=== PATIENT | male | born 1960 | race Caucasian/White ===

== ENCOUNTER 2023-03-14 15:23 | Outpatient (OUT) | payer MEDICARE, SELFPAY ==
--- NOTE | 2023-03-14 | XR_ITS ---
[address] [address] Patient Name: NOEMY PACKER MRN: [id number] date: 1960 Sex: M Assigned Patient Location: [facility] Current Patient Location: [facility] Accession/Order Number: [id number] Exam Date: 03/14/2023 14:10 Report Date: 03/14/2023 18:40 At the request of: KARLA BARNEY Procedure: XR foot AARTI min 3V EXAMINATION: XR foot AARTI min 3V, XR ankle AARTI min 3V HISTORY: BILATERAL FOOT [PAIN COMPARISON: No relevant comparison available. FINDINGS: RIGHT FINDINGS: BONES: Normal. No significant arthropathy or acute abnormality. SOFT TISSUES: Negative. No visible soft tissue swelling. OTHER: Negative. LEFT FINDINGS: BONES: Normal. No significant arthropathy or acute abnormality. SOFT TISSUES: Negative. No visible soft tissue swelling. OTHER: Negative. XR/XR foot AARTI min 3V IMPRESSION: RIGHT CONCLUSION: No acute abnormality LEFT CONCLUSION: No acute abnormality Electronically authenticated by: YARELI CONROY Date: 03/14/2023 18:40
--- NOTE | 2023-03-14 | XR_ITS ---
[address] [address] Patient Name: NOEMY PACKER MRN: [id number] date: 1960 Sex: M Assigned Patient Location: [facility] Current Patient Location: [facility] Accession/Order Number: [id number] Exam Date: 03/14/2023 14:10 Report Date: 03/14/2023 18:40 At the request of: KARLA BARNEY Procedure: XR ankle AARTI min 3V EXAMINATION: XR foot AARTI min 3V, XR ankle AARTI min 3V HISTORY: BILATERAL FOOT [PAIN COMPARISON: No relevant comparison available. FINDINGS: RIGHT FINDINGS: BONES: Normal. No significant arthropathy or acute abnormality. SOFT TISSUES: Negative. No visible soft tissue swelling. OTHER: Negative. LEFT FINDINGS: BONES: Normal. No significant arthropathy or acute abnormality. SOFT TISSUES: Negative. No visible soft tissue swelling. OTHER: Negative. XR/XR ankle AARTI min 3V IMPRESSION: RIGHT CONCLUSION: No acute abnormality LEFT CONCLUSION: No acute abnormality Electronically authenticated by: YARELI CONROY Date: 03/14/2023 18:40
== END 2023-03-14 15:24 | disposition home or self-care (01) ==
LOC: RAD 15:24
PROVIDERS: PCP Family Medicine; Visit Provider Podiatrist Foot & Ankle Surgery
DX: M79.671 Pain in right foot (principal); M79.672 Pain in left foot; M25.571 Pain in right ankle and joints of right foot; M25.572 Pain in left ankle and joints of left foot
CPT/HCPCS: 73610; 73630

== ENCOUNTER 2024-02-27 13:01 | Outpatient (OUT) | payer MEDICARE, SELFPAY ==
[2024-02-27 13:50] LABS: Basophils Percent Auto 0.7 % (0.2-2.0); Eosinophils Absolute Auto 0.1 10^3/uL (0.0-0.7); Eosinophils Percent Auto 1.2 % (0.9-7.0); Hematocrit 46.4 % (42.0-54.0); Hemoglobin 15.5 g/dL (14.0-18.0); Immature Granulocytes Abs Auto 0.02 10^3/uL (0.00-0.03); Immature Granulocytes Pct Auto 0.3 % (0.0-0.5); Lymphocytes Absolute Auto 1.4 10^3/uL (1.2-3.8); Lymphocytes Percent Auto 22.7 % (20.5-60.0); Mean Corpuscular HGB Conc 33.4 g/dL (29.9-35.2); Mean Corpuscular Hemoglobin 29.1 pg (25.9-34.0); Mean Corpuscular Volume 87.1 fL (80.0-94.0); Mean Platelet Volume 9.4 fL (9.5-13.5); Monocytes Absolute Auto 0.3 10^3/uL (0.3-0.8); Monocytes Percent Auto 5.1 % (1.7-12.0); Neutrophils Absolute Auto 4.2 10^3/uL (1.4-6.5); Platelet Count 292 10^3/uL (150-450); Red Blood Count 5.33 10^6/uL (4.70-6.10); Red Cell Distribution Width 12.9 % (11.0-15.0)
[2024-02-27 14:16] LABS: Alanine Aminotransferase 35 U/L (16-63); Albumin Globulin Ratio 0.9; Albumin Level 3.5 g/dL (3.4-5.0); Alkaline Phosphatase 92 U/L (46-116); Anion Gap 8.3; Aspartate Amino Transferase 28 U/L (15-37); BUN Creatinine Ratio 17.6; Bilirubin Total 0.5 mg/dL (0.2-1.0); Calcium 9.1 mg/dL (8.5-10.1); Carbon Dioxide 29.9 mmol/L (21.0-32.0); Chloride 104 mmol/L (98-107); Estimated GFR (African America >60 (>=60); Estimated GFR (Non-African Ame >60 (>=60); Globulin 3.7 g/dL; Glucose 98 mg/dL (74-106); Potassium 4.2 mmol/L (3.5-5.1); Sodium 138 mmol/L (136-145); Total Protein 7.2 g/dL (6.4-8.2)
[2024-02-28 05:10] LABS: HIV Ab/p24 Ag Screen Non Reactive (Non Reactive)
[2024-02-28 06:12] LABS: HBsAg Screen Negative (Negative); HCV Antibody Non Reactive (Non Reactive); Hep B Core Ab, Tot Negative (Negative); Hepatitis B Surf Ab Quant <3.5 mIU/mL (Immunity>10); Varicella-Zoster V Ab, IgG 996 index (Immune >165)
[2024-02-29 11:10] LABS: QuantiFERON-TB Gold Plus Negative (Negative)
== END 2024-02-27 13:02 | disposition home or self-care (01) ==
PROVIDERS: PCP Internal Medicine; Visit Provider Psychiatry & Neurology Neurology
DX: G35 Multiple sclerosis (principal)
CPT/HCPCS: 36415; 80053; 85025; 86317; 86480; 86704; 86787; 86803; 87340; 87389

== ENCOUNTER 2025-05-06 08:56 | Outpatient (OUT) | payer MEDICARE, SELFPAY ==
--- OUTSIDE RECORDS SUMMARY | 2025-04-27 05:24 | XMS_ITS | Continuity of Care Document ---
Author Organization [facility] Address [address] [place] [address] Phone Care Team Providers Care [employer] Maintainer Name Role Phone Bela Moreira DO Primary Care Provider Bela Moreira DO Attending Provider [phone] Care Teams Patient Care Team Team Status: Active Member Role/Relationship Status Dates Bela Moreira DO Primary Care Provider Active Patient Care Team Team Status: Inactive Member Role/Relationship Status Dates Bela Moreira DO Primary Care Provider Active S tart: April 27, 2025 End: April 27, 2025Bela Moreira DOAttending ProviderActiveStart: April 27, 2025 End: April 27, 2025 Chief Complaint and Reason for Visit Chief Complaint Admit Date new patient April 27, 2025 9:04am Reason for Visit Admit Date Multiple sclerosis April 27, 2025 9:04am Screening for prostate cancer April 182024 9:04am Wellness examination April 27, 2025 9:04am Allergies, Adverse Reactions, Alerts Allergen Type Severity Reaction Last Updated Verified Status penicillamine Allergy Unknown hives April 27, 2025 9:10am Yes Active Penicillins Allergy Unknown Hives April 27, 2025 9:10am Y es Active Social History Smoking Status Status Start Date End Date Date of Observa tion Ex-smoker (finding) April 27, 2025 9:14am Observation Status Observation Response Date of Response Legal Sex Male (finding) Sex Assigned At [facility] 1959 Family History Relationship Condition Age at Onset Recorded Date/T ronnie mother Malignant neoplasm of colon Unknown fatherMultiple myelomaUnknowngrandparentMalignant neoplasm of colonUnknownsister Adenocarcinoma of appendixUnknownbrotherPolyp of colonUnknownauntDiabetes mellitusUnknownbrotherDeceasedUnknownMuscular dystrophyUnknownfatherHeart diseaseUnknownMalignant neoplasmUnknownHypertensionUnknownDeceasedUnknown grandparentMalignant neoplasmUnknowngrandparentMalignant neoplasmUnknownmother DeceasedUnknownMalignant neoplasmUnknownFamily history of colon cancerUnknown siblingMalignant neoplasmUnknown Problems Active Problems Problem Diagnosis/Recorded Date Onset Date Status C omments Screening for prostate cancer April 27, 2025 10:03am Unknown Active Wellness examinationApril 27, 2025 10:02amUnknownActiveMultiple sclerosis April 23, 2025 2:41pmUnknownActiveInactive/Resolved Problems Problem Diagnosis/Recorded Date Onset Date Status C omments Left hydrocele March 01, 2021 12:28pm Unknown Res olved Problem List clean- up per request of Phys. EHR Cmte Medications Medication Status Dose Units Route Directions Qty Days Refills S tart Date Stop Date End Date Reason(s) Instructions Adherence Multivitamin Tablet Active 1 TAB PO Daily February 28, 2021 11:00pmComplies with drug therapyHydrocodone-Acetaminophen 5-325 mg rmepwcMceimwqultgg1FVLIFU3K as needed for Severe xefa054Ondieswvd 2024 9:10amLeft hydrocele Hydrocele, unspecifiedIbuprofen 200 mg btqofzYumvff880KKZKAhkfz 6 hours as neededApril 27, 2025 12:00amComplies with drug therapyCladribine(Multiple Sclerosis) ([employer] (10 Tablet Pack)) 10 mg kvanvnUfmoqb28UKAFJduazYyeiabpm 10th, 2025 12:00amadminister daily for 5 days for each of 2 cycles per yearly treatment courseComplies with drug therapy Immunizations Immunization Event Date Not Given Reason Dose Number Cross Roller Lot Number Reason(s) Given Vaccine Information Statement (VIS) Detail Administration Location Tetanus, Diphtheria, Pertussis (Tdap) April 012015 Vital Signs Vital Reading Result Reference Range Collection Date/Time Height 69 [in_i] April 27, 2025 9:25ncRqsatx22.21 kgApril 27, 2025 9:08amHeart Rate72 /qut20-932ViiboewwApril 27, 2025 9:08amRespiratory rate20 /thp44-17TsicszxbApril 27, 2025 9:08amOxygen saturation by Pulse nweoqziy53 %95-100April 27, 2025 9:08amBP Jmcsvpnj880 mm[Hg]100-140April 27, 2025 9:08amBP Fhxmuhwma66 mm[Hg]60-100April 27, 2025 9:08amBMI (Body Mass Index)23.1 kg/r3AspnzrkpApril 27, 2025 9:08am Advance Directives Advance Directive Response Recorded Date/ Time Advance Directives No February 5:52pm Insurance Providers Guarantor Espino[place] Address [address] [facility] [address]Hghkxdv Info.Home Phone: Coverage Status Update:2025 Payer Group Member ID Coverage Type Subscriber Relationship to Subscriber Effective Date Expiration Date Medicare [id number] A Humbert Id: [id number] [address] [facility] [address] Home Phone: Email: [email or web address] Id: [id number] A Humbert Id: [id number] [address] [facility] [address] Home Phone: Email: [email or web address] Encounter Location(s) Arrival/Admit Date Discharge/Departure Date Discharge/Departure Disposition Provider(s) Departed Physician/ Provider Office Visit -[facility] [place] April 27, 2025 9:04am April 27, 2025 10:11am Discharged to home care or self care (routine discharge) Bela Moreira DO Recent Diagnosis Onset Date Admit Date Multiple sclerosis Unknown April 9:04am Screening for prostate cancer Unknown No vember 2024 9:04am Wellness examination Unknown April 272024 9:04am Assessments Diagnosis Onset Date Resolution Status Admit Date Multiple sclerosis acuteApril 27, 2025 9:04amScreening for prostate canceracuteApril 27, 2025 9:04amWellness examinationacuteApril 27, 2025 9:04am Plan of Treatment Future Tests Future scheduled test information is unavailable Pending Tests Pending diagnostic test information is unavailable Future Visits Future appointment information is unavailable Future Procedures Procedure Name Ordered Date Scheduled Date Complete Blood Count Auto Diff April 27 10:03am CMP with reflex to H8SVbjozbhvApril 27, 2025 10:03amLipid PanelApril 27, 2025 10:03amPSA Screen (Yearly Only)April 27, 2025 10:03amThyroid Stimulating HormoneNov2024 10:03am Future Medications Future medication information is unavailable Patient Instructions Patient instructions are unavailable
--- OUTSIDE RECORDS SUMMARY | 2025-05-05 09:53 | XMS_ITS | CCD ---
Author Organization [facility] [place] Care Team Providers Care Accounts Receivable Bookkeeper Name Role Phone Filomena Albert Unavailable MORAN, DR FAUST Admitting Unavailable HOUSE, DR FAUST Attending Unavailable HOUSE, DR FAUST Primary Care Unavailable HOUSE, DR FAUST Consulting Unavailable NAY, LAURYN Admitting Unavailable NAY, LAURYN Attending Unavailable HOUSE, DR FAUST Primary Care Unavailable ZIEBER, DR LEONIDAS Reece Consulting Unavailable NAY, LAURYN Consulting Unavailable HOUSE, DR FAUST Admitting Unavailable HOUSE, DR FAUST Attending Unavailable HOUSE, DR FAUST Primary Care Unavailable HOUSE, DR FAUST Consulting Unavailable HOUSE, DR FAUST Admitting Unavailable HOUSE, DR FAUST Attending Unavailable HOUSE, DR FAUST Primary Care Unavailable HOUSE, DR FAUST Consulting Unavailable Hernnadez, Wincha Consulting Unavailable FLOM ROANN Referring Unavailable FLOMANIBALANN Attending Unavailable TAMIE GÓMEZ Primary Care Unavailable Yecenia Vazquez MD Primary Care Provider [phone] YECENIA VAZQUEZ Referring Unavailable YECENIA VAZQUEZ Primary Care Unavailable YECENIA VAZQUEZ Referring Unavailable YECENIA VAZQUEZ Primary Care Unavailable Leonidas Charles MD Unavailable Pedro STRADDLE BUGGY OPERATOR-Tamie CAMPOVERDE Primary Care Provider Yecenia Vazquez DO Primary Care Provider [phone] YECENIA VAZQUEZ Attending Unavailable TAMIE GÓMEZ Referring Unavailable YECENIA VAZQUEZ Primary Care Unavailable YECENIA VAZQUEZ Attending Unavailable YCEENIA VAZQUEZ Referring Unavailable YECENIA VAZQUEZ Primary Care Unavailable LOGAN DUNBAR Attending Unavailable YECENIA VAZQUEZ Referring Unavailable YECENIA VAZQUEZ Primary Care Unavailable YECENIA VAZQUEZ Attending Unavailable YECENIA VAZQUEZ Referring Unavailable YUYECENIA ARAGON Primary Care Unavailable YECENIA VAZQUEZ Referring Unavailable YECENIA VAZQUEZ Primary Care Unavailable YUHAS, YECENIA L Attending Unavailable YUHAS, YECENIA L Referring Unavailable YUHAS, YECENIA L Primary Care Unavailable Yuhas DO, Yecenia Rita Primary Care Provider Yecenia Vazquez MD Primary Care Provider [phone] Leonidas Charles MD Unavailable Unavailable Leonidas Charles MD Unavailable ALYCIA NIX Attending Unavailable SPENCER JUDGE Attending Unavailable SOLOMON, LUCIAN W Attending Unavailable SOLOMON, LUCIAN W Referring Unavailable SOLOMON, LUCIAN W Attending Unavailable SOLOMON, LUCIAN W Attending Unavailable MARITZA ARZOLA Attending Unavailable SOLOMON, LUCIAN W Referring Unavailable KELBLEY, KELSIE Attending Unavailable SOLOMON, LUCIAN W Referring Unavailable KELBLEY, KELSIE Attending Unavailable SOLOMON, LUCIAN W Referring Unavailable KELBLEY, KELSIE Attending Unavailable SOLOMON, LUCIAN W Referring Unavailable VANNESA MENSAH Attending Unavailable LEONIDAS CHARLES Referring Unavailable LAURYN ALICIA Attending Unavailable ALYCIA NIX Attending Unavailable YUHAS, YECENIA L Referring Unavailable YUHAS, YECENIA L Primary Care Unavailable YUHAS, YECENIA L Referring Unavailable YUHAS, YECENIA L Primary Care Unavailable YUHAS, YECENIA L Admitting Unavailable YUHAS, YECENIA L Attending Unavailable YUHAS, YECENIA L Referring Unavailable YUHAS, YECENIA L Primary Care Unavailable YUHAS, YECENIA L Primary Care Unavailable IGNACIA HATCH Attending Unavailable Bela Moreira DO Primary Care Provider Bela Moreira DO Attending Provider Allergies Allergy ClassificationReported Allergen(s)Allergy TypeDate of OnsetReaction(s) Facility (2 sources)penicillAMINEDrug Yjnxjem29-58-2482wrdjbUfeihehfkProMedica [facility] (2 sources)Penicillin; Translations: [penicillin]Drug Takbxrf08-14-8212UlplzCoq [facility] (1 source)Soy beanPropensity to adverse reactionsUnkCox North AcceloWeb Other (1 source)Cow's MilkPropensity to adverse reactionsUnkCox North AcceloWeb Other (20 sources)Penicillins; Translations: [PENICILLINS]Propensity to adverse qixnkpzck73-89-2295XbcnzKICA Healthcare (14 sources)PenicillinsPropensity to adverse reactions to fwuu13-30-0234XulyuFormerly [facility] Work Phone: (1 source)PenicillinsPropensity to adverse reactions to kidf58-20-7783OeqmcCentra [facility] Work Phone: Medications Current Medications MedicationDrug Class(es)DatesSig (Normalized)Sig (Original)[id number] 200 actuat albuterol 0.09 mg/actuat metered dose inhaler (1 source)beta2-Adrenergic AgonistStart: 27-71-8858hfrl 2 puff(s) by inhalation four times daily as neededAlbuterol Sulfate HFA 108 (90 Base) MCG/ACT 2 puffs Inhalation 4 times a day prn Dec, Activeazithromycin 250 mg oral tablet (1 source)Macrolide AntimicrobialStart: 95-14-0726Hqctkjnohdqy 250 MG 2 tablet on the first day, then 1 tablet daily for 4 days Orally Once a day for5 day(s) Dec, Activecalcium citrate 250 mg / ergocalciferol 100 mg oral tablet (3 sources)Provitamin D2 Compoundtake 1 tablet by mouth in the morning, then take 1 tablet by mouth once at bedtimecalcium citrate-vitamin D2 250 mg-2.5 mcg (100 unit) per tablet Take 1 tablet by mouth in the morning and 1 tablet before bedtime. Activecladribine 10 mg oral tablet (1 source)Purine AntimetaboliteStart: 01-84-5230qqzo 2 tablets by mouth once dailyCladribine(Multiple Sclerosis) (Mavenclad (10 Tablet Pack)) 10 mg tablet Active 10 MG PO Daily April 27, 2025 12:00am administer daily for 5 days for each of 2 cycles per yearly treatment courseComplies with drug therapyCough Syrup (1 source)Cough Syrup Activeibuprofen 200 mg oral tablet (18 sources)Nonsteroidal Anti-inflammatory DrugStart: 06-65-8278vyac 1 tablet by mouth every six hours as neededIbuprofen 200 mg tablet Active 200 MG PO Every 6 hours as needed April 27, 2025 12:00am Complies with drug therapy End: 85-72-5211risz 1 tablet by mouth every six hours as needed for pain ibuprofen (ADVIL,MOTRIN) 200 mg tablet Take 1 tablet (200 mg total) by mouth every 6 (six) hours asneeded for pain. ActiveMulti For Him - (1 source)Multi For Him - as directed Orally ActiveMultiple Vitamin tablet (20 sources)take 1 tablet by mouth once dailyMultiple Vitamin tablet Take 1 tablet by mouth Daily Notes: *please review for potential _update for e- prescription and drug interaction check* Hpfeodoegrnmqa-kwwt-ZJ-calcium &mins (THERAGRAN-M) 9 mg iron-400 mcg tablet (17 sources)uiutmoyo-gnzx-EI-calcium &mins (THERAGRAN-M) 9 mg iron-400 mcg tablet Take 1 tablet by mouth inthe morning. Hssrcldgtypfxr-qynn-SD-calcium &mins (THERAGRAN-M) 9 mg iron-400 mcg tablet Take 1 tablet by mouth inthe morning. 0 ActiveMultivitamin Tablet (1 source)Start: 21-37-1087psot 1 tablet by mouth once dailyMultivitamin Tablet Active 1 TAB PO Daily February 28, 2021 11:00pm Complies with drug therapy naproxen sodium 220 mg oral tablet (3 sources)Nonsteroidal Anti-inflammatory DrugStart: 81-85-4728ugmp 1 tablet by mouth in the morning, then take 1 tablet by mouth at mealtimenaproxen sodium (ALEVE) 220 mg tablet Indications: Spinal stenosis of lumbar region with neurogenicclaudication Take 1 tablet (220 mg total) by mouth in the morning and 1 tablet (220 mg total) in the evening. Take with meals. 08/27/2024 Activetake 1 tablet by mouth every twelve hours at mealtime as neededAleve 220 MG 1 tablet with food or milk as needed Orally every 12 hrs Activepregabalin 75 mg oral capsule (20 sources)Start: 02-05-2024 End: 41-49-1822ejzi 1 capsule by mouth in the morning, then take 1 capsule by mouth in the evening, then take 1 capsule by mouth at bedtimepregabalin (Lyrica) 75 MG capsule Indications: Lumbar radiculopathy Take 1 capsule (75 mg) by mouth in the morning and 1 capsule (75 mg) in the evening and 1 capsule (75 mg) before bedtime. 90 capsule 2 02/06/2024 07/14/2024 Discontinued (Ineffective)Start: 01-05-2023 End: 90-69-8642jszj 1 capsule by mouth in the morning, then take 1 capsule by mouth at bedtimepregabalin (LYRICA) 50 mg capsule Indications: Left lumbar radiculopathy Take 1 capsule (50 mg total) by mouth in the morning and 1 capsule (50 mg total) before bedtime. 60 capsule 12/05/2023 08/14/2024 Discontinued (Patient Stopped On Own)vitamin a 2.4 mg oral capsule (3 sources)Vitamin Atake 1 capsule by mouth in the morningvitamin A 8000 UNIT capsule Take 1 capsule (8,000 Units total) by mouth in the morning. Active vitamin b12 1 mg oral tablet (20 sources)Vitamin J37Wtdvi: 10-23-2023 End: 58-10-4764nvme 1 tablet by mouth in the morningcyanocobalamin (vitamin B- 12) 1000 MCG tablet Indications: B12 deficiency Take 1 tablet (1,000 mcg total) by mouth in the morning. 90 tablet 1 02/27/2024 Active Completed/Discontinued Medications MedicationDrug Class(es)DatesSig (Normalized)Sig (Original)acetaminophen 325 mg oral tablet (2 sources)Start: 04-10-2024 End: 76-61-4418801 mg, oral, Once, On Yolis 04/10/24 at 0915, For 1 dose, 30 MINUTES PRIOR TO TREATMENTStart: 03-27-2024 End: 17-38-5368380 mg, oral, Once, On Yolis 03/27/24 at 0830, For 1 dose, 30 MINUTES PRIOR TO TREATMENTacetaminophen 325 mg / HYDROcodone bitartrate 5 mg oral tablet (1 source)Opioid AgonistStart: 03-15-2021 End: 14-01-6192vxks 1 tablet by mouth every eight hours as needed for pain Hydrocodone-Acetaminophen 5-325 mg tablet Discontinued 1 TAB PO Q8H as needed for Severe pain 6 3 0September 2020April 27, 2025 9:10am Left hydrocele Hydrocele, unspecifiedbupivacaine hydrochloride 2.5 mg/ml injectable solution (2 sources)Amide Local AnestheticStart: 04-30-2024 End: 71-88-6014rlnjzdaramp (Marcaine) 0.25 % injection 3 mLStart: 04-30-2024 End: mL, Injection, Once PRN Procedure, Starting on Sun04/30/24 at 0849, For 1 dose12 hr dalfampridine 10 mg extended release oral tablet (8 sources)Potassium Channel BlockerStart: 07-10-2024 End: 40-47-0044bhkr 1 tablet by mouth in the morning, then take 1 tablet by mouth every twelve hours at bedtimeDalfampridine ER (Ampyra) 10 MG tablet sustained-release 12 hour Indications: Multiple sclerosis (CMS/HCC) Take 10 mg by mouth in the morning and 10 mg before bedtime. 60 tablet 1 07/10/2024 10/30/2024 Discontinued (Therapy completed)diphenhydrAMINE (2 sources)Histamine-1 Receptor AntagonistStart: 04-10-2024 End: mg, intravenous, Once, On Sun04/10/24 at 0915, For 1 dose, 30 MINUTES PRIOR TO TREATMENT Look-alike/sound-alike medication - verify indication for use., Intravenous Specific Administration: IV PushStart: 03-27-2024 End: mg, intravenous, Once, On Sun03/27/24 at 0830, For 1 dose, 30 MINUTES PRIOR TO TREATMENT Look-alike/sound-alike medication - verify indication for use., Intravenous Specific Administration: IV Push methylPREDNISolone 40 mg injection (4 sources)CorticosteroidStart: 04-30-2024 End: 65-02-0789vdcylxAAJFCFTluczc Na Suc (PF) reconstituted solution 40 mgStart: 04-30-2024 End: 13-06-835769 mg, Injection, Once PRN Procedure, Starting on Sun04/30/24 at 0849, For 1 doseStart: 04-10-2024 End: 63-15-0740373 mg, intravenous, Once, On Yolis 04/10/24 at 0915, For 1 dose, 30 MINUTES PRIOR TO TREATMENT May alter blood glucose or insulin requirements. Look-alike/sound-alike medication - verify indication for use., Intravenous Specific Administration: IV PushStart: 03-27-2024 End: 52-67-9522446 mg, intravenous, Once, On Yolis 03/27/24 at 0830, For 1 dose, 30 MINUTES PRIOR TO TREATMENT May alter blood glucose or insulin requirements. Look-alike/sound-alike medication - verify indication for use., Intravenous Specific Administration: IV Push10 ml ocrelizumab 30 mg/ml injection (8 sources) End: 85-98-8327ncatdidxkod (Ocrevus) 300 MG/10ML solution Infuse 600 mg into a venous catheter every 6 (six) months 10/30/2024 Discontinued (Therapy completed) ocrelizumab (OCREVUS) 300 mg in sodium chloride 0.9 % 250 mL IVPB (2 sources)Start: 04-10-2024 End: 38-79-2653xbuu 300 mg intravenously zxbr297 mg, intravenous, Once, On Yolis 04/10/24 at 0945, For 1 dose, DOSE #2 Start at 30 mL/hr and increase by 30 mL/hr every 30 min to a max rate of 180 mL/hr. Duration is 2.5 hours or longer. Use a dedicated IV line. Monitor for infusion reactions.Start: 03-27-2024 End: 93-32-0390516 mg, intravenous, Once, On Yolis 03/27/24 at 0900, For 1 dose, Start at 30 mL/hr and increase by 30 mL/hr every 30 min to a max rate of 180 mL/hr. Duration is 2.5 hours or longer. Use a dedicated IVline. Monitor for infusion reactions.OXcarbazepine 150 mg oral tablet (3 sources)Anti-epileptic Agent End: 34-38-4126leee 1 tablet by mouth in the morningOXcarbazepine (Trileptal) 150 MG tablet Take 150 mg by mouth in the morning and 150 mg before bedtime. 02/05/2024 Discontinued (Therapy completed)1000 ml sodium chloride 9 mg/ml injection (1 source)Start: 03-27-2024 End: 70-10-4071qwkh 25 mL intravenously every hour as hykusi29 mL/hr, intravenous, Continuous PRN, When mainline IV needed., Starting on Yolis 03/27/24 at 0820, Match IVF to base solution of product being administered to ensure compatibility.tiZANidine 4 mg oral tablet (6 sources)Central alpha-2 Adrenergic AgonistStart: 04-23-2023 End: 89-71-0234cwxg 1 tablet by mouth twice daily as needed for muscle spasms tiZANidine (ZANAFLEX) 4 mg tablet Indications: Spinal stenosis of lumbar region with neurogenic claudication Take 1 tablet (4 mg total) by mouth 2 (two) times a day as needed for muscle spasms. 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]EpisodicDiabetes mellitus without complication (4 sources)Type 2 diabetes mellitus without complications; Translations: [TYPE 2 DM WITHOUT COMPLICATIONS]Onset: 06-79-4710AouvexvBfiicirow of lipid metabolism (3 sources)Mixed hyperlipidemia; Translations: [Mixed hyperlipidemia]Onset: 546774-82-1243AciadkiUifabssuslkdhj and diverticulitis (1 source)Diverticulosis of sigmoid colon; Translations: [Diverticulosis of large intestine without perforation or abscess without bleeding]Chronic Inflammation; infection of eye (except that caused by tuberculosis or sexually transmitteddisease) (1 source)Retrobulbar neuritis; 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, bilateral] ChronicMultiple sclerosis (20 sources)Multiple sclerosis; Translations: [Multiple sclerosis]Onset: 91-01-8589LhahenfUfkle acquired deformities (1 source)Spondylolisthesis L5/S1 level; Translations: [Spondylolisthesis, lumbosacral region]EpisodicOther acquired deformities (4 sources)Leg length inequality; Translations: [Unequal limb length (acquired), unspecified site]87-76-1976GfzuruacHmbgu acquired deformities (1 source)Acquired unequal limb length; Translations: [Unequal limb length (acquired), unspecified site]EpisodicOther congenital anomalies (1 source)Spina bifida occulta; Translations: [Spina bifida occulta]10-22-2023 ChronicOther connective tissue disease (20 sources)Other symptoms and signs involving the musculoskeletal system; Translations: [Other musculoskeletalsymptoms referable to limbs]Onset: 767301-64-7263RtjzkfmzJhdir connective tissue disease (4 sources)Muscle pain; Translations: [Myalgia, unspecified site]04-23-2024 EpisodicOther connective tissue disease (1 source)Pain in left leg; Translations: [Pain in left leg]Onset: 03-20-2025 EpisodicOther ear and sense organ disorders (1 source)Conductive hearing loss; Translations: [Conductive hearing loss, unspecified]ChronicOther ear and sense organ disorders (1 source)Hearing loss; Translations: [Unspecified hearing loss, unspecified ear]ChronicOther eye disorders (2 sources)Other optic atrophy, bilateral; Translations: [Other optic atrophy, bilateral]Onset: 57-79-4228VetohkxMdxdd gastrointestinal disorders (1 source)Diarrhea; Translations: [Diarrhea, unspecified]EpisodicOther gastrointestinal disorders (1 source)H/O: gallstones; Translations: [Personal history of other diseases of the digestive system]EpisodicOther hereditary and degenerative nervous system conditions (5 sources)Anterior horn cell disease; 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]Onset: 475757-24-6940TaemqmuCthdj hereditary and degenerative nervous system conditions (1 source)Other motor neuron disease; 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 EHR CmteOther nervous system disorders (1 source)Chronic pain; Translations: [Other chronic pain]ChronicOther nervous system disorders (1 source)Difficulty walking; Translations: [Difficulty in walking, not elsewhere classified]ChronicOther nervous system disorders (20 sources)Demyelinating disease of central nervous system; Translations: [Demyelinating disease of central nervous system, unspecified]Onset: 11-25-2012 39-19-4313WnuustqJvvuy nervous system disorders (2 sources)Polyneuropathy, unspecified; Translations: [Polyneuropathy, unspecified]Onset: 25-49-7067WhqbxieKrvgt nervous system disorders (2 sources)Neuropathy; Translations: [Polyneuropathy, unspecified]07-31-2023 ChronicOther nervous system disorders (1 source)Polyneuropathy; Translations: [Polyneuropathy, unspecified]10-22-2023 ChronicOther nervous system disorders (1 source)Cervical myelopathy; Translations: [Disease of spinal cord, unspecified]39-66-6548WnglaibPzbin nervous system disorders (1 source)Ataxia; Translations: [Ataxia, unspecified]EpisodicOther nervous system disorders (2 sources)Impairment of balance; Translations: [Other abnormalities of gait and mobility]EpisodicOther nervous system disorders (1 source)Abnormal gait; Translations: [Unspecified abnormalities of gait and mobility]EpisodicOther nervous system disorders (20 sources)Paresthesia; Translations: [Paresthesia of skin]54-51-0427Zkxqwdsn Other screening for suspected conditions (not mental disorders or infectious disease) (4 sources)Patient encounter status; Translations: [Encounter for screening for malignant neoplasm of colon]Onset: 227612-29-8030TwygbxjvPydmv upper respiratory infections (1 source)Sinusitis; Translations: [Chronic sinusitis, unspecified]Chronic Paralysis (15 sources)Monoparesis; 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, unspecified affecting unspecified side]Onset: 347091-89-2276OtltyihIdjxlvbu codes; unclassified (1 source)Family history of cancer of colon; Translations: [Family history of malignant neoplasm of digestiveorgans]EpisodicResidual codes; unclassified (1 source)Normal body mass index; Translations: [Other specified health status] EpisodicResidual codes; unclassified (2 sources)Other specified health status; Translations: [Other specified health status]Onset: 88-37-9595RunkjjprNsyaptsgcgu; intervertebral disc disorders; other back problems (20 sources)Inflammation of sacroiliac joint; Translations: [Sacroiliitis, not elsewhere classified]Onset: 791428-40-8006OfmxmqiXuvpanxzuzk; intervertebral disc disorders; other back problems (20 sources)Low back pain; Translations: [Low back pain]Onset: 07-10-2019 62-57-2639BtyptnldHywfoacmzetd (4 sources)COUGH, UNSPECIFIED; Translations: [COUGH, UNSPECIFIED]Onset: 67-32-9629Csbfslkpchfu (1 source)Low back pain lt side only radiating to groin area &legOnset: 04-06-2830Ikiejymxakph (1 source)Autogenerated ProblemOnset: 430138-20-5347Fbhbucsaekhr (2 sources)Left leg mrsnggab57-24-7767Hleezlggmtae (1 source)family history of colon cancerOnset: 58-08-2791Wayvfdhkylzh (1 source)Outpatient InfusionOnset: 03-27-2024 Past or Other Problems Problem ClassificationProblemDateDocumented DateEpisodic/ChronicAcquired foot deformities (20 sources)Left foot drop; Translations: [Foot drop, left foot]Onset: 946916-59-3610OpysregjSlhnwzvr of urinary tract (19 sources)Kidney stone; Translations: [Calculus of kidney]Onset: 10-18-2022 25-08-1642EafvgmcrYawuikm obstructive pulmonary disease and bronchiectasis (1 source)Bronchitis, not specified as acute or chronicOnset: 01-11-2022 Resolved: 91-41-9345FbjzcysgAbnw disorders (17 sources)Mood disordersOnset: 04-23-2023 Resolved: 963821-32-2115Jwgsbsxxisq deficiencies (5 sources)Deficiency of other specified B group vitamins; Translations: [Cobalamin deficiency]Onset: 601671-99-7283XheolsyoOxjzt connective tissue disease (2 sources)Musculoskeletal finding; Translations: [Other symptoms and signs involving the musculoskeletal system]95-51-6079RijpxjltThkrz connective tissue disease (2 sources)Pain in left lower limb; Translations: [Pain in left leg]07-31-2023 EpisodicOther male genital disorders (17 sources)Disorder of male genital organ; Translations: [Disorder of male genital organs, unspecified]Onset: 892174-40-8707NrcdxtopLgfdo nervous system disorders (17 sources)History of optic neuritis; Translations: [Personal history of other diseases of the nervous system and sense organs]Onset: 527900-56-3265 EpisodicResidual codes; unclassified (1 source)Family history of malignant neoplasm of digestive organs; Translations: [Family history of malignant neoplasm of digestive organs]Onset: 31-89-0013ErngdetzQgdsxqnrqzhm (1 source)Acute cough R05.1Onset: 01-11-2022 Resolved: 96-31-0493Qbrewfnlokgd (1 source)COUGH, UNSPECIFIED; Translations: [COUGH, UNSPECIFIED]Onset: 02-24-2022 Results Test NameValueInterpretationReference RangeFacilityCT BRAIN WO CONTon 03-20-2025 CT BRAIN WO CONTCT BRAIN WO CONT STUDY: CT HEAD WITHOUT CONTRAST CLINICAL HISTORY: Left-sided weakness. History of fall COMPARISON: 04/01/2016 TECHNIQUE: CT head was performed without contrast utilizing 2.5 mm axial reconstruction with imagesreviewed in bone and brain windows. Automated exposure control was utilized. FINDINGS: Noncontrast CT scan examination of the brain reveal normal ventricular size and configuration. There is no evidence of mass, mass effect or midline shift. No evidence of intracranial bleeding. Subtlelow-attenuation in the periventricular white matter suggesting mild microvascular white matter ischemic disease. The graft evaluation of the bone windows revealed adequate aeration of the visualized paranasal sinuses and mastoid air cells without focal abnormalities. Mild vascular calcifications bilaterally. IMPRESSION: 1. No evidence of an acute intracranial process. 3mild periventricular white matter microvascular ischemic disease similar to prior study. All CT scans at this facility use dose modulation, iterative reconstruction, and/or weight based dosing when appropriate to reduce radiation dose to as low as reasonably achievable. Finalized by Myranda Yi MD on 03/20/2025 9:59 AMNormalProMedica Bear Valley Community HospitalCT CERVICAL SPINE WO CONTon 18-98-6943NK CERVICAL SPINE WO CONTCT CERVICAL SPINE WO CONT History: Fall, left-sided weakness. Technique: Multidetector spiral CT scan of cervical spine is performed. Multiplanar reconstruction images are obtained. All CT scans at this facility use dose modulation, iterative reconstruction, and/or weight based dosing when appropriate to reduce radiation dose to as low as reasonably achievable. Comparison: 04/01/2016. Findings: There is no evidence of fracture through the cervical vertebrae. The posterior elements are intact. No bony fragments are seen in the spinal canal. Sagittal and axial images demonstrate normal vertebral heights. There is no evidence of compressionfractures or malalignment. The odontoid process is intact. No significant prevertebral soft tissue abnormality is identified. Mild degenerative changes slightly worsened. IMPRESSION: No evidence of fractures, malalignment or acute bony pathology. Finalized by Leonidas Catherine MD on 03/20/2025 9:58 [facility] ShawCT LUMBAR SPINE WO CONTon [id number] LUMBAR SPINE WO CONTCT LUMBAR SPINE WO CONT History: Fall, left-sided weakness. EXAM: CT lumbar spine without contrast. All CT scans at this facility use dose modulation, iterative reconstruction, and/or weight based dosing when appropriate to reduce radiation dose to as low as reasonably achievable. COMPARISON: MR lumbar spine 12/05/2022, CT abdomen pelvis 10/07/2017 FINDINGS: No acute fracture or dislocation. No osseous destruction. No bony encroachment of the central canal. Mild degenerative changes L5-S1. Congenital nonfusion L5 spinous process. No paravertebral fluid collections. IMPRESSION: No acute fracture. Moderate degenerative changes lower lumbar spine. Finalized by Leonidas Catherine MD on 03/20/2025 10:06 [facility] THORACIC SPINE WO CONTon [id number] THORACIC SPINE WO CONTCT THORACIC SPINE WO CONT CT THORACIC SPINE WO CONT HISTORY: Left-sided leg weakness. History of fall. Pain COMPARISON: None. TECHNIQUE: Unenhanced axial images of the thoracic spine obtained with sagittal and coronal 2-D reformatted images. Automatic exposure control (AEC) was utilized. FINDINGS: Fracture: No acute fracture appreciated. Cervical spine: Unremarkable lower cervical spine S-shaped thoracolumbar scoliosis with levoconvex upper thoracic scoliosis and dextroconvex thoracolumbar scoliosis. Vertebral heights and disc heights appear relatively preserved and facet joints are well aligned with no evidence of acute bony pathology. Visualized part of the posterior ribs appear unremarkable. Visualized part of the lungs appear grossly unremarkable apart from minimal dependent atelectasis. Soft tissue windows appeared grossly unremarkable. Mild vascular calcification at the aortic arch. IMPRESSION: * No evidence for an acute thoracic spine fracture. Mild S-shaped thoracolumbar scoliosis All CT scans at this facility use dose modulation, iterative reconstruction, and/or weight based dosing when appropriate to reduce radiation dose to as low as reasonably achievable. Finalized by Myranda Yi MD on 03/20/2025 10:03 [facility] ShawMR BRAIN W AND WO CONTRAST (ROUTINE)on [id number] BRAIN W AND WO CONTRAST (ROUTINE)MR BRAIN W AND WO CONTRAST (ROUTINE) INDICATION: Follow up multiple sclerosis COMPARISON: Brain MRI July 10, 2023 TECHNIQUE: Sagittal T1, axial T2, axial T2* GRE, axial FLAIR, axial DWI sequences of the brain wereacquired. Postcontrast T1 sequences following 7 mL of Vueway FINDINGS: No diffusion restriction. No acute or remote hemorrhage identified. CEREBRUM: Periventricular demyelinating lesions at the callososeptal interface are redemonstrated along with several juxtacortical lesions. No mass effect or enhancing lesion CEREBELLUM: Normal. BRAINSTEM: There is an elongated demyelinating lesion in the right uma, similar in appearance. VENTRICLES AND EXTRA-AXIAL SPACES: The ventricles are normal in size and symmetric. There are no extra-axial fluid collections. MAJOR ARTERIES/DURAL SINUSES: Normal appearing dural venous sinuses and arterial enhancement. No pathologic enhancement identified. SKULL/SCALP: Normal. PARANASAL SINUSES AND MASTOID AIR CELLS: Normal. IMPRESSION: Stable demyelinating lesions in the bilateral cerebral white matter and in the right uma. No apparent progression or enhancing lesions. Dictated on: 11/12/2024 11:32 AM This report has been electronically signed and approved by the interpreting Radiologist.NormalNot AvailableMR LUMBAR SPINE W AND WO CONTRASTon [id number] LUMBAR SPINE W AND WO CONTRASTMR LUMBAR SPINE W AND WO CONTRAST INDICATION: Follow up multiple sclerosis and worsening left leg numbness/tingling COMPARISON: None. TECHNIQUE: Sagittal T1, T2, STIR, AND Axial T2 and PD sequences were acquired. Postcontrast sequences were obtained using 7 mL of Vueway IV. FINDINGS: BONES/DISCS: Lumbosacral vertebral alignment is satisfactory. There is no compression fracture or listhesis. Bone marrow signal is appropriate. CONUS: Cord signal and morphology are normal. PARASPINAL SOFT TISSUES: Normal. CENTRAL CANAL AND FORAMINA, BY LEVEL: L1-L2: Normal. L2-L3: Normal. L3-L4: The disc is normal in appearance. There is no central spinal or foraminal canal encroachment. L4-L5: The disc is normal. There is facet joint arthritis with ligamentous hypertrophy. No central spinal stenosis or foraminal canal encroachment. L5-S1: There is advanced facet joint osteoarthritis and ligamentous hypertrophy. There is disc degeneration with mild posterior annular disc bulge. No significant central spinal stenosis. Mild to moderate foraminal narrowing is seen bilaterally. OTHER: Following IV contrast, no abnormal enhancement in the discs or osseous structures. No abnormal enhancement in the cauda equina or conus medullaris. IMPRESSION: Normal appearing conus and cauda equina with no enhancing lesions visible. 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 Facet joint arthritis is noted at L4-L5. Dictated on: 11/12/2024 11:26 AM This report has been electronically signed and approved by the interpreting Radiologist.NormalNot AvailableCB W Auto Differential panel (Bld)on 11-01-2024 Basophils (Bld) [#/Vol]0 10*3/uLNOMS HealthcareBasophils/100 WBC (Bld)1 %Not Estab.NOMS HealthcareEosinophils (Bld) [#/Vol]0.1 10*3/uLNOMS Healthcare Eosinophils/100 WBC (Bld)1 %Not Estab.NOMS HealthcareErythrocyte distribution width (RBC) [Ratio]12.3 %11.6 - 15.4 %[facility]OMS HealthcareHematocrit (Bld) [Volume fraction]45.7 %37.5 - 51.0 %[facility]OMS HealthcareHemoglobin (Bld) [Mass/Vol]15.2 g/dL 13.0 - 17.7 g/dLNOMS HealthcareImmature granulocytes (Bld) [#/Vol]0 10*3/uLNOMS HealthcareImmature granulocytes/100 WBC (Bld)1 %Not Estab.[facility] Lymphocytes (Bld) [#/Vol]0.9 10*3/uLNOMS HealthcareLymphocytes/100 WBC (Bld)15 % Not Estab.[facility] HealthcareMCH (RBC) [Entitic mass]29.5 pg26.6 - 33.0 pgNOSt. Louis Children's HospitalMCHC (RBC) [Mass/Vol]33.3 g/dL31.5 - 35.7 g/dLSaint John's Aurora Community HospitalMCV (RBC) [Entitic vol]89 fL79 - 97 fLNOCA HealthcareMonocytes (Bld) [#/Vol]0.5 10*3/uL NOM HealthcareMonocytes/100 WBC (Bld)8 %Not Estab.[facility] HealthcareNeutrophils (Bld) [#/Vol]4.6 10*3/uLNOCA HealthcareNeutrophils/100 WBC (Bld)74 %Not Estab. [facility] HealthcarePlatelets (Bld) [#/Vol]297 10*3/uLTOOELE VALLEY HOSPITAL HealthcareRBC (Bld) [#/Vol]5.15 10*6/uLNOCA HealthcareWBC (Bld) [#/Vol]6.2 10*3/uLSaint John's Aurora Community HospitalHBV core IgM IA Qlon [id number] core Ab IA QlNegativeNegativeSaint [facility] Laboratory - Chemistry and Chemistry - challengeon [id number] [Mass/Vol] 4.3 g/dL3.9 - 4.9 g/dLTOOELE VALLEY HOSPITAL HealthcareALP [Catalytic activity/Vol]104 U/LNOMS HealthcareALT [Catalytic activity/Vol]35 U/LNOMS HealthcareAST [Catalytic activity/Vol]27 U/LNOMS HealthcareBilirubin [Mass/Vol]0.4 mg/dL0.0 - 1.2 mg/dL [facility] HealthcareCalcium [Mass/Vol]9.5 mg/dL8.6 - 10.2 mg/dLSaint John's Aurora Community Hospital Chloride [Moles/Vol]105 mmol/L96 - 106 mmol/LNOMS HealthcareCO2 [Moles/Vol]20 mmol/L20 - 29 mmol/LNOMS HealthcareCreatinine [Mass/Vol]0.98 mg/dL0.76 - 1.27 mg/dLNOMS HealthcareGFR/1.73 sq M.predicted among non-blacks MDRD (S/P/Bld) [Vol rate/Area]87 mL/min/{1.73_m2}59 - PINF mL/min/1.73NOMS HealthcareGlobulin (S) [Mass/Vol]2.4 g/dL1.5 - 4.5 g/dLNOMS HealthcareGlucose [Mass/Vol]94 mg/dL70 - 99 mg/dLNOMS HealthcarePotassium [Moles/Vol]4.6 mmol/L3.5 - 5.2 mmol/LNOMS HealthcareProtein [Mass/Vol]6.7 g/dL6.0 - 8.5 g/dLNOMS HealthcareSodium [Moles/Vol]139 mmol/L134 - 144 mmol/LNOMS HealthcareUrea nitrogen [Mass/Vol]14 mg/dL8 - 27 mg/dLNOMS HealthcareUrea nitrogen/Creatinine [Mass ratio]14 mg/mg10 - 24NOCA HealthcareLaboratory - Microbiology and Antimicrobial susceptibilityon [id number] interferon background IA Qn (Bld)0.04IU/mLNOMS HealthcareM. tuberculosis stim IFN-g by CD4+ CD8+ T-cells corrected for background Qn (Bld) 0.04IU/mLNOMS HealthcareM. tuberculosis stim IFN-g by CD4+ T-cells corrected for background Qn (Bld)0.04 [IU]/mLIU/mLNOMS HealthcareMitogen stimulated gamma interferon corrected for background Qn (Bld)2.25IU/mLNOMS HealthcareLaboratory - Miscellaneous testson 23-73-6116Ecrgyzw comment (Unsp spec) [Interp]CommentNOCA HealthcareComment on above:QuantiFERON-TB Gold Plus is a qualitative indirect test for M tuberculosis infection (including disease) and is intended for use in conjunction with risk assessment, radiography, and other medical and diagnostic evaluations. The QuantiFERON-TB Gold Plus result is determined by subtracting the Nil value from either TB antigen (Ag) value. The Mitogen tube serves as a control for the test. Mitogen stimulated gamma interferon corrected for background Qn (Bld)on 11-01-2024M. tuberculosis stim IFN-g Ql (Bld) [Interp]NegativeNegativeNOCA HealthcareComment on above:No response to M tuberculosis antigens detected. Infection with M tuberculosis is unlikely, but high risk individuals should be considered for additional testing (ATS/IDSA/CDC Clinical Practice Guidelines, 2017). The reference range is an Antigen minus Nil result of <0.35 IU/mL. Chemiluminescence immunoassay methodology QUANTIFERON TB GOLD INCUBATIONIncubation performed.[facility] HospitalNo Panel Informationon [id number] at: 01 - Lab[address] [phone] Automotive Worker: Francisco Bansal PhD, Phone: [phone] Healthcare VITAMIN B12on 35-44-6604Txbslyxsh (Vitamin B12) [Mass/Vol]794 pg/nIWkflej754-927 [facility] TrumbullComment on above:Performed By: #### 2132-9 #### [facility] ([id number]) [address] [place] [address], [address] [place], [place] [address]Litnowv Point Injection: left iliocostalis lumborumon 04-30-2024 TERRELL Gilbert 04/30/2024 9:15 AM Trigger Point Injection: left iliocostalis lumborum on 04/30/2024 8:49 AM Indications: myalgia Details: 25 G needle Medications: 40 mg methylPREDNISolone Na Suc (PF) 40 MG; 3 mL bupivacaine 0.25 % Outcome: tolerated well, no immediate complications Procedure, treatment alternatives, risks and benefits explained, specific risks discussed. Consent was given by the patient. [facility] HealthcareALL CBC WITH AUTO DIFFon [id number] ABSOLUTE AUTO0.0NOCA HealthcareBasophils/100 WBC (Bld)0.7 %0.2 - 2.0 %[facility] HealthcareEosinophils/100 WBC (Bld)1.2 %0.9 - 7.0 %[facility] HealthcareErythrocyte distribution width (RBC) [Ratio]12.9 %11.0 - 15.0 %[facility] HealthcareHematocrit (Bld) [Volume fraction]46.4 %42.0 - 54.0 %[facility] HospitalHemoglobin (Bld) [Mass/Vol]15.5 g/dL14.0 - 18.0 g/dLNOMS HealthcareIMMATURE GRANULOCYTES ABS AUTO 0.02NOMS HealthcareImmature granulocytes/100 WBC (Bld)0.3 %0.0 - 0.5 %[facility] HospitalInterpretation and review of laboratory resultsAbnormalNOCA Healthcare LYMPHOCYTES ABSOLUTE AUTO1.4NOSt. Louis Children's HospitalLymphocytes/100 WBC (Bld)22.7 %20.5 - 60.0 %[facility] CenterH (RBC) [Entitic mass]29.1 pg25.9 - 34.0 pgSaint Louis University Health Science CenterHC (RBC) [Mass/Vol]33.4 g/dL29.9 - 35.2 g/dLSaint Louis University Health Science CenterV (RBC) [Entitic vol]87.1 fL80.0 - 94.0 fLSaint John's Aurora Community HospitalMONOCYTES ABSOLUTE AUTO0.3NOCA HealthcareMonocytes/100 WBC (Bld)5.1 %1.7 - 12.0 %[facility] HospitalNEUTROPHILS ABSOLUTE AUTO4.2NOMS HealthcareNeutrophils/100 WBC (Bld)70.0 %43.0 - 75.0 %[facility] HospitalPlatelet mean volume (Bld) [Entitic vol]9.4 fLLow9.5 - 13.5 fLSaint John's Aurora Community HospitalTBH EO #0.1NOMS [facility] CampusTB BMX334FJUEThree Rivers Healthcare RBC5.33NOMS [facility] CampusTB WBC6.0NOSt. Louis Children's HospitalCLINISYNCNFreeman Heart InstituteCBC AND AUTO DIFFon 26-96-2796AJIDLCGG BASOPHIL0.0 X10E9/LNormal0.0-0.2PKeenan Private Hospital Comment on above:Performed By: #### CMP, TSHR, CBCA, , 2132-02 #### [facility] ([id number]) [address], [address] [place], [place] [address]LAMKGRHG NEUTROPHIL4.1 X10E9/LNormal1.5-6.6ProAcmc Healthcare System Glenbeighca Cleveland Clinic Mercy HospitalComment on above:Performed By: #### CMP, TSHR, CBCA, 77018-5, 2132-02 #### [facility] ([id number]) [address] [place], [place] [address]Apddpilrk/100 WBC (Bld)0.5 %NormalSelect Medical Specialty Hospital [facility]ull Comment on above:Performed By: #### CMP, TSHR, CBCA, , 2132-02 #### [facility] ([id number]) [address], [address] [place], [place] [address]Jnxumyfjrus (Bld) [#/Vol]0.1 10*3/uLNormal0.0-0.4ProTrihealth [facility] HospitalComment on above:Performed By: #### CMP, TSHR, CBCA, , 2132-02 #### [facility] ([id number]) [address], [address] [place], [place] [address]Bhpdedcvted/100 WBC (Bld)1.3 %NormalSelect Medical Specialty Hospital - [facility]ull Comment on above:Performed By: #### CMP, TSHR, CBCA, , 2132-02 #### [facility] ([id number]) [address], [address] [place], [place] [address]Ashkrdcbtgs distribution width (RBC) [Ratio]13.0 %Normal 11.5-15.0ProAultman Orrville HospitalComment on above:Performed By: #### CMP, TSHR, CBCA, , 2132-02 #### [facility] ([id number]) [address], [address] [place], [place] [address]Nqulwcetbv (Bld) [Volume fraction]42.1 %Wvaldd05-45XgeApffvk [place] HospitalComment on above:Performed By: #### CMP, TSHR, CBCA, , 2132-02 #### [facility] ([id number]) [address], [address] [place], [place] [address]Ohtgpjrmib (Bld) [Mass/Vol]14.3 g/rLPoxlho32.0-17.0ProTrihealth [facility] HospitalComment on above:Performed By: #### CMP, TSHR, CBCA, , 2132-02 #### [facility] ([id number]) [address], [address] [place], [place] [address]Oxfawyvwhdm (Bld) [#/Vol]1.4 10*3/uLNormal1.0-3.5ProMedica Grasonville HospitalComment on above:Performed By: #### CMP, TSHR, CBCA, , 2132-02 #### [facility] ([id number]) [address], [address] [place], [place] [address]Csjbgxiioub/100 WBC (Bld)23.2 %NormalProTrihealth [facility] Hospital Hospital Comment on above:Performed By: #### CMP, TSHR, CBCA, , 2132-02 #### [facility] ([id number]) [address], [address] [place], [place] [address]HAW (RBC) [Entitic mass]29.5 hsUyorad43-63MubTuomiy Grasonville HospitalComment on above:Performed By: #### CMP, TSHR, CBCA, , 2132-02 #### [facility] ([id number]) [address], [address] [place], [place] [address]HSYI (RBC) [Mass/Vol]34.0 g/pUXyczrh17-51TlcNbiexq [place] HospitalComment on above:Performed By: #### CMP, TSHR, CBCA, , 2132-02 #### [facility] ([id number]) [address], [address] [place], [place] [address]BYD (RBC) [Entitic vol]87 mJTaylow02-784HgzWsskxw [place] HospitalComment on above:Performed By: #### CMP, TSHR, CBCA, , 2132-02 #### [facility] ([id number]) [address], [address] [place], [place] [address]Sgdunxfka (Bld) [#/Vol]0.4 10*3/uLNormal0-0.9ProAultman Orrville HospitalComment on above:Performed By: #### CMP, TSHR, CBCA, , 2132-02 #### [facility] ([id number]) [address], [address] [place] [address]Wuxkfptzn/100 WBC (Bld)6.5 %NormalSelect Medical Specialty Hospital [facility] Comment on above:Performed By: #### CMP, TSHR, CBCA, , 2132-02 #### [facility] ([id number]) [address], [address] [place], [place] [address]Hotgbdybwan/100 WBC (Bld)68.5 %NormalSelect Medical Specialty Hospital [facility] Comment on above:Performed By: #### CMP, TSHR, CBCA, , 2132-02 #### [facility] ([id number]) [address], [address] [place], [place] [address]Xyokhgbw mean volume (Bld) [Entitic vol]7.4 fLNormal7-12 ProMMartins Ferry HospitalComment on above:Performed By: #### CMP, TSHR, CBCA, , 2132-02 #### [facility] ([id number]) [address], [address] [place], [place] [address]Fonhsxcpx (Bld) [#/Vol]314 10*3/kKFrixdl853-302ImkMkoado [place] HospitalComment on above:Performed By: #### CMP, TSHR, CBCA, , 2132-02 #### [facility] ([id number]) [address], [address] [place], [place] [address]CKA COUNT4.85 X10E12/LNormal4.10-5.70[facility] Comment on above:Performed By: #### CMP, TSHR, CBCA, , 2132-02 #### [facility] ([id number]) [address], [address] [place], [place] [address]PFO (Bld) [#/Vol]6.0 10*3/uLNormal4.0-11.0[facility] TrumbullComment on above:Performed By: #### CMP, TSHR, CBCA, , 2132-02 #### [facility] ([id number]) [address], [address] [place], [place] [address]ODP auto differentialon 61-95-0393Cxadsgukg (Bld) [#/Vol]0.0 10*3/uLOhioHealth Nelsonville Health Center SystemBasophils/100 WBC (Bld)0.5 %[facility] HospitalEosinophils (Bld) [#/Vol]0.1 10*3/uLLima City HospitalEosinophils/100 WBC (Bld)1.3 %[facility] HospitalErythrocyte distribution width (RBC) [Ratio]13.0 %11.5 - 15.0 %[facility] HospitalHematocrit (Bld) [Volume fraction]42.1 %39 - 49 %[facility] HospitalHemoglobin (Bld) [Mass/Vol]14.3 g/dL13.0 - 17.0 g/dLLima City HospitalLymphocytes (Bld) [#/Vol]1.4 10*3/uL [facility] HospitalLymphocytes/100 WBC (Bld)23.2 %[facility] HospitalH (RBC) [Entitic mass]29.5 pg27 - 34 [facility] HospitalMCHC (RBC) [Mass/Vol]34.0 g/dL32 - 36 g/dLLima City HospitalMCV (RBC) [Entitic vol]87 fL80 - 100 [facility] HospitalMonocytes (Bld) [#/Vol]0.4 10*3/uLLima City HospitalMonocytes/100 WBC (Bld)6.5 %[facility] HospitalNeutrophils (Bld) [#/Vol]4.1 10*3/[facility]orial HealthcareNeutrophils/100 WBC (Bld)68.5 % [facility] SystemPlatelet mean volume (Bld) [Entitic vol]7.4 fL7 - 12 fL [facility] SystemPlatelets (Bld) [#/Vol]314 10*3/[facility] RBC (Bld) [#/Vol]4.85 10*6/[facility] HealthcareWBC corrected for nucl RBC Auto (Bld) [#/Vol]6.0[facility] PhiladelphiaCOMPREHENSIVE METABOLIC PANELon 54-53-8154Sjviebz [Mass/Vol]4.2 g/dLNormal3.2-5.3PKeenan Private HospitalComment on above:Performed By: #### CMP, TSHR, CBCA, , 2132-02 #### [facility] ([id number]) [address], [address] [place], [place] [address]XWC [Catalytic activity/Vol]76 U/MRbihxb30-778QwvOfghlq [place] HospitalComment on above:Performed By: #### CMP, TSHR, CBCA, , 2132-02 #### [facility] ([id number]) [address], [address] [place], [place] [address]OUW [Catalytic activity/Vol]30 U/LNormal0-40[facility] TrumbullComment on above:Performed By: #### CMP, TSHR, CBCA, , 2132-02 #### [facility] ([id number]) [address], [address] [place], [place] [address]Lyiol gap [Moles/Vol]7 mmol/LNormal5-15[facility] Comment on above:Performed By: #### CMP, TSHR, CBCA, , 2132-02 #### [facility] ([id number]) [address], [address] [place], [place] [address]SVE [Catalytic activity/Vol]28 U/LNormal0-41ProTrihealth [facility] HospitalComment on above:Performed By: #### CMP, TSHR, CBCA, , 2132-02 #### [facility] ([id number]) [address], [address] [place], [place] [address]Bzpxqvsmk [Mass/Vol]0.4 mg/dLNormal0.3-1.2PMercy Health Allen Hospital HospitalComment on above:Performed By: #### CMP, TSHR, CBCA, , 2132-02 #### [facility] ([id number]) [address], [address] [place], [place] [address]Isbqogu [Mass/Vol]9.5 mg/dLNormal8.5-10.5PKeenan Private HospitalComment on above:Performed By: #### CMP, TSHR, CBCA, , 2132-02 #### [facility] ([id number]) [address], [address] [place], [place] [address]Cotdwdqw [Moles/Vol]106 mmol/GFjzbab74-995KkjYpigkx [place] HospitalComment on above:Performed By: #### CMP, TSHR, CBCA, , 2132-02 #### [facility] ([id number]) [address], [address] [place], [place] [address]BZ1 [Moles/Vol]29 mmol/KLwnjfw90-82SdjEpxwed [facility] Comment on above:Performed By: #### CMP, TSHR, CBCA, , 2132-02 #### [facility] ([id number]) [address], [address] [place], [place] [address]Qygiovvnlq [Mass/Vol]0.86 mg/dLNormal0.60-1.30ProAultman Orrville HospitalComment on above:Result Comment: METHOD TRACEABLE TO IDMS STANDARD Performed By: #### CMP, TSHR, CBCA, , 2132-02 #### [facility] ([id number]) [address], [address] [place], [place] [address]qNBQ (CKD-EPI) NON-RACE DEPENDENT>90Normal>59ProAultman Orrville HospitalComment on above:Result Comment: Reported eGFR is based on the CKD-EPI 2020 equation that does not use a race coefficient.Performed By: #### CMP, TSHR, CBCA, , 2132-02 #### [facility] ([id number]) [address], [address] [place], [place] [address]Kgiufjn [Mass/Vol]96 mg/lKFyvxkr45-96YihChwttrSelect Medical Specialty Hospital [facility] Comment on above:Performed By: #### STOERO, TSHR, CBCA, , 2132-02 #### [facility] ([id number]) [address], [address] [place], [place] [address]Datvjmkun [Moles/Vol]4.1 mmol/LNormal3.5-5.0ProAultman Orrville HospitalComment on above:Performed By: #### SOTERO, TSHR, CBCA, , 2132-02 #### [facility] ([id number]) [address] [place], [place] [address]Cbrnqjo [Mass/Vol]7.2 g/dLNormal6.0-8.0[facility] Comment on above:Performed By: #### CMP, TSHR, CBCA, , 2132-02 #### [facility] ([id number]) [address] [address] [place], [place] [address]Nubpxz [Moles/Vol]142 mmol/CYykvgg481-834AjmRrueny [place] HospitalComment on above:Performed By: #### CMP, TSHR, CBCA, , 2132-02 #### [facility] ([id number]) [address], [address] [place], [place] [address]Lkcy nitrogen [Mass/Vol]17 mg/dLNormal5-27[facility] - TrumbullComment on above:Performed By: #### CMP, TSHR, CBCA, 25374-0, 2131-9 #### [facility] ([id number]) [address], [address] [place], [place] [address]Edxsauypo (Vitamin B12) [Mass/Vol]on 05-23-9029OlpCtdrpbWooster Community HospitalComprehensive metabolic panelon 17-67-8699Ukdpvld [Mass/Vol]4.2 g/dL3.2 - 5.3 g/dLProInfirmary West Health SystemALP [Catalytic activity/Vol]76 U/L39 - 130 U/L [facility] SystemALT No additional P-5'-P [Catalytic activity/Vol]30 U/L0 - 40 U/LPrLongs Peak Hospital Health SystemAnion gap [Moles/Vol]7 mmol/L5 - 15 mmol/L [facility] SystemAST [Catalytic activity/Vol]28 U/L0 - 41 U/LPrLongs Peak Hospital Health SystemBilirubin [Mass/Vol]0.4 mg/dL0.3 - 1.2 mg/dLProAdena Health [facility] System Calcium [Mass/Vol]9.5 mg/dL8.5 - 10.5 mg/dLOhioHealth [facility] SystemChloride [Moles/Vol]106 mmol/L98 - 109 mmol/LPrSt. Lukes Des Pe[facility] Hospitalica Health SystemCO2 [Moles/Vol]29 mmol/L22 - 32 mmol/[facility] SystemCreatinine [Mass/Vol]0.86 mg/dL0.60 - 1.30 mg/dLOhioHealth Nelsonville [facility] SystemComment on above:METHOD [facility] HOSPITAL STANDARDeGFR (CKD-EPI)non-race dependent- [facility] Health CenterComment on above: Reported eGFR is based on the CKD-EPI 2020 equation that does not use a race coefficient. Glucose [Mass/Vol]96 mg/dL65 - 99 mg/dLOhioHealth Nelsonville Health Center SystemPotassium [Moles/Vol]4.1 mmol/L3.5 - 5.0 mmol/LProMedica Health SystemProtein [Mass/Vol] 7.2 g/dL6.0 - 8.0 g/dLBlowing Rock Hospitalodium [Moles/Vol]142 mmol/L134 - 146 mmol/LPrBellevue HospitalUrea nitrogen [Mass/Vol]17 mg/dL5 - 27 mg/dL [facility] HospitalLipid 1996 panelon 35-39-1180Chmyjugkqxj [Mass/Vol]137 mg/vXXnq646 - 200 mg/dLLima City HospitalCholesterol in HDL [Mass/Vol]54 mg/dL39 - PINF mg/dLLima City HospitalComment on above: HDL <40 mg/dL - High Risk HDL > or = 40mg/dL- Desirable HDL >60 mg/dL - Negative Risk Cholesterol in LDL [Mass/Vol]58 mg/dLNINF - 130 mg/dLLima City Hospital Comment on above: LDL <100 mg/dL - Desirable LDL >160 mg/dL - High Risk Cholesterol in VLDL [Mass/Vol]25 mg/dL0 - 30 mg/dLLima City Hospital Cholesterol.total/Cholesterol in HDL [Mass ratio]2.5 {ratio}1.0 - 5.0[facility] HospitalInterpretation and review of laboratory resultsAbnormalLima City HospitalTriglyceride [Mass/Vol]124 mg/dL27 - 150 mg/dLLima City HospitalCholesterol [Mass/Vol]137 mg/jBUeg576-300RoiLdxenwSelect Medical Specialty Hospital - TrumbullComment on above:Performed By: #### CMP, TSHR, CBCA, 33676-4, 0828- #### [facility] ([id number]) [address] [place], [place] [address]Sueatbhihba in HDL [Mass/Vol]54 mg/dLNormal>39ProAultman Orrville HospitalComment on above:Result Comment: HDL <40 mg/dL - High Risk HDL > or = 40mg/dL- Desirable HDL >60 mg/dL - Negative Risk Performed By: #### SOTERO, TSHR, CBCA, 26277-2, 2132-02 #### [facility] ([id number]) [address], [address] [place], [place] [address]Mduaekbjjhr in LDL [Mass/Vol]58 mg/dLNormal<130ProTrihealth [facility] Hospital HospitalComment on above:Result Comment: LDL <100 mg/dL - Desirable LDL >160 mg/dL - High Risk Performed By: #### SOTERO, TSHR, CBCA, , 2132-02 #### [facility] ([id number]) [address], [address] [place], [place] [address]Lhcqmguydaw in VLDL [Mass/Vol]25 mg/dLNormal0-30ProTrihealth [facility] HospitalComment on above:Performed By: #### SOTERO TSHR, CBCA, 37135-1, 2132-02 #### [facility] ([id number]) [address], [address] [place], [place] [address]BVYFKLICZZK:HDL2.8Iiryan1.0-5.0ProTrihealth [facility] HospitalComment on above:Performed By: #### SOTERO TSHR, CBCA, 97597-6, 2132-02 #### [facility] ([id number]) [address], [address] [place], [place] [address]Pgpcjntlloil [Mass/Vol]124 mg/fFJyaqwe36-865VsfRilwpu [place]edo HospitalComment on above:Performed By: #### SOTERO, TSHR, CBCA, 28827-7, 2131-9 #### [facility] ([id number]) [address], [address] [place], [place] [address]Vp Panel Informationon 12-01-4760VdkPanbraUNC Health AppalachianERUM PROTEIN ELECTROPHORESISon 69-32-9443Uaircbv [Mass/Vol]3.9 g/dLNormal3.4-5.3 ProMedicThe Christ HospitalComment on above:Performed By: #### SPE #### [facility] ([id number]) [address], [address] [place], [place] [address]ECEVR 1 GLOBULIN0.3 g/dLNormal0.1-0.4[facility] Comment on above:Performed By: #### SPE #### [facility] ([id number]) [address] [place], [place] [address]IXUMV 2 GLOBULIN0.6 g/dLNormal0.4-1.1PKeenan Private Hospital Comment on above:Performed By: #### SPE #### [facility] ([id number]) [address], [address] [place], [place] [address]BZMV GLOBULIN0.8 g/dLNormal0.5-1.2PKeenan Private Hospital Comment on above:Performed By: #### SPE #### [facility] ([id number]) [address], [address] [place], [place] [address]WYKIC GLOBULIN1.0 g/dLNormal0.5-1.6[facility] Comment on above:Performed By: #### SPE #### [facility] ([id number]) [address], [address] [place], [place] [address]BOIB. ELECTROPHORESIS INTERPUnremarkable protein distribution, no monoclonal bands.NormalProAultman Orrville HospitalComment on above:Performed By: #### SPE #### [facility] ([id number]) [address], [address] [place], [place] [address]Aqmklze [Mass/Vol]6.7 g/dLNormal6.0-8.0[facility] Comment on above:Performed By: #### SPE #### [facility] ([id number]) [address], [address] [place], [place] [address]ZBJ WITH REFLEXon 82-47-8045KMS4.77 uIU/mLNormal0.49-4.67 [facility] HospitalComment on above:Performed By: #### CMP, TSHR, CBCA, 48107-3, 2132-02 #### [facility] ([id number]) [address], [address] [place], [place] [address]FOT with Reflexon 68-89-4784GIV Qn2.77 m[IU]/LProMedica Mymichigan Medical CenterProMartins Ferry HospitalVITAMIN B12on 46-08-0744Spegyrerd (Vitamin B12) [Mass/Vol]254 pg/aUXokbcy327-439YquNdzyjm [place] HospitalComment on above: Performed By: #### CMP, TSHR, CBCA, 69862-4, 2132-02 #### [facility] ([id number]) [address], [address] [place], [place] [address]Gunfosc B12on 71-83-5256Qngfevxxa (Vitamin B12) [Mass/Vol]254 pg/mL180 - 914 pg/mLLima City HospitalMR Brain WO and W contrast Shavon 31-31-5400Oopuwpf: Multiple sclerosis. Proximal leg weakness. No injury. Procedure: Standard MR of the brain was initially performed without contrast. Then, after intravenous administration of 14 mL of ProHance gadolinium contrast without reported complication, MR of the brain was obtained with contrast. Findings: There is comparison with 10/23/2012. MR of the brain before and after contrast administration demonstrates that the volumes of the ventricular system, sulci, and basilar cisterns have not markedly changed since 2012.Many of the white matter signal abnormalities are stable. A few white matter signal abnormalities are new since 2012. There is no pathologic contrast enhancement within the brain. Impression: There has been interval development of a few new areas of abnormal signal within the brain since the prior 2013 MR. The majority of the signal abnormalities are stable. There is no area of restricteddiffusion or pathologic contrast enhancement to suggest a new brain signal abnormality. Finalized by Earl Vidal MD on 07/10/2023 2:13 PMSECTRAPACSMarcy, Dick Young MD - 07/10/2023 History: Multiple sclerosis. Proximal leg weakness. No injury. Procedure: Standard MR of the brain was initially performed without contrast. Then, after intravenous administration of 14 mL of ProHance gadolinium contrast without reported complication, MR of the brain was obtained with contrast. Findings: There is comparison with 10/23/2012. MR of the brain before and after contrast administration demonstrates that the volumes of the ventricular system, sulci, and basilar cisterns have not markedly changed since 2012.Many of the white matter signal abnormalities are stable. A few white matter signal abnormalities are new since 2012. There is no pathologic contrast enhancement within the brain. Impression: There has been interval development of a few new areas of abnormal signal within the brain since the prior 2013 MR. The majority of the signal abnormalities are stable. There is no area of restricteddiffusion or pathologic contrast enhancement to suggest a new brain signal abnormality. Finalized by Earl Vidal MD on 07/10/2023 2:13 PM [facility] SouthwoodsSwapbox Core[facility] Gerber HospitalRadiology Study observation (narrative)[facility] HospitalMR Brain WO and W contrast IVOrdered By: Dick Vidal on 07-10-2023 [facility] HospitalBrandle Work Phone: MR Cervical spine WO and W contrast Shavon 07-10-2023 History: [Multiple sclerosis. Proximal leg weakness.] [Procedure: Standard MR of the cervical spine was obtained after intravenous ministration 14 mL of ProHance gadolinium contrast without reported complication. FINDINGS: There is no prior MR of the cervical spine available for comparison. MR of the cervical spine before and after contrast] demonstrates a signal abnormality in the brainstem, which will be better described on MR brain. MR of the brain demonstrates signal abnormality in the right dorsal paramedian cord at the lower C2 level. It measures 4 mm in maximal transverse dimension and extends 8 mm in longitudinal extent. The C2-3 level is unremarkable. At C3-4 there is no spinal stenosis but there is moderate to severe left C3-4 foraminal stenosis due to osteophytes from the degenerated facet joint. At C4-5 osteophytes on the left facet joint do not result in significant impingement upon the thecal sac. There is mild left C4-5 foraminal stenosis. At C5-6 small right posterior lateral osteophytes do not significantly result in significant cord impingement. There is mild right C5-6 foraminal stenosis. At C6-7-1 small posterior annular tear with disc bulge does not result in significant spinal or foraminal stenosis. C7-T1 levels unremarkable. There is no pathologic contrast enhancement within the cervical cord or cervical spine. Impression: [Solitary area of abnormal signal in the dorsal C2 region is not associated with pathologic contrast enhancement. This finding is compatible with the diagnosis of demyelinating disease. Other etiologies are still possible. Degenerative changes of the cervical spine are described above. There is no significant spinal stenosis or cord impingement. There are several areas of foraminal stenosis, especially the left C3-4 foramen. Please correlate clinically for left C4 radiculopathy.] Finalized by Earl Vidal MD on 07/10/2023 10:40 Dick Pederson MD - 07/10/2023 History: [Multiple sclerosis. Proximal leg weakness.] [Procedure: Standard MR of the cervical spine was obtained after intravenous ministration 14 mL of ProHance gadolinium contrast without reported complication. FINDINGS: There is no prior MR of the cervical spine available for comparison. MR of the cervical spine before and after contrast] demonstrates a signal abnormality in the brainstem, which will be better described on MR brain. MR of the brain demonstrates signal abnormality in the right dorsal paramedian cord at the lower C2 level. It measures 4 mm in maximal transverse dimension and extends 8 mm in longitudinal extent. The C2-3 level is unremarkable. At C3-4 there is no spinal stenosis but there is moderate to severe left C3-4 foraminal stenosis due to osteophytes from the degenerated facet joint. At C4-5 osteophytes on the left facet joint do not result in significant impingement upon the thecal sac. There is mild left C4-5 foraminal stenosis. At C5-6 small right posterior lateral osteophytes do not significantly result in significant cord impingement. There is mild right C5-6 foraminal stenosis. At C6-7-1 small posterior annular tear with disc bulge does not result in significant spinal or foraminal stenosis. C7-T1 levels unremarkable. There is no pathologic contrast enhancement within the cervical cord or cervical spine. Impression: [Solitary area of abnormal signal in the dorsal C2 region is not associated with pathologic contrast enhancement. This finding is compatible with the diagnosis of demyelinating disease. Other etiologies are still possible. Degenerative changes of the cervical spine are described above. There is no significant spinal stenosis or cord impingement. There are several areas of foraminal stenosis, especially the left C3-4 foramen. Please correlate clinically for left C4 radiculopathy.] Finalized by Earl Vidal MD on 07/10/2023 10:40 AM [facility]8020select [facility] HospitalRadiology Study observation (narrative)[facility] SouthwoodsITYZ Mymichigan Medical CenterMR Thoracic spine WO and W contrast Shavon 07-10-2023 History: [Multiple sclerosis. Proximal leg weakness.] [Procedure: Standard MR of the thoracic spine was obtained before and after intravenous ministration 14 mL ProHance gadolinium contrast without reported complication. FINDINGS: There is no prior MR of the thoracic spine available for comparison. MR of the thoracic spine before and after contrast administration demonstrates several areas of abnormal signal within the cervical cord. These include a 3 mm transverse dimension of at least 16 mm in longitudinal dimension area within the left lateral aspect of the cord at T3-4; a 2 mm transverse dimension 15 mm in longitudinal dimension area within the central cord at T4-5-1 3 mm transverse dimension 12 mm in longitudinal dimension area at T10-T11 in the anterior central cord. The tip of theconus medullaris is unremarkable and terminates appropriately at the T12-L1 level. The postcontrast axial images are limited by significant artifact. The postcontrast sagittal imagesdemonstrate contrast enhancement within the T3-4 lesion, likely within the T4-5 lesion and likely within the T8 10-11 lesion. There are minor degenerative changes of the thoracic spine for age without disc herniation, significant spinal stenosis, or foraminal stenosis. Impression: [At least 3 areas of signal abnormality within the thoracic cord demonstrates faint contrast enhancement on the postcontrast sagittal images. These findings are consistent with the clinical diagnosisof demyelinating disease. Other inflammatory or vasculitic processes can also have this appearance.] Finalized by Earl Vidal MD on 07/10/2023 9:57 AMSDick Saleem MD - 07/10/2023 History: [Multiple sclerosis. Proximal leg weakness.] [Procedure: Standard MR of the thoracic spine was obtained before and after intravenous ministration 14 mL ProHance gadolinium contrast without reported complication. FINDINGS: There is no prior MR of the thoracic spine available for comparison. MR of the thoracic spine before and after contrast administration demonstrates several areas of abnormal signal within the cervical cord. These include a 3 mm transverse dimension of at least 16 mm in longitudinal dimension area within the left lateral aspect of the cord at T3-4; a 2 mm transverse dimension 15 mm in longitudinal dimension area within the central cord at T4-5-1 3 mm transverse dimension 12 mm in longitudinal dimension area at T10-T11 in the anterior central cord. The tip of theconus medullaris is unremarkable and terminates appropriately at the T12-L1 level. The postcontrast axial images are limited by significant artifact. The postcontrast sagittal imagesdemonstrate contrast enhancement within the T3-4 lesion, likely within the T4-5 lesion and likely within the T8 10-11 lesion. There are minor degenerative changes of the thoracic spine for age without disc herniation, significant spinal stenosis, or foraminal stenosis. Impression: [At least 3 areas of signal abnormality within the thoracic cord demonstrates faint contrast enhancement on the postcontrast sagittal images. These findings are consistent with the clinical diagnosisof demyelinating disease. Other inflammatory or vasculitic processes can also have this appearance.] Finalized by Earl Vidal MD on 07/10/2023 9:57 AM [facility] SystemRadiology Study observation (narrative)[facility] HospitalECHOCARDIO M/2D COMPLETEon 02-24-2022 ECHOCARDIO M/2D COMPLETEPatient: NOEMY PACKER Exam Date: 02/24/2022 : 1960 Gender:M Ordering : DR WARNER MCNEILL D.O. Admission #: [id number] Family : Order #: [id number] CLICK HERE TO VIEW EXAM ECHOCARDIOGRAM REPORT PROCEDURE: CARDIO PULMONARY ECHOCARDIO M/2D COMP INDICATIONS: Cough, WINKLER COMPARISON: None. DESCRIPTION: COMPLETE ECHOCARDIOGRAM Real-time transthoracic echocardiography with 2D, M-mode, spectral and color flow Doppler performed. QUALITY: Technical quality was good. LEFT VENTRICLE: Normal chamber size. Normal left ventricular wall thickness. LV EF: Global left ventricular systolic function is normal. Calculated left ventricular ejection fraction is 60% DIASTOLIC: Normal diastolic function. ATRIAL SEPTUM: Inadequately seen. LEFT ATRIUM: Normal chamber size. RIGHT ATRIUM: Normal chamber size. RIGHT VENTRICLE: Normal chamber size. Normal right ventricular systolic function. TRICUSPID VALVE: Normal mobility and thickness. No stenosis with trivial regurgitation. No evidence of pulmonary hypertension. RVSP 31 mmHg MITRAL VALVE: Normal mobility and thickness. No mitral valve prolapse. No evidence of mitral valve stenosis. There is no mitral annular calcification. Trivial mitral regurgitation. AORTIC VALVE: Normal trileaflet appearance. No visible sclerosis. Normal leaflet mobility. No evidence of aortic valve stenosis. Trivial aortic regurgitation. AORTIC ROOT: Normal diameter and appearance. PULMONIC VALVE: Normal thickness and mobility. Normal with Trivial regurgitation. PERICARDIUM: No evidence of pericardial effusion. IVC: Collapses with inspirations. CONCLUSION: Global left ventricular systolic function is normal; visually estimated ejection fraction is 55 to 60%. Normal diastolic function. The right ventricle is normal in size and systolic function. No significant valvular abnormalities. Adult Echocardiography Procedure Report Left Ventricle Left Atrium Mitral Valve Right Ventricle RV Internal Diastolic Dimension: 3.10 cm Aorta Aortic Valve Peak Velocity (Antegrade Flow): 1.05 m/s AoV Area (Peak Chris): 2.54 cm2, 2.54 cm2 AoV Area (VTI): 2.14 cm2, 2.14 cm2 Tricuspid Valve Peak Velocity (Regurgitant Flow): 1.67 m/s, 1.75 m/s, 2.68 m/s Pulmonic Valve Mean Gradient: 2.12 mm[Hg] Mean Velocity: 0.69 m/s Peak Velocity: 0.94 m/s, 0.95 m/s Peak Gradient: 3.51 mm[Hg], 3.58 mm[Hg] Right Atrium Dictated by: Jovana Lockett M.D. on 02/24/2022 at 15:23 Approved by: Jovana Lockett M.D. on 02/24/2022 at 15:25[facility] Doctors HospitalHEMOGLOBINon 13-42-1639Zcfkyzcoxe (Bld) [Mass/Vol]14.9 g/dLNormal 14.0-18.0St. Charles HospitalComment on above:Performed By: #### HGB #### [facility] [address] [address] [address] Jamel AdamsXR CHEST 2 Von 17-02-8874US CHEST 2 VEXAM: CHEST 2 VIEWS HISTORY: Cough TECHNIQUE: PA and lateral views chest. COMPARISON: 06/16/2014. FINDINGS: The lungs are hyperinflated with biapical scarring. There is no focal lung consolidation, pleural effusion or pneumothorax. Pulmonary vasculature is within normal limits. There is aortic atherosclerosis and normal heart size. There are cholecystectomy clips. IMPRESSION: 1. No acute cardiopulmonary disease. Electronically authenticated by: LINDA HERNANDEZ Date: 2022-01-26 11:12[facility] Doctors HospitalCOVID Quick Testingon 75-76-8458PekbakHyipjwfiVktks AcceloWeb Other mr thoracic spine wo/w conon 63-71-7720FF thoracic spine wo/w [facility] [place] [address] [place] [address] MRI Report Signed Patient: Noemy Packer MR#: [id number] : 1960 Acct:[id number] Age/Sex: 61 / M ADM Date: 12/23/21 Loc: MR Room: Type: [facility] Attending Dr: Lauryn Soriano PAKrystinaC Copies to: Lauryn Soriano PAC Ordering Provider: Laurny Soriano PAC Date of Service: 12/23/21 MR/MR thoracic spine wo/w con: G35 ([id number]) MR/MR cervical spine wo/w con: G35 MRI cervical spine with and withoutcontrast TECHNIQUE: Multiplanar T1 and T2-weighted imaging of the cervical spine obtained.14 cc of ProHance HISTORY:History of multiple sclerosis. Difficulty ambulating. COMPARISON:None Cervical lordosis is adequate. No listhesis identified in supine position. The craniocervical junction is unremarkable. Disc spaces are adequate. No disc herniation is identified. No cervical spine fracture or bone marrow edema is identified. The facets are in adequate alignment. The central canal is patent. The neuroforamen are patent. Small plaque at the C2 level of the cervical cord measures 5 mm. No pathologic enhancement identified. MR/MR cervical spine wo/w con IMPRESSION: 5 mm MS plaque at the C2 level of the cervical cord. No spinal cord edema seen to suggest active demyelination. No cord hemorrhage. Patent central canal. MRI THORACIC SPINE WITH AND WITHOUT CONTRAST TECHNIQUE: T1, T2 and STIR sagittal imaging performed with T1 and T2 axial imaging of thoracic spine performed HISTORY:As above The thoracic kyphosis is preserved. Lumbar localizer performed. No gross abnormality identified. Lobulated hepatic cyst present. Mild thoracolumbar scoliosis with concavity to the LEFT. Mild lateral curvature of the cervicothoracic spine with concavity to the RIGHT. No acute compression deformity of vertebral bodies identified. The disc spaces of the thoracic spine are maintained. The facets are in adequate alignment without vertebral displacement. There is no identification of acute hemorrhage within the bony spinal canal or other acute spinal canal process. At the T10-11 disc level there is a small focus of signal change in the cord consistent with demyelinating plaque. No pathologic enhancement identified. The T4 level there is signal changes of the cord suggesting region of demyelination. No paraspinal abnormality is identified. The visualized lung taylor are unremarkable. The visualized aorta is unremarkable. No obstructive uropathy identified. IMPRESSION: Small thoracic cord demyelination plaques at the T10-11 level and T4 level. No pathologic enhancement seen to suggest active demyelination. Impression dictated by: Keegan Canales M.D.12/23/2021 4:54 PM Dictation Location: [place] [address] Transcribed By: [facility] 12/23/21 1548 Dictated By: Keegan Canales DO 12/23/21 9395 Signed By: 12/23/21 1654NoOhio State University Wexner Medical CenterXR pre/post mri xrayon 83-95-0517VW pre/post mri xrCleveland Clinic [place] [address] XRay Report Signed Patient: Noemy Packer MR#: [id number] : 1960 Acct:[id number] Age/Sex: 61 / M ADM Date: 12/23/21 Loc: MR Room: Type: [facility] Attending Dr: Lauryn Soriano PA-C Copies to: Lauryn Soriano PAC Ordering Provider: Lauryn Soriano PAC Date of Service: 12/23/21 XR/XR pre/post mri xray: G35 ([id number]) XR/XR pre/post mri xray: PRE MRI Cervical spine 3 views, thoracic spine 3 views. Reason for exam: Pre-MRI. COMPARISON: None. FINDINGS: Cervical spine: No acute fracture is seen. Vertebral body heights appear well- maintained. Disc heights to the level of C6-7 demonstrate no significant disc height loss. Diffuse facet joint degenerative changes. No prevertebral soft tissue swelling. Oblique views demonstrate no severe bony neural foraminal narrowing. Thoracic spine: Scoliosis is noted. Vertebral body heights are well-maintained. Mild scattered endplate degenerative changes. Pedicles appear intact. Visualized lung taylor are clear. XR/XR pre/post mri xray IMPRESSION: Degenerative changes involving the cervical and thoracic spines without acute bony process. Impression dictated by: Darnell Vital Jr., SaraONelson12/23/2021 8:10 PM Dictation Location: [place] [address] Transcribed By: [facility] 12/23/212009 Dictated By: Darnell Vital Jr, DO 12/23/212007 Signed By: 12/23/212009[facility] Defiance HospitalCB AUTO DIFFon 11-11-2021 BASO #0.0 103/ulNormal0.0-0.1St. Charles HospitalComment on above:Performed By: #### CBC #### [facility] [address] [address] [address] Jamel Snydersophils/100 WBC (Bld)0.5 %Normal0.2-2.0[facility] Comment on above:Performed By: #### CBC #### [facility] [address] [address] [address] Jamel Emery #0.1 103/ulNormal0.0-0.7The Wayne HospitalComment on above: Performed By: #### CBC #### [facility] [address] [place] [address] Dr. Jamel Beyerosinophils/100 WBC (Bld)1.0 %Normal0.9-7.0[facility] Comment on above:Performed By: #### CBC #### [facility] [address] [place] [address] Dr. Jamel Beyerrythrocyte distribution width (RBC) [Ratio]13.0 %Srqedo70.0-15.0 The Wayne HospitalComment on above:Performed By: #### CBC #### [facility] [address] [place] [address] Dr. Jamel AdamsHematocrit (Bld) [Volume fraction]44.2 %Fzrbty22.0-54.0The Wayne HospitalComment on above:Performed By: #### CBC #### [facility] [address] [place] [address] Dr. Jamel AdamsHemoglobin (Bld) [Mass/Vol]14.6 g/hGJfqjjk52.0-18.0The Wayne HospitalComment on above:Performed By: #### CBC #### [facility] [address] [place] [address] Dr. Jamel Harmon #0.06 10e3/ulCritically high0.00-0.03[facility] Comment on above:Performed By: #### CBC #### [facility] [address] [place] [address] Dr. Jamel Harmon %0.8 %Critically high0.0-0.5The [facility] HospitalComment on above:Performed By: #### CBC #### [facility] [address] [place] [address] Dr. Jamel Reynolds #1.3 103/ulNormal1.2-3.8The Wayne HospitalComment on above:Performed By: #### CBC #### [facility] [address] [place] [address] Dr. Jamel Lemusmphocytes/100 WBC (Bld)17.2 %Critically low20.5-60.0The [facility] HospitalComment on above:Performed By: #### CBC #### [facility] [address] [place] [address] Dr. Jamel MonacoUAL DIFF REQNONormalThe Wayne HospitalComment on above: Performed By: #### CBC #### [facility] [address] [place] [address] Dr. Jamel Winter (RBC) [Entitic mass]29.0 mmGwfjsb92.9-34.0The [facility] HospitalComment on above:Performed By: #### CBC #### [facility] [address] [place] [address] Dr. Jamel Winter (RBC) [Mass/Vol]33.0 g/dVXstgvl08.9-35.2The [facility] HospitalComment on above:Performed By: #### CBC #### [facility] [address] [place] [address] Dr. Jamel Winter (RBC) [Entitic vol]87.9 oYMkngji75.0-94.0The [facility] HospitalComment on above:Performed By: #### CBC #### [facility] [address] [place] [address] Dr. Jamel Doran #0.4 103/ulNormal0.3-0.8The [facility] HospitalComment on above:Performed By: #### CBC #### [facility] [address] [place] [address] Dr. Jamel Gallagherocytes/100 WBC (Bld)5.3 %Normal1.7-12.0[facility] Comment on above:Performed By: #### CBC #### [facility] [address] [place] [address] Dr. Jamel Price #5.8 103/ulNormal1.4-6.5The [facility] HospitalComment on above:Performed By: #### CBC #### [facility] [address] [place] [address] Dr. Jamel AdamsNeutrophils/100 WBC (Bld)75.2 %Critically high43.0-75.0The [facility] on above:Performed By: #### CBC #### [facility] [address] [place] [address] Dr. Jamel AdamsPlatelet mean volume (Bld) [Entitic vol]8.6 fLCritically low 9.5-13.5The [facility] HospitalComment on above:Performed By: #### CBC #### [facility] [address] [place] [address] Dr. Jamel AdamsPLT315 103/rrExrchp152-384Mwj [facility] on above: Performed By: #### CBC #### [facility] [address] [place] [address] Dr. Jamel AdamsRBC5.03 106/ulNormal4.70-6.10The Wayne HospitalComment on above:Performed By: #### CBC #### [facility] [address] [place] [address] Dr. Jamel AdamsWBC7.7 103/ulNormal4.0-11.0The [facility] on above: Performed By: #### CBC #### [facility] [address] [place] [address] Dr. Jamel AdamsPROF 14(COMP METB)on 27-70-6520Ipzmnte [Mass/Vol]3.9 g/dLNormal 3.4-5.0The [facility] on above:Performed By: #### CMP #### [facility] [address] [place] [address] Dr. Jamel AdamsAlbumin/Globulin [Mass ratio]1.0 {ratio}NormalThe [facility] HospitalComascension [facility] on above:Performed By: #### CMP #### [facility] [address] [place] [address] Dr. Jamel TorresP [Catalytic activity/Vol]93 U/XXcydwt09-410Rcq Cindy HospitalComment on above:Performed By: #### CMP #### [facility] [address] [address] [address] Jamel Ruth [Catalytic activity/Vol]39 U/ZXswlkz22-16Mpt Wayne HospitalComment on above:Performed By: #### CMP #### [facility] [address] [address] [address] Jamel AdamsAnion gap [Moles/Vol]10.0 mmol/LNormalThe [facility] Comment on above:Performed By: #### CMP #### [facility] [address] [address] [address] Jamel AdamsAST [Catalytic activity/Vol]28 U/TNjhkyo01-79Alp Wayne HospitalComment on above:Performed By: #### CMP #### [facility] [address] [place] [address] Dr. Jamel AdamsBilirubin [Mass/Vol]0.6 mg/dLNormal0.2-1.0[facility] Comment on above:Performed By: #### CMP #### [facility] [address] [place] [address] Dr. Jamel AdamsCalcium [Mass/Vol]9.2 mg/dLNormal8.5-10.1[facility] Comment on above:Performed By: #### CMP #### [facility] [address] [place] [address] Dr. Jamel AdamsChloride [Moles/Vol]102 mmol/HEbobfl06-616Ihy [facility] Comment on above:Performed By: #### CMP #### [facility] [address] [address] [address] Jamel AdamsCO2 [Moles/Vol]29.3 mmol/JWyamid23.0-32.0[facility] Comment on above:Performed By: #### CMP #### [facility] [address] [place] [address] Dr. Jamel AdamsCreatinine [Mass/Vol]0.88 mg/dLNormal0.70-1.30The [facility] HospitalComment on above:Performed By: #### CMP #### [facility] [address] [address] [address] Jamel BeyerGFR-AF MARTINIQUAIS>60Normal>=60The Wayne HospitalComment on above:Performed By: #### CMP #### [facility] [address] [address] [address] Jamel BeyerGFR-NON AF MARTINIQUAIS>60Normal>=60The [facility] HospitalComment on above:Performed By: #### CMP #### [facility] [address] [address] [address] Jamel AdamsGlobulin (S) [Mass/Vol]4.0 g/dLNormalThe Wayne HospitalComment on above:Performed By: #### CMP #### [facility] [address] [place] [address] Dr. Jamel AdamsGlucose [Mass/Vol]102 mg/vFUjilkf92-756Rav [facility] Comment on above:Performed By: #### CMP #### [facility] [address] [address] [address] Jamel AdamsPotassium [Moles/Vol]4.3 mmol/LNormal3.5-5.1[facility] Comment on above:Performed By: #### CMP #### [facility] [address] [place] [address] Dr. Jamel AdamsProtein [Mass/Vol]7.9 g/dLNormal6.4-8.2[facility] Comment on above:Performed By: #### CMP #### [facility] [address] [place] [address] Dr. Jamel AdamsSodium [Moles/Vol]137 mmol/JXpuvlz057-675Eqj [facility] Comment on above:Performed By: #### CMP #### [facility] [address] [address] [address] Jamel AdamsUrea nitrogen [Mass/Vol]13.0 mg/dLNormal7.0-18.0The [facility] HospitalComment on above:Performed By: #### CMP #### [facility] [id number] Jamel AdamsUrea nitrogen/Creatinine [Mass ratio]14.8 mg/mgOhioHealth Doctors HospitalComment on above:Performed By: #### CMP #### [facility] [id number] Jamel AdamsMRI BRAIN WO W CONon [id number] BRAIN WO W CONEXAMINATION: MRI BRAIN WO W CON HISTORY: Multiple sclerosis , left leg numbness which is unchanged since COMPARISON: MRI brain 06/27/2019 TECHNIQUE: A variety of imaging planes and parameters were utilized for visualization of suspected pathology. Images were performed without and with Dotarem contrast. FINDINGS: CEREBRUM: Stable appearance of the multiple areas of demyelination involving the periventricular and subcortical deep white matter. No enhancement of these areas to suggest active demyelination. No evidence of acute ischemia, hemorrhage, or mass. CEREBELLUM: No edema, hemorrhage, mass, acute infarction, or inappropriate atrophy. BRAINSTEM: No edema, hemorrhage, mass, acute infarction, or inappropriate atrophy. CSF SPACES: Ventricles, cisterns, and sulci are appropriate for age. No hydrocephalus, subarachnoid hemorrhage, or mass. SKULL: No mass or other significant visible lesion. SINUSES: Mucocele versus retention cyst within left maxillary sinus. ORBITS: Limited views are unremarkable. OTHER: No abnormal meningeal or parenchymal enhancement. IMPRESSION: 1. Stable MRI appearance of patient's demyelinating process consistent with multiple sclerosis. No evidence of active demyelination. Electronically authenticated by: LEONIDAS SUN Date: 2021-11-07 08:23OhioHealth Doctors HospitalAmbulatory Clinical Summaryon [id number] Clinical Summary{[id number]-gx-[id number]-96-37-f4-1b-75}CD:[id number] HospitalPatient Educationon 47-39-6140Fabfqam EducationUrology Hydrocele, Adult A hydrocele is a collection of fluid in the loose pouch of skin that holds the testicles (scrotum).This may happen because: ? The amount of fluid produced in the scrotum is not absorbed by the rest of the body. ? Fluid from the abdomen fills the scrotum. Normally, the testicles develop in the abdomen then move (drop) into to the scrotum before . The tube that the testicles travel through usually closesafter the testicles drop. If the tube does not close, fluid from the abdomen can fill the scrotum. This is less common in adults. What are the causes? The cause of a hydrocele in adults is usually not known. However, it may be caused by: ? An injury to the scrotum. ? An infection (epididymitis). ? Decreased blood flow to the scrotum. ? Twisting of a testicle (testicular torsion). ? A defect. ? A tumor or cancer of the testicle. What are the signs or symptoms? A hydrocele feels like a water-filled balloon. It may also feel heavy. Other symptoms include: ? Swelling of the scrotum. The swelling may decrease when you lie down. You may also notice more swelling at night than in the morning. ? Swelling of the groin. ? Mild discomfort in the scrotum. ? Pain. This can develop if the hydrocele was caused by infection or twisting. The larger the hydrocele, the more likely you are to have pain. How is this diagnosed? This condition may be diagnosed based on: ? Physical exam. ? Medical history. You may also have other tests, including: ? Imaging tests, such as ultrasound. ? Blood or urine tests. How is this treated? Most hydroceles go away on their own. If you have no discomfort or pain, your health care provider may suggest close monitoring of your condition (called watch and wait or watchful waiting) until thecondition goes away or symptoms develop. If treatment is needed, it may include: ? Treating an underlying condition. This may include using an antibiotic medicine to treat an infection. ? Surgery to stop fluid from collecting in the scrotum. ? Surgery to drain the fluid. Options include: ? Needle aspiration. A needle is used to drain fluid. However, the fluid buildup will come back quickly. ? Hydrocelectomy. For this procedure, an incision is made in the scrotum to remove the fluid sac. Follow these instructions at home: ? Watch the hydrocele for any changes. ? Take cowy-pcg-cgdncmk and prescription medicines only as told by your health care provider. ? If you were prescribed an antibiotic medicine, use it as told by your health care provider. Do not stop taking the antibiotic even if you start to feel better. ? Keep all follow-up visits as told by your health care provider. This is important. Contact a health care provider if: ? You notice any changes in the hydrocele. ? The swelling in your scrotum or groin gets worse. ? The hydrocele becomes red, firm, painful, or tender to the touch. ? You have a fever. Get help right away if you: ? Develop a lot of pain, or your pain becomes worse. Summary ? A hydrocele is a collection of fluid in the loose pouch of skin that holds the testicles (scrotum). ? Hydroceles can cause swelling, discomfort, and sometimes pain. ? In adults, the cause of a hydrocele usually is not known. However, it is sometimes caused by an infection or a rotation and twisting of the scrotum. ? Treatment is usually not needed. Hydroceles often go away on their own. If a hydrocele causes pain, treatment may be given to ease the pain. This information is not intended to replace advice given to you by your health care provider. Make sure you discuss any questions you have with your health care provider. Document Released: 11/22/2010 Document Revised: 06/15/2018 Document Reviewed: 06/15/2018 [employer] Patient Education ? 2019 [employer] Office/Clinic Noteon [id number] Office/Clinic NoteChief Complaint PO hydocelectomy HPI Staff PO left hydrocelectomy 03/15/21 Dysuria: no Incomplete bladder emptying: no Hematuria: no Frequency: no Urgency: no Nocturia: 1x Stream: good stream Leaking: no Post void dripping: no Wearing pads/ Depends: no Urge incontinence: no Stress incontinence: no Incontinence without Sensory Awareness: no Abdominal pain: pt. states he has had mild left groin pain Flank pain: no Sexual complaints: no History of Present Illness Reviewed ua and op-note. There have been no associated fever, chills, flank pain or blood in the urine. Pt. denies any pain/burning with urination at this time. I have reviewed and verified the staff HPI to be accurate for this encounter. I have reviewed the previous health record information and history for this patient from Dr. Gotti. Review of Systems ROS - Provider Constitutional: denies weight loss, denies hot flashes. Eyes: denies eye problems. Gastrointestinal: denies nausea, denies vomiting. Cardiovascular: denies chest pain or angina. Integumentary: no dryness Musculoskeletal: baseline asymmetric gait ENMT: denies otolaryngeal symptoms. Respiratory: no shortness of breath. Heme/Lymph: denies easy bleeding tendency, denies easy bruising tendency. Psychiatric: no confusion, no anxiety. Genitourinary: denies dysuria, denies hematuria, denies discharge, denies urinary frequency, deniesurinary hesitancy, denies nocturia, denies incontinence, denies genital sores, denies decreased libido, and denies erectile dysfunction. Physical Exam Vitals & Measurements HR: 88(Peripheral) RR: 16 BP: 120/80 HT: 175.0 cm HT: 175 cm WT: 75.0 kg WT: 75.0 kg BMI: 24.49 General Appearance: alert, no distress, well nourished, well developed male. Genitourinary: left hemiscrotal incision healing well, c/d/i, no erythema, no swelling. Mild left tenderness to palpation. Testes normal. right hemiscrotum without tenderness, masses or swelling Flank Pain: none. Bladder: nonpalpable. Assessment/Plan Dr. Mcneill checking annual PSA checks. 1. Hydrocele (N43.3: Hydrocele, unspecified) S/p left hydrocelectomy done 03/15/2021. Scrotal ultrasound done 01-02-20 shows large left hydrocele 10.3 x 5.4 x 5cm. Pt. having mild intermittent left groin pain. Just started wearing appropriate fitting scrotal support Sunday, symptoms improving. Pain controlled, not using narcotics currently. Overall healing well. Pt. to continue wearing scrotal support. Pt. going to [place] tomorrow, pt. advised to not swim/soak due to incision healing and to keep it dry. Follow up prn Follow-up With When Contact Information Elisabeth Gotti MD, URL, URO Additional Instructions: PRN- pt. to call if any issues Patient Education Hydrocele, Adult IMaite, personally scribed for Dr. Gotti on 03/24/2021 08:13:50. . Documentation recorded by the scribe, Charisse Goss, accurately reflects the services(s) I performed and decisions made by me. Authenticated by Dr. Gotti on 03/24/2021 08:24:52. Problem List/Past Medical History Ongoing Hydrocele Kidney stones Historical No qualifying data Procedure/Surgical History Left hydrocelectomy (03/15/2021), Bilateral vasectomy (06/18/1991), Appendectomy, Cholecystectomy, Colonoscopy. Medications cannabidiol, Oral, BID ibuprofen Multi Vitamin+ Allergies penicillin (Hives) Social History Alcohol Beer, 1-2 times per week, Previous treatment: None. Alcohol use interferes with work or home: No. Drinks more than intended: No. Others hurt by drinking: No. Ready to change: No., 04/27/2020 Tobacco Former smoker, quit more than 30 days ago Tobacco Use:. Cigarettes, 03/24/2021 Family History Congenital heart disease: Father. Primary malignant neoplasm of colon: Mother, Sister and Grandparent. Lab Results Ambulatory Point of Care Results Bilirubin Urine Dipstick: Negative (03/24/21 08:03:00) Blood Urine Dipstick: Negative (03/24/21 08:03:00) Glucose Urine Dipstick: Negative (03/24/21 08:03:00) Ketones Urine Dipstick: Negative (03/24/21 08:03:00) Leukocytes Urine Dipstick: Negative (03/24/21 08:03:00) Nitrite Urine Dipstick: Negative (03/24/21 08:03:00) Protein Urine Dipstick: Negative (03/24/21 08:03:00) Specific [place] Urine Dipstick: 1.025 (03/24/21 08:03:00) Urine Appearance Urine Dipstick: Clear (03/24/21 08:03:00) Urine Color Urine Dipstick: Yellow (03/24/21 08:03:00) Urobilinogen Urine Dipstick: Normal 0.2-1 EU/dl (03/24/21 08:03:00) pH Urine Dipstick: 5 (03/24/21 08:03:00)Grant HospitalComment on above:Result Comment: Electronically Signed By: Elisabeth Gotti MD\.br\Date and Time Signed: 03/24/21 08:29EDT\.br\Electronically Co-Signed By: Maite Goss\.br\Date and Time Co-Signed: 03/24/21 08:19 EDTLab Reportson [id number] [id number]#1.00CD:127Normal Nunes [facility] BaltimoreOperative Reporton [id number] Report [id number]#1.00CD:127NormalFisher [facility] Hospital Of BaltimoreCOVID-19 FRon [id number]-CoV-2 (COVID-19) RNA KRISTEN+probe Ql (Unsp spec)NegativeNormalNegativeOhiohealth Doctors HospitalComment on above: Order Comment: Healthcare Worker?: NResult Comment: Testing for SARS-CoV-2 by RT-PCR This test was developed and its performance characteristics determined by [employer] and validated at the [facility]. This test has not been FDA cleared or approved. This test has been authorized by FDA under an Emergency Use Authorization (EUA). This test has been validated in accordance with the FDA's Guidance Document (Policy for Diagnostics Testing in Laboratories Certified to Perform High Complexity Testing under CLIA prior to Emergency Use Authorization for Coronavirus Disease-2019 during the Public Health Emergency) issued on September 18, 2019. This test is only authorized for the duration of time the declaration that circumstances exist justifying the authorization of the emergency use of in vitro diagnostic tests for detection of SARS-CoV-2 virus and/or diagnosis of COVID-19 infection under section 564(b)(1) of the Act, 21 U.S.C. 360bbb-3(b)(1), unless the authorization is terminated or revoked sooner. PERFORMED BY: [address] [place] [address] PATHOLOGIST OPTOELECTRONICS ENGINEER SHANELL PENA M.D.Performed By: #### COVID 19 [facility] #### [address] [place] [address] USALab Reportson [id number] Reports [id number]#1.00CD:127[facility] HospitalLab [id number]#1.00CD:[address] [place], [place] [address]RAD - MISCon [id number] - MISC [id number]#1.00CD:127Grant HospitalBasic Metabolic Panelon [id number] [Mass/Vol]8.9 mg/dLNormal 8.2-10.2FCity HospitalComment on above:Result Comment: PERFORMED BY: [place] [address] PATHOLOGIST OPTOELECTRONICS ENGINEER SHANELL PENA M.D.Performed By: #### BMP, PTT, CBC, PT #### [facility] [address] [place] [address] USAChloride [Moles/Vol]107 mmol/DXruhwb85-893IabuwurrqOhiohealth Doctors HospitalComment on above:Performed By: #### BMP, PTT, CBC, PT #### [facility] [address] [place] [address] USACO2 [Moles/Vol]21.5 mmol/LLow22.0-30.0Ohiohealth Doctors HospitalComment on above:Performed By: #### BMP, PTT, CBC, PT #### [facility] [address] [place] [address] USACreatinine [Mass/Vol]0.84 mg/dLNormal0.64-1.27Ohiohealth Doctors HospitalComment on above:Performed By: #### BMP, PTT, CBC, PT #### [facility] [address] [place] [address] USAEstimated GFR ( Bee> 60NormalOhiohealth Doctors HospitalComment on above:Result Comment: GFR estimated reference range: According to KDOQI guidelines, <60 ml/min/1.73m2 is sufficient to diagnose a patient with chronic kidney disease.Performed By: #### BMP, PTT, CBC, PT #### [place] [address] USAEstimated GFR (Non- Am> 60NormalOhiohealth Doctors HospitalComment on above:Performed By: #### BMP, PTT, CBC, PT #### [facility] [address] [place] [address] USAGlucose [Mass/Vol]140 mg/iODzwm96-765DltenfrzoOhiohealth Doctors HospitalComment on above:Result Comment: Random Glucose Reference Range is dependent on time and content of last meal. Glucose of more than 200 mg/dL in a nonstressed, ambulatory subject supports the diagnosis of Diabetes Mellitus. ADA recommended reference rangePerformed By: #### BMP, PTT, CBC, PT #### [place] [address] USAPotassium [Moles/Vol]3.7 mmol/LNormal3.5-5.1FCity HospitalComment on above:Performed By: #### BMP, PTT, CBC, PT #### [place] [address] USASodium [Moles/Vol]138 mmol/RWayhot351-280EgndonafuOhiohealth Doctors HospitalComment on above:Performed By: #### BMP, PTT, CBC, PT #### [place] [address] USAUrea nitrogen [Mass/Vol]12 mg/dLNormal9-23Ohio[facility] Doctors HospitalComment on above:Performed By: #### BMP, PTT, CBC, PT #### [place] [address] USAComplete Blood Count Auto Diffon [id number] (Bld) [#/Vol]0.0 10*3/uLNormal0.0-0.2FCity HospitalComment on above:Result Comment: PERFORMED BY: [place] [address] PATHOLOGIST OPTOELECTRONICS ENGINEER SHANELL PENA M.D.Performed By: #### BMP, PTT, CBC, PT #### [place] [address] USABasophils/100 WBC (Bld)0.8 %Normal.Ohiohealth Doctors HospitalComment on above:Performed By: #### BMP, PTT, CBC, PT #### [place] [address] USAEosinophils (Bld) [#/Vol]0.0 10*3/uLNormal0.0-0.45 [facility] Doctors HospitalComment on above:Performed By: #### BMP, PTT, CBC, PT #### [place] [address] USAEosinophils/100 WBC (Bld)0.7 %Normal.Ohiohealth Doctors HospitalComment on above:Performed By: #### BMP, PTT, CBC, PT #### [place] [address] USAErythrocyte distribution width (RBC) [Ratio]13.1 %Normal 12.0-14.8[facility] Doctors HospitalComascension [facility] on above:Performed By: #### BMP, PTT, CBC, PT #### [place] [address] USAHematocrit (Bld) [Volume fraction]40.8 %Elwgdb64.8-50.0 [facility] Doctors HospitalComment on above:Performed By: #### BMP, PTT, CBC, PT #### [place] [address] USAHemoglobin (Bld) [Mass/Vol]13.9 g/mJHunmxt76.0-17.0 [facility] Doctors HospitalComment on above:Performed By: #### BMP, PTT, CBC, PT #### [place] [address] USALymphocytes (Bld) [#/Vol]1.2 10*3/uLNormal1.00-4.8 [facility] Doctors HospitalComment on above:Performed By: #### BMP, PTT, CBC, PT #### [facility] [address] [place] [address] USALymphocytes/100 WBC (Bld)18.7 %Normal.Ohio[facility] Doctors HospitalComment on above:Performed By: #### BMP, PTT, CBC, PT #### [facility] [address] [place], [place] [address]H (RBC) [Entitic mass]29.1 hqCxpkke03.5-35.2FCity HospitalComment on above:Performed By: #### BMP, PTT, CBC, PT #### [place] [address] USAV (RBC) [Entitic vol]85.3 xJGsxanp29.5-101Ohiohealth Doctors HospitalComment on above:Performed By: #### BMP, PTT, CBC, PT #### [facility] [address] [place] [address] USAMean Corpuscular HGB Conc34.2 g/qQDispho78.5-35.6FCity HospitalComment on above:Performed By: #### BMP, PTT, CBC, PT #### [place] [address] USAMonocytes (Bld) [#/Vol]0.4 10*3/uLNormal0.0-0.8Ohio[facility] Doctors HospitalComment on above:Performed By: #### BMP, PTT, CBC, PT #### [facility] [address] [place] [address] USAMonocytes/100 WBC (Bld)5.6 %Normal.Ohio[facility] Doctors HospitalComment on above:Performed By: #### BMP, PTT, CBC, PT #### [facility] [address] [place] [address] USANeutrophils (Bld) [#/Vol]4.7 10*3/uLNormal1.8-7.7FCity HospitalComment on above:Performed By: #### BMP, PTT, CBC, PT #### [address] [place] [address] USANeutrophils/100 WBC (Bld)74.2 %Normal.[facility] Doctors HospitalComment on above:Performed By: #### BMP, PTT, CBC, PT #### [facility] [facility] [address] [place] [address] USANucleated RBC/100 WBC (Bld) [Ratio]0.0 %Normal0-0.5 [facility] Doctors HospitalComment on above:Performed By: #### BMP, PTT, CBC, PT #### [facility] [address] [place] [address] USAPlatelet mean volume (Bld) [Entitic vol]7.0 fLNormal 6.6-10.1FCity HospitalComment on above:Performed By: #### BMP, PTT, CBC, PT #### [place] [address] USAPlatelets (Bld) [#/Vol]278 10*3/nGYcdosk973-598FrtbkknvnOhiohealth Doctors HospitalComment on above:Performed By: #### BMP, PTT, CBC, PT #### [place] [address] USARBC (Bld) [#/Vol]4.78 10*6/uLNormal3.90-5.60[facility] Doctors HospitalComment on above:Performed By: #### BMP, PTT, CBC, PT #### [facility] [address] [place] [address] USAWBC (Bld) [#/Vol]6.3 10*3/uLNormal4.5-11.0[facility] Doctors HospitalComment on above:Performed By: #### BMP, PTT, CBC, PT #### [place] [address] USAECG 12 lead ECGon [id number] 12 lead ECGST[facility] [place] [address] [place] [address] Electrocardiograph Report Signed Patient: Noemy Packer MR#: [id number] : 1960 Acct:[id number] Age/Sex: 60 / M ADM Date: 03/01/21 Loc: PS Room: Type: [facility] Attending Dr: Elisabeth Gotti MD Ordering Provider: Elisabeth Gotti MD Date of Service: 03/01/21 ECG/ECG 12 lead ECG: PST Copies to: Test Reason : Blood Pressure : / mmHG Vent. Rate : 093 BPM Atrial Rate : 093 BPM P-R Int : 150 ms QRS Dur : 086 ms QT Int : 350 ms P-R-T Axes : 070 049 032 degrees QTc Int : 435 ms Normal sinus rhythm Normal ECG No previous ECGs available Confirmed by STARR ZAMARRIPA MD ([id number]) on 03/02/2021 3:46:35 PM Referred By: JEREMIAH Electronically Signed By:STARR ZAMARRIPA MD Transcribed By: MUS Signed By Starr Zamarripa MD 0 03/02/21 1546NoOhio State University Wexner Medical CenterPartial Thromboplastin Timeon 53-67-6102iSUB Coag (Bld) [Time]29.4 lDuhvzy08.1-36.5FCity HospitalComment on above:Result Comment: PERFORMED BY: [place] [address] PATHOLOGIST OPTOELECTRONICS ENGINEER SHANELL PENA M.D.Performed By: #### BMP, PTT, CBC, PT #### [place] [address] USAProthrombin Time INRon 21-91-8443IFY Coag (PPP) [Relative time]1.0 {INR}[facility] HospitalComment on above:Result Comment: INR Therapeutic Range A) Pre- and Peroperative OAT started two weeks before surgery. NOT HIP SURGERY: 1.5 - 2.5 HIP SURGERY: 2 - 3 B) Primary and secondary prevention of venous THROMBOSIS: 2 - 3 C) Active venous thrombosis, pulmonary embolism and prevention of recurrent venous thrombosis: 2 - 3 D) Prevention of arterial thromboembolism including patients with mechanical heart valves: 3 - 4.5Performed By: #### BMP, PTT, CBC, PT #### [facility] [address] [place] [address] USAPT Coag (PPP) [Time]11.5 sNormal9.0-12.9Ohio[facility] Doctors HospitalComment on above:Performed By: #### BMP, PTT, CBC, PT #### [facility] [address] [place] [id number] USAXR chest 2V*on [id number] chest 2V*[facility] [place] [address] [place] [address] XRay Report Signed Patient: Noemy Packer MR#: [id number] : 1960 Acct:[id number] Age/Sex: 60 / M ADM Date: 03/01/21 Loc: PS Room: Type: [facility] Attending Dr: Elisabeth Gotti MD Ordering Provider: Elisabeth Gotti MD Date of Service: 03/01/21 XR/XR chest 2V*: PST Copies to: Elisabeth Gotti MD Plain film chesttwo-view HISTORY:Preop assessment for LEFT hydrocele COMPARISON:None FINDINGS:Atherosclerosis of thoracic aorta. The cardiac, mediastinal and hilar silhouettes are within normal limits. No acute lung process, pleural effusion or pneumothorax identified. Bony st ructures are intact. XR/XR chest 2V* IMPRESSION: No acute process. Impression dictated by: Keegan Canales M.D.03/01/2021 6:09 PM Dictation Location: [place] [address] Transcribed By: [facility] 03/01/211808 Dictated By: Keegan Canales DO 03/01/211807 Signed By: 03/01/211808NoOhio State University Wexner Medical CenterAmbulatory Clinical Summary on [id number] Clinical Summary {[id number]}CD:[id number] HospitalPatient Educationon 10-52-7754Qiboick EducationUrology Hydrocele, Adult A hydrocele is a collection of fluid in the loose pouch of skin that holds the testicles (scrotum).This may happen because: ? The amount of fluid produced in the scrotum is not absorbed by the rest of the body. ? Fluid from the abdomen fills the scrotum. Normally, the testicles develop in the abdomen then move (drop) into to the scrotum before . The tube that the testicles travel through usually closesafter the testicles drop. If the tube does not close, fluid from the abdomen can fill the scrotum. This is less common in adults. What are the causes? The cause of a hydrocele in adults is usually not known. However, it may be caused by: ? An injury to the scrotum. ? An infection (epididymitis). ? Decreased blood flow to the scrotum. ? Twisting of a testicle (testicular torsion). ? A defect. ? A tumor or cancer of the testicle. What are the signs or symptoms? A hydrocele feels like a water-filled balloon. It may also feel heavy. Other symptoms include: ? Swelling of the scrotum. The swelling may decrease when you lie down. You may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 hydrocele and type of treatment. In general: ? Take all medicine as directed by your caregiver. Follow the directions carefully. ? Ask your caregiver if there is anything you should not do while you recover (activities, lifting,work, sex). ? If you had surgery to repair a communicating hydrocele, recovery time may vary. Ask you caregiverabout your recovery time. ? Avoid heavy lifting for 4 to 6 weeks. ? If you had an incision on the scrotum or groin, wash it for 2 to 3 days after surgery. Do this aslong as the skin is closed and there are no gaps in the wound. Wash gently, and avoid rubbing the incision. ? Keep all follow-up appointments. SEEK MEDICAL CARE IF: ? Your scrotum seems to be getting larger. ? The area becomes more and more uncomfortable. SEEK IMMEDIATE MEDICAL CARE IF: You have a fever. Document Released: 11/22/2010 Document Revised: 08/26/2012 Document Reviewed: 11/22/2010 ExitCare? Patient Information ?2013 [employer].[facility] Vital Signs Date TimeVital SignValuePerforming UxgjwofpjBdpdlwiy88-08-5238 09:08-0500Body najfmb021.26 cmJessica Harish DO Work Phone: [facility]11-10-2025 09:08-0500 Body mass index (BMI) [Ratio]23.1 kg/y7Etchegj Harish DO Work Phone: 1419)[address] [place], [place] 3739811-10-2025 09:08-0500 Body uuiazl21.21 kgJessica Harish DO Work Phone: 1419)[address] [place], [place] 3739811-10-2025 09:08-0500 Diastolic blood mm[Hg]Blea Harish DO Work Phone: 1(419)[address] [place], [place] 3739811-10-2025 09:08-0500 Heart rate72 /minJessica Harish DO Work Phone: 1419)[address] [place], [place] 3739811-10-2025 09:08-0500 Respiratory rate20 /minJessica Harish DO Work Phone: 1419)[address] [place], [place] 3739811-10-2025 09:08-0500 SaO2% (BldA) [Mass fraction]97 %Bela Harish DO Work Phone: 1(419)[address] [place], [place] 3739811-10-2025 09:08-0500 Systolic blood swizgovd934 mm[Hg]Bela Harish DO Work Phone: 1(189)[address] [place], [place] 3739808-25-2025 08:02-0400 Body aadeay817.3 cmLucian Solomon MD Work Phone: 1(522)[address]08-25-2025 08:02-0400Body mass index (BMI) [Ratio]22.45 kg/t4EkywdqeLucian Solomon MD Work Phone: 1(621)[address] [place], [place] 7666008-25-2025 08:02-0400Body zdxwti62.95 kgLucian Solomon MD Work Phone: 1(735)[address] [place], [place] 7666007-11-2025 08:01-0400Body whdpyw329.3 cmLucian Solomon MD Work Phone: 1(475)[address] [place], [place] 7666007-11-2025 08:01-0400Body mass index (BMI) [Ratio]22.74 kg/q5ZcsrghgLucian Solomon MD Work Phone: 1(680)[address] [place], [place] 7666007-11-2025 08:01-0400Body xwypwp35.85 kgLucian Solomon MD Work Phone: 1(501)[address] [place], [place] 7666007-11-2025 08:01-0400Diastolic blood mm[Hg]Lucian Solomon MD Work Phone: 1(062)[address] [place], [place] 7666007-11-2025 08:01-0400Heart rate96 /min Lucian Solomon MD Work Phone: 1(936)[address] [place], [place] 7666007-11-2025 08:01-0400Systolic blood ejmzrtig382 mm[Hg]Luican Solomon MD Work Phone: 1(569)[address] [place], [place] 7666005-15-2025 09:14-0400Body amjhmq657.3 cmLucian Solomon MD Work Phone: 1(608)[address] [place], [place] 7666005-15-2025 09:14-0400Body mass index (BMI) [Ratio]22.89 kg/y3HtdemjpLucian Solomon MD Work Phone: 1(740)[address] [place], [place] 7666005-15-2025 09:14-0400Body .31 kgLucian Solomon MD Work Phone: 1(181)[address] [place], [place] 7666005-15-2025 09:14-0400Diastolic blood szyzvxvr65 mm[Hg]Lucian Solomon MD Work Phone: 1(279)[address] [place], [place] 7666005-15-2025 09:14-0400Systolic blood agfhuwwa349 mm[Hg]Lucian Solomon MD Work Phone: 1(149)[address] [place], [place] 7666003-12-2025 16:15-0400Body isjaqh263.3 cmYecenia Vazquez DO Work Phone: [facility]03-12-2025 16:15-0400Body mass index (BMI) [Ratio]23.68 kg/m2Yecenia Des DO Work Phone: [facility]03-12-2025 16:15-0400Body ugntgittjja11.7 [degF]Yecenia Vazquez DO Work Phone: [facility] [employer] Fbnpjj15-40-5830 16:15-0400Body .76 kgYecenia Des DO Work Phone: [facility] [employer] Wwkmty52-03-2248 16:15-0400Diastolic blood tuvzlfrf87 mm[Hg]Yecenia Des DO Work Phone: [facility] [employer] Glvhal06-12-1358 16:15-0400Heart rate 78 /minYecenia Des DO Work Phone: [facility] [employer] Ayfdds20-34-9305 16:15-0400 Respiratory rate18 /minYecenia Des DO Work Phone: [facility] [employer] Tntbgm93-49-4999 16:15-1209CaV3% (BldA) [Mass fraction]97 %Yecenia Des DO Work Phone: [facility] [employer] Eupxej99-19-6611 16:15-0400Systolic blood vkylfxvz674 mm[Hg]Yecenia Des DO Work Phone: [facility] [employer] Tlryrw87-86-7688 15:13-0500Body qhkoaj867.3 cmJojaycee Des DO Work Phone: [facility] [employer] Baqjpe14-82-2112 15:13-0500Body mass index (BMI) [Ratio]23.63 kg/m2Yecenia Des DO Work Phone: [facility] [employer] Gprnxo87-79-9832 15:13-0500Body jrpaox30.58 kgYecenia Des DO Work Phone: [facility] [employer] Unyanv35-54-5650 15:13-0500Diastolic blood tmvwezwl06 mm[Hg]Yecenia Des DO Work Phone: [facility] [employer] Lsdbyr85-20-4285 15:13-0500Systolic blood epdqmxnz787 mm[Hg]Yecenia Des DO Work Phone: [facility] [employer] Akpyqv38-78-0572 14:30-0500Body foobkm035.3 cmAdaivd Judge DPM Work Phone: [facility] HospitalChpnwsszjp41-59-9039 14:30-0500Body mass index (BMI) [Ratio]22.89 kg/f1GdcsicbSpencer Adrianher DPM Work Phone: [facility] HospitalAgkscgnivu20-02-0083 14:30-0500Body yycyrl11.31 kgSpencer Adrianher DPM Work Phone: [facility] HospitalGypdkanfes39-56-7972 14:47-0500Body .3 cmAngela Lowe PA Work Phone: [facility] HospitalSuonrfahnl66-94-4463 14:47-0500Body mass index (BMI) [Ratio]22.59 kg/r9Rcumem Lowe PA Work Phone: [facility] HospitalSarvniiueh72-80-9962 14:47-0500Body rdbbeq54.4 kg Alycia Lowe PA Work Phone: [facility] HospitalInrxfalvmw52-69-4038 14:47-0500Diastolic blood quwfeeja27 mm[Hg]Alycia Lowe PA Work Phone: [facility] HospitalChpggxqflz87-13-8283 14:47-0500Systolic blood nmszlbec302 mm[Hg]Alycia Lowe PA Work Phone: [facility] HospitalCmhvucsahe76-57-8385 16:05-0500Body ezhmcj717.3 cmJojaycee Yuhas DO Work Phone: [facility]11-25-2024 16:05-0500Body mass index (BMI) [Ratio]23.16 kg/m2Jojaycee Yuhas DO Work Phone: [facility]11-25-2024 16:05-0500Body fjdojzpehws13.1 [degF]Yecenia Des DO Work Phone: [facility]11-25-2024 16:05-0500Body ovdhzo03.12 kgJojaycee Yuhas DO Work Phone: [facility]11-25-2024 16:05-0500Diastolic blood hdvgequv11 mm[Hg]Yecenia Vazquez DO Work Phone: [facility]11-25-2024 16:05-0500Heart rate 93 /minJojaycee Vazquez DO Work Phone: [facility]11-25-2024 16:05-0474PmL1% (BldA) [Mass fraction]97 %Yecenia Vazquez DO Work Phone: [facility]11-25-2024 16:05-0500Systolic blood aabgzhge364 mm[Hg]Yecenia Vazquez DO Work Phone: [facility]11-13-2024 08:38-0500Body .3 cmAngela Lowe PA Work Phone: [place] [address]Zznkmwtaqx74-72-5519 08:38-0500Body mass index (BMI) [Ratio]23.18 kg/l5Eaqqec Lowe PA Work Phone: [place] [address]Yykiloesdi49-26-2204 08:38-0500Body ulpmsm72.22 kgAngela Lowe PA Work Phone: [place] [address]Odiikyvlqb94-93-8689 08:38-0500Diastolic blood naqshvkc97 mm[Hg]Alycia Lowe PA Work Phone: [place] [address]Jobyjprkyd57-05-1783 08:38-0500Systolic blood trsyupah205 mm[Hg]Alycia Lowe PA Work Phone: [place] [address]Wrihbckaqx17-39-2403 15:35-0500Body obkklu007.3 cmAnne Hill PA Work Phone: [place] [address]Qcexdrxsxy45-92-9938 15:35-0500Body mass index (BMI) [Ratio]22.89 kg/m2Anne Hill PA Work Phone: [place] [address]Jvxitrnkbn42-01-2734 15:35-0500Body tbwrfo44.31 kgAnne Hill PA Work Phone: [place] [address]Eaeqcqndpa51-31-0727 15:35-0500Diastolic blood lupyrnwg63 mm[Hg]Lauryn TEJADA Work Phone: [facility] HospitalKbyyswaofg40-57-0188 15:35-0500Heart rate96 /min Lauryn TEJADA Work Phone: [facility] HospitalUbfvnktuxu00-84-8595 15:35-0500Respiratory rate16 /minLauryn TEJADA Work Phone: [facility] HospitalXwpsvxozjz72-79-5767 15:35-2049GmE3% (BldA) [Mass fraction]97 %Lauryn TEJADA Work Phone: [facility] HospitalPwateznwex18-46-4743 15:35-0500Systolic blood btvhqsyb343 mm[Hg]Lauryn Alicia PA Work Phone: [facility] HospitalDftxocdejb11-52-6999 12:48-0400Diastolic blood xjclleog51 mm[Hg]Pfo 6[facility]10-24-2024 12:48-0400Heart rate94 /minPfo [address] [place], [place] 9800310-24-2024 12:48-0400Respiratory rate16 /minPfo [address] [place], [place] 9800310-24-2024 12:48-7891XqA9% (BldA) [Mass fraction]96 %Pfo [address] [place], [place] 9800310-24-2024 12:48-0400Systolic blood slatkomg328 mm[Hg] Pfo 6[facility]10-24-2024 09:03-0400Body mmfmev236.3 cmPfo 6 [facility]10-24-2024 09:03-0400Body mass index (BMI) [Ratio]23 kg/m2Pfo [address] [place], [place] 9800310-24-2024 09:03-0400Body bpjuvbquwxw51.7 [degF]Pfo [address] [place], [place] 9800310-24-2024 09:03-0400Body asgxnx53.67 kgPfo 6 [facility]10-10-2024 12:02-0400Body gpgypcbhidt07.01 [degF]Pfo 7 [facility]10-10-2024 12:02-0400Diastolic blood wyolmsvd53 mm[Hg]Pfo [address] [place], [place] 2516410-10-2024 12:02-0400Heart rate80 /minPfo [address] [place], [place] 2516410-10-2024 12:02-0400Respiratory rate16 /minPfo [address] [place], [place] 2516410-10-2024 12:02-8461LbS5% (BldA) [Mass fraction]99 %Pfo [address] [place], [place] 2516410-10-2024 12:02-0400Systolic blood ajwqyvdp093 mm[Hg]Pfo [address] [place], [place] 2516410-10-2024 08:21-0400Body fcbxak224.[address] [place], [place] 2516410-10-2024 08:21-0400Body mass index (BMI) [Ratio]23.24 kg/m2Pfo [address] [place], [place] 1330910-10-2024 08:21-0400Body jwruly23.[address] [place], [place] 2516408-20-2024 14:01-0400Body pyrflh093.7 Berry Charles MD Work Phone: [facility] HospitalNiexvllrht34-62-6958 14:01-0400Body mass index (BMI) [Ratio]22.96 kg/y3DioadrLeonidas Charles MD Work Phone: [facility] HospitalXblpkczsqi51-56-3936 14:01-0400Body eghzmc40.49 kgLeonidas Charles MD Work Phone: NO[facility] HospitalVbgzitvsje03-75-8833 14:01-0400Diastolic blood msqaxzti90 mm[Hg]Leonidas Charles MD Work Phone: [facility] HospitalUdcewufczp40-68-5576 14:01-0400Systolic blood gwojmgvj227 mm[Hg]Leonidas Charles MD Work Phone: [facility] HospitalAuzhzimrtn51-49-7036 10:49-0400Body yraffs955.7 Micah DUTTON Work Phone: [facility]06-24-2024 10:49-0400Body mass index (BMI) [Ratio]23.26 kg/n7EwiqsulmLogan DUTTON Work Phone: [facility]06-24-2024 10:49-0400Body pdogrc35.4 kgTerrellerick Dunbar STRADDLE BUGGY OPERATOR-HOUSEKEEPING SUPERVISOR Work Phone: [facility] [employer] Cssjhj41-48-7846 14:56-0400Body bymxuy803.3 cmYecenia Vazquez DO Work Phone: [facility]05-06-2024 14:56-0400Body mass index (BMI) [Ratio]22.9 kg/m2Yecenia Vazquez DO Work Phone: [facility]05-06-2024 14:56-0400Body .01 [degF]Yecenia Vazquez DO Work Phone: [facility]05-06-2024 14:56-0400Body pqbtfa13.35 kgYecenia Vazquez DO Work Phone: [facility]05-06-2024 14:56-0400Diastolic blood mm[Hg]Yecenia Vazquez DO Work Phone: [facility]05-06-2024 14:56-0400Heart rate 85 /minJojaycee Vazquez DO Work Phone: [facility]05-06-2024 14:56-7576SdN1% (BldA) [Mass fraction]98 %Yecenia Vazquez DO Work Phone: [facility] [employer] Axcaal44-09-5166 14:56-0400Systolic blood bgakkiou833 mm[Hg]Yecenia Vazquez DO Work Phone: [facility]02-19-2024 10:10-0500Body ifqhim916.3 cmTamie Gómez STRADDLE BUGGY OPERATOR-CONTROL ROOM AGENT Work Phone: [facility]02-19-2024 10:10-0500Body mass index (BMI) [Ratio]23.36 kg/m2Tamie Gómez STRADDLE BUGGY OPERATOR-CONTROL ROOM AGENT Work Phone: [facility]02-19-2024 10:10-0500Body kgudbipmggr88.81 [degF]Tamie Gómez APRNKrystinaCONTROL ROOM AGENT Work Phone: [facility] Yoqfhy50-08-7860 10:10-0500Body toaezu65.76 kgTamie Gómez APRN-CONTROL ROOM AGENT Work Phone: [facility] [employer] Yarucf14-25-3925 10:10-0500Diastolic blood mm[Hg]Tamie HERCONTROL ROOM AGENT Work Phone: [facility] [employer] Dtbofx11-30-5588 10:10-0500Heart rate 95 /minTamie Gómez APRN-CONTROL ROOM AGENT Work Phone: [facility] [employer] Hoxlvq08-76-9710 10:10-5237ZsX6% (BldA) [Mass fraction]96 %Tamie HERCONTROL ROOM AGENT Work Phone: [facility] [employer] Abkngo27-87-8475 10:10-0500Systolic blood vqortqdh62 mm[Hg]Tamie HERCONTROL ROOM AGENT Work Phone: [facility] [employer] Xysxgp60-33-8345 13:48-0500Body drlzuy503.3 cmSolo Pan MD Work Phone: [facility] [employer] Cytpub32-24-4132 13:48-0500Body mass index (BMI) [Ratio]22.59 kg/q0UwmtlSolo Pan MD Work Phone: [facility] Vndgjq16-38-3953 13:48-0500Body .4 kgSolo Pan MD Work Phone: [facility] Karcun74-01-8075 11:03-0500Body nobhqm860.3 cmSolo Pan MD Work Phone: [facility] Kbnzpu70-85-2500 11:03-0500Body mass index (BMI) [Ratio]22.89 kg/s6NxtuvSolo Pan MD Work Phone: [facility] Wkcniy01-36-3043 11:03-0500Body zifkkw88.31 kgSolo Pan MD [facility] Phone: [facility]20[facility] 11:03-0500Diastolic blood mm[Hg]Solo Pan MD Work Phone: [facility]-16-2024 11:03-0500Heart rate 99 /minSolo Pan MD Work Phone: [facility]01-16-2024 11:03-0500Systolic blood denfcrzi114 mm[Hg]Solo Pan MD Work Phone: [facility]07-27-2022 13:35-0400Body ozexfu932.26 cmPameldong Albert Other [employer] Other 07-27-2022 13:35-0400Body mass index (BMI) [Ratio] 22.89 kg/u5Tfvflv Bety Other [employer] Other 07-27-2022 13:35-0400Body zeimszlwvbw50.9 [degF]Filomena Btey Other [employer] Other 07-27-2022 13:35-0400Body tvngce18.31 kgFilomena Albert Other [employer] Other 07-27-2022 13:35-0400Respiratory rate18 /minFilomena Albert Other [employer] Other 07-27-2022 13:35-3858ZwA4% (BldA) [Mass fraction]96 % Filomena Bety Other [employer] Other Encounters Encounter DateEncounter TypeCare ProviderFacilityStart: 04-27-2025 End: 54-09-7997ygqpcgadyfCrmfhzc Rapp DO Work Phone: -[facility] ClydeStart: 04-27-2025 End: 56-34-9951Frpegea encounter procedureBela Moreira DO-[facility] [place] Work Phone: Start: 04-27-2025 End: 57-44-9449Gtkfzzo encounter statusBela Moreira [facility]: 03-20-2025 End: 90-19-5876Cunhoyygs department patient visitJOSanger General Hospitaltart: 03-10-2025 End: 39-60-3009ghombxlwobTxfdgqr Kelbley PTANOMS [place] Physical TherapyComment on above:Multiple sclerosis (HCC) (Primary Dx)Start: 03-10-2025 End: 26-46-6385Calubd flowsheetMelissa Kelbley PTANOM[facility] Start: 03-10-2025 End: 72-81-2762Mbsjka flowsheetMelissa Kelbley PTANOMS [facility] Start: 03-03-2025 End: 43-64-4379Bsrtrf flowsheetMelissa Kelbley [facility] Start: 03-03-2025 End: 41-41-1891Stgqdn flowsheetMelissa Kelbley [facility] Start: 03-03-2025 End: 55-25-8862lcqipcyzmaRjptmen Kelbley PTANOMS [place] Physical TherapyComment on above:Multiple sclerosis (HCC) (Primary Dx)Start: 02-25-2025 End: 05-71-3124Rvtjio flowsheetMelissa Kelbley [facility] Start: 02-25-2025 End: 19-57-3275Stcbny flowsheetMelissa Kelbley [facility] Start: 02-25-2025 End: 40-25-9050erprslhtcoWnqlpap Kelbley PTANOMS [place] Physical TherapyComment on above:Multiple sclerosis (HCC) (Primary Dx)Start: 02-18-2025 End: 18-88-8671Yswjrt flowsheetSammantha Arzola PTNOMS [facility] Start: 02-18-2025 End: 27-93-2580Orfwrm flowsheetSammantha Arzola PTNOMS [facility] Start: 02-18-2025 End: 95-12-8088xinfnxqpknAljftmcnk Arzola PTNOMS [facility] Comment on above:Multiple sclerosis (HCC) (Primary Dx)Start: 02-09-2025 End: 00-10-3682Ftrscc Kayli Solomon MD Work Phone: noMS NEUROLOGYStart: 02-09-2025 End: 52-78-2341Wisfaj Kayli Solomon MD Work Phone: noMS BM NEUROLOGYStart: 02-09-2025 End: 32-07-5810Qpqhcw outpatient visit 25 minutesLucian Solomon MD Work Phone: noMS Gore NeurologyComment on above:Multiple sclerosis (HCC) (Primary Dx)Start: 02-09-2025 End: 72-57-1716fzogekadyzYQXFNWW W BAUERNot AvailableStart: 12-26-2024 End: 50-18-3635Eyhoto Kayli Solomno MD Work Phone: noms NEUROLOGYStart: 12-26-2024 End: 23-97-6294Iyrmaitoby Solomon MD Work Phone: noms NEUROLOGYStart: 12-26-2024 End: 06-75-4809Acypkp outpatient visit 25 minutesLucian Solomon MD Work Phone: noMS SWS NEURComment on above:Multiple sclerosis (HCC) (Primary Dx)Start: 12-26-2024 End: 93-96-0789omfbdvslycXBZWFCN W BAUERNot AvailableStart: 11-12-2024 End: 71-67-4437exuxjlkpupQXLXCCC W BAUERNot AvailableStart: 10-30-2024 End: 21-21-3765Yhmdirtoby Solomon MD Work Phone: noMS NEUROLOGYStart: 10-30-2024 End: 23-22-3614Gbggbd flowsheetLucian Solomon MD Work Phone: noms BM NEUROLOGYStart: 10-30-2024 End: 80-54-1964Phuenh outpatient visit 25 minutesLucian Solomon MD Work Phone: noms SWS NEURComment on above:Left foot drop (Primary Dx); Multiple sclerosis (CMS/HCC); Foraminal stenosis of lumbar region; Left leg weaknessStart: 10-30-2024 End: 45-90-6256vpdumjawdoAMTFBRM W BAUERNot AvailableStart: 10-27-2024 End: 82-10-4520Rbgzll OnlyPatriczuleyka Momin [facility] Work Phone: [facility] Medical OncologyStart: 10-15-2024 End: 24-93-9033Uotrqocmch and management of [facility] Hospitaltart: 08-27-2024 End: 06-13-4247Knxwah outpatient visit 25 minutesYecenia Rita Vazquez DO Work Phone: [facility] - Family MedicineComment on above:Anterior horn cell disease (CMS-HCC) (Primary Dx); Cervical myelopathy (CMS-HCC); Spinal stenosis of lumbar region with neurogenic claudication; Acquired left foot dropStart: 08-27-2024 End: 62-30-5800vqjrzsczmqUABWOptim Medical Center - Screven Ambulatory PPGStart: 08-14-2024 End: 47-35-8721Zmnpwyx encounter procedureJojaycee Vazuqez DO Work Phone: [facility] - Family MedicineComment on above:Encounter for subsequent annual wellness visit (AWV) in Medicare patient (Primary Dx); Anterior horn cell disease (CMS-HCC); Monoparesis (CMS-HCC)Start: 08-14-2024 End: 58-67-8401lthcjepqdtLIZAMatteawan State Hospital for [facility] Ambulatory PPGStart: 07-30-2024 End: 20-31-0068Voyrlf outpatient new 30 Shyam Judge DPM Work Phone: noms PODIATRYComment on above:Lumbar radiculopathy (Primary Dx); Leg length discrepancy; Chronic left-sided low back pain with left-sided sciatica; Foot drop, leftStart: 07-30-2024 End: 25-85-4066irsggoveqhRSGMSBD S RUSHERNot AvailableStart: 07-30-2024 End: 73-70-8504Sqmxdl flowsheetMeghannjoelle Judge DPM Work Phone: noms PODIATRYStart: 07-30-2024 End: 59-40-5387Ofukii flowsheetSpencer Judge DPM Work Phone: noms PODIATRYStart: 07-10-2024 End: 08-31-0083Lglgky outpatient visit 25 minutesAngela Lowe PA Work Phone: ana BELLEVUEComment on above:Multiple sclerosis (CMS/HCC) (Primary Dx); Lumbar back pain; Lumbar radiculopathy; Left foot drop; Facet arthritis of lumbar regionStart: 07-10-2024 End: 42-58-9291ocmqqbrlsuHVSLMW LOWENot AvailableStart: 05-12-2024 End: 68-19-9764Wjsaue outpatient visit 25 minutesYecenia Vazquez DO Work Phone: [facility] - Family MedicineComment on above:Multiple sclerosis (CMS-HCC) (Primary Dx); B12 deficiency; Spinal stenosis of lumbar region with neurogenic claudicationStart: 05-12-2024 End: 64-88-9392rzdlmlnxcjPFLO L YUHASPRoxane [facility] Hospitaltart: 04-30-2024 End: 19-50-9091Hdqdhh flowsheetAngela Lowe PA Work Phone: noms NEUROLOGYStart: 04-30-2024 End: 78-01-5034Hdzfms flowsheetAngela Lowe PA Work Phone: noms NEUROLOGYStart: 04-30-2024 End: 64-32-3969Oakhkqcz SupportAngela Lowe PA Work Phone: noms NEUROLOGYComment on above:Myalgia (Primary Dx); Lumbar back painStart: 04-23-2024 End: 01-21-8546Nucofa outpatient visit 25 minutesLauryn TEJADA Work Phone: noms NE NEUROComment on above:Multiple sclerosis (CMS/HCC) (Primary Dx); Left leg weakness; Lumbar back pain; MyalgiaStart: 04-23-2024 End: 04-81-1281yjjpaonvsfXOEY HILLNot AvailableStart: 04-23-2024 End: 48-37-1285Wgyzyh Galo TEJADA Work Phone: noms NE NEUROStart: 04-23-2024 End: 95-83-8031Bhsqnc Galo TEJADA Work Phone: noms NE NEUROStart: 04-10-2024 End: 65-73-4999ukfdpfvitfEya Infusion Chair 6Dbro [facility] - Medical OncologyComment on above:Multiple sclerosis (CMS-HCC) (Primary Dx)Start: 03-27-2024 End: 26-31-2448ulwywtbvedHqu Infusion Chair 7Dbro [facility] - Medical OncologyComment on above:Multiple sclerosis (CMS-HCC) (Primary Dx)Start: 03-25-2024 End: 56-16-4966Tpotghprl encounterVannesa Mensah PT Work Phone: noms CI PTComment on above:PT Status (Contacted and checked on current PT status. He noted that 03/27 he will be having an infusion and was going to hold off till after to schedule last PT; I verified his auth is dated out till 04/13/24. He said he will contact.)Start: 03-13-2024 End: 46-03-5291AkyeyvLaura Momin [facility] Work Phone: dbro [facility] - Medical OncologyComment on above:Multiple sclerosis (CMS-HCC) (Primary Dx)Start: 03-12-2024 End: 36-80-6313oxuoduhuwwLdonnwGui Mensah PT Work Phone: NOMS CI PTComment on above:Lumbar radiculopathy (Primary Dx); Multiple sclerosis (CMS/HCC); Left leg weakness; Left foot dropStart: 03-12-2024 End: 82-99-6649Bouhlu flowsSandy Mensah PT Work Phone: noMS CI PTStart: 03-12-2024 End: 22-86-4865Xyfyyb flowsheetAravindremy T Vivi PT Work Phone: NOMS CI PTStart: 03-05-2024 End: 38-41-0759laqafthxqtHbamjz T Vivi PT Work Phone: noMS CI PTComment on above:Lumbar radiculopathy (Primary Dx); Multiple sclerosis (CMS/HCC); Left leg weakness; Left foot dropStart: 03-05-2024 End: 08-32-6570Qqxoid flowsreginaldoAravinddarin Mamadou Mensah PT Work Phone: NOMS CI PTStart: 03-05-2024 End: 07-99-7802Rcdbzc flowsheetAustiny Mamadou Mensah PT Work Phone: NOMS CI PTStart: 02-27-2024 End: 21-18-5098Zexihqjkr Result EncounterSkevin Charles MD Work Phone: noms External Department UnsolicitedStart: 02-27-2024 End: 41-76-6701Abyrcgeae Result Michael Charles MD Work Phone: noms External Department UnsolicitedStart: 02-27-2024 End: 71-12-0124HspxgdVphcu Amanda CMAProMedica Physicians Internal Medicine - Family MedicineComment on above:B12 deficiencyStart: 02-26-2024 End: 31-09-6213pkntbmqcmdSzvomj Mamadou Mensah PT Work Phone: noMS CI PTComment on above:Lumbar radiculopathy (Primary Dx); Multiple sclerosis (CMS/HCC); Left leg weakness; Left foot dropStart: 02-26-2024 End: 00-76-3586Wafvdm flowsheetJeremy T Blackston PT Work Phone: NOMS CI PTStart: 02-26-2024 End: 10-62-5336Wuldxn flowsheetJeremy T Blackston PT Work Phone: NOMS CI PTStart: 02-21-2024 End: 40-36-8886Psjrdl flowsheetJeremy T Blackston PT Work Phone: NOMS CI PTStart: 02-21-2024 End: 84-73-5000Gszcnw flowsheetJeremy T Blackston PT Work Phone: noMS CI PTStart: 02-21-2024 End: 19-22-8180kuqotforpfHcrxbs T Blackston PT Work Phone: noMS CI PTComment on above:Lumbar radiculopathy (Primary Dx); Multiple sclerosis (CMS/HCC); Left leg weakness; Left foot dropStart: 02-14-2024 End: 68-87-6292svecppwbfcQmobaf T Blackston PT Work Phone: NOMS CI PTComment on above:Lumbar radiculopathy (Primary Dx); Multiple sclerosis (CMS/HCC); Left leg weakness; Left foot dropStart: 02-14-2024 End: 25-96-3858Qpowxg flowsheetJeremy T Blackston PT Work Phone: NOMS CI PTStart: 02-14-2024 End: 44-07-7136Sxtkrz flowsheetJeremy T Blackston PT Work Phone: noms CI PTStart: 02-06-2024 End: 24-97-6064CemnaeSknthhwq Riedy MANOMS NE NEUROComment on above:Lumbar radiculopathyStart: 02-05-2024 End: 59-73-2894Pvgtvt Anaid Charles MD Work Phone: noms ST NEUROLOGYStart: 02-05-2024 End: 98-06-6915Pruhkb flowsheetSkevin Charles MD Work Phone: noms NEUROLOGYStart: 02-05-2024 End: 34-86-9822Esbodx outpatient visit 25 minutesLeonidas Charles MD Work Phone: noms NEUROLOGYComment on above:MS (multiple sclerosis) (CMS/HCC) (Primary Dx); Lumbar radiculopathy; Multiple sclerosis (CMS/HCC); Left leg weakness; Left foot drop; Foraminal stenosis of lumbar region; Facet arthritis of lumbar regionStart: 12-10-2023 End: 13-51-8701Wlkrql outpatient visit 15 minutesLogan Dunbar APRN-HOUSEKEEPING SUPERVISOR Work Phone: [facility] NeuroSurgeryComment on above:Left lumbar radiculopathy (Primary Dx); Proximal leg weakness; Low back pain, unspecified back pain laterality, unspecified chronicity, unspecified whether sciatica presentStart: 12-10-2023 End: 16-41-5769ruxljxydhuRBXAWNPLPullman Regional Hospital Ambulatory PPGStart: 12-05-2023 End: 17-71-0171qutwqjfankDPHEOptim Medical Center - [facility] Ambulatory PPGStart: 10-22-2023 End: 40-61-1594drxprnvgebKNCNGreen Cross Hospitaltart: 10-22-2023 End: 69-84-2001ksatunhqzeRTNGOptim Medical Center - Screven Ambulatory PPGStart: 10-22-2023 End: 99-33-4866Ngvgrh outpatient visit 25 Nick Vazquez DO Work Phone: [facility] - Family MedicineComment on above:Left lumbar radiculopathy (Primary Dx); Acquired left foot drop; Spina bifida occulta; Peripheral polyneuropathy; B12 deficiency; Mixed hyperlipidemiaStart: 72-05-2652Fojbisike Alysa Gómez APRN-CONTROL ROOM AGENT Work Phone: [facility] - Family MedicineStart: 08-06-2023 End: 44-23-0116Zimtio outpatient visit 25 minutesTamie Gómez STRADDLE BUGGY OPERATOR-CONTROL ROOM AGENT Work Phone: [facility] - Family MedicineComment on above:Multiple sclerosis (CMS-HCC) (Primary Dx); Monoparesis (CMS-HCC); Spinal stenosis of lumbar region with neurogenic claudicationStart: 07-31-2023 Orders Ashley Gee MAProMedica Physicians NeuroSurgeryComment on above: Neuropathy (Primary Dx); Leg pain, leftStart: 63-89-7917Twzytgvyl encounterElindong Montiel CMAProMedica Physicians NeurologyComment on above:New PatientStart: 01-94-4875Hmuzsguyf encounterTa-Yessica HunterProMedica Physicians NeurologyComment on above:Neuro ReferralStart: 07-19-2023 End: 52-93-5272Phzfzv outpatient visit 25 minutesSolo Pan MD Work Phone: [facility] NeuroSurgeryComment on above:Leg pain, left (Primary Dx); NeuropathyStart: 07-03-2023 End: 62-67-5568Yzucqd outpatient visit 25 minutesSolo Pan MD Work Phone: [facility] NeuroSurgeryComment on above: Multiple sclerosis (CMS-HCC) (Primary Dx); Proximal leg weaknessStart: 15-86-5662dfsbmfhzdhQFSFS FLOMFacility:[facility]OWN[facility]ODtart: 32-05-3203jijwrzqbliGWYET FLOMFacility:[facility] BROWNWOODtart: 02-24-2022 End: 28-56-6581koibtwahurSH CHARLES HOUSEFacility:H4Otqjb: 01-26-2022 End: 74-42-1064vzenhctuwyVI CHARLES HOUSEFacility:X6Fmqoi: 01-11-2022 End: 90-25-0419izctwrkrviHefqsw Dymond Other [place] [employer] Other Start: 22-92-7415Qllech outpatient visit 15 minutes [facility] ClydeStart: 11-11-2021 End: 17-23-3841nhyauvbxjcWH CHARLES HOUSEFacility:X4Giqvi: 11-07-2021 End: 14-91-5954inpeymvhvwHKHU LACOURFacility:H1 Procedures DateProcedureProcedure DetailPerforming ClinicianStart: 55-77-7128Jxiqmzzz blood count with white cell differential, automatedLucian Solomon MD Work Phone: Start: 56-11-5501Aeyblrekdrqyd metabolic panelLucian Solomon MD Work Phone: Start: 47-10-6332MPADOOPUSSQ-TB GOLD PLUSBreashley Solomon MD Work Phone: Start: 59-95-1856Gl cell mediated antign respnse gamma interferonBreashley Solomon MD Work Phone: Start: 76-32-2301LqknobjeoyeRfirbzly Beascjose g [facility] Work Phone: Start: 19-39-6731Vpyfp depression screening assessment Yecenia Vazquez DO Work Phone: Start: 25-00-1571Zwvmf depression screening assessment Yecenia Vazquez DO Work Phone: Start: 69-98-1882Rmpvn depression screening assessment Yecenia Vazquez DO Work Phone: Start: 20-72-9981Skykmdqwv single/field nurse case manager trigger point 1/2 Anitha Nix PA Work Phone: Start: 82-46-7419AGT CBC WITH AUTO DIFFStevvj Charles MD Work Phone: Start: 13-63-3461Effyaw-up visitFollow-upPATRICZULEYKA DUNBARStart: 21-59-2919Helaa depression screening assessmentLogan Dunbar STRADDLE BUGGY OPERATOR-HOUSEKEEPING SUPERVISOR Work Phone: Start: 13-55-3595Uqrqd depression screening assessment Yecenia Vazquez DO Work Phone: Start: 07-67-8744Vgufw depression screening assessment Tamie Gómez STRADDLE BUGGY OPERATOR-CONTROL ROOM AGENT Work Phone: Start: 33-41-9266Dablr depression screening assessment Solo Pan MD Work Phone: Start: 74-27-1600KmvknnxnxokStnxb Reinard MD Work Phone: Plan of Treatment DateCare ActivityDetailAuthorStart: 75-74-9781Fldzgxfer for malignant neoplasm of colonColonoscopyProInfirmary West Health SystemStart: 56-74-3263Bmamvzyka for malignant neoplasm of colonColonoscopyCleveland Clinic Luther[facility] Health SystemStart: 04-01-2026 DTaP,Tdap and Td Vaccines (2 - Td or Tdap)DTaP,Tdap and Td Vaccines (2 - Td or Tdap)[facility] SystemStart: 31-12-1432Jqioe BMI ScreeningAdult BMI ScreeningProAdena Health System SystemStart: 96-84-0759Lclukeh ScreeningTobacco ScreeningHenry County Hospitalca Health SystemStart: 61-09-0062Ufruv BMI ScreeningAdult BMI ScreeningProAcmc Healthcare System Glenbeighca Health SystemStart: 86-63-4634Mbsqglhugm ScreeningDepression ScreeningCleveland Clinic Luther[facility] Hospital Health SystemStart: 02-47-8279Gxswm BMI ScreeningAdult BMI ScreeningProAcmc Healthcare System Glenbeighca Health SystemStart: 42-86-8691Zaqahlexbf ScreeningDepression ScreeningHenry County Hospitalca Health SystemStart: 93-73-5321Onetecp ScreeningTobacco ScreeningCleveland Clinic Luther[facility] Hospital Health SystemStart: 27-57-5110Ziqum BMI ScreeningAdult BMI ScreeningOhioHealth [facility] SystemStart: 84-72-3158Qrpwhhwxnj ScreeningDepression ScreeningOhioHealth [facility] SystemStart: 61-80-8461Rydkuxf ScreeningTobacco ScreeningHenry County Hospitalca Health SystemStart: 05-07-2025 End: 69-24-6047Dmnitwd encounter uhgwqufsd79/20/2025 8:20 AM EST Office Visit [facility] [address] [place] [address] Lucian Solomon MD [address] [facility] [address] [place] [address] [place] [address] [facility]rera NeurologyStart: 52-27-8873Gaplv BMI ScreeningAdult BMI ScreeningProAdena Health System SystemStart: 23-69-7592Mzglivy ScreeningTobacco ScreeningProAdena Health System SystemStart: 03-17-2025 End: 98-17-1184tfshvmnjow14/30/2025 3:00 PM EDT Treatment [facility] [address] [place], [id number] Yakov Gonsales PTANOMS [place] Physical TherapyStart: 03-10-2025 End: 86-10-5172txiczfwcaiYTZG [place] Physical TherapyComment on above:Arrived Start: 03-03-2025 End: 03-28-2831flxqchmmzgWZWG [place] Physical TherapyComment on above:Arrived Start: 02-25-2025 End: 22-31-3201qafybvhxidARAL [place] Physical TherapyComment on above:Arrived Start: 02-18-2025 End: 16-35-4101ifhxgidaxuYLOJ [place] Physical TherapyComment on above:Arrived Start: 02-09-2025 End: 42-05-9922DNI W Auto Differential panel - BloodCBC and differential Lab Routine Multiple sclerosis (HCC) Expected: 02/09/2025 (Approximate), Expires: 02/09/2026[facility] Work Phone: Comment on above:Expected: 02/09/2025 (Approximate), Expires: 02/09/2026Start: 02-09-2025 End: 81-01-0454Vxaohxahjnbrw metabolic 2000 panel - Serum or PlasmaComprehensive metabolic panel Lab Routine Multiple sclerosis (HCC) Expected: 02/09/2025 (Approximate), Expires: 02/09/2026NOMS HealthcareComment on above:Expected: 02/09/2025 (Approximate), Expires: 02/09/2026Start: 02-09-2025 End: 33-13-3982Ouyjwme encounter procedureNOMS SWS NEURComment on above:Arrived Start: 12-26-2024 End: 38-31-4396Xfxcfmx encounter procedureNOMS SWS NEURComment on above:Arrived Start: 50-04-0092Gnwki BMI ScreeningAdult BMI ScreeningOhioHealth [facility] System Start: 77-33-3368Atnmgry ScreeningTobacco ScreeningProWestern Reserve Hospitaltart: 75-21-4359Qxctjodoxc ScreeningDepression ScreeningBlowing Rock Hospitaltart: 10-30-2024 End: 12-34-0809Mvuoicnih B virus core IgM Ab [Presence] in Serum or Plasma by ImmunoassayHepatitis B core antibody, total Lab Routine Multiple sclerosis ([facility]) Expected: 10/30/2024 (Approximate), Expires: 10/30/2025[facility] Comment on above:Expected: 10/30/2024 (Approximate), Expires: 10/30/2025Start: 10-30-2024 End: 22-51-0963HG Brain WO and W contrast IVMR brain w and wo contrast routine Imaging Routine Multiple sclerosis ([facility] Expected: 10/30/2024, Expires: 10/30/2025[facility] Work Phone: Comment on above:Expected: 10/30/2024, Expires: 10/30/2025Start: 10-30-2024 End: 92-90-3596TT Lumbar spine WO and W contrast IVMR lumbar spine w and wo contrast Imaging Routine Multiple sclerosis ([facility]) Foraminal stenosis of lumbar region Left leg weakness Expected: 10/30/2024, Expires: 10/30/2025[facility] HealthcareComment on above:Expected: 10/30/2024, Expires: 10/30/2025Start: 10-30-2024 End: 05-12-3609BZWZLDSHXIG TB GOLDQuantiferon TB Gold Lab Routine Multiple sclerosis ([facility]) Expected: 10/30/2024 (Approximate), Expires: 10/30/2025[facility] HealthcareComment on above:Expected: 10/30/2024 (Approximate), Expires: 10/30/2025Start: 10-30-2024 End: 26-18-2808Lycibrh encounter fyrsfcpav52/15/2025 9:00 AM EDT Office Visit [facility] NEUR [address] [place] [address] Lucian Solomon MD [address] [facility] [address] [place] [address] [place] [address] ArrivedNO [facility] NEURComment on above: ArrivedStart: 31-98-3272Tyccj BMI ScreeningAdult BMI ScreeningProMedica Health SystemStart: 11-42-9261Rzvoswiqtr ScreeningDepression ScreeningProMedica Health SystemStart: 00-30-9983Jfuluok ScreeningTobacco ScreeningProMedica Health System Start: 09-25-2024 End: 02-55-1461jurpuknqtn05/10/2025 9:00 AM EDT Infusion Shanti [place] [facility] - Medical Oncology [address] [place] [address] Shanti Hayes [facility] - Medical OncologyStart: 58-72-2567Rblil BMI ScreeningAdult BMI ScreeningProMedica Health SystemStart: 42-79-3973Ocwejkffcj ScreeningDepression ScreeningProMedica Health SystemStart: 12-97-6148Wbljlxn ScreeningTobacco ScreeningProMedica Health SystemStart: 07-30-2024 End: 21-34-1083Mqaupql encounter dtlbsdnag00/12/2025 2:30 PM EST Office Visit [facility] [address] [place] [phone] Spencer Judge, DPM [address] [place], [place] [phone] ArrivedNOJOHN J. [facility] PODIATRYComment on above:ArrivedStart: 30-85-8721Vcicg BMI ScreeningAdult BMI ScreeningProAcmc Healthcare System Glenbeighca [facility] SystemStart: 07-10-2024 End: 74-54-5837Fkkcqyq encounter nvrxftran53/23/2025 2:40 PM EST Office Visit N[facility] [address] [place] [phone] Alycia Nix PA [address] [place] [address] [facility] ROUTEStart: 07-06-2024 Adult BMI ScreeningAdult BMI ScreeningOhioHealth Nelsonville Health Center SystemStart: 07-04-2024 Tobacco ScreeningTobacco ScreeningOhioHealth Nelsonville Health Center SystemStart: 04-23-2024 End: 29-77-7856Zllfano encounter ljnkbdgik06/06/2024 3:40 PM EST Office Visit [facility] NE NEURO [address] [place] [address] Lauryn Alicia PA [address] [place], [place] [phone] ArrivedNOMS NE NEUROComment on above:ArrivedStart: 67-73-4312Mqcrbdjtxa ScreeningDepression ScreeningProAdena Health System SystemStart: 04-23-2024 End: 15-62-1489Xgwjyi trigger point, 1 or 2Inject trigger point, 1 or 2 Procedures Routine Lumbar back pain Myalgia Expected: 04/23/2024 (Approximate), Expires: 04/23/2025[facility] Work Phone: comment on above:Expected: 04/23/2024 (Approximate), Expires: 04/23/2025Start: 04-10-2024 End: 93-28-0958nvyqaeyoup05/24/2024 9:00 AM EDT Infusion Shanti Hayes [facility] - Medical Oncology [address] [place] [phone] Shanti Hayes [facility] - Medical OncologyStart: 03-19-2024 End: 33-68-0482thauwxczqx32/02/2024 4:30 PM EDT Treatment [facility] CI PT [address] [facility] [address] [place] [address] Vannesa Mensah, PT [address] [facility] [address] [place] [address] NOMS CI PTStart: 03-18-2024 End: 71-07-4697Gqpeyyc encounter procedureNOMS [facility] ROUTEStart: 03-12-2024 End: 34-85-8216odfmhwhwybKCJB CI PTComment on above:ArrivedStart: 03-05-2024 End: 41-74-2314ashqvxmknhJPIH CI PTComment on above:ArrivedStart: 02-26-2024 End: 54-63-6021hmblhxcowbXSOL CI PTComment on above:ArrivedStart: 02-21-2024 End: 55-57-1165znwuoqanykFLEJ CI PTComment on above:ArrivedStart: 02-14-2024 End: 55-88-5735cgfxynznlr25/29/2024 3:00 PM EDT Evaluation [facility] CI PT [address] [facility] [address] [place] [address] Vannesa Mensah, PT [address] [facility] [address] [place] [address] Lumbar radiculopathy; Multiple sclerosis (CMS/HCC); Left leg weakness; Left foot dropNOMS CI PTComment on above:Lumbar radiculopathy; Multiple sclerosis (CMS/HCC); Left leg weakness; Left foot dropStart: 02-05-2024 End: 37-57-5666QKJ W Auto Differential panel - BloodCBC auto differential Lab Routine Multiple sclerosis ([facility]) Expected: 02/05/2024 (Approximate), E xpires: 08/07/2024[facility] Work Phone: comment on above:Expected: 02/05/2024 (Approximate), Expires: 08/07/2024Start: 02-05-2024 End: 49-04-7736Luaanqilqbiqf metabolic 2000 panel - Serum or PlasmaComprehensive metabolic panel Lab Routine Multiple sclerosis ([facility]) Expected: 02/05/2024 (Approximate), Expires: 08/07/2024[facility] HealthcareComment on above:Expected: 02/05/2024 (Approximate), Expires: 08/07/2024Start: 02-05-2024 End: 57-98-5916Abgjsnmky b surf ab quantHepatitis b surf ab quant Lab Routine Multiple sclerosis ([facility]) Expected: 02/05/2024 (Approximate), Expires: 08/07/2024[facility] HealthcareComment on above:Expected: 02/05/2024 (Approximate), Expires: 08/07/2024Start: 02-05-2024 End: 27-46-4945IQCEUEFPX B SURFACE ANTIGEN ([facility]HEPATITIS B SURFACE ANTIGEN ([facility] Lab Routine Multiple sclerosis ([facility]/HCC) Expected: 02/05/2024 (Ap proximate), Expires: 08/07/2024[facility] HealthcareComment on above:Expected: 02/05/2024 (Approximate), Expires: 08/07/2024Start: 02-05-2024 End: 92-91-8686Qgumwybra B virus core IgM Ab [Presence] in Serum or Plasma by ImmunoassayHepatitis B core antibody, total Lab Routine Multiple sclerosis ([facility]/HCC) MS (multiple sclerosis) ([facility]/HCC) Expected: 02/05/2024 (Approximate), Expires: 08/07/2024[facility] HealthcareComment on above:Expected: 02/05/2024 (Approximate), Expires: 08/07/2024Start: 02-05-2024 End: 23-81-8211Ihxbklcgn C virus Ab [Presence] in Serum or Plasma by Immunoassay Hepatitis C antibody Lab Routine Multiple sclerosis ([facility]/HCC) MS (multiple sclerosis) (CMS/HCC) Expected: 02/05/2024 (Approximate), Expires: 08/07/2024[facility] HealthcareComment on above:Expected: 02/05/2024 (Approximate), Expires: 08/07/2024Start: 02-05-2024 End: 62-96-3043FAU-1/HIV-2 antigen/antibody combination immunoassayHIV-1 and HIV-2 antibodies Lab Routine Multiple sclerosis ([facility]/HCC) MS (multiple sclerosis) ([facility]/HCC) Expected: 02/05/2024 (Approximate), Expires: 08/07/2024[facility] HealthcareComment on above:Expected: 02/05/2024 (Approximate), Expires: 08/07/2024Start: 02-05-2024 End: 12-49-1974Hqmrarl encounter xhfnlgops19/20/2024 2:00 PM EDT [facility] [address] [facility] [address] [place] [phone] Leonidas Charles MD [address] [place] [address] [facility] NEUROLOGYComment on above:ArrivedStart: 02-05-2024 End: 55-00-5106KHPLASYHSBW TB GOLDQUANTIFERON TB GOLD Lab Routine Multiple sclerosis ([facility]) MS (multiple sclerosis) ([facility]) Expected: 02/05/2024 (Approximate), Expires: 08/07/2024[facility] HealthcareComment on above:Expected: 02/05/2024 (Approximate), Expires: 08/07/2024Start: 02-05-2024 End: 47-38-6314YEAWVNKT JCV(TM) AB (WITH INDEX) W/RFL INHIBITIONSTRATIFY JCV(TM) AB (WITH INDEX) W/RFL INHIBITION Lab Routine MS (multiple sclerosis) ([facility]) Expected: 02/05/2024 (Approximate), Expires: 08/07/2024[facility] HealthcareComment on above:Expected: 02/05/2024 (Approximate), Expires: 08/07/2024Start: 02-05-2024 End: 46-28-9561Dqvvgiwtm zoster antibody, IgGVaricella zoster antibody, IgG Lab Routine Multiple sclerosis ([facility]) MS (multiple sclerosis) ([facility]) Expected: 02/05/2024 (Approximate), Expires: 08/07/2024[facility] HealthcareComment on above: Expected: 02/05/2024 (Approximate), Expires: 08/07/2024Start: 11-30-2023 End: 15-68-9274Lxnqubi encounter haemabrco28/14/2024 1:00 PM EDT [facility] [place] [facility] [address] [facility] [address] [place] [address]NbnBfsymz [facility] [place] - NeurophysiologyStart: 11-14-2023 End: 53-62-1751Hbjprff encounter /29/2024 3:00 PM EDT Office Visit [facility] [address] [place] [address] Yecenia Vazquez, [address] [facility] [place] [facility] - Family MedicineStart: 09-24-2023 End: 45-13-0860Szlecbu encounter vjwvldooi92/08/2024 2:45 PM EDT Appointment [facility] [place] - Neurophysiology [address] [facility] [address] [place] [address]MqmrihRussellville [facility] - NeurophysiologyStart: 09-18-2023 End: 21-60-3577Qvfcoaq encounter jxesyrcxf83/02/2024 10:30 AM EDT Appointment [facility] - Neurophysiology [address] [facility] [address] [place] [address]UqtGgwsiuRussellville Hospital - NeurophysiologyStart: 08-21-2023 End: 22-67-7105Dbcweat encounter /05/2024 3:15 PM EST [facility]ment [facility] [place] [facility] [address] [place] [id number] [facility]rivedPro[facility]ica [facility] - Total RehabComment on above:ArrivedStart: 08-06-2023 End: 73-18-9106Kpcjyud encounter uwbvehvvp94/19/2024 10:10 AM EST Office Visit [facility] [address] [place] [address] Tamie Gómez, STRADDLE BUGGY OPERATOR-CONTROL ROOM AGENT [address] [place] [address] [facility] - Family MedicineStart: 07-19-2023 End: 45-56-6949Yafmayc encounter hmhxukime55/01/2024 12:45 PM EST Office Visit [facility] [address] [place] [address] Solo Pan MD [address] [facility] [address] [place] [address] [facility] NeuroSurgery Start: 13-49-2892Vumjwnxudeqcjr of varicella zoster vaccineZoster (Shingles) Vaccine (1 of 2)[facility] End: 20-92-3589Cegdgokpqwcbnh vitamin b-12Vitamin B12 Lab Routine B12 deficiency 1 Occurrences starting 05/12/2024 until 05/12/2025[facility] Work Phone: Comment on above:1 Occurrences starting 05/12/2024 until 05/12/2025 End: 97-59-2175QUVCAH Neurology Routine Neuropathy Leg pain, left 1 Occurrences starting 07/31/2023 until 07/31/2024[facility] Work Phone: Comment on above:1 Occurrences starting 07/31/2023 until 07/31/2024 End: 33-24-6000RYJCMO Neurology Routine Left lumbar radiculopathy 1 Occurrences starting 10/22/2023 until 10/21/2024[facility] Work Phone: Comment on above:1 Occurrences starting 10/22/2023 until 10/21/2024Protein electrophoresis, serumProtein electrophoresis, serum Lab Routine Peripheral polyneuropathy 10/22/2023 3:45 PM [facility] Immunizations Immunization DateImmunizationNotesCare TolrruihKebbedvb27-00-0976ffphcwo toxoid, reduced diphtheria toxoid, and acellular pertussis vaccine, adsorbedPalaurenta Bety Other [place] [employer] Other Payers DatePayer CategoryPayerPolicy [id number] (Managed Care)[facility] [id number] [id number] [id number] 2016Medicare HMO ANTHEM MEDICARE Member Subscriber Plan / Payer (Effective 2015-Present) Name: Noemy Packer Relation to Subscriber: Self Name: Noemy Packer Payer ID: [id number] (NAIC) Group ID: [id number] Type: Not on file Address: [facility] [address] [place] [id number] [id number] 2.0.1.462813.3.57[id number] 2..1.395131.3.57[id number] 2..1.804531.3.57[id number] 2..1.930229.3.57[id number] 2..1.543244.3.57[id number] 2.0.1.778725.3.57[id number] 2.0.1.148774.3.57[id number] 2.16.840.1.200606.3.57[id number] 2.16.840.1.548082.3.57[id number] 2.16.840.1.810951.3.57[id number] 2.16.840.1.847938.3.57[id number] 2.16.840.1.192287.3.57[id number] 2.840.1.481013.3.57[id number] 2.840.1.076638.3.57[id number] 2..840.1.793805.3.57[id number] 2..840.1.598360.3.57[id number] 2..840.1.735376.3.57[id number] 2..840.1.661073.3.57[id number] 2.16.840.1.259997.3.57[id number] 2.16.840.1.407607.3.579.[id number] 2.16.840.1.470480.3.57[id number] 2.16.840.1.022002.3.57[id number] 2.16.840.1.957743.3.57[id number] 2.16.840.1.318848.3.579.2.056197-92-3576Hssobbd1294690 2.16.840.1.204359.3.579.[id number] 2.16.840.1.397377.3.57[id number] 2.16.840.1.641284.3.579.[id number] 2.16.840.1.238049.3.57[id number] 2.16.840.1.575891.3.57[id number] 2.16.840.1.671990.3.57[id number] 2.16.840.1.935100.3.57[id number] 2.840.1.137514.3.579.2.1286 [id number] [id number] Social History DateTypeDetailFacilityUnknown if ever smokedStopford Projects Other Start: 11-27-2023 End: 31-64-1079Vpd Assigned At [facility] CenterID[facility] [employer] Other Start: 11-27-2023 End: 66-83-8494Ozcfkas smoking status NHISEx-smokerNOMS HealthcareHistory of tobacco useCurrent smokerNOMS HealthcareHistory of tobacco useCigarette Smoker [facility] HealthcareStart: 02-05-2024 End: 33-95-6586Tlaufqlvj beverage intakeCurrent drinker of alcohol (finding)NOMS HealthcareStart: 11-27-2023 End: 55-08-8888Vnnuxjr of Social functionNOMS HealthcareHow often to you have a drink containing alcohol?Monthly or lessNOMS HealthcareHow many standard drinks containing alcohol do you have on a typical day?1 or 2NOMS HealthcareHow often do you have 6 or more drinks on 1 occasion?NeverNOMS HealthcareStart: 1960 Sex assigned at birthNot on fileNOCA HealthcareStart: 04-30-2024 End: 54-21-4053Hbwpypg use and exposureSmokeless tobacco non-userOhioHealth Nelsonville Health Center SystemStart: 99-32-5882Peeveeg smoking status NHISNever smoked tobacco [facility] SystemStart: 07-04-2023 End: 83-17-5550Vzlymcg intakeCurrent non-drinker of alcohol (finding)[facility] Health SystemDo you belong to any clubs or organizations such as anglican groups, unions, fraternal or athletic groups, or school groups?NoPWillis-Knighton [facility] Health System Are you now , , , , never or living with a partner?MarriedHenry County Hospitalca Health SystemHow many standard drinks containing alcohol do you have on a typical day?Patient does not drinkProAcmc Healthcare System Glenbeighca Health SystemDo you feel stress - tense, restless, nervous, or anxious, or unable to sleep at night because yourmind is troubled all the time - these days [OSQ]Only a littleProMedica Health SystemHow hard is it for you to pay for the very basics like food, housing, medical care, and heatingSomewhat hardOhioHealth Nelsonville Health Center SystemStart: 18-05-9396BfpNkyr (finding)[facility] SystemStart: 1960 Sex Assigned At [facility] Goals DatePatient GoalDesired Activity/StatePersonal health goal Clinical Notes 04-27-2020 to 02-09-2025 Note Date & DlmsGvksEkjjsfnn53-65-4221 History of Present illness Narrative* Lucian Solomon MD - 02/09/2025 8:00 AM EDT Images from the original note were not included. CHIEF COMPLAINT REASON FOR VISIT : Patient is here for a follow up for multiple sclerosis & left foot drop. Subjective Noemy Packer is a 64 y.o. male who presents for Multiple Sclerosis History of Present Illness The patient presents for a follow-up regarding multiple sclerosis. He reports no significant changes in his condition, except for some difficulty in using an orthoticdevice. This device has been in use for approximately 1.5 weeks, with a recent adjustment on 02/06/2025. Discomfort is noted upon removal of the device, including ankle pain and a raw spot on the side of the foot. Despite these issues, no falls have occurred. Climbing stairs is particularly challenging. Physical therapy has not been undertaken with the device. He has completed the first round of Mavenclad treatment and is awaiting further instructions for the second dose. No side effects from the medication are reported. Sleep patterns are normal, althoughoccasional fatigue is experienced. No new symptoms or changes in existing ones, such as weakness ornumbness, are reported. SOCIAL HISTORY: Sleep: Normal sleep pattern MEDICATIONS CURRENT MEDS: Mavenclad PREVIOUS MEDS: Discussed at length Review of Systems Const: Denies appetite change, fever, chills. Allergy: Denies medication reaction. Ocular: Denies visual acuity change. ENT: Denies hearing change. Endoc: Denies weight loss. Resp: Denies dyspnoea, wheezing. Cardiac: Denies angina, palpitations. GI: Denies nausea, vomiting. Haem: Denies bleeding. : Denies incontinence. MSK: Denies arthralgias, joint oedema. Derm: Denies rash, hair loss. Neuro: Denies ataxia, tremor. Also see HPI for elements of ROS documented therein and for details of positive findings, which shall supersede the foregoing. Objective Height 5' 9 , weight 152 lb. Physical Exam Motor Examination Strength: Hand strength is normal bilaterally. Gait and Station Gait: Walking pattern improved with orthotic device and AFO of the LLE, but still has gait instability due to chronic left sided foot drop due to MS. Results Assessment & Plan 1. Multiple Sclerosis. He reports difficulty with the orthotic device, which has been causing a raw spot on the side of his foot. He has not experienced any falls and reports that the device relieves some stress. He has completed the first round of Mavenclad and is awaiting instructions for the second dose. No significant side effects have been noted from the medication. A few sessions of physical therapy are recommended to improve gait stability and address lower back discomfort. Blood counts will be monitored every6 months to assess the effectiveness of Mavenclad and its impact on his immune system. A specialized blood test will be conducted to evaluate the presence of MS cells. If necessary, adjustments to the orthotic device will be made. 2. Left sided foot drop due to MS and new AFO. 3. Had Month one one of Mavenclad done already and he tolerated quite well. 4. CBC with dif, and CMP. 5. I counseled the patient on the possible side effects and interactions of medications. This clinical note was created utilizing Lánz[employer] documentation system. All information has beenthoroughly reviewed, corrected as necessary, and authenticated by the provider to ensure accuracy and completeness. On occasion, Lánz[employer] documentation system erroneously drops words or replaces aspoken word with a similar sounding word. Please notify with any questions or concerns regarding this clinical note. documented in this [place] [employer] [facility]07-11-2025 History of Present illness Narrative* Lucian Solomon MD - 12/26/2024 8:00 AM EDT Images from the original note were not included. Subjective Noemy Packer is a 64 y.o. male who presents for Multiple Sclerosis, left foot drop, and lumnar stenosis History of Present Illness The patient is a 64-year-old male with relapsing-remitting or questionable secondary progressive multiple sclerosis. He reports feeling well overall but continues to experience foot drop, which has been a persistent issue for the past 8 years. This condition has led to several falls and near-falls. His sleep quality varies, with some nights being better than others. His appetite remains good. He expresses concernabout starting Mavenclad treatment, as he has not been on any medication before. Over 30 years ago, he sustained a head injury at work, which resulted in vision problems. He was treated with prednisone, which he believes caused damage that is now being attributed to MS. Despite undergoing lumbar punctures, no definitive diagnosis of MS has been made. He notes a significant change in his walking ability compared to 20 years ago, when he could walk 3 miles daily. Currently, he struggles to walk down his driveway. He first noticed weakness in his left leg 8 years ago and was referred to this office by Dr. Armijo. He has undergone several EMG tests, but no treatment has been initiated based on these results. Additionally, he experiences back pain that radiates down his leg, which can be so severe that it causes him to stop in his tracks. 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 Sleep: Sleep quality varies. MEDICATIONS PREVIOUS MEDS: Prednisone Reason for Discontinuation: Damage from the medication Review of Systems Const: Denies appetite change, fever, chills. Allergy: Denies medication reaction. Ocular: Denies visual acuity change. ENT: Denies hearing change. Endoc: Denies weight loss. Resp: Denies dyspnoea, wheezing. Cardiac: Denies angina, palpitations. GI: Denies nausea, vomiting. Haem: Denies bleeding. : Denies incontinence. MSK: Denies arthralgias, joint oedema. Derm: Denies rash, hair loss. Neuro: Denies ataxia, tremor. Also see HPI for elements of ROS documented therein and for details of positive findings, which shall supersede the foregoing. Objective Blood pressure 124/80, pulse 96, height 5' 9 , weight 154 lb. Physical Exam Motor Examination Strength: Upper body strength is normal. Lower body strength is normal. Gait and Station Gait: Observed difficulty walking due to foot drop. Results Imaging - MRI of the brain: MS lesions and areas of demyelination starting to form holes in the brain. Assessment & Plan 1. Multiple Sclerosis. The patient's symptoms and medical history are consistent with multiple sclerosis (MS). He reports worsening foot drop over the last 8 years, with significant changes in the last year. He also experiences back pain radiating down the leg, which may be exacerbated by MS. The potential benefits and risks of Mavenclad were discussed, including its ability to target MS cells and reboot stem cells without continuous medication intake. An AFO device will be arranged to improve his walking ability andreduce stress on his back. The necessary paperwork for Rex will be completed, and efforts will be made to secure insurance coverage. 2. I counseled the patient on the possible side effects and interactions of medications. 3. This clinical note was created utilizing Lánzanos documentation system. All information has been thoroughly reviewed, corrected as necessary, and authenticated by the provider to ensure accuracy and completeness. On occasion, JERRICA ambient documentation system erroneously drops words or replaces a spoken word with a similar sounding word. Please notify with any questions or concerns regardingthis clinical note. Follow-up A follow-up appointment is scheduled for 6 weeks from now. documented in this encounterSaint John's Aurora Community HospitalWgeqyiqxti87-91-0986 History of Present illness Narrative* Lucian Solomon MD - 10/30/2024 9:00 AM EDT Images from the original note were not included. CHIEF COMPLAINT REASON FOR VISIT: Consultation. HPI: Noemy Packer is a 64 y.o. male who presents for a new patient consultation He states he is not on any DMT's. He was started on Ocrevus and that has been the only DMT he has tried. He did the firstone on April 10 and states that was his first and last. He states he felt horrible after. He states that his swallowing reflex was horrible. He states his thought process was not right. He states he feels good as far has his MS goes. But the the biggest thing now is that his left leg has been going numb. States that it starts in the low left side of the back into the left hip. States he is slower getting around. He states his left side just does not work. He does drag his left leg/foot. Walking has gotten worse within the last few months. States this is the worst it has been. No issues with right leg. Denies any other concerns. Therapies tried: pain management, DMT's-Ocrevus CURRENT MEDICATIONS: ALLERGIES/DISCONTINUE MEDICATIONS Current Outpatient Medications Medication Instructions cyanocobalamin (VITAMIN B-12) 1,000 mcg, Daily Multiple Vitamin tablet 1 tablet, Daily Allergies Allergen Reactions Penicillins Medications Discontinued During This Encounter Medication Reason Dalfampridine ER (Ampyra) 10 MG tablet sustained-release 12 hour Therapy completed ocrelizumab (Ocrevus) 300 MG/10ML solution Therapy completed PAST MEDICAL HISTORY: SURGICAL/SOCIAL/FAMILY HISTORY DEPRESSION SCREEN: Past Medical History: Diagnosis Date Arthritis Demyelinating disease of central nervous system (HCC) ([facility]) 11/25/2012 Diplopia 11/25/2012 Lack of coordination 11/25/2012 Left foot drop 06/23/2019 Left leg weakness Multiple sclerosis ([facility]) 12/16/2012 Neuromuscular disorder ([facility]) Optic neuritis 11/25/2012 Paresthesia Past Surgical History: Procedure Laterality Date APPENDECTOMY CHOLECYSTECTOMY VASECTOMY Social History Tobacco Use Smoking status: Former Current packs/day: 0.50 Average packs/day: 0.5 packs/day for 20.0 years (10.0 ttl pk-yrs) Types: Cigarettes Smokeless tobacco: Never Vaping Use Vaping status: Never Used Substance Use Topics Alcohol use: Yes Alcohol/week: 1.0 standard drink of alcohol Types: 1 Glasses of wine per week Drug use: Never Family History Problem Relation Name Age of Onset Cancer Other Cancer Mother Rhonda Packer Cancer Father Alberto Packer Heart disease Father Alberto Packer Cancer Sister Celine Robledo Cancer Brother Alon Packer Depression: At risk (08/27/2024) Received from [employer] PHQ-2 Total Score: 5 REVIEW OF SYMPTOMS: Review of Systems Constitutional: Negative for chills, diaphoresis, fatigue and fever. HENT: Negative for ear pain and tinnitus. Eyes: Negative for photophobia and visual disturbance. Respiratory: Negative for cough and shortness of breath. Cardiovascular: Negative for palpitations and leg swelling. Gastrointestinal: Negative for abdominal pain and nausea. Genitourinary: Negative for difficulty urinating and urgency. Musculoskeletal: Positive for back pain and gait problem. Negative for arthralgias, myalgias, neck pain and neck stiffness. Neurological: Positive for weakness. Negative for tremors, light-headedness and numbness. Psychiatric/Behavioral: Negative for agitation, confusion and suicidal ideas. OBJECTIVE: 10/30/2024 9:14 AM 07/30/2024 2:30 PM 07/10/2024 2:47 PM Vitals BMI 22.89 kg/m2 22.89 kg/m2 22.59 kg/m2 BSA (m2) 1.85 m2 1.85 m2 1.84 m2 Systolic 118 126 Diastolic 78 82 Height (in) 5' 9 5' 9 5' 9 Weight (lb) 155 155 153 Visit Report Report Report Report EXAM: Neurological Exam Mental Status Awake, alert and oriented to person, place and time. Oriented to person, place and time. Recent andremote memory are intact. Speech is normal. Language is fluent with no aphasia. Attention and concentration are normal. Cranial Nerves CN II: Visual acuity is normal. Visual taylor full to confrontation. CN III, IV, : Extraocular movements intact bilaterally. Normal lids and orbits bilaterally. Pupils equal round and reactive to light bilaterally. CN V: Facial sensation is normal. CN VII: Full and symmetric facial movement. CN VIII: Hearing is normal. CN XII: Tongue midline without atrophy or fasciculations. Motor Normal muscle bulk throughout. Normal muscle tone. Right Left Wrist flexion 5 5 Wrist extension 5 5 Right Left Deltoid 5 5 Biceps 5 5 Triceps 5 5 Wrist flexor 5 5 Wrist extensor 5 5 Glutei 5 5 Iliopsoas 5 5 Quadriceps 5 5 Gastrocnemius 5 5 Anterior tibialis 5 5 Posterior tibialis 5 5 Sensory Light touch is normal in upper and lower extremities. Pinprick is normal in upper and lower extremities. Vibration is normal in upper and lower extremities. Reflexes Right Left Brachioradialis 2+ 2+ Biceps 2+ 2+ Patellar 2+ 2+ Achilles 2+ 2+ Right Plantar: downgoing Left Plantar: downgoing Right pathological reflexes: Luis's absent. Ankle clonus absent. Left pathological reflexes: Luis's absent. Ankle clonus absent. Coordination Xzdsyc-gc-ciwc, rapid alternating movements and pxas-dq-wxnc normal bilaterally without dysmetria. Gait Normal casual, toe, heel and tandem gait. Romberg is absent. PROCEDURE: NONE ASSESSMENT AND PLAN: Noemy Packer is a 64 y.o. year old male who presents with multiple sclerosis diagnosed in 2012 with relapsing and remitting type MS. He had episode of optic neuritis which led to loss of vision and elevated IgG in his spinal fluid. He was evaluated in past by [facility] for second opinion. Per [facility] records, the diagnosis of MS is supported by his brain and cervical spine MRI appearance, OCT results, negative mimic work up, and clinical history. He has declined DMT in the past for many years. Today he presents with left sided weakness,paresthesia including left foot drop. He has not tried any disease modifying therapies in the past apart from trial on Ocrevus in March 2024 which caused him side effects. I will consider Mavencladand dalfampridine. Last updated imaging of brain, cervical spine, and thoracic spine 06/2023 as described below. I will obtain an MRI of the brain to assess for an intracranial process which may be contributing to the patient's symptoms from MS. I will obtain an MRI of the lumbar spine to assess fora structural lesion including degenerative lumbar spine disease which may be contributing to the patient's symptoms. I will order blood work to assess for a metabolic process contributing to the patie nt's symptoms. 02/27/24-CMP/CBC 02/27/24-Hep B core AB-Negative. Hep B Surf AB Quant- <3.5. Quantiferon Gold-Negative 07/10/23-MRI Brain-There has been interval development of a few new areas of abnormal signal within the brain since the prior 2012 MR. The majority of the signal abnormalities are stable. There is no area of restricted diffusion or pathologic contrast enhancement to suggest a new brain signal abnormality. 07/10/23-MRI Cervical-Solitary area of abnormal signal in the dorsal C2 region is not associated with pathologic contrast enhancement. This finding is compatible with the diagnosis of demyelinating disease. Degenerative changes of the cervical spine are described above. There is no significant spinal stenosis or cord impingement. There are several areas of foraminal stenosis, especially the left C3-4 foramen. 07/10/23-MRI Thoracic-At least 3 areas of signal abnormality within the thoracic cord demonstrates faint contrast enhancement on the postcontrast sagittal images. These findings are consistent with the clinical diagnosis of demyelinating disease. 12/05/22-MRI Lumbar-Moderate to severe right neural foraminal narrowing, similar to previous exam 11/17/22-Xray Lumbar-Minimal degenerative disease in the lumbar spine. Mild facet arthropathy at L5-S1. Intervertebral disc spaces are intact. Grade 1 spondylolisthesis at L5-S1 without evidence of spondylolysis. Incidental note is made of a spina bifid occulta of pu. Diagnoses and all orders for this visit: Left foot drop I will send in for a left AFO brace. He needs a left AFO brace due to his left foot drop. This can help him with daily activities by providing stability, alignment, and support to the ankle and the foot. This prevents foot drop by keeping the toes from dragging during walking. It also promotes moreheel to toe walking. It will also help reduce the risk of tripping and falling. This will help stabilize weak or unstable ankles. By improving alignment it can reduce stress on his joints and musclesdecreasing his pain over time. Without this AFO brace he is at higher risk for falls. He will need this AFO brace for lifetime. Multiple sclerosis (CMS/HCC) I will obtain an MRI of the brain to assess for an intracranial process which may be contributing to the patient's symptoms. -MR brain w and wo contrast routine; Future-[facility] [place] Consider [place]-Handout given. Consider dalfampridine to help with balance and gait stability. I will order blood work to assess for a metabolic process contributing to the patient's symptoms - CBC and differential; Future - Comprehensive metabolic panel; Future - Quantiferon TB Gold; Future - Hepatitis B core antibody, total; Future Foraminal stenosis of lumbar region Left leg weakness I will obtain an MRI of the lumbar spine to assess for a structural lesion including degenerative lumbar spine disease which may be contributing to the patient's symptoms.-MR lumbar spine w and wo contrast; Future-[facility] [place] Total time 30 minutes spent reviewing records, performing medically appropriate exam, counseling , education, ordering medication, tests, and/or procedures, documenting health information into the health record, communicating results to the patient, and coordinating care. This was discussed with patient and all questions answered. Follow up 8 weeks. This note was scribed by MADINA Gillis acting under the direction of Lucian Solomon MD. The content has been reviewed and confirmed for accuracy by Lucian Solomon MD documented in this encounterSaint John's Aurora Community [id number] History of Present illness Narrative* Yecenia Vazquez, DO - 08/27/2024 4:15 PM EDT IM PROGRESS NOTE Patient - Noemy Packer Age - 64 y.o. 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 -recent trial of Ocrevus was unsuccessful due to intolerance -I encouraged the patient to contact Neurology to discuss alternative treatment options 2. Cervical myelopathy (CMS-HCC) -patient with abnormal MRI of the cervical spine especially on the left side -is having continued weakness in the left leg, and now experiencing some weakness and neuropathic symptoms in the left arm -I am concerned that he may be exhibiting some cervical myelopathy or progression of his cervical disease -referral back to Neurosurgery for re-evaluation now that EMG and MRI reports are available. 3. Spinal stenosis of lumbar region with neurogenic claudication -MRI results were reviewed with the patient. Symptoms mainly on the left, although MRI would suggest more right-sided disease -I suspect much of his symptoms in the left leg are from his MS -has not tolerated multiple medications, I am not sure there is much else I can offer -he does indicate that naproxen has worked the best of anything -I encouraged him to start taking naproxen 220 mg daily on a regular basis - naproxen sodium (ALEVE) 220 mg tablet; Take 1 tablet (220 mg total) by mouth in the morning and 1tablet (220 mg total) in the evening. Take with meals. - Ambulatory referral to Neurosurgery ([facility]); Future 4. Acquired left foot drop -longstanding problem -he has refused AFO multiple times in the past -Podiatry recently gave him a heel lift, it does not seem to be helping Patient is having trouble grasping the chronicity and severity of his disease. I am wondering if heis starting to exhibit some memory loss from his demyelinating disease. May need more formal neuro cognitive evaluation, as he may need more assistance than he is willing to accept at this time. Subjective 64-year-old male presents for recheck on his symptoms of left leg weakness and pain. He says that this is all gotten worse over the past year. He has seen Neurology, and was tried on pregabalin, gabapentin, Cymbalta, which either did not help or he did not tolerate. A trial of Ocrevus infusion madeit worse . Currently is taking ibuprofen several times a week, which he says does not help. He willoccasionally take a leave and will get some mild relief. -he describes the pain as a tingling and numb sensation down his left leg, especially on the lateral portion of the leg and foot. This is in conjunction with a dull, aching sensation in his low back.The left leg is getting weaker. He continues to have a footdrop. -he has started describing some similar numbness noted in his left hand and fingers. Possibly some weakness. -he went to physical therapy, and said this did help him temporarily. -He does need to use a cart or motorized device when he is in the store because he can not walk. Hesays he was told that an assistive device such as a rolling walker or cane would not help him. He can not say who told him this. -he had an EMG done in [place] approximately 1 year ago which showed an L5-S1 radiculopathy on theleft -MRI scan from June 2023 showed moderate to severe left C3-4 foraminal stenosis, along with abnormal signal at the C2 region consistent with demyelinating disease -MRI of the thoracic spine in June 2023 showed 3 areas of signal abnormality in the thorax consistent with demyelinating disease. -MRI of the lumbar spine in November 2022 showed moderate to severe right neural foraminal narrowing atthe L5-S1 level. 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 Exam BP 110/70 (BP Site: Left Arm, BP Postition: Sitting, BP CUFF SIZE: M (9-13 inches)) Pulse 78 Temp 36.5 C (97.7 F) (Temporal) Resp 18 Ht 175.3 cm (5' 9.02 ) Wt 72.8 kg (160 lb 6.4 oz) IoG059% BMI 23.68 kg/m Physical Exam Vitals reviewed. Exam conducted with a leadership coach present (). Constitutional: General: He is not in acute distress. Appearance: He is normal weight. He is not toxic-appearing. HENT: Head: Normocephalic. Right Ear: External ear normal. Left Ear: External ear normal. Nose: Nose normal. Mouth/Throat: Mouth: Mucous membranes are moist. Eyes: General: No scleral icterus. Neck: Vascular: No carotid bruit. Cardiovascular: Rate and Rhythm: Normal rate and regular rhythm. Heart sounds: No murmur heard. No gallop. Pulmonary: Effort: Pulmonary effort is normal. Breath sounds: No wheezing or rales. Abdominal: Palpations: Abdomen is soft. Musculoskeletal: Right lower leg: No edema. Left lower leg: No edema. Lymphadenopathy: Cervical: No cervical adenopathy. Skin: General: Skin is warm and dry. Coloration: Skin is not jaundiced. Findings: No bruising. Neurological: Mental Status: He is alert and oriented to person, place, and time. Sensory: Sensory deficit (Loss of pinprick sensation in the L5-S1 dermatome of the left leg.) present. Motor: Weakness (Hip flexors: 4/5 right; 2/5 left. Knee extensors 4/5 right; 2/5 left. Knee flexors4/5 right; 3/5 left. Ankle dorsiflexion: 4/5 right; 0/5 left) present. Gait: Gait abnormal (Weakness and abnormal limb swing in the left leg. Not using an assistive device). Deep Tendon Reflexes: Reflexes abnormal (Patella: 2/4 right; 1/4 left. Achilles: 2/4 right; 0/4 left. Biceps 2+/4 right; +/4 left. Triceps 2+/4 right; 2+/4 left. Brachioradialis 1+/4 right; 0+/4 left). Comments: Total footdrop on the left foot. Unable to dorsiflex. Abnormal balance when trying to stand due to left leg weakness. Psychiatric: Mood and Affect: Mood normal. Behavior: Behavior normal. Meds Current Outpatient Medications: calcium citrate-vitamin D2 250 mg-2.5 mcg (100 unit) per tablet, Take 1 tablet by mouth in the morning and 1 tablet before bedtime., Disp: , Rfl: ibuprofen (ADVIL,MOTRIN) 200 mg tablet, Take 1 tablet (200 mg total) by mouth every 6 (six) hours as needed for pain. 3 tabs, Disp: , Rfl: zzovisyl-xtno-FB-calcium &mins (THERAGRAN-M) 9 mg iron-400 mcg tablet, Take 1 tablet by mouth in the morning., Disp: , Rfl: vitamin A 8000 UNIT capsule, Take 1 capsule (8,000 Units total) by mouth in the morning., Disp: , Rfl: naproxen sodium (ALEVE) 220 mg tablet, Take 1 tablet (220 mg total) by mouth in the morning and 1 tablet (220 mg total) in the evening. Take with meals., Disp: , Rfl: Lab Results No visits with results within 1 Month(s) from this visit. Latest known visit with results is: Hospital Outpatient Visit on 05/12/2024 Component Date Value Ref Range Status Vitamin B-12 05/12/2024 794 180 - 914 pg/mL Final Other Testing No results found. Yecenia Vazquez DO., [facility] Office: [phone] documented in this encounterLima [facility] Hospital02-27-[facility]25 History of Present illness Narrative* Yecenia Vazquez DO - 08/14/2024 4:20 PM EST Subjective SUBJECTIVE: Patient ID: Noemy Packer is a 64 y.o. male who presents for a Medicare Annual Wellness exam. HPI The following portions of the patient's history were reviewed and updated as appropriate: allergies, current medications, past family history, past medical history, past social history, past surgicalhistory and problem list. AWV FLOWSHEET : Lifestyle Assessment Do you smoke or use smokeless tobacco?: No If you smoke or use smokeless tobacco, are you ready to quit?: NA Are you exposed to secondhand smoke?: No On average, how many drinks of alcohol do you consume in a week?: None Do you exercise for 30 or more minutes on average at least 3 days a week?: Always Do you have any tooth, denture, or oral problems?: No Do you snore or has anyone told you that you snore?: No Do you try to eat a balanced diet?: Yes Do you experience leakage of urine, also known as urinary incontinence?: Never Do you have difficulty performing any of these activities? (check all that apply): None Do you have difficulty performing any of these activities? (check all that apply): None Fall Risk Fall Risk Assessment Completed?: Yes Have you fallen in the past year?: (!) Yes How many times?: 1 Were you injured?: No Are you worried about falling?: (!) Yes Do you feel unsteady when standing or walking?: (!) Yes Risk Stratification: Moderate Risk Depression Screening Little interest or pleasure in doing things: Not at all Feeling down, depressed, or hopeless: Not at all Trouble falling or staying asleep, or sleeping too much: Not at all Feeling tired or having little energy: Not at all Poor appetite or overeating: Not at all Feeling bad about yourself - or that you are a failure or have let yourself or your family down: Not at all Trouble concentrating on things, such as reading the newspaper or watching television: Not at all Moving or speaking so slowly that other people could have noticed. Or the opposite - being so fidgety or restless that you have been moving around a lot more than usual: Not at all Thoughts that you would be better off , or of hurting yourself in some way: Not at all PEG Scale What number best describes your pain on average in the past week?: 8 Safety Assessment Do you have throw rugs on the floor?: No Do you feel safe at your home?: Yes Do you feel unsteady when walking?: (!) Yes Are you having difficulty with driving?: (!) Yes (doesnt drive) Do you have trouble seeing?: (!) Yes (legally blind) What assistive device do you use? (check all that apply): None Hearing Assessment Do you strain or struggle to hear/understand conversations?: No Do you have trouble hearing the television or radio when others do not?: No Does your family ever voice concerns about your hearing?: No Do you wear hearing aid/s?: No Personal Health During the past 4 weeks, how would you rate your overall health?: Good Do you understand how to take all of your medications?: Yes How confident are you that you can control and manage most of your health problems?: Very confident In the past 12 months, how many times have you been hospitalized?: None End of Life Planning Do you have a living will?: Yes Do you have a durable power of pharmaceutical detailer?: Yes Cognitive Screening Do you have trouble remembering or recalling facts or events?: No Do family members or caregivers report that you have difficulty remembering things?: No 6-ClT: Normal 09/12 REVIEW OF SYSTEMS: Review of Systems Objective PHYSICAL EXAMINATION: Vitals: 08/14/24 1513 BP: 118/70 Weight: 72.6 kg (160 lb) Height: 175.3 cm (5' 9 ) Physical Exam Assessment/Plan ASSESSMENT/PLAN Noemy was seen today for maw. 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 documented in this encounterLima City Hospital02-12-2025 History of Present illness Narrative* Spencer Judge DPM - 07/30/2024 2:30 PM EST Images from the original note were not included. Subjective Patient ID: Noemy Packer is a 64 y.o. male who presents for Foot Pain (Noemy Packer 64yo New Patient presents with [place], pain typically starts in his left hip and ends in his foot, sometimes numbness. Patient states hip pain started at least 10 years ago. Patient had custom orthotics in the past. SS 9.5 ). HPI This is a new patient who presents to clinic with concern of his left lower back. Patient states that he has a prolonged history of low back problems. He states that it starts in the lower back and radiates near the hip and lower extremity down to the ankle. He has seen multiple neurologists, neurosurgeons as well as other specialists and he does not seem to be getting appropriate answers for thelower back pain. He has a diagnosis of multiple sclerosis in the chart however he states that he isnot convinced of this diagnosis. He does relate that in the past he has used a heel lift on the left side and that seem to have helped previously. He states that 1 of his neurologist told him to get r id of the lift and he has not used it for over 10 years. Review of Systems Constitutional: Positive for activity change. Negative for appetite change. Respiratory: Negative for chest tightness and shortness of breath. Cardiovascular: Negative for chest pain. Musculoskeletal: Positive for arthralgias and gait problem. Skin: Negative for color change and wound. Neurological: Positive for weakness and numbness. Psychiatric/Behavioral: Negative for agitation and behavioral problems. Hematological: Does not bruise/bleed easily. Endocrine: Negative for cold intolerance and heat intolerance. Allergic/Immunologic: Negative for immunocompromised state. Past medical History Past Medical History: Diagnosis Date Arthritis Demyelinating disease of central nervous system (HCC) ([facility]) 11/25/2012 Diplopia 11/25/2012 Lack of coordination 11/25/2012 Left foot drop 06/23/2019 Left leg weakness Multiple sclerosis [place] [place] 12/16/2012 Neuromuscular disorder ([facility] [place] Optic neuritis 11/25/2012 Paresthesia Medications Current Outpatient Medications: cyanocobalamin (Vitamin B-12) 1000 MCG tablet, Take 1,000 mcg by mouth Daily, Disp: , Rfl: Dalfampridine ER (Ampyra) 10 MG tablet sustained-release 12 hour, Take 10 mg by mouth in the morning and 10 mg before bedtime., Disp: 60 tablet, Rfl: 1 Multiple Vitamin tablet, Take 1 tablet by mouth Daily Notes: *please review for potential _update for e-prescription and drug interaction check*, Disp: , Rfl: ocrelizumab (Ocrevus) 300 MG/10ML solution, Infuse 600 mg into a venous catheter every 6 (six) months, Disp: , Rfl: Allergies Penicillins Past Surgical History Past Surgical History: Procedure Laterality Date APPENDECTOMY CHOLECYSTECTOMY VASECTOMY Family History Family History Problem Relation Name Age of Onset Cancer Other Cancer Mother Rhonda Packer Cancer Father Alberto Packer Heart disease Father Alberto Packer Cancer Sister Celine Robledo Cancer Brother Alon Packer Objective Physical Exam Constitutional: Comments: Presents to clinic ambulating unassisted. Accompanied by his . HENT: Head: Normocephalic and atraumatic. Cardiovascular: Pulses: Normal pulses. Pulmonary: Effort: Pulmonary effort is normal. No respiratory distress. Abdominal: Palpations: There is no mass. Musculoskeletal: Cervical back: No rigidity. Comments: Gait examination reveals steppage gait with drop foot on the left lower extremity. Very unsteady gait. I can not recreate any isolated or pinpoint tenderness to palpation of the left lower extremity. He does have positive Tinel sign with percussion of the superficial peroneal nerve. Otherwise palpation of the lower extremity nerves reveals no Tinel sign. Muscle strength 1/5 for dorsiflexion, eversion, 2/5 for inversion, 4/5 for plantar flexion. Negative straight leg raise test. Left ASIS to the ground-97 cm Right ASIS to the ground-96 cm Skin: Capillary Refill: Capillary refill takes less than 2 seconds. Findings: No lesion or rash. Neurological: Mental Status: He is alert. Comments: No loss of protective sensation, gross sensation intact. Psychiatric: Mood and Affect: Mood normal. Behavior: Behavior normal. Assessment/Plan ICD-10-CM 1. Lumbar radiculopathy M54.16 2. Leg length discrepancy M21.70 3. Chronic left-sided low back pain with left-sided sciatica M54.42 G89.29 4. Foot drop, left M21.372 Patient examined and evaluated. A significant amount of time was spent reviewing his chart including previous neurology and neurosurgery visits. Personally reviewed previous MRI of the spine as well as EMG/NCV studies. They seem to suggest spondylolisthesis and lumbar radiculopathy in the level of L5-S1. He presents a very challenging case as he has a lot of different neurology symptoms and possibly carries a diagnosis of MS. A lot of his lower spine issues could be a result of spondylolisthesis and radiculopathy at the level of L5-S1. He also has some radiating pains down the left lower extremity. He does have some lower extremity weakness on the left side and a leg length discrepancy. I do not see any issues with the foot specifically causing his symptomatology. At this point I recommend trialing a lift on the left lower extremity that will help even his leg length discrepancy. Patient was fitted for a lift today and during ambulation in clinic felt immediate improvement in his symptoms along the lower spine. He states that he has also had significant improvement with geophysical support specialist apy and I recommend that he continue to do therapy on a regular basis especially at home on his own. I did discuss an AFO with him at length today but at this time he would like to simply start with the lift in his shoe. Lastly I recommend referral to Dr. Richter to see if he would be a good candidate for upper cervical manipulation to improve his leg length discrepancy and stability which likely would help his low back pain as well. For now I will see him back as needed. This note was created with the assistance of a speech recognition program. While intending to generate a timely document that accurately reflects the content of the visit, no guarantee can be provided that every grammatical or spelling mistake has been or will be identified or corrected. Thank you for your understanding. Spencer Judge DPM documented in this encounterSaint John's Aurora Community [id number] History of Present illness Narrative* Yecenia Vazquez, DO - 05/12/2024 4:15 PM EST IM PROGRESS NOTE Patient - Noemy Packer Age - 64 y.o. - 1960 ASSESSMENT & PLAN 1. Multiple sclerosis ([facility]) (Primary) -now seeing Neurology (NANNETTE White) and started on Ocrevus. Has had 2 infusions for October 05, 2024. I reviewed the neurology notes, and repeat testing done at neurology office. -he does not subjectively feel any different, and says he feels worse with vague systemic symptoms -I encouraged him to contact his neurologist to discuss the symptoms, and any plans for continuing or discontinuing the infusions 2. B12 deficiency -does have severe B12 deficiency based on previous lab -repeat B12 level to assess efficacy of current replacement therapy - Vitamin B12; Future 3. Spinal stenosis of lumbar region with neurogenic claudication -I reviewed the MRI reports from earlier this year showing multilevel degeneration and osteoarthritis consistent with spinal stenosis. -although not a surgical candidate, he probably is arthritic pain -I advised him to use heat or ice to his low back and hip area. May continue to do the stretching and HEP as previously instructed -add ibuprofen 200 mg 3-4 times daily on a regular basis for the next 5 days to see if this provides additional relief Subjective 64-year-old male with diagnosis of relapsing/remitting MS was seen by Neurology (Melvin) in February 05, 2024. Evaluation showed progression of his MS compared to previous imaging and testing in 2012. Patient did agree to start Ocrevus, and has had 2 infusions since January. He presents today sayingthat he feels no better since the 2 infusions. He aches all over, feels weak, off-balance, and continues to have abnormal sensation in his left hip and leg. -he has seen pain management in the past and stopped going because injections did nothing for him. -he has seen neurosurgery in the past, and they feel he is not a surgical candidate. -he reports several falls when he has gotten tangled up in the garden hose. He is not using any type of assistive device. -he was noted to have severe vitamin B12 deficiency earlier this year, has been taking cyanocobalamin supplementation. -he wants to know why nothing is working -however, he then reports he has tried some stretching and HEP previously given by PT, and this does help to some degree. Does have some ibuprofen which he takes occasionally and thinks it may give him some temporary relief. A review of systems was negative except for the following: General: sleep disturbance and only sleeps about 50% of the time Ophthalmic: blurry vision, loss of vision, and from initial diagnosis of optic neuritis Musculoskeletal: gait disturbance, joint pain, joint stiffness, muscular weakness, and pain in back- left and hip - left Neurological: gait disturbance, impaired coordination/balance, numbness/tingling, and weakness. Exam BP 118/70 (BP Site: Left Arm, BP Postition: Sitting) Pulse 93 Temp 36.7 C (98.1 F) (Tympanic) Ht 175.3 cm (5' 9 ) Wt 71.1 kg (156 lb 12.8 oz) SpO2 97% BMI 23.16 kg/m Physical Exam Vitals reviewed. Exam conducted with a leadership coach present (). Constitutional: General: He is not in acute distress. Appearance: He is normal weight. He is not toxic-appearing. HENT: Head: Normocephalic. Right Ear: External ear normal. Left Ear: External ear normal. Nose: Nose normal. Mouth/Throat: Mouth: Mucous membranes are moist. Eyes: General: No scleral icterus. Neck: Vascular: No carotid bruit. Cardiovascular: Rate and Rhythm: Normal rate and regular rhythm. Heart sounds: No murmur heard. No gallop. Pulmonary: Effort: Pulmonary effort is normal. Breath sounds: No wheezing or rales. Abdominal: Palpations: Abdomen is soft. Musculoskeletal: Right lower leg: No edema. Left lower leg: No edema. Lymphadenopathy: Cervical: No cervical adenopathy. Skin: General: Skin is warm and dry. Coloration: Skin is not jaundiced. Findings: No bruising. Neurological: Mental Status: He is alert and oriented to person, place, and time. Sensory: Sensory deficit (Loss of pinprick sensation in the L5-S1 dermatome of the left leg. Loss of vibratory sensation in a stocking-glove distribution on the left leg accompanied by pinprick loss in the same distribution.) present. Motor: Weakness (Hip flexors: 4/5 right; 3/5 left. Knee extensors 4/5 right; 3/5 left. Knee flexors4/5 right; 3/5 left. Ankle dorsiflexion: 4/5 right; 0/5 left) present. Gait: Gait abnormal (Weakness and limited limb swing in the left leg. Not using an assistive device). Deep Tendon Reflexes: Reflexes abnormal (Patella: 2/4 right; 1/4 left. Achilles: 2/4 right; 0/4 left). Comments: Total footdrop on the left foot. Unable to dorsiflex. Abnormal balance when trying to stand due to left leg weakness. Psychiatric: Mood and Affect: Mood normal. Behavior: Behavior normal. Meds Current Outpatient Medications: cyanocobalamin (vitamin B-12) 1000 MCG tablet, Take 1 tablet (1,000 mcg total) by mouth in the morning., Disp: 90 tablet, Rfl: 1 ibuprofen (ADVIL,MOTRIN) 200 mg tablet, Take 1 tablet (200 mg total) by mouth every 6 (six) hours as needed for pain. 3 tabs, Disp: , Rfl: hbdetauw-scte-HH-calcium &mins (THERAGRAN-M) 9 mg iron-400 mcg tablet, Take 1 tablet by mouth in the morning., Disp: , Rfl: pregabalin (LYRICA) 50 mg capsule, Take 1 capsule (50 mg total) by mouth in the morning and 1 capsule (50 mg total) before bedtime., Disp: 60 capsule, Rfl: 0 Lab Results No visits with results within 1 Month(s) from this visit. Latest known visit with results is: Hospital Outpatient Visit on 10/22/2023 Component Date Value Ref Range Status Total Protein 10/22/2023 6.7 6.0 - 8.0 g/dL Final Albumin 10/22/2023 3.9 3.4 - 5.3 g/dL Final Alpha 1 10/22/2023 0.3 0.1 - 0.4 g/dL Final Alpha 2 10/22/2023 0.6 0.4 - 1.1 g/dL Final Beta 10/22/2023 0.8 0.5 - 1.2 g/dL Final Gamma Globulin 10/22/2023 1.0 0.5 - 1.6 g/dL Final Prot. electrophoresis interp 10/22/2023 Unremarkable protein distribution, no monoclonal bands. Final Cholesterol 10/22/2023 137 (L) 150 - 200 mg/dL Final Triglycerides 10/22/2023 124 27 - 150 mg/dL Final HDL Cholesterol 10/22/2023 54 >39 mg/dL Final VLDL 10/22/2023 25 0 - 30 mg/dL Final LDL (calc) 10/22/2023 58 <130 mg/dL Final Cholesterol:HDL Ratio 10/22/2023 2.5 1.0 - 5.0 Final Sodium 10/22/2023 142 134 - 146 mmol/L Final Potassium, Bld 10/22/2023 4.1 3.5 - 5.0 mmol/L Final Chloride 10/22/2023 106 98 - 109 mmol/L Final CO2 10/22/2023 29 22 - 32 mmol/L Final Anion gap 10/22/2023 7 5 - 15 mmol/L Final BUN 10/22/2023 17 5 - 27 mg/dL Final Creatinine 10/22/2023 0.86 0.60 - 1.30 mg/dL Final Glucose 10/22/2023 96 65 - 99 mg/dL Final Calcium 10/22/2023 9.5 8.5 - 10.5 mg/dL Final Total Protein 10/22/2023 7.2 6.0 - 8.0 g/dL Final Albumin 10/22/2023 4.2 3.2 - 5.3 g/dL Final Alkaline Phosphatase 10/22/2023 76 39 - 130 U/L Final AST 10/22/2023 28 0 - 41 U/L Final ALT 10/22/2023 30 0 - 40 U/L Final Total bilirubin 10/22/2023 0.4 0.3 - 1.2 mg/dL Final eGFR (CKD-EPI)non-race dependent 10/22/2023 >90 >59 ml/min/1.73sq.m Final Vitamin B-12 10/22/2023 254 180 - 914 pg/mL Final TSH 10/22/2023 2.77 0.49 - 4.67 uIU/mL Final White Blood Cells 10/22/2023 6.0 4.0 - 11.0 X10E9/L Final RBC count 10/22/2023 4.85 4.10 - 5.70 X10E12/L Final Hemoglobin 10/22/2023 14.3 13.0 - 17.0 g/dL Final Hematocrit 10/22/2023 42.1 39 - 49 % Final MCV 10/22/2023 87 80 - 100 fL Final MCH 10/22/2023 29.5 27 - 34 pg Final MCHC 10/22/2023 34.0 32 - 36 g/dL Final RDW 10/22/2023 13.0 11.5 - 15.0 % Final Platelets 10/22/2023 314 150 - 450 X10E9/L Final MPV 10/22/2023 7.4 7 - 12 fL Final % neutrophils 10/22/2023 68.5 % Final % lymphocytes 10/22/2023 23.2 % Final % monocytes 10/22/2023 6.5 % Final % eosinophils 10/22/2023 1.3 % Final % Basophils 10/22/2023 0.5 % Final Neutrophils Absolute (A) 10/22/2023 4.1 1.5 - 6.6 X10E9/L Final Lymphocytes Absolute 10/22/2023 1.4 1.0 - 3.5 X10E9/L Final Monocytes Absolute 10/22/2023 0.4 0 - 0.9 X10E9/L Final Eosinophils Absolute 10/22/2023 0.1 0.0 - 0.4 X10E9/L Final Basophils Absolute 10/22/2023 0.0 0.0 - 0.2 X10E9/L Final Other Testing No results found. Yecenia Vazquez DO., [facility]: [phone] documented [facility]11[facility] History of Present illness Narrative* TERRELL Gilbert - 04/30/2024 9:00 AM ESTAssociated Order(s): Trigger Point Injection: left iliocostalis lumborum Post-Procedure Diagnose(s): Myalgia; Lumbar back pain Images from the original note were not included. Subjective Noemy Packer is a 64 y.o. year old male Chief Complaint Patient presents with Trigger Point Injections Past Medical History: Diagnosis Date Demyelinating disease of central nervous system (HCC) ([facility]) 11/25/2012 Diplopia 11/25/2012 Lack of coordination 11/25/2012 Left foot drop 06/23/2019 Left leg weakness Multiple sclerosis ([facility]) 12/16/2012 Optic neuritis 11/25/2012 Paresthesia Past Surgical History: Procedure Laterality Date APPENDECTOMY Family History Problem Relation Name Age of Onset Cancer Other Social History Tobacco Use Smoking status: Former Types: Cigarettes Smokeless tobacco: Never Substance Use Topics Alcohol use: Yes Medication Documentation Review Audit Reviewed by Franchesca Emery MA (Crowd Controller) on 04/30/24 at 0840 Medication Order Taking? Sig Documenting Provider Last Dose Status cyanocobalamin (Vitamin B-12) 1000 MCG tablet [id number] No Take 1,000 mcg by mouth Daily Historical Provider, Not Taking Active Multiple Vitamin tablet [id number] No Take 1 tablet by mouth Daily Notes: *please review for potential _update for e-prescription and drug interaction check* TERRELL Vences Not Taking Active pregabalin (Lyrica) 75 MG capsule [id number] Take 1 capsule (75 mg) by mouth in the morning and 1 capsule (75 mg) in the evening and 1 capsule (75 mg) before bedtime. Leonidas Charles MD Active HPI Patient here today for trigger injections Back Pain -pain on the left side -radiates in to hip and down the leg -radiates all the way down to his toes -worse as the day progresses -Pain today 01/25 -he admits constant numbness and tingling -imbalance -fell yesterday -he denies any injury ROS Review of Systems Constitutional: Negative. Respiratory: Negative. Cardiovascular: Negative. Gastrointestinal: Negative. Musculoskeletal: Positive for back pain and gait problem. Neurological: Positive for weakness and numbness. Objective Visit Vitals BP 110/68 Ht 5' 9 Wt 157 lb BMI 23.18 kg/m Smoking Status Former BSA 1.86 m Assessment and Plan Lumbar back pain Myalgia Patient ID: Noemy Packer is a 64 y.o. male. Trigger Point Injection: left iliocostalis lumborum on 04/30/2024 8:49 AM Indications: myalgia Details: 25 G needle Medications: 40 mg methylPREDNISolone Na Suc (PF) 40 MG; 3 mL bupivacaine 0.25 % Outcome: tolerated well, no immediate complications Procedure, treatment alternatives, risks and benefits explained, specific risks discussed. Consent was given by the patient. PLAN Trigger injections today. Follow up as scheduled documented in this [facility]11-06-2024 History of Present illness Narrative* TERRELL Vences - 04/23/2024 3:40 PM EST Subjective Noemy Packer is a 64 y.o. year old male Chief Complaint Patient presents with Multiple Sclerosis Past Medical History: Diagnosis Date Demyelinating disease of central nervous system (HCC) ([facility]/HCC) 11/25/2012 Diplopia 11/25/2012 Lack of coordination 11/25/2012 Left foot drop 06/23/2019 Left leg weakness Multiple sclerosis (CMS/HCC) 12/16/2012 Optic neuritis 11/25/2012 Paresthesia Past Surgical History: Procedure Laterality Date APPENDECTOMY Family History Problem Relation Name Age of Onset Cancer Other Social History Tobacco Use Smoking status: Former Types: Cigarettes Smokeless tobacco: Not on file Substance Use Topics Alcohol use: Yes Medication Documentation Review Audit Reviewed by Stacey Reid MA (Crowd Controller) on 04/23/24 at 1543 Medication Order Taking? Sig Documenting Provider Last Dose Status cyanocobalamin (Vitamin B-12) 1000 MCG tablet [id number] No Take 1,000 mcg by mouth Daily Historical Provider, Not Taking Active Multiple Vitamin tablet [id number] No Take 1 tablet by mouth Daily Notes: *please review for potential _update for e-prescription and drug interaction check* TERRELL Vences Not Taking Active pregabalin (Lyrica) 75 MG capsule [id number] Take 1 capsule (75 mg) by mouth in the morning and 1 capsule (75 mg) in the evening and 1 capsule (75 mg) before bedtime. Leonidas Charles MD Active HPI MS -reports he took Lyrica for a short period of time and then had difficulty getting the refill -states its showing under review at the pharmacy -on Ocrevus -left sided weakness has worsened, but notes it is primarily pain in his left lower extremity that he is feeling has worsened -states since having his 2nd infusion his left side is painful -report numbness in the left leg has also worsened -voices frustration and states he has a lot of questions -left foot continues to drag and leg gives out -balance is about the same -denies any falls since last visit - is with him today Back Pain -pain on the left side -radiates in to hip and down the leg -radiates all the way down to his toes -ankle is very painful -worse as the day progresses ROS Review of Systems Constitutional: Negative. Respiratory: Negative. Cardiovascular: Negative. Gastrointestinal: Negative. Musculoskeletal: Positive for back pain and gait problem. Neurological: Positive for weakness and numbness. Objective Visit Vitals BP 120/74 Pulse 96 Resp 16 Ht 5' 9 Wt 155 lb SpO2 97% BMI 22.89 kg/m Smoking Status Former BSA 1.85 m Neurological Exam Mental Status Awake, alert and oriented to person, place and time. Recent and remote memory are intact. Speech isnormal. Language is fluent with no aphasia. Attention and concentration are normal. Fund of knowledge is appropriate for level of education. Cranial Nerves CN II: Legally blind. CN III, IV, : Extraocular movements intact bilaterally. Normal lids and orbits bilaterally. Pupils equal round and reactive to light bilaterally. CN V: Facial sensation is normal. CN VII: Full and symmetric facial movement. CN VIII: Hearing is normal. CN IX, X: Palate elevates symmetrically CN XI: Shoulder shrug strength is normal. CN XII: Tongue midline without atrophy or fasciculations. Motor Normal muscle bulk throughout. Normal muscle tone. No abnormal involuntary movements. Sensory Light touch is normal in upper and lower extremities. Temperature is normal in upper and lower extremities. Gait left foot drop, Gait steppage, spastic. Motor Examination RUE Strength deltoid, biceps, triceps, wrist extensors, wrist extensors, wrist flexor, feather mixer strength 5/5. LUE Strength deltoid, biceps, triceps, wrist extensors, wrist extensors, wrist flexor, feather mixer strength 5/5. RLE Strength illopsoas, quadriceps, tibialis anterior, and gastrocnemius strength 5/5. LLE Strength illopsoas, quadriceps, tibialis anterior, and gastrocnemius strength 5/5. Tone Normal tone x4 extremities. left foot drop Reflexes: RUE biceps reflex 2, brachioradialis reflex 2 LUE biceps reflex 2, brachioradialis reflex 2 RLE knee reflex 2, ankle reflex 1 LLE knee reflex 2, ankle reflex 1 TTP of lumbar paraspinal muscles bilaterally Assessment and Plan Diagnoses and all orders for this visit: Multiple sclerosis ([facility]) 64 year old male with history of MS and previous Dr. Lucian Solomon patient. He was diagnosed 10+ years ago with relapsing and remitting type MS at this clinic. 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 He was evaluated in past by [facility] for second opinion. Per [facility] records, the diagnosis of MS is supportedby his brain and cervical spine MRI appearance, OCT results, negative mimic work up, and clinical history. He has declined DMT in the past for many years. He was then agreeable to start Ocrevus and had his first infusions in March 2024. Unfortunately, he feels he has had worsening symptoms of back pain and left lower extremity pain. Unclear if this is related to Ocrevus. He continues with left lower extremity weakness and paresthesia. He had updated imaging of brain, cervical spine, and thoracic spine 06/2023 as described below. 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 He has had facet injections, epidural injections, and has done PT in the past multiple times. He has recently done PT for back pain. Left leg weakness persists. He is no longer following with pain management and had a nerve ablation in the past. He has seen neurosurgery multiple times in the past for opinion and told he was not a surgical candidate and recently was evaluated at [facility]. He tried and had side effect tocymbalta, gabapentin, mobic, and others he cannot remember. He had side effect with trileptal. He was seeing a chiropractor with some relief in symptoms. He had some benefit with Lyrica but had trouble getting this at the pharmacy. Blood work: 02/27/2024: Quantiferon TB gold negative, HBSAG negative, Hep B core AB negative, Hep B surf AB negative, HCV antibody non reactive, VZV IgG non reactive, HIV nonreactive BLE EMG 11/27/2023: revealed findings consistent with polyradiculopathy on the left affecting predominantly L5/S1 innervated muscles. A more generalized process affecting anterior horn cells cannot beexcluded by this EDX evaluation. BLE EMG 11/30/2021: revealed remote L5-S1 radiculopathy on the left which is mild in degree electrically and slightly progressed. BLE EMG 07/02/2019: revealed left L5 radiculopathy which is mild to moderate in degree electrically. Brain MRI with and without contrast 07/10/2023: revealed interval development of a few new areas of abnormal signal within the brain when compared to 2012. The majority of the signal abnormalities were stable. No area of restricted diffusion or pathologic contrast enhancement to suggest a new brain signal abnormality. Cervical spine MRI with and without contrast 07/10/2023: revealed solitary area of abnormal signal in the dorsal C2 region not associated with pathologic contrast enhancement. Finding was noted as compatible with diagnosis of demyelinating disease. There were also degenerative changes of the cervical spine. Thoracic spine MRI with and without contrast 07/10/2023: revealed at least 3 areas of signal abnormality within the thoracic cord demonstrates faint contrast enhancement on the postcontrast sagittal images consistent with clinical diagnosis of demyelinating disease. Brain MRI 11/07/2021 with and without contrast: stable compared to MRI from 2019 Cervical spine MRI 12/23/2021: revealed 5mm MS plaque at the C2 level with no active demyelination. Thoracic spine MRI 2021: revealed small thoracic cord demyelination plaques at the T10-11 and T4 level and no active demyelination. Lumbar Spine MRI 12/05/22: Moderate to severe right neural foraminal narrowing, similar to previous exam. Cervical spine MRI 11/2012: revealed focal T2 signal lesion with enhancement of cervical cord at theC2 level which is noted as highly suspicious for demyelinating plaque. There was also shallow disc discplacement C5-C6 level without central canal stenosis of foraminal compromise. Lesion was also noted on cervical spine MRI from [facility] in 2017. MRI thoracic spine 11/2012: revealed abnormal cord signal posterior to T10-T11 disc space with associated enhancement suspicious for an area or demyelinating plaque or possibly transverse myelitis. PLAN I let patient know that [facility] in [place] has his Lyrica that he can refill As patient has had minimal benefit with PT and medications, I will order trigger injections for lumbar back pain. This will consist of 2-4 injections in the lumbar paraspinal muscles with marcaine and solumedrol. I discussed potential risks (including bleeding and infection) and the potential benefits. He would like to proceed with trigger injections Patient had his initial Ocrevus infusion and is due again in September I counseled the patient on the possible side effects and interactions of medications. Patient to follow up with this clinic in 2-3 months or sooner for new or worsening symptoms documented in this [facility]10-29-2024 Telephone encounter Note* Telephone Encounter - Pita Lomax - 04/15/2024 3:09 PM EDT Received no attempt of being contacted to rs. [id number] Miscellaneous Notes* Telephone Encounter - Pita Lomax - 04/15/2024 3:09 PM EDT Received no attempt of being contacted to rs. documented in this encounterSaint [facility] [id number] History of Present illness Narrative* Ebony Hayward RN - 04/10/2024 9:00 AM EDT Patient here for Ocrevus, 2nd infusion of loading dose. Patient denies any issues tolerating dose 2weeks ago. IV initiated per protocol and tolerated well. Premeds administered without complications. Ocrevus administered per order with rates titrated and VS monitored throughout. Patient remains for 1 hour observation after infusion. No complaints or issues. IV d/c'd; patient discharged to private vehicle in stable condition. [facility] History of Present illness Narrative* Lucien Ac RN - 03/27/2024 8:30 AM EDT Pt here for first Ocrevus infusion. PIV initiated to RFA, brisk blood return noted, flushes withoutdifficulty. Premedicated per orders. Ocrevus titrated per orders. 1 hour post infusion OBS completed. Pt tolerated well. PIV discontinued, pressure dressing applied. Pt verbalized understanding of future appointments. Pt discharged ambulatory in stable condition. documented in this encounterL[facility]09-25-[facility] History of Present illness Narrative* Vannesa Mensah, PT - 03/12/2024 3:30 PM EDT Physical Therapy Treatment Visit Patient Name: Noemy Packer Today's Date: 03/12/24 Encounter Diagnoses Name Primary? Lumbar radiculopathy Yes Multiple sclerosis (CMS/HCC) Left leg weakness Left foot drop Visit number: 5 Timed Code Treatment Minutes: 54 minutes Total Treatment Time: 54 minutes Time In: 3:30 Time Out: 4:34 History: Pt. Presents to PT with c/c of left low back and radiculopathy symptoms down left LE whichstarted 5-6 years ago. Pt. Was Dx with MS 10 years ago. He has fallen. Back pain is constant throughout the day. Pt. Has had 4-5 different neurosurgeon consult but unable to help at this time. Pain management injection but did not help. (Most recent injection over a year ago). Patient goal with PT is to help decrease low back pain. Precautions: fall risk, legally blind Subjective: Pt. Reports he felt the best he has in a while for the last 3 days after last PT session. Pt. Feels he is making good progress. Left LE weakness still present. Pain: 09/25 Objective: PT Evaluation (02/14/24) Lumbar ROM: flexion decreased 50%, extension 25%, rotation/SB WFL Joint: moderate lumbar spine hypomobility Flexibility: moderate LE muscle tightness, moderate + left lumbar paraspinal muscle tightness Strength: core 4-/5 Palpation: increased left lumbar paraspinal muscle tone Treatment: PT evaluation ( minutes) Education: HEP education with demonstration, Educated on Eval Findings and POC Manual Therapy: (25 minutes) prone: STM to lumbar paraspinal, MFR to piriformis, lumbar paraspinal,lumbar PA mobs, Passive ROM, Joint mobilization, Soft Tissue Mobilization, Myofascial Release, Muscle Energy Technique, Neural Mobilization, Myofascial Cupping, Dry Needling, IASTM, and Scar mobilization Therapeutic Exercise: ( 29 minutes) Strength, Endurance, Flexibility, ROM, HEP, Neural Mobilization, Power, and Core Stability Therapeutic Activity: Exercises to improve dynamic activities, functional tasks, functional mobility to return to prior activity level Neuromuscular re-education: Balance Training, Muscle Facilitation, Dynamic Stability, Core Stabilization, and Blood Flow Restriction Training (BFRT) Modalities: Heat, Ice, Electrical Stimulation, Ultrasound, Cervical Mechanical Traction, Lumbar Mechanical Traction, Iontophoresis, and Fluidotherapy DN: 5x needles, 3 needles PSIS area, 2x needles L4 and L5, (held minute rest) Assessment: Pt. Has participated in 5 PT session with start of POC on 02/14/24 for low back pain. Pt. Will benefit from skilled PT services. PT treatment continue to focus on improving left LE muscle flexibilityand strength. Pt. Is progessing well toward PT goals. Improved hamstring muscle flexibility Mild + tightness today. Outcome Measure: in chart Rehab Diagnosis: low back pain, lumbar tightness Short Term Goal: To be met in 2 weeks Goal 1: Pt to be instructed in home exercise program. Security Software Engineer Goals: To be met in 10 weeks Goal 1: Pt to report independence and compliance with home program. Goal 2: Pt. Will report of 3/10 or less low back pain while performing daily tasks to help improve his functional mobility. Goal 3: Pt. Will demonstrate normal lumbar paraspinal muscle flexibility to help improve his functional mobility and quality of life. Goal 4: Pt. Will demonstrate normal LE muscle flexibility to help decrease low back pain and improve his functional mobility. Goal 5: Pt. Will demonstrate normal lumbar spine joint mobility to help decrease pain and improve his functional mobility. Goal 6: Pt. Will score 15% or less on back index to improve his functional mobility. Pt will benefit from skilled PT for 1-2x/week from 04/21/24 to address the above impairments. I hereby deem this POC medically necessary. Please sign below. Date: documented in this encounterSaint [facility] [id number] History of Present illness Narrative* Vannesa Mensah, PT - 03/05/2024 3:30 PM EDT Physical Therapy Treatment Visit Patient Name: Noemy Packer Today's Date: 03/06/2024 Encounter Diagnoses Name Primary? Lumbar radiculopathy Yes Multiple sclerosis (CMS/HCC) Left leg weakness Left foot drop Visit number: 4 Timed Code Treatment Minutes: 54 minutes Total Treatment Time: 54 minutes Time In: 3:30 Time Out: 4:34 History: Pt. Presents to PT with c/c of left low back and radiculopathy symptoms down left LE whichstarted 5-6 years ago. Pt. Was Dx with MS 10 years ago. He has fallen. Back pain is constant throughout the day. Pt. Has had 4-5 different neurosurgeon consult but unable to help at this time. Pain management injection but did not help. (Most recent injection over a year ago). Patient goal with PT is to help decrease low back pain. Precautions: fall risk, legally blind Subjective: Pt. Reports back feel better for couple hours after PT session then pain returns. Pt. Worked today and having increase leg weakness and back pain. Pain: 8/10 Objective: PT Evaluation (02/14/24) Lumbar ROM: flexion decreased 50%, extension 25%, rotation/SB WFL Joint: moderate lumbar spine hypomobility Flexibility: moderate LE muscle tightness, moderate + left lumbar paraspinal muscle tightness Strength: core 4-/5 Palpation: increased left lumbar paraspinal muscle tone Treatment: PT evaluation ( minutes) Education: HEP education with demonstration, Educated on Eval Findings and POC Manual Therapy: (25 minutes) prone: STM to lumbar paraspinal, MFR to piriformis, lumbar paraspinal,lumbar PA mobs, Passive ROM, Joint mobilization, Soft Tissue Mobilization, Myofascial Release, Muscle Energy Technique, Neural Mobilization, Myofascial Cupping, Dry Needling, IASTM, and Scar mobilization Therapeutic Exercise: ( 29 minutes) Strength, Endurance, Flexibility, ROM, HEP, Neural Mobilization, Power, and Core Stability Therapeutic Activity: Exercises to improve dynamic activities, functional tasks, functional mobility to return to prior activity level Neuromuscular re-education: Balance Training, Muscle Facilitation, Dynamic Stability, Core Stabilization, and Blood Flow Restriction Training (BFRT) Modalities: Heat, Ice, Electrical Stimulation, Ultrasound, Cervical Mechanical Traction, Lumbar Mechanical Traction, Iontophoresis, and Fluidotherapy DN: 5x needles, 3 needles PSIS area, 2x needles L4 and L5, (held minute rest) Assessment: Pt. Has participated in 4 PT session with start of POC on 02/14/24 for low back pain. Pt. Will benefit from skilled PT services. PT treatment continue to focus on improving left LE muscle flexibilityand strength. Pt. Is challenged with left LE exercises due to left LE muscle fatigue quickly with exercises. Outcome Measure: in chart Rehab Diagnosis: low back pain, lumbar tightness Short Term Goal: To be met in 2 weeks Goal 1: Pt to be instructed in home exercise program. Security Software Engineer Goals: To be met in 10 weeks Goal 1: Pt to report independence and compliance with home program. Goal 2: Pt. Will report of 3/10 or less low back pain while performing daily tasks to help improve his functional mobility. Goal 3: Pt. Will demonstrate normal lumbar paraspinal muscle flexibility to help improve his functional mobility and quality of life. Goal 4: Pt. Will demonstrate normal LE muscle flexibility to help decrease low back pain and improve his functional mobility. Goal 5: Pt. Will demonstrate normal lumbar spine joint mobility to help decrease pain and improve his functional mobility. Goal 6: Pt. Will score 15% or less on back index to improve his functional mobility. Pt will benefit from skilled PT for 1-2x/week from 04/21/24 to address the above impairments. I hereby deem this POC medically necessary. Please sign below. Date: documented in this encounterSaint John's Aurora Community [id number] History of Present illness Narrative* Vannesa Mensah, PT - 02/26/2024 3:30 PM EDT Physical Therapy Treatment Visit Patient Name: Noemy Packer Today's Date: 02/26/2024 Encounter Diagnoses Name Primary? Lumbar radiculopathy Yes Multiple sclerosis (CMS/HCC) Left leg weakness Left foot drop Visit number: 3 Timed Code Treatment Minutes: 54 minutes Total Treatment Time: 64 minutes Time In: 3:30 Time Out: 4:34 History: Pt. Presents to PT with c/c of left low back and radiculopathy symptoms down left LE whichstarted 5-6 years ago. Pt. Was Dx with MS 10 years ago. He has fallen. Back pain is constant throughout the day. Pt. Has had 4-5 different neurosurgeon consult but unable to help at this time. Pain management injection but did not help. (Most recent injection over a year ago). Patient goal with PT is to help decrease low back pain. Precautions: fall risk, legally blind Subjective: Pt. Reports of no change in his low back pain. Pain: 01/25 Objective: PT Evaluation (02/14/24) Lumbar ROM: flexion decreased 50%, extension 25%, rotation/SB WFL Joint: moderate lumbar spine hypomobility Flexibility: moderate LE muscle tightness, moderate + left lumbar paraspinal muscle tightness Strength: core 4-/5 Palpation: increased left lumbar paraspinal muscle tone Treatment: PT evaluation ( minutes) Education: HEP education with demonstration, Educated on Eval Findings and POC Manual Therapy: (25 minutes) prone: STM to lumbar paraspinal, MFR to piriformis, lumbar paraspinal,lumbar PA mobs, Passive ROM, Joint mobilization, Soft Tissue Mobilization, Myofascial Release, Muscle Energy Technique, Neural Mobilization, Myofascial Cupping, Dry Needling, IASTM, and Scar mobilization Therapeutic Exercise: ( 29 minutes) Strength, Endurance, Flexibility, ROM, HEP, Neural Mobilization, Power, and Core Stability Therapeutic Activity: Exercises to improve dynamic activities, functional tasks, functional mobility to return to prior activity level Neuromuscular re-education: Balance Training, Muscle Facilitation, Dynamic Stability, Core Stabilization, and Blood Flow Restriction Training (BFRT) Modalities: Heat, Ice, Electrical Stimulation, Ultrasound, Cervical Mechanical Traction, Lumbar Mechanical Traction, Iontophoresis, and Fluidotherapy DN: 5x needles, 3 needles PSIS area, 2x needles L4 and L5, (held minute rest) Assessment: Pt. Has participated in 3 PT session with start of POC on 02/14/24 for low back pain. Pt. Will benefit from skilled PT services. Added more ther ex today and updated HEP. Outcome Measure: in chart Rehab Diagnosis: low back pain, lumbar tightness Short Term Goal: To be met in 2 weeks Goal 1: Pt to be instructed in home exercise program. Security Software Engineer Goals: To be met in 10 weeks Goal 1: Pt to report independence and compliance with home program. Goal 2: Pt. Will report of 3/10 or less low back pain while performing daily tasks to help improve his functional mobility. Goal 3: Pt. Will demonstrate normal lumbar paraspinal muscle flexibility to help improve his functional mobility and quality of life. Goal 4: Pt. Will demonstrate normal LE muscle flexibility to help decrease low back pain and improve his functional mobility. Goal 5: Pt. Will demonstrate normal lumbar spine joint mobility to help decrease pain and improve his functional mobility. Goal 6: Pt. Will score 15% or less on back index to improve his functional mobility. Pt will benefit from skilled PT for 1-2x/week from 04/21/24 to address the above impairments. I hereby deem this POC medically necessary. Please sign below. Date: documented in this encounterSaint John's [facility] Community [id number] History of Present illness Narrative* Vannesa Mensah, PT - 02/21/2024 9:30 AM EDT Physical Therapy Treatment Visit Patient Name: Noemy Packer Today's Date: 02/21/2024 Encounter Diagnoses Name Primary? Lumbar radiculopathy Yes Multiple sclerosis (CMS/HCC) Left leg weakness Left foot drop Visit number: 2 Timed Code Treatment Minutes: 53 minutes Total Treatment Time: 73 minutes Time In: 914 Time Out: 1027 History: Pt. Presents to PT with c/c of left low back and radiculopathy symptoms down left LE whichstarted 5-6 years ago. Pt. Was Dx with MS 10 years ago. He has fallen. Back pain is constant throughout the day. Pt. Has had 4-5 different neurosurgeon consult but unable to help at this time. Pain management injection but did not help. (Most recent injection over a year ago). Patient goal with PT is to help decrease low back pain. Precautions: fall risk, legally blind Subjective: Pt. Reports the next morning after PT treatment his back felt better and was walking better with less pain. However by that afternoon his pain was back. Pain: 8/10 Objective: PT Evaluation (02/14/24) Lumbar ROM: flexion decreased 50%, extension 25%, rotation/SB WFL Joint: moderate lumbar spine hypomobility Flexibility: moderate LE muscle tightness, moderate + left lumbar paraspinal muscle tightness Strength: core 4-/5 Palpation: increased left lumbar paraspinal muscle tone Treatment: PT evaluation ( minutes) Education: HEP education with demonstration, Educated on Eval Findings and POC Manual Therapy: (28 minutes) prone: STM to lumbar paraspinal, MFR to piriformis, lumbar paraspinal,lumbar PA mobs, Passive ROM, Joint mobilization, Soft Tissue Mobilization, Myofascial Release, Muscle Energy Technique, Neural Mobilization, Myofascial Cupping, Dry Needling, IASTM, and Scar mobilization Therapeutic Exercise: ( 25 minutes) Strength, Endurance, Flexibility, ROM, HEP, Neural Mobilization, Power, and Core Stability Therapeutic Activity: Exercises to improve dynamic activities, functional tasks, functional mobility to return to prior activity level Neuromuscular re-education: Balance Training, Muscle Facilitation, Dynamic Stability, Core Stabilization, and Blood Flow Restriction Training (BFRT) Modalities: Heat, Ice, Electrical Stimulation, Ultrasound, Cervical Mechanical Traction, Lumbar Mechanical Traction, Iontophoresis, and Fluidotherapy DN: 5x needles, 3 needles PSIS area, 2x needles L4 and L5, (10 minute rest) Assessment: Pt. Has participated in 2 PT session with start of POC on 02/14/24 for low back pain. Pt. Will benefit from skilled PT services. Pt. Demonstrates good initial response to PT treatment. Performed morehamstring stretching today. Outcome Measure: in chart Rehab Diagnosis: low back pain, lumbar tightness Short Term Goal: To be met in 2 weeks Goal 1: Pt to be instructed in home exercise program. Security Software Engineer Goals: To be met in 10 weeks Goal 1: Pt to report independence and compliance with home program. Goal 2: Pt. Will report of 3/10 or less low back pain while performing daily tasks to help improve his functional mobility. Goal 3: Pt. Will demonstrate normal lumbar paraspinal muscle flexibility to help improve his functional mobility and quality of life. Goal 4: Pt. Will demonstrate normal LE muscle flexibility to help decrease low back pain and improve his functional mobility. Goal 5: Pt. Will demonstrate normal lumbar spine joint mobility to help decrease pain and improve his functional mobility. Goal 6: Pt. Will score 15% or less on back index to improve his functional mobility. Pt will benefit from skilled PT for 1-2x/week from 04/21/24 to address the above impairments. I hereby deem this POC medically necessary. Please sign below. Date: documented in this encounterSaint John's Aurora Community [id number] History of Present illness Narrative* Vannesa Mensah, PT - 02/14/2024 3:00 PM EDT Physical Therapy Evaluation Visit Patient Name: Noemy Packer Today's Date: 02/14/2024 Encounter Diagnoses Name Primary? Lumbar radiculopathy Multiple sclerosis (CMS/HCC) Left leg weakness Left foot drop Visit number: 1 Timed Code Treatment Minutes: 60 minutes Total Treatment Time: 60 minutes Time In: 1500 Time Out: 1600 History: Pt. Presents to PT with c/c of left low back and radiculopathy symptoms down left LE whichstarted 5-6 years ago. Pt. Was Dx with MS 10 years ago. He has fallen. Back pain is constant throughout the day. Pt. Has had 4-5 different neurosurgeon consult but unable to help at this time. Pain management injection but did not help. (Most recent injection over a year ago). Patient goal with PT is to help decrease low back pain. Precautions: fall risk, legally blind Subjective Pain: 01/25 Objective: PT Evaluation (02/14/24) Lumbar ROM: flexion decreased 50%, extension 25%, rotation/SB WFL Joint: moderate lumbar spine hypomobility Flexibility: moderate LE muscle tightness, moderate + left lumbar paraspinal muscle tightness Strength: core 4-/5 Palpation: increased left lumbar paraspinal muscle tone Treatment: PT evaluation (30 minutes) Education: HEP education with demonstration, Educated on Eval Findings and POC Manual Therapy: (24 minutes) prone: STM to lumbar paraspinal, MFR to piriformis, lumbar paraspinal,lumbar PA mobs, Passive ROM, Joint mobilization, Soft Tissue Mobilization, Myofascial Release, Muscle Energy Technique, Neural Mobilization, Myofascial Cupping, Dry Needling, IASTM, and Scar mobilization Therapeutic Exercise: Strength, Endurance, Flexibility, ROM, HEP, Neural Mobilization, Power, and Core Stability Therapeutic Activity: Exercises to improve dynamic activities, functional tasks, functional mobility to return to prior activity level Neuromuscular re-education: Balance Training, Muscle Facilitation, Dynamic Stability, Core Stabilization, and Blood Flow Restriction Training (BFRT) Modalities: Heat, Ice, Electrical Stimulation, Ultrasound, Cervical Mechanical Traction, Lumbar Mechanical Traction, Iontophoresis, and Fluidotherapy Assessment: Pt. Has participated in 1 PT session with start of POC on 02/14/24 for low back pain. Pt. Will benefit from skilled PT services. Outcome Measure: in chart Rehab Diagnosis: low back pain, lumbar tightness Short Term Goal: To be met in 2 weeks Goal 1: Pt to be instructed in home exercise program. Residential Goals: To be met in 10 weeks Goal 1: Pt to report independence and compliance with home program. Goal 2: Pt. Will report of 3/10 or less low back pain while performing daily tasks to help improve his functional mobility. Goal 3: Pt. Will demonstrate normal lumbar paraspinal muscle flexibility to help improve his functional mobility and quality of life. Goal 4: Pt. Will demonstrate normal LE muscle flexibility to help decrease low back pain and improve his functional mobility. Goal 5: Pt. Will demonstrate normal lumbar spine joint mobility to help decrease pain and improve his functional mobility. Goal 6: Pt. Will score 15% or less on back index to improve his functional mobility. Pt will benefit from skilled PT for 1-2x/week from 02/14/2024 to 04/24/2024 to address the above impairments. I hereby deem this POC medically necessary. Please sign below. Date: documented in this encounterSaint John's Aurora Community [id number] Telephone encounter Note* Telephone Encounter - Franko Mckeon MA - 02/06/2024 3:00 PM EDT Did not go through in visit. [facility] [id number] Miscellaneous Notes* Telephone Encounter - Franko Mckeon MA - 02/06/2024 3:00 PM EDT Did not go through in visit. documented in this encounterSaint John's Aurora Community [id number] History of Present illness Narrative* Leonidas Charles MD - 02/05/2024 2:00 PM EDT Subjective Noemy Packer is a 63 y.o. year old male Chief Complaint Patient presents with Back Pain Multiple Sclerosis Past Medical History: Diagnosis Date Demyelinating disease of central nervous system (HCC) ([facility]) 11/25/2012 Diplopia 11/25/2012 Lack of coordination 11/25/2012 Left foot drop 06/23/2019 Left leg weakness Multiple sclerosis ([facility]/HCC) 12/16/2012 Optic neuritis 11/25/2012 Paresthesia Past Surgical History: Procedure Laterality Date APPENDECTOMY Family History Problem Relation Name Age of Onset Cancer Other Social History Tobacco Use Smoking status: Former Types: Cigarettes Smokeless tobacco: Not on file Substance Use Topics Alcohol use: Yes Medication Documentation Review Audit Reviewed by Stacey Reid MA (Crowd Controller) on 12/17/23 at 1508 Medication Order Taking? Sig Documenting Provider Last Dose Status cyanocobalamin (Vitamin B-12) 1000 MCG tablet [id number] Take 1,000 mcg by mouth Daily Historical Provider, Active Multiple Vitamin tablet [id number] Take 1 tablet by mouth Daily Notes: *please review for potential _update for e-prescription and drug interaction check* TERRELL Vences Active OXcarbazepine (Trileptal) 150 MG tablet [id number] Take 150 mg by mouth in the morning and 150 mg before bedtime. TERRELL Vences Active pregabalin (Lyrica) 50 MG capsule [id number] Take 50 mg by mouth in the morning and 50 mg before bedtime. Historical Provider, Active HPI MS -not taking Lyrica -continues to have left sided weakness -reports numbness in the left leg, nothing new -states it doesn't want to work anymore -admits left foot drags -balance is 50/50 -left leg gives out on him -had a recent mechanical fall, tripped on a bucket, denies injury - is with him today Back Pain -pain on the left side -no longer following with pain management -refuses to have anymore injections -states they did nothing for him -radiates down the leg -radiates all the way down to his toes -worse as the day progresses ROS Review of Systems Constitutional: Negative. Respiratory: Negative. Cardiovascular: Negative. Gastrointestinal: Negative. Musculoskeletal: Positive for back pain and gait problem. Neurological: Positive for weakness and numbness. Objective Visit Vitals BP 132/62 (BP Location: Right arm, Patient Position: Sitting) Ht 5' 8 Wt 151 lb BMI 22.96 kg/m Smoking Status Former BSA 1.81 m Neurological Exam Mental Status Awake, alert and oriented to person, place and time. Recent and remote memory are intact. Speech isnormal. Language is fluent with no aphasia. Attention and concentration are normal. Fund of knowledge is appropriate for level of education. Cranial Nerves CN II: Legally blind. CN III, IV, : Extraocular movements intact bilaterally. Normal lids and orbits bilaterally. Pupils equal round and reactive to light bilaterally. CN V: Facial sensation is normal. CN VII: Full and symmetric facial movement. CN VIII: Hearing is normal. CN IX, X: Palate elevates symmetrically CN XI: Shoulder shrug strength is normal. CN XII: Tongue midline without atrophy or fasciculations. Motor Normal muscle bulk throughout. Normal muscle tone. No abnormal involuntary movements. Sensory Light touch is normal in upper and lower extremities. Temperature is normal in upper and lower extremities. Gait left foot drop, Gait steppage, spastic. Motor Examination RUE Strength deltoid, biceps, triceps, wrist extensors, wrist extensors, wrist flexor, feather mixer strength 5/5. LUE Strength deltoid, biceps, triceps, wrist extensors, wrist extensors, wrist flexor, feather mixer strength 5/5. RLE Strength illopsoas, quadriceps, tibialis anterior, and gastrocnemius strength 5/5. LLE Strength illopsoas, quadriceps, tibialis anterior, and gastrocnemius strength 5/5. Tone Normal tone x4 extremities. left foot drop Reflexes: RUE biceps reflex 2, brachioradialis reflex 2 LUE biceps reflex 2, brachioradialis reflex 2 RLE knee reflex 2, ankle reflex 1 LLE knee reflex 2, ankle reflex 1 Assessment and Plan Diagnoses and all orders for this visit: Multiple sclerosis (CMS/HCC) 59 year old male with history of MS and previous Dr. Lucian Solomon patient. He was diagnosed 10+ years ago with relapsing and remitting type MS at this clinic. 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 He was evaluated in past by [facility] for second opinion. Per [facility] records, the diagnosis of MS is supportedby his brain and cervical spine MRI appearance, OCT results, negative mimic work up, and clinical history. He has declined DMT in the past and continues to decline medication. Cervical spine MRI (11/2012) revealed focal T2 signal lesion with enhancement of cervical cord at the C2 level which is noted as highly suspicious for demyelinating plaque. There was also shallow disc discplacement C5-C6 level without central canal stenosis of foraminal compromise. Lesion was also noted on cervical spine MRI from [facility] in 2018. MRI thoracic spine (11/2012) revealed abnormal cord signal posterior to T10-T11 disc space with associated enhancement suspicious for an area or demyelinating plaque or possibly transverse myelitis. He continues with left lower extremity weakness and paresthesia. He continues to decline DMT. He had updated imaging of brain, cervical spine, and thoracic spine 06/2023 as describedbelow. 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 He has had facet injections, epidural injections, and has done PT in the past multiple times. He had slight benefit withPT previously but left leg weakness persists. He is no longer following with pain management and had a nerve ablation in the past. He has seen neurosurgery multiple times in the past for opinion and told he was not a surgical candidate and recently was evaluated at [facility]. He tried and had side effect to cymbalta, gabapentin, mobic, lyrica, and others he cannot remember. He had side effect with trileptal and would like to hold off on additional medications. He was seeing a chiropractor with some relief in symptoms. BLE EMG 11/27/2023: revealed findings consistent with polyradiculopathy on the left affecting predominantly L5/S1 innervated muscles. A more generalized process affecting anterior horn cells cannot beexcluded by this EDX evaluation. BLE EMG 11/30/2021: revealed remote L5-S1 radiculopathy on the left which is mild in degree electrically and slightly progressed. BLE EMG 07/02/2019: revealed left L5 radiculopathy which is mild to moderate in degree electrically. Brain MRI with and without contrast 07/10/2023: revealed interval development of a few new areas of abnormal signal within the brain when compared to 2012. The majority of the signal abnormalities were stable. No area of restricted diffusion or pathologic contrast enhancement to suggest a new brain signal abnormality. Cervical spine MRI with and without contrast 07/10/2023: revealed solitary area of abnormal signal in the dorsal C2 region not associated with pathologic contrast enhancement. Finding was noted as compatible with diagnosis of demyelinating disease. There were also degenerative changes of the cervical spine. Thoracic spine MRI with and without contrast 07/10/2023: revealed at least 3 areas of signal abnormality within the thoracic cord demonstrates faint contrast enhancement on the postcontrast sagittal images consistent with clinical diagnosis of demyelinating disease. Brain MRI 11/07/2021 with and without contrast: stable compared to MRI from 2019 Cervical spine MRI 12/23/2021: revealed 5mm MS plaque at the C2 level with no active demyelination. Thoracic spine MRI 2021: revealed small thoracic cord demyelination plaques at the T10-11 and T4 level and no active demyelination. Lumbar Spine MRI 12/05/22: Moderate to severe right neural foraminal narrowing, similar to previous exam. PLAN I will send a new order for PT for back pain and strengthening Patient agrees to DMT for MS will start process for Ocrevus Restart Lyrica at 75 mg tid for neuropathic pain I counseled the patient on the possible side effects and interactions of medications. I counseled the patient on the possible diagnosis, prognosis, treatment options. documented in this encounterSaint John's Aurora Community [id number] History of Present illness Narrative* Logan Dunbar APRN-FÁTIMA - 12/10/2023 11:00 AM EDT Images from the original note were not included. [facility] [address] [place] [address], [address] [place] [address] * CHART NOTE ? 12/10/2023 Patient: Noemy Packer 1960 [id number] Physician: Logan Dunbar CNP CHIEF COMPLAINT Follow up, lumbar. HISTORY OF PRESENT ILLNESS 63-year-old male with a history of left low back and left lower extremity pain presents for a follow up to review a recent EMG of the BLE. He has had PT and injections without improvement. He admits to weakness in the LLE and balance problems. Denies loss of feather mixer strength, saddle anesthesia, urinary or bowel dysfunction. ALLERGIES Allergies Allergen Reactions Penicillins Hives MEDICATIONS Current Outpatient Medications: cyanocobalamin (vitamin B-12) 1000 MCG tablet, Take 1 tablet (1,000 mcg total) by mouth in the morning., Disp: 90 tablet, Rfl: 1 ibuprofen (ADVIL,MOTRIN) 200 mg tablet, Take 1 tablet (200 mg total) by mouth every 6 (six) hours as needed for pain. 3 tabs, Disp: , Rfl: ybgndltc-gois-HC-calcium &mins (THERAGRAN-M) 9 mg iron-400 mcg tablet, Take 1 tablet by mouth in the morning., Disp: , Rfl: pregabalin (LYRICA) 50 mg capsule, Take 1 capsule (50 mg total) by mouth in the morning and 1 capsule (50 mg total) before bedtime., Disp: 60 capsule, Rfl: 0 VITAL SIGNS There were no vitals taken for this visit. PHYSICAL EXAMINATION Alert Oriented No percussion tenderness along spine Absent Lhermitte's Absent Spurling ROM of the low back is slightly decreased 4/5 weakness of the entire LLE No pathological reflexes Atrophy of the LLE No fasciculations Sensation to light touch is decreased in the LLE Gait is abnormal - left foot drop MRI / IMAGES EMG/NCS of the BLE Conclusion: Findings consistent with polyradiculopathy on the left affecting predominantly L5/S1 innervated muscles. A more generalized process affecting anterior horn cells can not be excluded by this evaluation. No definite evidence of a generalized process as polyneuropathy. IMPRESSION / PLAN 63-year-old male with a history of left low back and left lower extremity pain presents for a follow up to review a recent EMG of the BLE. He has had PT and injections without improvement. He admits to weakness in the LLE and balance problems. We will discuss recent EMG with Dr. Pan to see whatplan he advises. Electronically Signed By: Logan Dunbar CNP This note was created with the assistance of a speech recognition program with the goal of generating a timely record of the patient encounter. Inadvertent computerized slot floorman errors related to syntax, spelling, homophones, and/or inaudibility may be present. MARIJA Del Valle 12/10/23 1250 documented in this encounterLima [facility] Hospital06-24-[facility]24 Instructions* Patient Instructions* Angely Hutchison - 12/10/2023 11:00 AM EDT Patient seen today by Dara Diamond to discuss treatment plan with Dr. Pan KM documented in this encounterLima City Hospital05-06-[facility]24 History of Present illness Narrative* Yecenia Vazquez, - 10/22/2023 2:45 PM EDT IM PROGRESS NOTE Patient - Noemy Packer Age - 63 y.o. - 1960 ASSESSMENT & PLAN 1. Left lumbar radiculopathy -on exam today, exhibits a left L4 and L5 lumbar radiculopathy -old MRI scans reviewed, suggest nerve impingement at the right L5. -advised patient that obtaining the EMG will be important to sort out the discrepancy between exam and imaging findings. - EMG; Future. Has been waiting 6 months to get this done in [place]. Will order locally at [facility] in [place] to try and expedite his evaluation. -in the meantime, does get some relief, although temporary, with PT. Advised him to finish off the current order. -further recommendations pending results of current testing 2. Acquired left foot drop -he says this is been present for years, and never really addressed -uncertain whether this represents a peroneal nerve injury, or related to his MS -I offered to give him a AFO splint today, but he deferred. 3. Spina bifida occulta -noted incidentally on his MRI scan. -unlikely this has any direct bearing on his current radicular symptoms. May possibly be related tohis pain. 4. Peripheral polyneuropathy -does have S/S of neuropathy in addition to radicular symptoms -will initiate workup for metabolic and endocrine problems as source of these abnormalities - CBC auto differential; Future - Protein electrophoresis, serum; Future 5. B12 deficiency -as above - Vitamin B12; Future 6. Mixed hyperlipidemia -is due for re-evaluation of his general medical problems. Labs obtained today - TSH with Reflex; Future - Comprehensive metabolic panel; Future - Lipid profile; Future Subjective 63-year-old male presents for evaluation of his low back pain which radiates into the left leg Groin region, and foot. He has difficulty walking because of this problem. His left leg feels weak and unstable, and occasionally gives out. -he used to walk several miles a day, but has noticed that he has had difficulty doing this, and isunable to do this in a progressive fashion over last several years. -he has fallen several times because of this. Especially on uneven ground. - he currently is going to physical therapy ( [facility]), and says he gets relief for 2-3 days following a treatment and then it returns. - he has awaiting an EMG to be performed in [place]. This was ordered in June 2023 is still not scheduled until November of 2023. Therefore no results are available. - he did see Neurosurgery in June 2023, had MRI of the cervical spine, thoracic spine, and lumbar spine. He was told there was no surgical problem. -However there were abnormalities including: -moderate to severe right neural foraminal narrowing at L5-S1, along with grade 1 spondylolisthesis, and no central canal obstruction. -thoracic MRI shows 3 areas of signal abnormality with contrast enhancement consistent with demyelinating disease or other inflammatory or vasculitic process. -cervical MRI shows abnormal signal in the dorsal C2 region compatible with demyelinating disease, along with degenerative changes of the cervical spine and foraminal stenosis in the left C3-4, rightC5-6 region. -MRI of the brain shows interval development of new areas of abnormal signal within the white matter of the brain compared to 2013. -he reports he is seen Neurology in the past, and was diagnosed with multiple sclerosis for the past 30 years. He was tried on several medications initially, and said they did not work. He claims that the multiple sclerosis was caused by trauma to his head. -part of his symptoms associated with the MS is central vision loss. [facility]. He is unclear as to what the diagnosis and prognosis of this problem is. -He has been to pain management in [place] as well as at [facility], and has received multiple injections which he claim provided no relief. - at the current time, he takes ibuprofen 200-600 mg daily to help with the pain. Can get partial relief. - he did have pelvic x-ray several years ago, which showed mild osteoarthritis in the bilateral hips without degenerative changes. No other hip imaging has been done. A review of systems was negative except for the following: General: fatigue and sleep disturbance Ophthalmic: Central vision loss Gastrointestinal: multiple family members with colon cancer. He had a colonoscopy 4 years ago whichwas normal. Previous colonoscopies have been unremarkable. Musculoskeletal: gait disturbance, muscular weakness, and pain in left groin and foot Neurological: numbness/tingling and weakness. Exam BP 102/70 (BP Site: Left Arm, BP Postition: Sitting) Pulse 85 Temp 36.7 C (98 F) (Tympanic) Ht 175.3 cm (5' 9 ) Wt 70.4 kg (155 lb 1.6 oz) SpO2 98% BMI 22.90 kg/m Physical Exam Vitals reviewed. Constitutional: General: He is not in acute distress. Appearance: He is normal weight. He is not toxic-appearing. HENT: Head: Normocephalic. Right Ear: External ear normal. Left Ear: External ear normal. Nose: Nose normal. Mouth/Throat: Mouth: Mucous membranes are moist. Eyes: General: No scleral icterus. Neck: Vascular: No carotid bruit. Comments: ROM: Right rotation 80 . Left rotation 65 . Extension 45 . Flexion 15 . Cardiovascular: Rate and Rhythm: Normal rate and regular rhythm. Heart sounds: No murmur heard. No gallop. Pulmonary: Effort: Pulmonary effort is normal. Breath sounds: No wheezing or rales. Abdominal: Palpations: Abdomen is soft. Musculoskeletal: Right lower leg: No edema. Left lower leg: No edema. Lymphadenopathy: Cervical: No cervical adenopathy. Skin: General: Skin is warm and dry. Coloration: Skin is not jaundiced. Findings: No bruising. Neurological: Mental Status: He is alert and oriented to person, place, and time. Sensory: Sensory deficit (Loss of pinprick sensation in the L4 and L5 dermatome of the left leg. Loss of vibratory sensation in a stocking-glove distribution on the left leg. Diminished in a stocking-glove distribution on the right leg.) present. Motor: Weakness (Hip flexors: 4/5 right; 3/5 left. Knee extensors 4/5 right; 3/5 left. Knee flexors4/5 right; 3/5 left. Ankle dorsiflexion: 4/5 right;) present. Gait: Gait abnormal (Weakness and limited limb swing in the left leg). Deep Tendon Reflexes: Reflexes abnormal (Patella: 2/4 right; 1/4 left. Achilles: 2/4 right; 0/4 left). Comments: Total footdrop on the left foot. Unable to dorsiflex. Abnormal balance when trying to stand due to left leg weakness. Psychiatric: Mood and Affect: Mood normal. Behavior: Behavior normal. Meds Current Outpatient Medications: ibuprofen (ADVIL,MOTRIN) 200 mg tablet, Take 1 tablet (200 mg total) by mouth every 6 (six) hours as needed for pain. 3 tabs, Disp: , Rfl: cqwfjwmt-bxlm-XO-calcium &mins (THERAGRAN-M) 9 mg iron-400 mcg tablet, Take 1 tablet by mouth in the morning., Disp: , Rfl: Lab Results No visits with results within 1 Month(s) from this visit. Latest known visit with results is: Hospital Outpatient Visit on 11/15/2022 Component Date Value Ref Range Status Cholesterol 11/15/2022 161 150 - 200 mg/dL Final Triglycerides 11/15/2022 69 27 - 150 mg/dL Final HDL Cholesterol 11/15/2022 57 >39 mg/dL Final VLDL 11/15/2022 14 0 - 30 mg/dL Final LDL (calc) 11/15/2022 90 <130 mg/dL Final Cholesterol:HDL Ratio 11/15/2022 2.8 1.0 - 5.0 Final Sodium 11/15/2022 141 134 - 146 mmol/L Final Potassium, Bld 11/15/2022 4.7 3.5 - 5.0 mmol/L Final Chloride 11/15/2022 108 98 - 109 mmol/L Final CO2 11/15/2022 26 22 - 32 mmol/L Final Anion gap 11/15/2022 7 5 - 15 mmol/L Final BUN 11/15/2022 15 5 - 23 mg/dL Final Creatinine 11/15/2022 1.00 0.60 - 1.30 mg/dL Final Glucose 11/15/2022 91 65 - 99 mg/dL Final Calcium 11/15/2022 9.3 8.5 - 10.5 mg/dL Final Total Protein 11/15/2022 7.2 6.0 - 8.0 g/dL Final Albumin 11/15/2022 4.4 3.2 - 5.3 g/dL Final Alkaline Phosphatase 11/15/2022 81 39 - 130 U/L Final AST 11/15/2022 36 0 - 41 U/L Final ALT 11/15/2022 35 0 - 40 U/L Final Total bilirubin 11/15/2022 0.6 0.3 - 1.2 mg/dL Final eGFR (CKD-EPI)non-race dependent 11/15/2022 86 >59 ml/min/1.73sq.m Final Other Testing No results found. Yecenia Vazquez DO., [facility] Office: [phone] documented in this encounterLima City Hospital02-27-2024 Miscellaneous Notes* Telephone Encounter - Kai Moreno - 08/14/2023 10:14 AM EST Noemy called to share he was feeling frustrated with his pain and lack of relief. Provider had recommended many options at patients last visit 08/06/23 (muscle relaxer,chiro/massage, homeopathic care/provider, MS support group and pt. Patient is not agreeable to medications and we determined providers referral to total [facility] would be best @ this time. He plans to call and schedule with them remington. * Telephone Encounter - RADHA Dao - 08/14/2023 10:14 AM EST Thank you Kai as we discussed documented in this encounterLima City Hospital02-27-2024 Telephone encounter Note* Telephone Encounter - Kai Moreno - 08/14/2023 10:14 AM EST Noemy called to share he was feeling frustrated with his pain and lack of relief. Provider had recommended many options at patients last visit 08/06/23 (muscle relaxer,chiro/massage, homeopathic care/provider, MS support group and pt. Patient is not agreeable to medications and we determined providers referral to total rehab would be best @ this time. He plans to call and schedule with them rem[place]. [facility]02-27-[facility] Telephone encounter Note* Telephone Encounter - RADHA Dao - 08/14/2023 10:14 AM EST Thank you Kai as we discussed [facility]Swap[facility] [id number] History of Present illness Narrative* RADHA Dao - 08/06/2023 10:10 AM EST Subjective Patient ID: Noemy Packer is a 63 y.o. male. He is here for follow up on his chronic back and leg pain and his numbness He does recognize he has Ms but does not want to take any of the medications for MS due to fear of side effects The last time he was in therapy his symptoms went away for three days but that was the end of his therapy days He doesn't like the medications he was on because he believes they cover up his symptoms and he didn't feel they were effective We reviewed his recent studies which he believes just told him what he already knew and he does notwant to go back to neurology His goal is to restore his normal gait and get back to walking as he previously did The following portions of the patient's history were reviewed and updated as appropriate: allergies, current medications, past family history, past medical history, past social history, past surgicalhistory, problem list, and medication reconciliation was completed including current medication andpost discharge medication. Review of Systems Constitutional: Positive for activity change. HENT: Negative. Eyes: Negative. Respiratory: Negative. Cardiovascular: Negative. Gastrointestinal: Negative. Endocrine: Negative. Genitourinary: Negative. Musculoskeletal: Positive for arthralgias, back pain, gait problem and myalgias. Skin: Negative. Neurological: Positive for weakness. Hematological: Negative. Psychiatric/Behavioral: Negative. Objective Physical Exam Vitals and nursing note reviewed. HENT: Head: Normocephalic. Pulmonary: Effort: Pulmonary effort is normal. Musculoskeletal: Right lower leg: No edema. Left lower leg: No edema. Skin: General: Skin is warm and dry. Capillary Refill: Capillary refill takes less than 2 seconds. Neurological: Mental Status: He is alert and oriented to person, place, and time. Gait: Gait abnormal. Psychiatric: Thought Content: Thought content normal. Judgment: Judgment normal. Assessment/Plan Noemy was seen today for discuss therapy and the results. Diagnoses and all orders for this visit: Multiple sclerosis (CMS-HCC) Monoparesis ([facility]-H[facility]) Spinal stenosis of lumbar region with neurogenic claudication - [facility] [place], [place]; Future We spoke at length about treatments options He is adamant not to take any medications for MS at this time and does not want medications for pain He is open to physical modalities and would like to try PT again as he found this helpful We also explored massage and chiropractic although he hasn't found the chiropractor to be that helpful as of yet He does do HEP We discussed at length the long term acute care registered nurse effects and unpredictability of MS and its' chronicity It may not be possible to regain his gait but he is very adamant re: this goal and wanting to attain this Referred him to MS support group where he may find other like minded person's who have been able tofind resources he may find helpful especially in the homeopathic arena Visit lasted greater than 40 minutes discussing options RADHA Dao 08/06/23 1316 documented in this encounterLima City Hospital02-02-2024 Miscellaneous Notes* Telephone Encounter - Alejandra Montiel CMA - 07/20/2023 2:08 PM EST Images from the original note were not included. Referral was received from Dr. Pan to schedule an appointment with Dr. Clay at [facility]. They are also asking a separate EMG order. Please refer to the request that is uploaded on Media. * Telephone Encounter - Lois Urena - 07/20/2023 2:08 PM EST 1st attempt: Called and left patient a voicemail letting them know we have received their referral,are ready to schedule, and to call us back at their earliest convenience to do so. [employer] provided callback number for scheduling or to address any questions or concerns they may have. * Telephone Encounter - Lois Urena - 07/20/2023 2:08 PM EST 2nd attempt: Called and left patient a voicemail once more letting them know we have received theirreferral, are ready to schedule, and to call us back at their earliest convenience to do so. Writerprovided callback number for scheduling or to address any questions or concerns they may have. * Telephone Encounter - Renetta Mcneil - 07/20/2023 2:08 PM EST Patient called and was very confused as to why he received a referral to see a neurologist. Patientdid not want to schedule an appointment at this time and is going to reach out to the referring physician's office. Patient stated he will call back when he is ready to make an appointment. documented in this encounterLima City Hospital02-02-2024 Telephone encounter Note* Telephone Encounter - Alejandra Montiel CMA - 07/20/2023 2:08 PM EST Images from the original note were not included. Referral was received from Dr. Pan to schedule an appointment with Dr. Clay at [facility]. They are also asking a separate EMG order. Please refer to the request that is uploaded on Media. [facility] [id number] Telephone encounter Note* Telephone Encounter - Lois Urena - 07/20/2023 2:08 PM EST 1st attempt: Called and left patient a voicemail letting them know we have received their referral,are ready to schedule, and to call us back at their earliest convenience to do so. [employer] provided callback number for scheduling or to address any questions or concerns they may have. [facility] [id number] Telephone encounter Note* Telephone Encounter - Lois Urena - 07/20/2023 2:08 PM EST 2nd attempt: Called and left patient a voicemail once more letting them know we have received theirreferral, are ready to schedule, and to call us back at their earliest convenience to do so. Writerprovided callback number for scheduling or to address any questions or concerns they may have. [facility]woodsNeuVerus [id number] Telephone encounter Note* Telephone Encounter - Renetta Mcneil - 07/20/2023 2:08 PM EST Patient called and was very confused as to why he received a referral to see a neurologist. Patientdid not want to schedule an appointment at this time and is going to reach out to the referring physician's office. Patient stated he will call back when he is ready to make an appointment. [facility]02-01-[facility] Miscellaneous Notes* Telephone Encounter - Jose Hunter - 07/19/2023 3:11 PM EST Received Referral Referred by: SOLO PAN DX: M79.605 (ICD-10-CM) - Leg pain, left G62.9 (ICD-10-CM) - Neuropathy Called patient to schedule appt. Left VM 1st Attempt * Telephone Encounter - Lois Urena - 07/19/2023 3:11 PM EST This referral is for an EMG - per order and patient. [employer] transferred patient to central scheduling. documented in this encounterLima City Hospital02-01-2024 Telephone encounter Note* Telephone Encounter - Liz Hunter - 07/19/2023 3:11 PM EST Received Referral Referred by: SOLO PAN DX: M79.605 (ICD-10-CM) - Leg pain, left G62.9 (ICD-10-CM) - Neuropathy Called patient to schedule appt. Left VM 1st Attempt [facility]02-01-2024 Telephone encounter Note* Telephone Encounter - Lois Urena - 07/19/2023 3:11 PM EST This referral is for an EMG - per order and patient. [employer] transferred patient to central scheduling. [facility]02-01-[facility] History of Present illness Narrative* Solo Pan MD - 07/19/2023 12:45 PM EST Images from the original note were not included. [facility] [address] [place] [address], [address] [place] [address] * CHART NOTE ? 07/24/2023 Patient: Noemy Packer 1960 [id number] Physician: Solo Pan MD CHIEF COMPLAINT Follow up. HISTORY OF PRESENT ILLNESS 63 year old male presents to the office today as an established patient for a lumbar consultation. Patient reports that he is experiencing left sided lower back pain that radiates down his left leg down to his ankle. This Is described as a burning pain. Admits to weakness in the left leg and reports that he has to lift his leg with his arm to get it in the car. Denies pain in the right leg. He was previously diagnosed with MS after he hit his head 35 years ago and saw an certified athletic trainer as hewas having trouble with his visual field and was diagnosed at that time. He is not currently and never has been on any medication for MS, he has taken steroids in the past. Patient's imaging was discussed and reviewed to their understanding in office today. Upon review of imaging and testing, neurosurgical intervention is not warranted at this time. Obtaining EMG was recommended. Denies loss of feather mixer strength, saddle anesthesia, urinary or bowel dysfunction, and loss of balance.Patient does not use an assistive device for ambulation. Patient is not diabetic and not smoker. [facility] Hx. ALLERGIES Allergies Allergen Reactions Penicillins Hives MEDICATIONS Current Outpatient Medications: ibuprofen (ADVIL,MOTRIN) 200 mg tablet, Take 1 tablet (200 mg total) by mouth every 6 (six) hours as needed for pain. 3 tabs, Disp: , Rfl: mrahoykx-iwqu-SR-calcium &mins (THERAGRAN-M) 9 mg iron-400 mcg tablet, Take 1 tablet by mouth in the morning., Disp: , Rfl: pregabalin (LYRICA) 50 mg capsule, Take 1 capsule (50 mg total) by mouth 3 (three) times a day., Disp: 90 capsule, Rfl: 2 tiZANidine (ZANAFLEX) 4 mg tablet, Take 1 tablet (4 mg total) by mouth 2 (two) times a day as needed for muscle spasms. (Patient not taking: Reported on 07/03/2023), Disp: 60 tablet, Rfl: 5 VITAL SIGNS Ht 175.3 cm (5' 9 ) Wt 69.4 kg (153 lb) BMI 22.59 kg/m PHYSICAL EXAMINATION Neurologic Exam Mental Status Oriented to person, place, and time. Level of consciousness: alert Knowledge: good. Motor Exam Muscle bulk: normal Overall muscle tone: normal Strength Strength 5/5 throughout. Sensory Exam Light touch normal. Gait, Coordination, and Reflexes Reflexes Right brachioradialis: 2+ Left brachioradialis: 2+ Right biceps: 2+ Left biceps: 2+ Right triceps: 2+ Left triceps: 2+ Right patellar: 2+ Left patellar: 2+ Right achilles: 2+ Left achilles: 2+ Right feather mixer: 2+ Left feather mixer: 2+ Right Lindo: absent Left Lindo: absent Right ankle clonus: absent Left ankle clonus: absent Antalgic gait. MRI / IMAGES MR thoracic spine with and without contrast 07-10-2023 Impression: [At least 3 areas of signal abnormality within the thoracic cord demonstrates faint contrast enhancement on the postcontrast sagittal images. These findings are consistent with the clinical diagnosisof demyelinating disease. Other inflammatory or vasculitic processes can also have this appearance.] MR cervical spine with and without contrast 07-10-2023 Impression: [Solitary area of abnormal signal in the dorsal C2 region is not associated with pathologic contrast enhancement. This finding is compatible with the diagnosis of demyelinating disease. Other etiologies are still possible. Degenerative changes of the cervical spine are described above. There is no significant spinal stenosis or cord impingement. There are several areas of foraminal stenosis, especially the left C3-4 foramen. Please correlate clinically for left C4 radiculopathy.] MR brain with and without contrast 07-10-2023 Impression: There has been interval development of a few new areas of abnormal signal within the brain since the prior 2013 MR. The majority of the signal abnormalities are stable. There is no area of restricteddiffusion or pathologic contrast enhancement to suggest a new brain signal abnormality. I reviewed the imaging studies independently with the patient and answered questions to the best ofmy ability. IMPRESSION / PLAN 63 year old male presents to the office today as an established patient for a lumbar consultation. Patient reports that he is experiencing left sided lower back pain that radiates down his left leg down to his ankle. This Is described as a burning pain. Admits to weakness in the left leg and reports that he has to lift his leg with his arm to get it in the car. Denies pain in the right leg. Patient's imaging was discussed and reviewed to their understanding in office today. Upon review of imaging and testing, neurosurgical intervention is not warranted at this time. Obtaining EMG was recommended. PLAN: 1. EMG/NCS of LLE. Follow up after EMG. Electronically Signed By: Solo Pan MD This note was created with the assistance of a speech recognition program with the goal of generating a timely record of the patient encounter. Inadvertent computerized slot floorman errors related to syntax, spelling, homophones, and/or inaudibility may be present. Scribe Statement: Scribed for and in the presence of Solo Pan MD by Robin Escobar. Provider Statement: I, Solo Pan MD personally performed the services described in the documentation, as scribedby OS in my presence, and it is both accurate and complete. documented in this encounterLima City Hospital01-16-2024 History of Present illness Narrative* Solo Pan MD - 07/03/2023 11:00 AM EST Images from the original note were not included. [facility] [address] [place] [address], [address] [place] [address] * CHART NOTE ? 07/04/2023 Patient: Noemy Packer 1960 [id number] Physician: Solo Pan MD CHIEF COMPLAINT Established patient. HISTORY OF PRESENT ILLNESS 63 year old male presents to the office today as an established patient for a lumbar consultation. Patient reports that he is experiencing left sided lower back pain that radiates down his left leg down to his ankle. Admits to weakness in the left leg and reports that he has to lift his leg with his arm to get it in the car. Denies pain in the right leg. He was previously diagnosed with MS after he hit his head 35 years ago and saw an certified athletic trainer as he was having trouble with his visual field and was diagnosed at that time. Patient's imaging was discussed and reviewed to their understanding in office today. Advised patient to obtain MRI's and return. Denies loss of feather mixer strength, saddle anesthesia, urinary or bowel dysfunction, and loss of balance.Patient does not use an assistive device for ambulation. Patient is not diabetic and not smoker. [place] [facility] Hx. ALLERGIES Allergies Allergen Reactions Penicillins Hives MEDICATIONS Current Outpatient Medications: ibuprofen (ADVIL,MOTRIN) 200 mg tablet, Take 1 tablet (200 mg total) by mouth every 6 (six) hours as needed for pain. 3 tabs, Disp: , Rfl: ctobifbw-xgsg-BZ-calcium &mins (THERAGRAN-M) 9 mg iron-400 mcg tablet, Take 1 tablet by mouth in the morning., Disp: , Rfl: pregabalin (LYRICA) 50 mg capsule, Take 1 capsule (50 mg total) by mouth 3 (three) times a day., Disp: 90 capsule, Rfl: 2 tiZANidine (ZANAFLEX) 4 mg tablet, Take 1 tablet (4 mg total) by mouth 2 (two) times a day as needed for muscle spasms. (Patient not taking: Reported on 07/03/2023), Disp: 60 tablet, Rfl: 5 VITAL SIGNS BP 115/77 Pulse 99 Ht 175.3 cm (5' 9 ) Wt 70.3 kg (155 lb) BMI 22.89 kg/m PHYSICAL EXAMINATION Neurologic Exam Mental Status Oriented to person, place, and time. Level of consciousness: alert Knowledge: good. Motor Exam Muscle bulk: normal Overall muscle tone: normal Strength Strength 5/5 except as noted. 4.5/5 weakness in the LLE. Sensory Exam Light touch normal. Gait, Coordination, and Reflexes Gait Gait: normal Reflexes Right brachioradialis: 2+ Left brachioradialis: 2+ Right biceps: 2+ Left biceps: 2+ Right triceps: 2+ Left triceps: 2+ Right patellar: 2+ Left patellar: 2+ Right achilles: 2+ Left achilles: 2+ Right feather mixer: 2+ Left feather mixer: 2+ Right Lindo: absent Left Lindo: absent Right ankle clonus: absent Left ankle clonus: absent MRI / IMAGES MR lumbar spine without contrast 12-05-2022 IMPRESSION: Moderate to severe right neural foraminal narrowing, similar to previous exam. IMPRESSION / PLAN 63 year old male presents to the office today as an established patient for a lumbar consultation. Patient reports that he is experiencing left sided lower back pain that radiates down his left leg down to his ankle. Admits to weakness in the left leg and reports that he has to lift his leg with his arm to get it in the car. Denies pain in the right leg. He was previously diagnosed with MS after he hit his head 35 years ago and saw an certified athletic trainer as he was having trouble with his visual field and was diagnosed at that time. Patient's imaging was discussed and reviewed to their understanding in office today. Advised patient to obtain MRI's and return. PLAN: Cervical MRI with and without contrast. Thoracic MRI with and without contrast. Brain MRI with and without contrast. Patient to follow up after MRIs. Electronically Signed By: Solo Pan MD This note was created with the assistance of a speech recognition program with the goal of generating a timely record of the patient encounter. Inadvertent computerized slot floorman errors related to syntax, spelling, homophones, and/or inaudibility may be present. Scribe Statement: Scribed for and in the presence of Solo Pan MD by Robin Escobar. Provider Statement: I, Solo Pan MD personally performed the services described in the documentation, as scribedby OS in my presence, and it is both accurate and complete. [facility] Instructions* Patient Instructions* Marcela Gallegos, A - 07/03/2023 11:00 AM EST Patient was seen by Dr. Pan Patient was given orders for MRI Cervical Spine with and without contrast MRI Thoracic Spine With and without contrast MRI Brain with and without contrast Patient will follow up when MRIs have been scheduled. [facility]* Encounter Date Diagnosis Assessment Notes Treatment Notes Treatment Clinical Notes Dec, Acute cough (ICD-10 - R05.1) Dec,ronchitis (ICD-10 - J40)Acute bronchitis material was printed Drink plenty fluids, get plenty of rest. Take the Zithromax as prescribed until gone. Use the albuterol inhaler as prescribed as needed for cough or shortness of breath. Continue your home medications as prescribed. Follow-up with your family physician if no improvement in 2 to 3 days. Patient was offered a prescription for prednisone, he declined stating he suffered optic nerve damage due to high doses of steroids and wishes not to take steroids at this time. [facility] Other 06-23-2021 NoteHNO ID: [id number] Author: Carole Henning MD Service: ? Author Type: Physician Type: Progress Notes Filed: 12/27/2020 9:28 AM Note Text: [facility] OUTPATIENT VISIT NOTE Patient Name: Noemy Packer AGE: [id number] year old Date of Service: December 08, 2020 Consultation requested by: Warner Mcneill Sr, MD REASON FOR CONSULTATION: Advice requested regarding familial history of muscular dystrophy HISTORY OF PRESENT ILLNESS: It was my pleasure of seeing Noemy Packer who presented to our genetics clinic today accompanied by his . This consultation was requested by Dr. Mcneill for an opinion regarding familial muscular dystrophy. My final recommendations will be communicated back to the requesting physician by way of shared Medical record or letter to requesting physician via US mail. Noemy Packer is a 60 year old male with previous diagnosis of multiple sclerosis presenting for evaluation of familial muscular dystrophy. Mr. Packer has an extensive neuromuscular history that stems from mechanical injury to the right temporal area sustained in the . Shortly after he developed red vision similar to staring directly at sunlight that was subsequently diagnosed as optic neuritis. Since then he has been managed primarily for ongoing numbness and tingling, mostly along the left side of the body, refractory to multiple treatment options including steroids. Mr. Packer was referred to Genetics for evaluation of symptoms that may be related to an underlying muscular dystrophy. His brother, Alon, was diagnosed with muscular dystrophy of unknown type at an outside institution in [place]. He currently does not have a copy of the genetic test result but has consented to retrieving and providing outside records. Mr. Packer's brother initially developed lower limb girdle weakness > upper extremity weakness that progressed to his current state of being wheel-chair bound. He otherwise is largely neurologically intact, does not have any oromotor deficits including with eating or dysarthria. Mr. Packer called his brother Alon during our encounter and he provided his entire medical history fluently and articulately without issues. Mr. Packer was initially managed at multiple smaller [facility] sites after which his primary neurosurgeon recommended he attend a larger institution for more aggressive care. There is concern from his provider regarding upper and lower extremity weakness and left lower extremity atrophy that may be related to muscular dystrophy given positive family history. He denies fasciculations but does note his left leg springs out and has frequent spasms. He has difficulty walking and climbing stairs/curbs secondary to neuropathy rather than weakness. Of note, he has a family history of cancer diagnosed prior to the age of 50 (maternal grandmother with colon cancer and sister with appendiceal cancer). COMPLETE REVIEW OF SYSTEMS: The listed systems were reviewed and reveal the following in addition to any already discussed in the HPI: General: No growth concerns, unusual fatigue, malformations, or chronic pain. Skin/Hair/Nails: No birthmarks, unusual pigmentation, unusual lesions/rashes, lumps/bumps, or other neurocutaneous markers. No hair or nail abnormalities. Head: No abnormality of head shape. No chronic headaches. Positive fo previous head trauma. Eyes: Positive for diagnosed optic neuritis, red vision Ears: No known hearing impairment. No current ear complaints. Nose: No general complaints. No chronic congestion or recurrent unexplained bleeds. Oral cavity: No early or delayed dental eruption, premature tooth loss, other dental abnormalities, or oral clefts. No problems chewing or swallowing. Cardiovascular: No known heart disease, murmur, arrhythmia or hypertension. Respiratory: No known lung disease or unexplained breathing difficulties. GI: No chronic vomiting, diarrhea, or constipation. No current GERD. No blood in stools. : No voiding complaints or known genital/urinary tract disorders. Musculoskeletal: Positive for muscle weakness and left leg atrophy. No dislocations or fractures. No fasciculations Neurologic: Positive for generalized numbness and paresthesia Development/Psychiatric: Per HPI and as below. Endocrine/Metabolic: No known endocrine or metabolic disease. Infectious/Immunologic: No opportunistic, serious, or unusually recurrent common infections. Hematologic: No known anemia, unusual bruising, prolonged bleeding, or thrombotic disease. All questions were discussed, with pertinent answers documented above or in HPI. PROBLEM LIST: There is no problem list on file for this patient. ALLERGIES: Penicillins MEDICATIONS: I have reviewed medications on December 08, 2020 Current Outpatient Medications on File Prior to Visit Medication Sig - MULTIVITS/IRON FUM/FA/D3/LYCOP (MULTI FOR HIM ORAL) Take by mouth o (more content not included)...[facility]06-23-2021 NoteHNO ID: [id number] Author: Kai Canales [facility] Service: ? Author Type: Genetic Counselor Type: Progress Notes Filed: 12/22/2020 7:44 AM Note Text: CONSULT VISIT SERVICE DATE: 12/08/2020 SERVICE TIME: 10:00am Patient Name and confirmed at initiation of visit. Chyna Lindo MD requested a genetic consultation for Noemy Packer, a 60 year old male, for discussion of his personal history of left-sided weakness and muscle atrophy in the setting of a family history of muscular dystrophy. Prior to the visit, the genetic counselor reviewed records in the patient's EMR including, but not limited to, available clinic notes, physician consultations, laboratory tests, imaging reports, cardiac studies, and other investigations and evaluations. The genetic counselor also reviewed the case with Dr. Henning as needed prior to seeing the patient. The patient was accompanied to today's appointment by his . History was obtained from: patient and EMR HISTORY OF PRESENT CONDITION: Noemy came to medical attention in his 20s when he sustained a head injury in a work-related accident. This trauma reportedly led to nerve damage resulting in optic neuritis. Presently, Noemy is legally blind. He underwent MRIs and CSF examination in the 1980s and 1990s, which led to a diagnosis of MS in his 30s. Noemy reports left-sided weakness and numbness/tingling which predated his accident at work. He also acknowledges balance impairment. EMG was reportedly completed but did not involve the upper extremities; report was not available for review at the time of our appointment but it is said to have shown a pinched nerve at L5-S1. His brother has been diagnosed with a limb girdle muscular dystrophy and reportedly had diagnostic genetic testing, but results were not available for review at the time of our appointment. His symptoms began around 10-12 years of age and he is presently wheelchair-bound. 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 Noemy denies any upper extremity weakness and states that he has no issues with the right leg. He has numbness/tingling of the left arm and leg which is attributed to the pinched nerve. He also reports occasional cramping of the left calf. He has atrophy of the left leg and acknowledges foot drop. He denies any history of all of the following: facial weakness, dysarthria, dysphagia, fasciculations, and myoglobinuria. He has never had a CK level or echocardiogram completed. His medical history is otherwise unremarkable. Developmental milestones were met appropriately and he denies any history of learning concerns. Noemy was evaluated today by Dr. Henning and additional history is available in her note. PERTINENT PAST MEDICAL AND SURGICAL HISTORY INCLUDES: PAST MEDICAL HISTORY Diagnosis Date -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 End Date Yecenia Vazquez MD [address] [place] [address] PCP - GeneralInternal Medicine11/27/23 Leonidas Charles MD [address] [place] [address] Referring PhysicianNeurology1Team MemberRelationshipSpecialtyStart DateEnd Date Yecenia Vazquez MD [address] [place] [address] PCP - GeneralInternal Medicine11/27/23 Leonidas Charles MD [address] [place] [address] Referring PhysicianNeurology1Team MemberRelationshipSpecialtyStart DateEnd Date Yecenia Vazquez MD [address] [place] [address] PCP - GeneralInternal Medicine11/27/23 Leonidas Charles MD [address] [place] [address] Referring PhysicianNeurology1Team MemberRelationshipSpecialtyStart DateEnd Date Tamie Gómez Rose, STRADDLE BUGGY OPERATOR-CONTROL ROOM AGENT [address] [place] [address] PCP - GeneralInternal Medicine10/19/22Team MemberRelationshipSpecialtyStart Date End Date Pedro Nancy, STRADDLE BUGGY OPERATOR-CONTROL ROOM AGENT [address] [place] [address] PCP - GeneralInternal Medicine10/19/22Team MemberRelationshipSpecialtyStart Date End Date Netolynda Nancy, STRADDLE BUGGY OPERATOR-CONTROL ROOM AGENT [address] [place] [address] PCP - GeneralInternal Medicine10/19/22Team MemberRelationshipSpecialtyStart Date End Date Tamie Gómez, STRADDLE BUGGY OPERATOR-CONTROL ROOM AGENT [address] [place] [facility] [place] [address] PCP - GeneralInternal Medicine10/19/22Team MemberRelationshipSpecialtyStart Date End Date Tamie Gómez, STRADDLE BUGGY OPERATOR-CONTROL ROOM AGENT [address] [place] [facility] [place] [address] PCP - GeneralInternal Medicine10/19/22am MemberRelationshipSpecialtyStart Date End Date Tamie Gómez, STRADDLE BUGGY OPERATOR-CONTROL ROOM AGENT [address] [place] [facility] [place] [address] PCP - GeneralInternal Medicine10/19/22am MemberRelationshipSpecialtyStart Date End Date Tamie Gómez, STRADDLE BUGGY OPERATOR-CONTROL ROOM AGENT [address] [place] [facility] [place] [address] PCP - GeneralInternal Medicine10/19/22am MemberRelationshipSpecialtyStart Date End Date Yecenia Vazquez DO [address] [place] [address] PCP - GeneralInternal Medicine09/26/23Team MemberRelationshipSpecialtyStart Date End Date Yecenia Vazquez DO [address] [place] [address] PCP - GeneralInternal Medicine09/26/23Team MemberRelationshipSpecialtyStart Date End Date Yecenia Vazquez DO [address] [place] [address] PCP - GeneralInternal Medicine09/26/23Team MemberRelationshipSpecialtyStart Date End Date Yecenia Vazquez DO [address] [place] [address] PCP - GeneralInternal Medicine09/26/23Team MemberRelationshipSpecialtyStart Date End Date KenishaYecenia howell DO [address] [place] [address] PCP - GeneralInternal Medicine09/26/23Team MemberRelationshipSpecialtyStart Date End Date JannieYecenia aragon DO [address] [place] [address] PCP - GeneralInternal Medicine09/26/23Team MemberRelationshipSpecialtyStart Date End Date JannieYecenia aragon DO [address] [place] [address] PCP - GeneralInternal Medicine09/26/23Team MemberRelationshipSpecialtyStart Date End Date Yecenia Vazquez MD PCP - GeneralInternal Medicine11/27/23 Leonidas Charles MD Referring PhysicianNeurology1Team MemberRelationshipSpecialtyStart DateEnd Date Yecenia Vazquez MD PCP - GeneralInternal Medicine11/27/23 Leonidas Charles MD Referring PhysicianNeurology1Team MemberRelationshipSpecialtyStart DateEnd Date Yecenia Vazquez MD PCP - GeneralInternal Medicine11/27/23 Leonidas Charles MD Referring PhysicianNeurology1Team MemberRelationshipSpecialtyStart DateEnd Yecenia Vazquez MD PCP - GeneralInternal Medicine11/27/23 Leonidas Charles MD Referring PhysicianNeurology1Team MemberRelationshipSpecialtyStart DateEnd Yecenia Vazquez MD PCP - GeneralInternal Medicine11/27/23 Leonidas Charles MD Referring PhysicianNeurology1Team MemberRelationshipSpecialtyStart End Yecenia Vazquez MD PCP - GeneralInternal Medicine11/27/23 Leonidas Charles MD Referring PhysicianNeurology1Team MemberRelationshipSpecialtyStart DateEnd Yecenia Vazquez MD PCP - GeneralInternal Medicine11/27/23 Leonidas Charles MD Referring PhysicianNeurology1//25Team MemberRelationshipSpecialtyStart DateEnd Date Yecenia Vazquez MD PCP - GeneralInternal Medicine11/27/23 Leonidas Charles MD Referring PhysicianNeurolog07/10/24Team MemberRelationshipSpecialtyStart DateEnd Date Yecenia Vazquez MD PCP - GeneralInternal Medicine11/27/23 Leonidas Charles MD Referring PhysicianNeurolog07/10/24Team MemberRelationshipSpecialtyStart DateEnd Date Yecenia Vazquez MD PCP - GeneralInternal Medicine11/27/23 Leonidas Charles MD Referring PhysicianNeurolog07/10/24Team MemberRelationshipSpecialtyStart DateEnd Date Yecenia Vazquez MD PCP - GeneralTuba City Regional Health Care Corporationnal Medicine11/27/23 Leonidas Charles MD Referring PhysicianNeurolog07/10/24 Team Status: Active Member Role/Relationship Status Dates Bela Moreira DO Primary Care Provider Active Team Status: Inactive Member Role/Relationship Status Dates Bela Moreira DO Primary Care Provider Active S tart: April 27, 2025 End: April 27, 2025Jessica Harish , DOAttending ProviderActiveStart: April 27, 2025 End: April 27, 2025 Goals (unrecognized section and content) Goals may be documented in a n alternate section FOR RECORDS PERTAINING TO PATIENTS WHO ARE OR HAVE BEEN ENROLLED IN A CHEMICAL DEPENDENCY/SUBSTANCEABUSE PROGRAM, SOME INFORMATION MAY BE OMITTED. This clinical summary was aggregated from multiple sources. Caution should be exercised in using it in the provision of clinical care. This summary normalizes information from multiple sources, and as a consequence, information in this document may materially change the coding, format and clinical context of patient data. In addition, data may be omitted in some cases. CLINICAL DECISIONS SHOULD BE BASED ON THE PRIMARY CLINICAL RECORDS. [facility] [employer] [facility]. provides no warranty or guarantee of the accuracy or completeness of information in this document.
--- OUTSIDE RECORDS SUMMARY | 2025-05-06 09:08 | XMS_ITS | CCD ---
Author Organization [facility] Care Team Providers Care Sales Developer Name Role Phone Filomena Albert Unavailable HOUSE, DR FAUST Admitting Unavailable HOUSE, [...] Care Unavailable HOUSE, DR FAUST Consulting Unavailable Hernandez, Wincha Consulting Unavailable FLOM ROANN Referring Unavailable FLOMANIBALANN Attending Unavailable TAMIE GÓMEZ Primary Care Unavailable Yecenia Vazquez MD Primary Care Provider YECENIA VAZQUEZ Referring Unavailable YECENIA VAZQUEZ Primary Care Unavailable YECENIA VAZQUEZ Referring Unavailable YECENIA VAZQUEZ Primary Care Unavailable Leonidas Charles MD Unavailable Pedro PLACEMENT ASSISTANT-Tamie CAMPOVERDE Primary Care Provider Yecenia Vazquez DO Primary Care Provider YECENIA VAZQUEZ Attending Unavailable TAMIE GÓMEZ Referring Unavailable YECENIA VAZQUEZ Primary Care Unavailable YECENIA VAZQUEZ Attending Unavailable YECENIA VAZQUEZ Referring Unavailable YECENIA [...] Provider Yecenia Vazquez MD Primary Care Provider Leonidas Charles MD Unavailable Unavailable Leonidas Charles [...] Care Provider Bela Moreira DO Attending Provider [phone] Allergies Allergy ClassificationReported Allergen(s)Allergy TypeDate of OnsetReaction(s) Facility (2 sources)penicillAMINEDrug Nixlvsu00-78-1676pudxoGefdxuomqTr[facility] (2 sources)Penicillin; Translations: [penicillin]Drug Edhcdpn12-22-1147BwuhuXke [facility] (1 source)Soy beanPropensity to adverse reactionsUnkKindred Hospital Lang Ma Other (1 source)Cow's MilkPropensity to adverse reactionsUnkKindred Hospital Lang Ma Other (20 sources)Penicillins; Translations: [PENICILLINS]Propensity to adverse -30-7070SapdvPUJI Healthcare (14 sources)PenicillinsPropensity to adverse reactions to dzam39-91-3561QgbyiOaklawn Hospital System Work Phone: (1 source)PenicillinsPropensity to adverse reactions to obil60-72-9713FnseaMary Washington Hospital Work Phone: Medications Current Medications MedicationDrug Class(es)DatesSig (Normalized)Sig (Original)[id number] 200 actuat albuterol 0.09 mg/actuat metered dose inhaler (1 source)beta2-Adrenergic AgonistStart: 18-13-9321dyrx 2 puff(s) by inhalation four times daily as neededAlbuterol Sulfate HFA 108 (90 Base) MCG/ACT 2 puffs Inhalation 4 times a day prn Dec, Activeazithromycin 250 mg oral tablet (1 source)Macrolide AntimicrobialStart: 38-78-5548Giacnnesftzj 250 MG 2 tablet on the first [...] 10 mg oral tablet (1 source)Purine AntimetaboliteStart: 23-39-6242bvhu 2 tablets by mouth once dailyCladribine(Multiple Sclerosis) (Mavenclad (10 Tablet Pack)) 10 mg tablet Active 10 MG PO Daily April 27, 2025 12:00am administer daily for 5 days for each of 2 cycles per yearly treatment courseComplies with drug therapyCough Syrup (1 source)Cough Syrup Activeibuprofen 200 mg oral tablet (18 sources)Nonsteroidal Anti-inflammatory DrugStart: 33-51-7670nkiv 1 tablet by mouth every six hours as neededIbuprofen 200 mg tablet Active 200 MG PO Every 6 hours as needed April 27, 2025 12:00am Complies with drug therapy End: 72-88-9743jmbm 1 tablet by mouth every six hours [...] for e- prescription and drug interaction check* Kwaxjcxzwgivje-ifme-FH-calcium &mins (THERAGRAN-M) 9 mg iron-400 mcg tablet (17 sources)svftyeov-fbii-GN-calcium &mins (THERAGRAN-M) 9 mg iron-400 mcg tablet Take 1 tablet by mouth inthe morning. Pennyxcvdikfte-zrjx-HY-calcium &mins (THERAGRAN-M) 9 mg iron-400 mcg tablet Take 1 tablet by mouth inthe morning. 0 ActiveMultivitamin Tablet (1 source)Start: 33-26-8220ibkr 1 tablet by mouth once dailyMultivitamin Tablet Active 1 TAB PO Daily February 28, 2021 11:00pm Complies with drug therapy naproxen sodium 220 mg oral tablet (3 sources)Nonsteroidal Anti-inflammatory DrugStart: 41-71-0073dlps 1 tablet by mouth in the morning, [...] mg oral capsule (20 sources)Start: 02-05-2024 End: 35-49-1927ythd 1 capsule by mouth in the morning, [...] 2 02/06/2024 07/14/2024 Discontinued (Ineffective)Start: 01-05-2023 End: 04-10-7951xodo 1 capsule by mouth in the morning, [...] b12 1 mg oral tablet (20 sources)Vitamin Q51Rctvq: 10-23-2023 End: 97-48-5600qnst 1 tablet by mouth in the morningcyanocobalamin (vitamin B- 12) 1000 MCG tablet Indications: B12 deficiency Take 1 tablet (1,000 mcg total) by mouth in the morning. 90 tablet 1 02/27/2024 Active Completed/Discontinued Medications MedicationDrug Class(es)DatesSig (Normalized)Sig (Original)acetaminophen 325 mg oral tablet (2 sources)Start: 04-10-2024 End: 77-50-4474864 mg, oral, Once, On Yolis 04/10/24 at 0915, For 1 dose, 30 MINUTES PRIOR TO TREATMENTStart: 03-27-2024 End: 78-17-4871650 mg, oral, Once, On Yolis 03/27/24 at 0830, For 1 dose, 30 MINUTES PRIOR TO TREATMENTacetaminophen 325 mg / HYDROcodone bitartrate 5 mg oral tablet (1 source)Opioid AgonistStart: 03-15-2021 End: 79-16-8209tyrv 1 tablet by mouth every eight hours as needed for pain Hydrocodone-Acetaminophen 5-325 mg tablet Discontinued 1 TAB PO Q8H as needed for Severe pain 6 3 0September 2020April 27, 2025 9:10am Left hydrocele Hydrocele, unspecifiedbupivacaine hydrochloride 2.5 mg/ml injectable solution (2 sources)Amide Local AnestheticStart: 04-30-2024 End: 56-33-2456wjpmfpdhtba (Marcaine) 0.25 % injection 3 mLStart: 04-30-2024 End: mL, Injection, Once PRN Procedure, Starting on Sun04/30/24 at 0849, For 1 dose12 hr dalfampridine 10 mg extended release oral tablet (8 sources)Potassium Channel BlockerStart: 07-10-2024 End: 65-70-4128ppqg 1 tablet by mouth in the morning, [...] 40 mg injection (4 sources)CorticosteroidStart: 04-30-2024 End: 19-30-0413wvkoskFGHZHLKfagya Na Suc (PF) reconstituted solution 40 mgStart: 04-30-2024 End: 90-11-278592 mg, Injection, Once PRN Procedure, Starting on Sun04/30/24 at 0849, For 1 doseStart: 04-10-2024 End: 46-61-7224506 mg, intravenous, Once, On Yolis 04/10/24 at 0915, For 1 dose, 30 MINUTES PRIOR TO TREATMENT May alter blood glucose or insulin requirements. Look-alike/sound-alike medication - verify indication for use., Intravenous Specific Administration: IV PushStart: 03-27-2024 End: 65-47-2008541 mg, intravenous, Once, On Yolis 03/27/24 at 0830, For 1 dose, 30 MINUTES PRIOR TO TREATMENT May alter blood glucose or insulin requirements. Look-alike/sound-alike medication - verify indication for use., Intravenous Specific Administration: IV Push10 ml ocrelizumab 30 mg/ml injection (8 sources) End: 64-41-5573dnwlzuwrazi (Ocrevus) 300 MG/10ML solution Infuse 600 mg into a venous catheter every 6 (six) months 10/30/2024 Discontinued (Therapy completed) ocrelizumab (OCREVUS) 300 mg in sodium chloride 0.9 % 250 mL IVPB (2 sources)Start: 04-10-2024 End: 43-25-4165wktg 300 mg intravenously ccxw167 mg, intravenous, Once, On Yolis 04/10/24 at 0945, For 1 dose, DOSE #2 Start at 30 mL/hr and increase by 30 mL/hr every 30 min to a max rate of 180 mL/hr. Duration is 2.5 hours or longer. Use a dedicated IV line. Monitor for infusion reactions.Start: 03-27-2024 End: 03-96-2462908 mg, intravenous, Once, On Yolis 03/27/24 at 0900, For 1 dose, Start at 30 mL/hr and increase by 30 mL/hr every 30 min to a max rate of 180 mL/hr. Duration is 2.5 hours or longer. Use a dedicated IVline. Monitor for infusion reactions.OXcarbazepine 150 mg oral tablet (3 sources)Anti-epileptic Agent End: 28-28-3123xtyd 1 tablet by mouth in the morningOXcarbazepine (Trileptal) 150 MG tablet Take 150 mg by mouth in the morning and 150 mg before bedtime. 02/05/2024 Discontinued (Therapy completed)1000 ml sodium chloride 9 mg/ml injection (1 source)Start: 03-27-2024 End: 72-62-9840mdfs 25 mL intravenously every hour as cqzczi18 mL/hr, intravenous, Continuous PRN, When mainline IV needed., Starting on Yolis 03/27/24 at 0820, Match IVF to base solution of product being administered to ensure compatibility.tiZANidine 4 mg oral tablet (6 sources)Central alpha-2 Adrenergic AgonistStart: 04-23-2023 End: 17-44-6924ixgf 1 tablet by mouth twice daily as [...] (19 sources)Visual impairment; Translations: [Unspecified visual loss]Onset: 828727-70-6515RxncjhwCqkjemeqynjtk of surgical procedures or medical care (1 source)Postgastric surgery syndrome; 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]EpisodicDiabetes mellitus without complication (4 sources)Type 2 diabetes mellitus without complications; Translations: [TYPE 2 DM WITHOUT COMPLICATIONS]Onset: 28-01-3469OjkpcerDlwopgxml of lipid metabolism (3 sources)Mixed hyperlipidemia; Translations: [Mixed hyperlipidemia]Onset: 040021-41-9503FgdjmusXabqbrcuiyrklg and diverticulitis (1 source)Diverticulosis of sigmoid colon; Translations: [Diverticulosis of large intestine without perforation or abscess without bleeding]Chronic Inflammation; infection of eye (except that caused by tuberculosis or sexually transmitteddisease) (1 source)Retrobulbar neuritis; 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, bilateral] ChronicMultiple sclerosis (20 sources)Multiple sclerosis; Translations: [Multiple sclerosis]Onset: 31-04-5592HavmqmyBjpzo acquired deformities (1 source)Spondylolisthesis L5/S1 level; Translations: [Spondylolisthesis, lumbosacral region]EpisodicOther acquired deformities (4 sources)Leg length inequality; Translations: [Unequal limb length (acquired), unspecified site]98-18-3178LotvzlmlQypna acquired deformities (1 source)Acquired unequal limb length; Translations: [Unequal limb length (acquired), unspecified site]EpisodicOther congenital anomalies (1 source)Spina bifida occulta; Translations: [Spina bifida occulta]10-22-2023 ChronicOther connective tissue disease (20 sources)Other symptoms and signs involving the musculoskeletal system; Translations: [Other musculoskeletalsymptoms referable to limbs]Onset: 937888-40-2614OewqmakcFzhca connective tissue disease (4 sources)Muscle pain; Translations: [...] atrophy, bilateral; Translations: [Other optic atrophy, bilateral]Onset: 76-16-2426TpdrjntYzbhi gastrointestinal disorders (1 source)Diarrhea; Translations: [Diarrhea, unspecified]EpisodicOther gastrointestinal disorders (1 source)H/O: gallstones; Translations: [Personal history of other diseases of the digestive system]EpisodicOther hereditary and degenerative nervous system conditions (5 sources)Anterior horn cell disease; 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]Onset: 580133-24-1346UykkigjVwwre hereditary and degenerative nervous system conditions (1 source)Other motor neuron disease; 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 EHR CmteOther nervous system disorders (1 source)Chronic pain; Translations: [Other chronic pain]ChronicOther nervous system disorders (1 source)Difficulty walking; Translations: [Difficulty in walking, not elsewhere classified]ChronicOther nervous system disorders (20 sources)Demyelinating disease of central nervous system; Translations: [Demyelinating disease of central nervous system, unspecified]Onset: 11-25-2012 60-16-0204TaieaqnAaqnd nervous system disorders (2 sources)Polyneuropathy, unspecified; Translations: [Polyneuropathy, unspecified]Onset: 40-01-5164BkobviwZjpek nervous system disorders (2 sources)Neuropathy; Translations: [Polyneuropathy, unspecified]07-31-2023 ChronicOther nervous system disorders (1 source)Polyneuropathy; Translations: [Polyneuropathy, unspecified]10-22-2023 ChronicOther nervous system disorders (1 source)Cervical myelopathy; Translations: [Disease of spinal cord, unspecified]95-77-2147QfufaemNpntl nervous system disorders (1 source)Ataxia; Translations: [Ataxia, unspecified]EpisodicOther nervous system disorders (2 sources)Impairment of balance; Translations: [Other abnormalities of gait and mobility]EpisodicOther nervous system disorders (1 source)Abnormal gait; Translations: [Unspecified abnormalities of gait and mobility]EpisodicOther nervous system disorders (20 sources)Paresthesia; Translations: [Paresthesia of skin]93-90-7549Lenytqrm Other screening for suspected conditions (not mental disorders or infectious disease) (4 sources)Patient encounter status; Translations: [Encounter for screening for malignant neoplasm of colon]Onset: 973685-60-8093JapcxavrMgxcj upper respiratory infections (1 source)Sinusitis; Translations: [Chronic sinusitis, unspecified]Chronic Paralysis (15 sources)Monoparesis; 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, unspecified affecting unspecified side]Onset: 287126-99-9303DmucohxYtrrfubp codes; unclassified (1 source)Family history of cancer of colon; Translations: [Family history of malignant neoplasm of digestiveorgans]EpisodicResidual codes; unclassified (1 source)Normal body mass index; Translations: [Other specified health status] EpisodicResidual codes; unclassified (2 sources)Other specified health status; Translations: [Other specified health status]Onset: 53-88-5879KkokoizqQpjwoirjjgb; intervertebral disc disorders; other back problems (20 sources)Inflammation of sacroiliac joint; Translations: [Sacroiliitis, not elsewhere classified]Onset: 836490-85-0099PoqlhppTyqrrglttqi; intervertebral disc disorders; other back problems (20 sources)Low back pain; Translations: [Low back pain]Onset: 07-10-2019 74-07-3828OfgdooucGqtrtruwmosf (4 sources)COUGH, UNSPECIFIED; Translations: [COUGH, UNSPECIFIED]Onset: 66-34-1296Ovrdshyqdilm (1 source)Low back pain lt side only radiating to groin area &legOnset: 31-68-4276Wxajnwvankbh (1 source)Autogenerated ProblemOnset: 213454-41-9205Fucevsumgpaz (2 sources)Left leg mbtcarkv65-97-6906Sozzbsffvaxf (1 source)family history of colon cancerOnset: 15-40-3204Zxadpsmgqloq (1 source)Outpatient InfusionOnset: 03-27-2024 Past or Other Problems Problem ClassificationProblemDateDocumented DateEpisodic/ChronicAcquired foot deformities (20 sources)Left foot drop; Translations: [Foot drop, left foot]Onset: 818363-45-7764ZuhuivseIsnuqxku of urinary tract (19 sources)Kidney stone; Translations: [Calculus of kidney]Onset: 10-18-2022 35-98-4509PgkzhuagBttqstm obstructive pulmonary disease and bronchiectasis (1 source)Bronchitis, not specified as acute or chronicOnset: 01-11-2022 Resolved: 03-32-5431QfssvydtRhgb disorders (17 sources)Mood disordersOnset: 04-23-2023 Resolved: 153948-72-7861Kzeolbkquhg deficiencies (5 sources)Deficiency of other specified B group vitamins; Translations: [Cobalamin deficiency]Onset: 838836-45-6086TwnxnrzsDmvms connective tissue disease (2 sources)Musculoskeletal finding; Translations: [Other symptoms and signs involving the musculoskeletal system]58-71-9841LkggwcyzCwkgf connective tissue disease (2 sources)Pain in left lower limb; Translations: [Pain in left leg]07-31-2023 EpisodicOther male genital disorders (17 sources)Disorder of male genital organ; Translations: [Disorder of male genital organs, unspecified]Onset: 208812-59-1289SrngbkikPkrrk nervous system disorders (17 sources)History of optic neuritis; Translations: [Personal history of other diseases of the nervous system and sense organs]Onset: 698630-20-1548 EpisodicResidual codes; unclassified (1 source)Family history of malignant neoplasm of digestive organs; Translations: [Family history of malignant neoplasm of digestive organs]Onset: 79-37-5218YzjdeovcOypkxoshmjni (1 source)Acute cough R05.1Onset: 01-11-2022 Resolved: 28-22-7751Twbjtgjlhebc (1 source)COUGH, UNSPECIFIED; Translations: [COUGH, UNSPECIFIED]Onset: 02-24-2022 [...] Myranda Yi MD on 03/20/2025 9:59 AMNormalProMedica San Joaquin Valley Rehabilitation HospitalCT CERVICAL SPINE WO CONTon 43-66-4841KQ CERVICAL SPINE WO CONTCT CERVICAL SPINE WO [...] Catherine MD on 03/20/2025 9:58 [facility] LUM[facility] SP[facility] WO CONTon 41-20-1459IO LUMBAR SPINE WO CONTCT LUMBAR SPINE WO [...] Catherine MD on 03/20/2025 10:06 [facility] THORACIC SPINE WO CONTon 85-91-1101BW THORACIC SPINE WO CONTCT THORACIC SPINE WO [...] Yi MD on 03/20/2025 10:03 [facility]ullMR BRAIN W AND WO CONTRAST (ROUTINE)on 12-92-5337BC BRAIN W AND WO CONTRAST (ROUTINE)MR BRAIN [...] AvailableMR LUMBAR SPINE W AND WO CONTRASTon 93-84-8497XT LUMBAR SPINE W AND WO CONTRASTMR LUMBAR [...] 10*3/uLNOMS HealthcareImmature granulocytes/100 WBC (Bld)1 %Not Estab.[facility] Lymphocytes (Bld) [#/Vol]0.9 10*3/uLNOMS HealthcareLymphocytes/100 WBC (Bld)15 % Not Estab.[facility] HealthcareMCH (RBC) [Entitic mass]29.5 pg26.6 - 33.0 pgNOJefferson Memorial HospitalMCHC (RBC) [Mass/Vol]33.3 g/dL31.5 - 35.7 g/dLSaint Louis University HospitalMCV (RBC) [Entitic vol]89 fL79 - 97 fLNOAZ HealthcareMonocytes (Bld) [#/Vol]0.5 10*3/uL NOM HealthcareMonocytes/100 WBC (Bld)8 %Not Estab.[facility] HealthcareNeutrophils (Bld) [#/Vol]4.6 10*3/uLNOAZ HealthcareNeutrophils/100 WBC (Bld)74 %Not Estab. [facility] HealthcarePlatelets (Bld) [#/Vol]297 10*3/uLOREM COMM[facility]ITY [facility]PITAL HealthcareRBC (Bld) [#/Vol]5.15 10*6/uLNOAZ HealthcareWBC (Bld) [#/Vol]6.2 10*3/uLSaint Louis University HospitalHBV core IgM IA Qlon 62-16-8344PTX core Ab IA QlNegativeNegativeSaint [facility] Laboratory - Chemistry and Chemistry - challengeon 71-88-7382Srxestu [Mass/Vol] 4.3 g/dL3.9 - 4.9 g/dLOREM COMMUNITY [facility]OSPITAL HealthcareALP [Catalytic activity/Vol]104 U/LNOMS HealthcareALT [Catalytic activity/Vol]35 U/LNOMS HealthcareAST [Catalytic activity/Vol]27 U/LNOMS HealthcareBilirubin [Mass/Vol]0.4 mg/dL0.0 - 1.2 mg/dL [facility] HealthcareCalcium [Mass/Vol]9.5 mg/dL8.6 - 10.2 mg/dLSaint [facility] Hospital Chloride [Moles/Vol]105 mmol/L96 - 106 mmol/LNOMS [...] mg/dLNOMS HealthcareUrea nitrogen/Creatinine [Mass ratio]14 mg/mg10 - 24NOAZ HealthcareLaboratory - Microbiology and Antimicrobial susceptibilityon 35-43-1739Asftj interferon background IA Qn (Bld)0.04IU/mLNOMS HealthcareM. tuberculosis stim IFN-g by CD4+ CD8+ T-cells corrected for background Qn (Bld) 0.04IU/mLNOMS HealthcareM. tuberculosis stim IFN-g by CD4+ T-cells corrected for background Qn (Bld)0.04 [IU]/mLIU/mLNOMS HealthcareMitogen stimulated gamma interferon corrected for background Qn (Bld)2.25IU/mLNOMS HealthcareLaboratory - Miscellaneous testson 76-37-1033Knsrxmp comment (Unsp spec) [Interp]CommentNOAZ HealthcareComment on above:QuantiFERON-TB Gold Plus is a [...] (Bld)on 11-01-2024M. tuberculosis stim IFN-g Ql (Bld) [Interp]NegativeNegativeNOAZ HealthcareComment on above:No response to M tuberculosis antigens detected. Infection with M tuberculosis is unlikely, but high risk individuals should be considered for additional testing (ATS/IDSA/CDC Clinical Practice Guidelines, 2017). The reference range is an Antigen minus Nil result of <0.35 IU/mL. Chemiluminescence immunoassay methodology QUANTIFERON TB GOLD INCUBATIONIncubation performed.[facility] HospitalNo Panel Informationon 32-74-2434Taopnmkvb at: 01 - Lab[address] [id number] [place] Worker: Francisco Bansal PhD, Phone: [phone] Healthcare VITAMIN B12on 09-74-1390Piwgrtpbn (Vitamin B12) [Mass/Vol]794 pg/jMQxwbxo660-367 [facility] HospitalComment on above:Performed By: #### 2132-9 #### [facility] ([id number]) [address] [place] [address], [address] [place], [place] [address]Ejxsyay Point Injection: left iliocostalis lumborumon 04-30-2024 TERRELL Gilbert 04/30/2024 9:15 AM Trigger Point Injection: left iliocostalis lumborum on 04/30/2024 8:49 AM Indications: myalgia Details: 25 G needle Medications: 40 mg methylPREDNISolone Na Suc (PF) 40 MG; 3 mL bupivacaine 0.25 % Outcome: tolerated well, no immediate complications Procedure, treatment alternatives, risks and benefits explained, specific risks discussed. Consent was given by the patient. [facility] HealthcareALL CBC WITH AUTO DIFFon 76-35-8765EBCMQDMZH ABSOLUTE AUTO0.0NOAZ HealthcareBasophils/100 WBC (Bld)0.7 %0.2 - 2.0 %[facility] HealthcareEosinophils/100 WBC (Bld)1.2 %0.9 - 7.0 %[facility] HealthcareErythrocyte distribution width (RBC) [Ratio]12.9 %11.0 - 15.0 %[facility] HealthcareHematocrit (Bld) [Volume fraction]46.4 %42.0 - 54.0 %[facility] HospitalHemoglobin (Bld) [Mass/Vol]15.5 g/dL14.0 - 18.0 g/dLNOMS HealthcareIMMATURE GRANULOCYTES ABS AUTO 0.02NOMS HealthcareImmature granulocytes/100 WBC (Bld)0.3 %0.0 - 0.5 %[facility] HospitalInterpretation and review of laboratory resultsAbnormalNOAZ Healthcare LYMPHOCYTES ABSOLUTE AUTO1.4NOJefferson Memorial HospitalLymphocytes/100 WBC (Bld)22.7 %20.5 - 60.0 %[facility]Po[facility] HospitalH (RBC) [Entitic mass]29.1 pg25.9 - 34.0 pgCenterPointe HospitalHC (RBC) [Mass/Vol]33.4 g/dL29.9 - 35.2 g/dLCenterPointe HospitalV (RBC) [Entitic vol]87.1 fL80.0 - 94.0 fLSaint Louis University HospitalMONOCYTES ABSOLUTE AUTO0.3NOAZ HealthcareMonocytes/100 WBC (Bld)5.1 %1.7 - 12.0 %[facility] HospitalNEUTROPHILS ABSOLUTE AUTO4.2NOMS HealthcareNeutrophils/100 WBC (Bld)70.0 %43.0 - 75.0 %[facility] HospitalPlatelet mean volume (Bld) [Entitic vol]9.4 fLLow9.5 - 13.5 fLSaint Louis University HospitalTBH EO #0.1NOMS [facility] CenterTB VRV275RENII-[facility] RBC5.33NOMS [facility] CenterTB WBC6.0NOJefferson Memorial HospitalCLINISYNCNBothwell Regional Health CenterCBC AND AUTO DIFFon 20-06-5027WJMCLPHF BASOPHIL0.0 X10E9/LNormal0.0-0.2PWyandot Memorial Hospital Comment on above:Performed By: #### CMP, TSHR, CBCA, , 2132-02 #### [facility] ([id number]) [address], [address] [place], [place] [address]UTPXQRNL NEUTROPHIL4.1 X10E9/LNormal1.5-6.6ProMemorial Health System [facility] Hospitalca [facility] HospitalComment on above:Performed By: #### CMP, TSHR, CBCA, 82267-7, 2132-02 #### [facility] ([id number]) [address], [address] [place], [place] [address]Esavwohjl/100 WBC (Bld)0.5 %NormalProMedica Fostoria Community Hospital Comment on above:Performed By: #### CMP, TSHR, CBCA, , 2132-02 #### [facility] ([id number]) [address], [address] [place], [place] [address]Ixjeeyqlfqd (Bld) [#/Vol]0.1 10*3/uLNormal0.0-0.4ProCenterville HospitalComment on above:Performed By: #### CMP, TSHR, CBCA, , 2132-02 #### [facility] ([id number]) [address], [address] [place], [place] [address]Yxbqphjifjq/100 WBC (Bld)1.3 %NormalProMedica Fostoria Community Hospital Comment on above:Performed By: #### CMP, TSHR, CBCA, , 2132-02 #### [facility] ([id number]) [address], [address] [place], [place] [address]Ioxjnhrmwml distribution width (RBC) [Ratio]13.0 %Normal 11.5-15.0ProBlanchard Valley Health System Bluffton HospitalComment on above:Performed By: #### CMP, TSHR, CBCA, , 2132-02 #### [facility] ([id number]) [address], [address] [place], [place] [address]Yvadiemofg (Bld) [Volume fraction]42.1 %Aczhps54-11TuhVxphrb [place] HospitalComment on above:Performed By: #### CMP, TSHR, CBCA, , 2132-02 #### [facility] ([id number]) [address], [address] [place], [place] [address]Jprejjafqd (Bld) [Mass/Vol]14.3 g/wKTcwbal93.0-17.0ProCenterville HospitalComment on above:Performed By: #### CMP, TSHR, CBCA, , 2132-02 #### [facility] ([id number]) [address], [address] [place], [place] [address]Hooqjgosoru (Bld) [#/Vol]1.4 10*3/uLNormal1.0-3.5ProMedica Neelyville HospitalComment on above:Performed By: #### CMP, TSHR, CBCA, , 2132-02 #### [facility] ([id number]) [address], [address] [place], [place] [address]Ufwfcomhvxm/100 WBC (Bld)23.2 %NormalProCenterville Hospital Comment on above:Performed By: #### CMP, TSHR, CBCA, , 2132-02 #### [facility] ([id number]) [address], [address] [place], [place] [address]QBE (RBC) [Entitic mass]29.5 ckFzoosj19-45DzwDgvwla [place]ely[place] HospitalComment on above:Performed By: #### CMP, TSHR, CBCA, , 2132-02 #### [facility] ([id number]) [address], [address] [place], [place] [address]OINR (RBC) [Mass/Vol]34.0 g/tCMaldrw42-22OpwPlsriz [place] HospitalComment on above:Performed By: #### CMP, TSHR, CBCA, , 2132-02 #### [facility] ([id number]) [address], [address] [place], [place] [address]ZUQ (RBC) [Entitic vol]87 nPPybzvl21-180FhxIcqznw [place] HospitalComment on above:Performed By: #### CMP, TSHR, CBCA, , 2132-02 #### [facility] ([id number]) [address], [address] [place], [place] [address]Cqabwiizp (Bld) [#/Vol]0.4 10*3/uLNormal0-0.9ProBlanchard Valley Health System Bluffton HospitalComment on above:Performed By: #### CMP, TSHR, CBCA, , 2132-02 #### [facility] ([id number]) [address], [address] [place] [address]Rjjhxruqr/100 WBC (Bld)6.5 %NormalProMedica Fostoria Community Hospital Comment on above:Performed By: #### CMP, TSHR, CBCA, , 2132-02 #### [facility] ([id number]) [address], [address] [place], [place] [address]Mknpjsngebc/100 WBC (Bld)68.5 %NormalProMedica Fostoria Community Hospital Comment on above:Performed By: #### CMP, TSHR, CBCA, , 2132-02 #### [facility] ([id number]) [address], [address] [place], [place] [address]Fozqmhlb mean volume (Bld) [Entitic vol]7.4 fLNormal7-12 ProMBarney Children's Medical CenterComment on above:Performed By: #### CMP, TSHR, CBCA, , 2132-02 #### [facility] ([id number]) [address], [address] [place], [place] [address]Rogkzbdgh (Bld) [#/Vol]314 10*3/lCBsbowq011-374MgrFlmerl [place] HospitalComment on above:Performed By: #### CMP, TSHR, CBCA, , 2132-02 #### [facility] ([id number]) [address], [address] [place], [place] [address]YJA COUNT4.85 X10E12/LNormal4.10-5.70[facility] Comment on above:Performed By: #### CMP, TSHR, CBCA, , 2132-02 #### [facility] ([id number]) [address], [address] [place], [place] [address]WVH (Bld) [#/Vol]6.0 10*3/uLNormal4.0-11.0ProMedica Fostoria Community HospitalComment on above:Performed By: #### CMP, TSHR, CBCA, , 2132-02 #### [facility] ([id number]) [address], [address] [place], [place] [address]QYH auto differentialon 33-69-8253Utaaixomk (Bld) [#/Vol]0.0 10*3/uLMcCullough-Hyde Memorial Hospital SystemBasophils/100 WBC (Bld)0.5 %[facility] AkronEosinophils (Bld) [#/Vol]0.1 10*3/uLSelect Medical Specialty Hospital - AkronEosinophils/100 WBC (Bld)1.3 %[facility] - AkronErythrocyte distribution width (RBC) [Ratio]13.0 %11.5 - 15.0 %[facility] AkronHematocrit (Bld) [Volume fraction]42.1 %39 - 49 %[facility] AkronHemoglobin (Bld) [Mass/Vol]14.3 g/dL13.0 - 17.0 g/dLSelect Medical Specialty Hospital - AkronLymphocytes (Bld) [#/Vol]1.4 10*3/uL [facility] - AkronLymphocytes/100 WBC (Bld)23.2 %[facility] HospitalH (RBC) [Entitic mass]29.5 pg27 - 34 [facility] HospitalMCHC (RBC) [Mass/Vol]34.0 g/dL32 - 36 g/dLSelect Medical Specialty Hospital - AkronMCV (RBC) [Entitic vol]87 fL80 - 100 Kindred HospitalMonocytes (Bld) [#/Vol]0.4 10*3/uLSelect Medical Specialty Hospital - AkronMonocytes/100 WBC (Bld)6.5 %[facility] AkronNeutrophils (Bld) [#/Vol]4.1 10*3/[facility] HospitalNeutrophils/100 WBC (Bld)68.5 % [facility] Hospital SystemPlatelet mean volume (Bld) [Entitic vol]7.4 fL7 - 12 fL [facility] SystemPlatelets (Bld) [#/Vol]314 10*3/[facility] RBC (Bld) [#/Vol]4.85 10*6/[facility] HospitalWBC corrected for nucl RBC Auto (Bld) [#/Vol]6.0Well[facility] Chambersburg HospitalCOMPREHENSIVE METABOLIC PANELon 56-90-9946Wcxifsx [Mass/Vol]4.2 g/dLNormal3.2-5.3PWyandot Memorial HospitalComment on above:Performed By: #### CMP, TSHR, CBCA, , 2132-02 #### [facility] ([id number]) [address], [address] [place], [place] [address]PRA [Catalytic activity/Vol]76 U/SRjrvko63-106EplYqhocq [place] HospitalComment on above:Performed By: #### CMP, TSHR, CBCA, , 2132-02 #### [facility] ([id number]) [address], [address] [place], [place] [address]IGN [Catalytic activity/Vol]30 U/LNormal0-40ProMedica Fostoria Community HospitalComment on above:Performed By: #### CMP, TSHR, CBCA, , 2132-02 #### [facility] ([id number]) [address], [address] [place], [place] [address]Fcbxj gap [Moles/Vol]7 mmol/LNormal5-15[facility] Comment on above:Performed By: #### CMP, TSHR, CBCA, , 2132-02 #### [facility] ([id number]) [address], [address] [place], [place] [address]FAX [Catalytic activity/Vol]28 U/LNormal0-41ProCenterville HospitalComment on above:Performed By: #### CMP, TSHR, CBCA, , 2132-02 #### [facility] ([id number]) [address], [address] [place], [place] [address]Qpxqpqwge [Mass/Vol]0.4 mg/dLNormal0.3-1.2PClinton Memorial Hospital HospitalComment on above:Performed By: #### CMP, TSHR, CBCA, , 2132-02 #### [facility] ([id number]) [address], [address] [place], [place] [address]Jjtpvrl [Mass/Vol]9.5 mg/dLNormal8.5-10.5PWyandot Memorial HospitalComment on above:Performed By: #### CMP, TSHR, CBCA, , 2132-02 #### [facility] ([id number]) [address], [address] [place], [place] [address]Hylqxahm [Moles/Vol]106 mmol/KMofugt66-167PqfVllgya [place] HospitalComment on above:Performed By: #### CMP, TSHR, CBCA, , 2132-02 #### [facility] ([id number]) [address], [address] [place], [place] [address]PO1 [Moles/Vol]29 mmol/JYdokeq63-12HogYgtphd [facility] Comment on above:Performed By: #### CMP, TSHR, CBCA, , 2132-02 #### [facility] ([id number]) [address], [address] [place], [place] [address]Ahzbpcjvoi [Mass/Vol]0.86 mg/dLNormal0.60-1.30ProBlanchard Valley Health System Bluffton HospitalComment on above:Result Comment: METHOD TRACEABLE TO IDMS STANDARD Performed By: #### CMP, TSHR, CBCA, , 2132-02 #### [facility] ([id number]) [address], [address] [place], [place] [address]mWPJ (CKD-EPI) NON-RACE DEPENDENT>90Normal>59ProBlanchard Valley Health System Bluffton HospitalComment on above:Result Comment: Reported eGFR is based on the CKD-EPI 2020 equation that does not use a race coefficient.Performed By: #### CMP, TSHR, CBCA, , 2132-02 #### [facility] ([id number]) [address], [address] [place], [place] [address]Frzgvod [Mass/Vol]96 mg/pNLwrpzg58-58EmlPcdvuoProMedica Fostoria Community Hospital Comment on above:Performed By: #### SOTERO, TSHR, CBCA, , 2132-02 #### [facility] ([id number]) [address], [address] [place], [place] [address]Kjorzsutk [Moles/Vol]4.1 mmol/LNormal3.5-5.0ProBlanchard Valley Health System Bluffton HospitalComment on above:Performed By: #### SOTERO, TSHR, CBCA, , 2132-02 #### [facility] ([id number]) [address] [address] [place], [place] [address]Zhgxtmv [Mass/Vol]7.2 g/dLNormal6.0-8.0[facility] Comment on above:Performed By: #### CMP, TSHR, CBCA, , 2132-02 #### [facility] ([id number]) [address] [address] [place], [place] [address]Voqbux [Moles/Vol]142 mmol/AEjadhy556-117MqvYbzhfr [place] HospitalComment on above:Performed By: #### CMP, TSHR, CBCA, , 2132-02 #### [facility] ([id number]) [address], [address] [place], [place] [address]Azeg nitrogen [Mass/Vol]17 mg/dLNormal5-27ProMedica Fostoria Community HospitalComment on above:Performed By: #### CMP, TSHR, CBCA, 06831-2, 2131-9 #### [facility] ([id number]) [address], [address] [place], [place] [address]Rlfcjoeok (Vitamin B12) [Mass/Vol]on 49-89-1822AdqTwktuiSelect Medical Cleveland Clinic Rehabilitation Hospital, Edwin ShawComprehensive metabolic panelon 97-79-5302Gkvwbzz [Mass/Vol]4.2 g/dL3.2 - 5.3 g/dLProPrinceton Baptist Medical Center Health SystemALP [Catalytic activity/Vol]76 U/L39 - 130 U/L [facility] SystemALT No additional P-5'-P [Catalytic activity/Vol]30 U/L0 - 40 U/LPrEating Recovery Center a Behavioral Hospital Health SystemAnion gap [Moles/Vol]7 mmol/L5 - 15 mmol/L [facility] SystemAST [Catalytic activity/Vol]28 U/L0 - 41 U/LPrEating Recovery Center a Behavioral Hospital Health SystemBilirubin [Mass/Vol]0.4 mg/dL0.3 - 1.2 mg/dLProK[facility] System Calcium [Mass/Vol]9.5 mg/dL8.5 - 10.5 mg/dLMcCullough-Hyde Memorial Hospital SystemChloride [Moles/Vol]106 mmol/L98 - 109 mmol/LPrCapital Region Medical Centerica Health SystemCO2 [Moles/Vol]29 mmol/L22 - 32 mmol/[facility] SystemCreatinine [Mass/Vol]0.86 mg/dL0.60 - 1.30 mg/dLMcCullough-Hyde Memorial Hospital SystemComment on above:METHOD TRACEABLE TO [facility] STANDARDeGFR (CKD-EPI)non-race dependent- [facility] University HospitalComment on above: Reported eGFR is based on the CKD-EPI 2020 equation that does not use a race coefficient. Glucose [Mass/Vol]96 mg/dL65 - 99 mg/dLMcCullough-Hyde Memorial Hospital SystemPotassium [Moles/Vol]4.1 mmol/L3.5 - 5.0 mmol/LProMedica Health SystemProtein [Mass/Vol] 7.2 g/dL6.0 - 8.0 g/dLFormerly Hoots Memorial Hospitalodium [Moles/Vol]142 mmol/L134 - 146 mmol/LPrAdena Regional Medical CenterUrea nitrogen [Mass/Vol]17 mg/dL5 - 27 mg/dL [facility] AkronLipid 1996 panelon 42-09-5706Nybrystmhco [Mass/Vol]137 mg/zQVlx855 - 200 mg/dLSelect Medical Specialty Hospital - AkronCholesterol in HDL [Mass/Vol]54 mg/dL39 - PINF mg/dLSelect Medical Specialty Hospital - AkronComment on above: HDL <40 mg/dL - High Risk HDL > or = 40mg/dL- Desirable HDL >60 mg/dL - Negative Risk Cholesterol in LDL [Mass/Vol]58 mg/dLNINF - 130 mg/dLSelect [facility] Specialty [facility] Comment on above: LDL <100 mg/dL - Desirable LDL >160 mg/dL - High Risk Cholesterol in VLDL [Mass/Vol]25 mg/dL0 - 30 mg/dLSelect Medical Specialty [facility] Cholesterol.total/Cholesterol in HDL [Mass ratio]2.5 {ratio}1.0 - 5.0[facility] AkronInterpretation and review of laboratory resultsAbnormalSelect Medical Specialty Hospital - AkronTriglyceride [Mass/Vol]124 mg/dL27 - 150 mg/dLSelect Medical Specialty Hospital - AkronCholesterol [Mass/Vol]137 mg/gOJqc570-668NnmEokhdxProMedica Fostoria Community HospitalComment on above:Performed By: #### CMP, TSHR, CBCA, 03653-1, 5501-1 #### [facility] ([id number]) [address], [address] [place], [place] [address]Xljiucntaon in HDL [Mass/Vol]54 mg/dLNormal>39ProBlanchard Valley Health System Bluffton HospitalComment on above:Result Comment: HDL <40 mg/dL - High Risk HDL > or = 40mg/dL- Desirable HDL >60 mg/dL - Negative Risk Performed By: #### SOTERO, TSHR, CBCA, 47301-0, 2132-02 #### [facility] ([id number]) [address], [address] [place], [place] [address]Ueqxyezqugw in LDL [Mass/Vol]58 mg/dLNormal<130ProCenterville HospitalComment on above:Result Comment: LDL <100 mg/dL - Desirable LDL >160 mg/dL - High Risk Performed By: #### SOTERO, TSHR, CBCA, , 2132-02 #### [facility] ([id number]) [address], [address] [place], [place] [address]Qeuuljzpgrk in VLDL [Mass/Vol]25 mg/dLNormal0-30ProCenterville HospitalComment on above:Performed By: #### SOTERO TSHR, CBCA, 93053-0, 2132-02 #### [facility] ([id number]) [address], [address] [place], [place] [address]IPYSTLBWVRV:HDL2.6Nwtkot7.0-5.0ProCenterville HospitalComment on above:Performed By: #### SOTERO TSHR, CBCA, 89420-6, 2132-02 #### [facility] ([id number]) [address], [address] [place], [place] [address]Dexwyzbngowg [Mass/Vol]124 mg/aCSsgnnc82-499OibLtcbpq [place] HospitalComment on above:Performed By: #### SOTERO, TSHR, CBCA, 66499-8, 2131-9 #### [facility] ([id number]) [address], [address] [place], [place] [address]Mz Panel Informationon 92-32-6584TlbPjswejCritical access hospitalERUM PROTEIN ELECTROPHORESISon 33-65-9470Bqfrwgm [Mass/Vol]3.9 g/dLNormal3.4-5.3 ProMedicAdena Fayette Medical CenterComment on above:Performed By: #### SPE #### [facility] ([id number]) [address], [address] [place], [place] [address]CQJGI 1 GLOBULIN0.3 g/dLNormal0.1-0.4[facility] Comment on above:Performed By: #### SPE #### [facility] ([id number]) [address] [address], [address] [place], [place] [address]RQJFY 2 GLOBULIN0.6 g/dLNormal0.4-1.1PWyandot Memorial Hospital Comment on above:Performed By: #### SPE #### [facility] ([id number]) [address], [address] [place], [place] [address]GVLS GLOBULIN0.8 g/dLNormal0.5-1.2PWyandot Memorial Hospital Comment on above:Performed By: #### SPE #### [facility] ([id number]) [address], [address] [place], [place] [address]TIPMR GLOBULIN1.0 g/dLNormal0.5-1.6[facility] Comment on above:Performed By: #### SPE #### [facility] ([id number]) [address], [address] [place], [place] [address]HNQY. ELECTROPHORESIS INTERPUnremarkable protein distribution, no monoclonal bands.NormalProBlanchard Valley Health System Bluffton HospitalComment on above:Performed By: #### SPE #### [facility] ([id number]) [address], [address] [place], [place] [address]Rdgwkgx [Mass/Vol]6.7 g/dLNormal6.0-8.0[facility] Comment on above:Performed By: #### SPE #### [facility] ([id number]) [address], [address] [place], [place] [address]TCE WITH REFLEXon 85-31-7477FZW7.77 uIU/mLNormal0.49-4.67 [facility] Community HospitalComment on above:Performed By: #### CMP, TSHR, CBCA, 86277-2, 2132-02 #### [facility] ([id number]) [address], [address] [place], [place] [address]QWF with Reflexon 68-87-9135ZXS Qn2.77 m[IU]/LProMedica Beaumont HospitalProMartins Ferry HospitalVITAMIN B12on 16-32-9701Sjojyduhh (Vitamin B12) [Mass/Vol]254 pg/jRFzsvcp003-520OytEtvnrb [place] HospitalComment on above: Performed By: #### CMP, TSHR, CBCA, 10481-3, 2132-02 #### [facility] ([id number]) [address], [address] [place], [place] [address]Zzehrvr B12on 73-97-9346Uikcfnckd (Vitamin B12) [Mass/Vol]254 pg/mL180 - 914 pg/mLSelect Medical Specialty Hospital - AkronMR Brain WO and W contrast Shavon 05-39-7233Dabzvjk: Multiple sclerosis. Proximal leg weakness. No injury. [...] Earl Vidal MD on 07/10/2023 2:13 PM [facility] HospitalMedefy [facility] HospitalRadiology Study observation (narrative)[facility] AkronMR Brain WO and W contrast IVOrdered By: Dick Vidal on 07-10-2023 [facility] SystemSprooki Work Phone: MR Cervical spine WO and [...] Earl Vidal MD on 07/10/2023 10:40 AM [facility] SystemDwolla Children's Hospital for RehabilitationRadiology Study observation (narrative)[facility] HospitalPresentationTube Beaumont HospitalMR Thoracic spine WO and W contrast Shavon [...] Earl Vidal MD on 07/10/2023 9:57 AM [facility] SystemRadiology Study observation (narrative)[facility] - AkronECHOCARDIO M/2D COMPLETEon 02-24-2022 ECHOCARDIO M/2D COMPLETEPatient: NOEMY PACKER Exam Date: 02/24/2022 : 1960 Gender:M Ordering : DR WARNER MCNEILL D.O. Admission #: [id number] Family : Order #: [id number] CLICK HERE TO VIEW EXAM ECHOCARDIOGRAM REPORT [...] by: Jovana Lockett M.D. on 02/24/2022 at 15:25[facility] HospitalHEMOGLOBINon 25-47-4180Smpadswcta (Bld) [Mass/Vol]14.9 g/dLNormal 14.0-18.0Prem[facility] Atrium Medical CenterComment on above:Performed By: #### HGB #### [facility] [address] [address] [address] Jamel AdamsXR CHEST 2 Von 95-90-4819VG CHEST 2 VEXAM: CHEST 2 VIEWS HISTORY: [...] Electronically authenticated by: LINDA HERNANDEZ Date: 2022-01-26 11:12[facility] Surgical HospitalCOVID Quick Testingon 58-82-3073PuliveJqvrizmfKcpvy Lang Ma Other mr thoracic spine wo/w conon 67-01-5186LJ thoracic spine wo/w [facility] [place] [address] [place] [address] MRI Report Signed Patient: Noemy Packer MR#: [id number] : 1960 Acct:[id number] Age/Sex: 61 / M ADM Date: 12/23/21 Loc: MR Room: Type: [facility] Attending Dr: Lauryn oSriano PAKrystinaC Copies to: Lauryn Soriano PAC Ordering Provider: Lauryn Soriano PAC Date of Service: 12/23/21 MR/MR thoracic spine wo/w con: G35 ([id number]) MR/MR cervical spine wo/w con: G35 MRI [...] Keegan Canales M.D.12/23/2021 4:54 PM Dictation Location: [place] [address] Transcribed By: [facility] 12/23/21 2481 Dictated By: Keegan Canales DO 12/23/21 2611 Signed By: 12/23/21 1654NoMercer County Community HospitalXR pre/post mri xrayon 35-45-6672FT pre/post mri xrOhioHealth [place] [address] XRay Report Signed Patient: Noemy Packer MR#: [id number] : 1960 Acct:[id number] Age/Sex: 61 / M ADM Date: 12/23/21 Loc: MR Room: Type: [facility] Attending Dr: Lauryn Soriano PA-C Copies to: Lauryn Soriano PAC Ordering Provider: Lauryn Soriano PAC Date of Service: 12/23/21 XR/XR pre/post mri xray: G35 ([id number]) XR/XR pre/post mri xray: PRE MRI Cervical [...] Vital Jr., SaraONelson12/23/2021 8:10 PM Dictation Location: [place] [address] Transcribed By: [facility] 12/23/212009 Dictated By: Darnell Vital Jr, DO 12/23/212007 Signed By: 12/23/212009[facility] - AndersonCB AUTO DIFFon 11-11-2021 BASO #0.0 103/ulNormal0.0-0.1Prem[facility] Health Atrium Medical CenterComment on above:Performed By: #### CBC #### [facility] [address] [address] [address] Jamel Snydersophils/100 WBC (Bld)0.5 %Normal0.2-2.0[facility] Comment on above:Performed By: #### CBC #### [facility] [address] [address] [address] Jamel Emery #0.1 103/ulNormal0.0-0.7The [facility] HospitalComment on above: Performed By: #### CBC #### [facility] [address] [place] [address] Dr. Jamel Beyerosinophils/100 WBC (Bld)1.0 %Normal0.9-7.0[facility] Comment on above:Performed By: #### CBC #### [facility] [address] [place] [address] Dr. Jamel Beyerrythrocyte distribution width (RBC) [Ratio]13.0 %Sxhhnd27.0-15.0 The [facility] HospitalComment on above:Performed By: #### CBC #### [facility] [address] [place] [address] Dr. Jamel AdamsHematocrit (Bld) [Volume fraction]44.2 %Xkixrh75.0-54.0The [facility] HospitalComment on above:Performed By: #### CBC #### [facility] [address] [place] [address] Dr. Jamel AdamsHemoglobin (Bld) [Mass/Vol]14.6 g/aIOkjwtv79.0-18.0The [facility] HospitalComment on above:Performed By: #### CBC #### [facility] [address] [place] [address] Dr. Jamel Harmon #0.06 10e3/ulCritically high0.00-0.03[facility] Comment on above:Performed By: #### CBC #### [facility] [address] [place] [address] Dr. Jamel Harmon %0.8 %Critically high0.0-0.5The [facility] HospitalComment on above:Performed By: #### CBC #### [facility] [address] [place] [address] Dr. Jamel Reynolds #1.3 103/ulNormal1.2-3.8The [facility] HospitalComment on above:Performed By: #### CBC #### [facility] [address] [place] [address] Dr. Jamel Lemusmphocytes/100 WBC (Bld)17.2 %Critically low20.5-60.0The [facility] HospitalComment on above:Performed By: #### CBC #### [facility] [address] [place] [address] Dr. Jamel MonacoUAL DIFF REQNONormalThe [facility] HospitalComment on above: Performed By: #### CBC #### [facility] [address] [place] [address] Dr. Jamel Winter (RBC) [Entitic mass]29.0 crLfooio74.9-34.0The [facility] HospitalComment on above:Performed By: #### CBC #### [facility] [address] [place] [address] Dr. Jamel Winter (RBC) [Mass/Vol]33.0 g/wKGppjwy40.9-35.2The [facility] HospitalComment on above:Performed By: #### CBC #### [facility] [address] [place] [address] Dr. Jamel Winter (RBC) [Entitic vol]87.9 kVAstlzm80.0-94.0The [facility] HospitalComment on above:Performed By: #### CBC #### [facility] [address] [place] [address] Dr. Jamel Doran #0.4 103/ulNormal0.3-0.8The [facility] HospitalComment on above:Performed By: #### CBC #### [facility] [address] [place] [address] Dr. Jamel Gallagherocytes/100 WBC (Bld)5.3 %Normal1.7-12.0[facility] Comment on above:Performed By: #### CBC #### [facility] [address] [place] [address] Dr. Jamel Price #5.8 103/ulNormal1.4-6.5The [facility] HospitalComment on above:Performed By: #### CBC #### [facility] [address] [place] [address] Dr. Jamel AdamsNeutrophils/100 WBC (Bld)75.2 %Critically high43.0-75.0[facility] on above:Performed By: #### CBC #### [facility] [address] [place] [address] Dr. Jamel AdamsPlatelet mean volume (Bld) [Entitic vol]8.6 fLCritically low 9.5-13.5The [facility] HospitalComment on above:Performed By: #### CBC #### [facility] [address] [place] [address] Dr. Jamel AdamsPLT315 103/stSebhfh710-115Npz [facility] on above: Performed By: #### CBC #### [facility] [address] [place] [address] Dr. Jamel AdamsRBC5.03 106/ulNormal4.70-6.10The [facility] HospitalComment on above:Performed By: #### CBC #### [facility] [address] [place] [address] Dr. Jamel AdamsWBC7.7 103/ulNormal4.0-11.0The [facility] on above: Performed By: #### CBC #### [facility] [address] [place] [address] Dr. Jamel AdamsPROF 14(COMP METB)on 56-13-4659Fqohfjo [Mass/Vol]3.9 g/dLNormal 3.4-5.0The [facility] on above:Performed By: #### CMP #### [facility] [address] [place] [address] Dr. Jamel AdamsAlbumin/Globulin [Mass ratio]1.0 {ratio}NormalThe [facility] HospitalCommarshfield medical center on above:Performed By: #### CMP #### [facility] [address] [place] [address] Dr. Jamel TorresP [Catalytic activity/Vol]93 U/GTrurcf54-958Daf Cindy HospitalComment on above:Performed By: #### CMP #### [facility] [address] [address] [address] Jamel Ruth [Catalytic activity/Vol]39 U/IIyicmg32-49Mkk [facility] HospitalComment on above:Performed By: #### CMP #### [facility] [address] [address] [address] Jamel AdamsAnion gap [Moles/Vol]10.0 mmol/LNormalThe [facility] Comment on above:Performed By: #### CMP #### [facility] [address] [address] [address] Jamel AdamsAST [Catalytic activity/Vol]28 U/MFmcssq64-45Alr [facility] HospitalComment on above:Performed By: #### CMP #### [facility] [address] [place] [address] Dr. Jamel AdamsBilirubin [Mass/Vol]0.6 mg/dLNormal0.2-1.0[facility] Comment on above:Performed By: #### CMP #### [facility] [address] [place] [address] Dr. Jamel AdamsCalcium [Mass/Vol]9.2 mg/dLNormal8.5-10.1[facility] Comment on above:Performed By: #### CMP #### [facility] [address] [place] [address] Dr. Jamel AdamsChloride [Moles/Vol]102 mmol/[id number] [facility] Comment on above:Performed By: #### CMP #### [facility] [address] [address] [address] Jamel AdamsCO2 [Moles/Vol]29.3 mmol/BVjcqco95.0-32.0[facility] Comment on above:Performed By: #### CMP #### [facility] [address] [place] [address] Dr. Jamel AdamsCreatinine [Mass/Vol]0.88 mg/dLNormal0.70-1.30The [facility] HospitalComment on above:Performed By: #### CMP #### [facility] [address] [address] [address] Jamel BeyerGFR-AF NORTH [place]ORE[place]>60Normal>=60The [facility] HospitalComment on above:Performed By: #### CMP #### [facility] [address] [address] [address] Jamel BeyerGFR-NON AF [place]>60Normal>=60The [facility] HospitalComment on above:Performed By: #### CMP #### [facility] [address] [address] [address] Jamel AdamsGlobulin (S) [Mass/Vol]4.0 g/dLNormalThe [facility] HospitalComment on above:Performed By: #### CMP #### [facility] [address] [place] [address] Dr. Jamel AdamsGlucose [Mass/Vol]102 mg/eLXnpglc83-734Luc [facility] Comment on above:Performed By: #### CMP #### [facility] [address] [address] [address] Jamel AdamsPotassium [Moles/Vol]4.3 mmol/LNormal3.5-5.1[facility] Comment on above:Performed By: #### CMP #### [facility] [address] [place] [address] Dr. Jamel AdamsProtein [Mass/Vol]7.9 g/dLNormal6.4-8.2[facility] Comment on above:Performed By: #### CMP #### [facility] [address] [place] [address] Dr. Jamel AdamsSodium [Moles/Vol]137 mmol/GDpovsi876-950Fhu [facility] Comment on above:Performed By: #### CMP #### [facility] [address] [address] [address] Jamel AdamsUrea nitrogen [Mass/Vol]13.0 mg/dLNormal7.0-18.0The [facility] HospitalComment on above:Performed By: #### CMP #### [facility] [id number] Jamel AdamsUrea nitrogen/Creatinine [Mass ratio]14.8 mg/mgOhio Valley Surgical HospitalComment on above:Performed By: #### CMP #### [facility] [id number] Jamel AdamsMRI BRAIN WO W CONon 63-00-5549WEW BRAIN WO W CONEXAMINATION: MRI BRAIN WO [...] Electronically authenticated by: LEONIDAS SUN Date: 2021-11-07 08:23Ohio [facility] Surgical HospitalAmbulatory Clinical Summaryon 02-52-0865Cuzbyjoiyp Clinical Summary{89-22-x7-9x-l3-02-59-76-hn-24-3j-62-37-f4-1b-75}CD:431940FxscndNbtzbrMary Rutan HospitalPatient Educationon 03-08-1183Cbxlzhu EducationUrology Hydrocele, Adult A hydrocele is a [...] the hydrocele for any changes. ? Take xogw-vcw-uabjfeg and prescription medicines only as told by [...] 11/22/2010 Document Revised: 06/15/2018 Document Reviewed: 06/15/2018 OnetoOnetext Patient Education ? 2019 [employer].[facility] Office/Clinic Noteon 25-28-1335Kmavbuo Office/Clinic NoteChief Complaint PO hydocelectomy HPI Staff [...] Protein Urine Dipstick: Negative (03/24/21 08:03:00) Specific [place] Urine Dipstick: 1.025 (03/24/21 08:03:00) Urine Appearance Urine Dipstick: Clear (03/24/21 08:03:00) Urine Color Urine Dipstick: Yellow (03/24/21 08:03:00) Urobilinogen Urine Dipstick: Normal 0.2-1 EU/dl (03/24/21 08:03:00) pH Urine Dipstick: 5 (03/24/21 08:03:00)[facility] Valley HospitalComment on above:Result Comment: Electronically Signed By: Elisabeth Gotti MD\.br\Date and Time Signed: 03/24/21 08:29EDT\.br\Electronically Co-Signed By: Maite Goss\.br\Date and Time Co-Signed: 03/24/21 08:19 EDTLab Reportson 17-96-5138Nrk [id number]#1.00CD:127Normal Nunes [facility] HospitalOperative Reporton 17-59-7082Bupjbctgs Report [id number]#1.00CD:127NormalFisher [facility] Pediatric HospitalCOVID-19 FRon 98-81-6654TGLR-CoV-2 (COVID-19) RNA KRISTEN+probe Ql (Unsp spec)NegativeNormalNegativeMartins Ferry HospitalComment on above: Order Comment: Healthcare Worker?: NResult Comment: Testing for SARS-CoV-2 by RT-PCR This test was developed and its performance characteristics determined by [employer] and validated at the [facility] [facility]. This test has not been FDA [...] is terminated or revoked sooner. PERFORMED BY: [address] [place] [address] PATHOLOGIST LEGAL COUNSEL SHANELL PENA M.D.Performed By: #### COVID 19 [facility] #### [address] [place] [address] USALab Reportson [id number] Reports [id number]#1.00CD:127Ohio Valley HospitalLab [id number]#1.00CD:[address] [place], [place] [address]RAD - MISCon 60-22-9497ETK - MISC [id number]#1.00CD:127Ohio Valley HospitalBasic Metabolic Panelon 64-24-0649Njffemw [Mass/Vol]8.9 mg/dLNormal 8.2-10.2FWyandot Memorial HospitalComment on above:Result Comment: PERFORMED BY: [place] [address] PATHOLOGIST LEGAL COUNSEL SHANELL PENA M.D.Performed By: #### BMP, PTT, CBC, PT #### [facility] [address] [place] [address] USAChloride [Moles/Vol]107 mmol/TDzebog98-151IfrqqorvcMartins Ferry HospitalComment on above:Performed By: #### BMP, PTT, CBC, PT #### [facility] [address] [place] [address] USACO2 [Moles/Vol]21.5 mmol/LLow22.0-30.0Mart[facility] Ferry HospitalComment on above:Performed By: #### BMP, PTT, CBC, PT #### [facility] [address] [place] [address] USACreatinine [Mass/Vol]0.84 mg/dLNormal0.64-1.27Mart[facility] Ferry HospitalComment on above:Performed By: #### BMP, PTT, CBC, PT #### [facility] [address] [place] [address] USAEstimated GFR ( Bee> 60NormalMartins Ferry HospitalComment on above:Result Comment: GFR estimated reference range: According to KDOQI guidelines, <60 ml/min/1.73m2 is sufficient to diagnose a patient with chronic kidney disease.Performed By: #### BMP, PTT, CBC, PT #### [place] [address] USAEstimated GFR (Non- Am> 60NormalMartins Ferry HospitalComment on above:Performed By: #### BMP, PTT, CBC, PT #### [facility] [address] [place] [address] USAGlucose [Mass/Vol]140 mg/wMYsxu16-608ErojhwixoMartins Ferry HospitalComment on above:Result Comment: Random Glucose Reference Range is dependent on time and content of last meal. Glucose of more than 200 mg/dL in a nonstressed, ambulatory subject supports the diagnosis of Diabetes Mellitus. ADA recommended reference rangePerformed By: #### BMP, PTT, CBC, PT #### [place] [address] USAPotassium [Moles/Vol]3.7 mmol/LNormal3.5-5.1FWyandot Memorial HospitalComment on above:Performed By: #### BMP, PTT, CBC, PT #### [place] [address] USASodium [Moles/Vol]138 mmol/ALmnqpj777-017HattjskxfMartins Ferry HospitalComment on above:Performed By: #### BMP, PTT, CBC, PT #### [place] [address] USAUrea nitrogen [Mass/Vol]12 mg/dLNormal9-23Martins Ferry HospitalComment on above:Performed By: #### BMP, PTT, CBC, PT #### [place] [address] USAComplete Blood Count Auto Diffon 58-36-9715Fzaepzktc (Bld) [#/Vol]0.0 10*3/uLNormal0.0-0.2FWyandot Memorial HospitalComment on above:Result Comment: PERFORMED BY: [place] [address] PATHOLOGIST LEGAL COUNSEL SHANELL PENA M.D.Performed By: #### BMP, PTT, CBC, PT #### [place] [address] USABasophils/100 WBC (Bld)0.8 %Normal.Mart[facility] Ferry HospitalComment on above:Performed By: #### BMP, PTT, CBC, PT #### [place] [address] USAEosinophils (Bld) [#/Vol]0.0 10*3/uLNormal0.0-0.45 [facility] Ferry HospitalComment on above:Performed By: #### BMP, PTT, CBC, PT #### [place] [address] USAEosinophils/100 WBC (Bld)0.7 %Normal.Martins Ferry HospitalComment on above:Performed By: #### BMP, PTT, CBC, PT #### [place] [address] USAErythrocyte distribution width (RBC) [Ratio]13.1 %Normal 12.0-14.8[facility] HospitalCommarshfield medical center on above:Performed By: #### BMP, PTT, CBC, PT #### [place] [address] USAHematocrit (Bld) [Volume fraction]40.8 %Mpxjcn07.8-50.0 [facility] Ferry HospitalComment on above:Performed By: #### BMP, PTT, CBC, PT #### [place] [address] USAHemoglobin (Bld) [Mass/Vol]13.9 g/uOWmhiqr64.0-17.0 [facility]erry HospitalComment on above:Performed By: #### BMP, PTT, CBC, PT #### [place] [address] USALymphocytes (Bld) [#/Vol]1.2 10*3/uLNormal1.00-4.8 [facility]erry HospitalComment on above:Performed By: #### BMP, PTT, CBC, PT #### [facility] [address] [place] [address] USALymphocytes/100 WBC (Bld)18.7 %Normal.[facility] Ferry HospitalComment on above:Performed By: #### BMP, PTT, CBC, PT #### [facility] [address] [place], [place] [address]H (RBC) [Entitic mass]29.1 zoPevoyi20.5-35.2FWyandot Memorial HospitalComment on above:Performed By: #### BMP, PTT, CBC, PT #### [place] [address] USAV (RBC) [Entitic vol]85.3 oLSmsicw10.5-101Mart[facility] Ferry HospitalComment on above:Performed By: #### BMP, PTT, CBC, PT #### [facility] [address] [place] [address] USAMean Corpuscular HGB Conc34.2 g/zVFfmvjt99.5-35.6FWyandot Memorial HospitalComment on above:Performed By: #### BMP, PTT, CBC, PT #### [place] [address] USAMonocytes (Bld) [#/Vol]0.4 10*3/uLNormal0.0-0.8Mart[facility] Ferry HospitalComment on above:Performed By: #### BMP, PTT, CBC, PT #### [facility] [address] [place] [address] USAMonocytes/100 WBC (Bld)5.6 %Normal.[facility] Ferry HospitalComment on above:Performed By: #### BMP, PTT, CBC, PT #### [facility] [address] [place] [address] USANeutrophils (Bld) [#/Vol]4.7 10*3/uLNormal1.8-7.7FWyandot Memorial HospitalComment on above:Performed By: #### BMP, PTT, CBC, PT #### [address] [place] [address] USANeutrophils/100 WBC (Bld)74.2 %Normal.Mart[facility] Ferry HospitalComment on above:Performed By: #### BMP, PTT, CBC, PT #### [facility] [address] [place] [address] USANucleated RBC/100 WBC (Bld) [Ratio]0.0 %Normal0-0.5 [facility] Ferry HospitalComment on above:Performed By: #### BMP, PTT, CBC, PT #### [facility] [address] [place] [address] USAPlatelet mean volume (Bld) [Entitic vol]7.0 fLNormal 6.6-10.1FWyandot Memorial HospitalComment on above:Performed By: #### BMP, PTT, CBC, PT #### [place] [address] USAPlatelets (Bld) [#/Vol]278 10*3/dLNuuwwq801-809ZxtfxbspqMartins Ferry HospitalComment on above:Performed By: #### BMP, PTT, CBC, PT #### [place] [address] USARBC (Bld) [#/Vol]4.78 10*6/uLNormal3.90-5.60Mart[facility] Ferry HospitalComment on above:Performed By: #### BMP, PTT, CBC, PT #### [facility] [address] [place] [address] USAWBC (Bld) [#/Vol]6.3 10*3/uLNormal4.5-11.0Mart[facility] Ferry HospitalComment on above:Performed By: #### BMP, PTT, CBC, PT #### [place] [address] USAECG 12 lead ECGon 36-97-8005LYI 12 lead [facility]AV[facility] [address] [place] [address] Electrocardiograph Report Signed Patient: Noemy Packer MR#: [id number] : 1960 Acct:[id number] Age/Sex: 60 / M ADM Date: 03/01/21 Loc: PS Room: Type: [facility] Attending Dr: Elisabeth Gotti MD Ordering Provider: [...] Signed By Starr Zamarripa MD 0 03/02/21 1546NoMercer County Community HospitalPartial Thromboplastin Timeon 68-21-4360uAGG Coag (Bld) [Time]29.4 yYvacbn16.1-36.5FWyandot Memorial HospitalComment on above:Result Comment: PERFORMED BY: [place] [address] PATHOLOGIST LEGAL COUNSEL SHANELL PENA M.D.Performed By: #### BMP, PTT, CBC, PT #### [place] [address] USAProthrombin Time INRon 02-26-2173WOV Coag (PPP) [Relative time]1.0 {INR}[facility] Hospital - AndersonComment on above:Result Comment: INR Therapeutic Range A) [...] By: #### BMP, PTT, CBC, PT #### [facility] [address] [place] [address] USAPT Coag (PPP) [Time]11.5 sNormal9.0-12.9Mart[facility] Ferry HospitalComment on above:Performed By: #### BMP, PTT, CBC, PT #### [facility] [address] [id number] USAXR chest 2V*on 28-25-6581MX chest 2V*[facility] [place] [address] [place] [address] XRay Report Signed Patient: Noemy Packer MR#: [id number] : 1960 Acct:[id number] Age/Sex: 60 / M ADM Date: 03/01/21 Loc: PS Room: Type: [facility] Attending Dr: Elisabeth Gotti MD Ordering Provider: [...] Keegan Canales M.D.03/01/2021 6:09 PM Dictation Location: [address] [address] Transcribed By: [facility] 03/01/211808 Dictated By: Keegan Canales DO 03/01/211807 Signed By: 03/01/211808NoMercer County Community HospitalAmbulatory Clinical Summary on 45-25-3872Fcpfoitcpd Clinical Summary {2x-79-13-r5-w9-23-0i-3j-cw-43-o3-4p-4d-d9-2b-e7}CD:144139SxswgbCavuxzOhio Valley HospitalPatient Educationon 80-70-4218Gdpfzbi EducationUrology Hydrocele, Adult A hydrocele is a [...] the hydrocele for any changes. ? Take zazr-dgs-rgzybig and prescription medicines only as told by [...] 11/22/2010 Document Revised: 06/15/2018 Document Reviewed: 06/15/2018 OnetoOnetext Patient Education ? 2019 [employer].[facility] Pre-Authorization for Medical Treatmenton 48-56-8343Jhb-Authorization for Medical [id number]#1.00CD:127NormBrown Memorial HospitalUrology Office/Clinic Noteon 09-22-4789Vhdackm Office/Clinic NoteChief Complaint office visit due to [...] chills, pain and blood. Denies hx of SC or stroke. Not on anticoagulation Notes baseline [...] Protein Urine Dipstick: Negative (02/25/21 08:00:00) Specific [place] Urine Dipstick: >=1.030 (02/25/21 08:00:00) Urine Appearance Urine Dipstick (more content not included)...[facility] Valley HospitalComment on above:Result Comment: Electronically Signed By: Elisabeth Gotti MD\.br\Date and Time Signed: 02/25/21 08:39EDT\.br\Electronically Co- Signed By: Mary Yadav\.br\Date and Time Co-Signed: 02/25/21 08:27EDTCNPN on 86-34-7563LIBPAeuobzexe ([facility]) NOEMY PACKER ([id number]) 1960 [facility] Date Time Provider Department 12/24/20 KAI CANALES [facility] During your visit today, we recorded the following information about you: Kai Canales [facility] 12/24/2020 4:15 PM Signed I spoke with [...] agreement with this plan. Kai Canales MS, [facility] Certified Genetic Counselor Allergies As of Date: [...] (None) Encounter Status:Closed by KAI CANALES on 12/24/20[facility] 87-27-1235TGRCNhshphuox ([facility]) OCHOANOEMY Reis ([id number]) 1960 M BLD Date Time Provider Department 12/09/20 KAI CANALES [facility] During your visit today, we recorded the following information about you: Kai Canales [facility] 12/09/2020 12:21 PM Signed I spoke with Noemy and let him know that his CK level was normal. We will await his brother's genetic test results. I encouraged him to call me if he had any questions in the meantime. Kai Canales, , [facility] Certified Genetic Counselor Allergies As of Date: [...] (None) Encounter Status:Closed by KAI CANALES on 12/09/20NormalCTriHealth [facility] 07-71-9057HO [Catalytic activity/Vol]120 U/AXjkgpn75-932FvpehfnglDetwiler Memorial HospitalComment on above:Performed By: #### CK #### [facility] [address] [id number] TLWDur 26-84-0606DSIXOyrybl Visit ([facility]) OCHOANOEMY WHITAKER ([id number]) 1960 M [facility] Date Time Provider Department 12/08/20 10:30 AM CAROLE HENNING [facility] During your visit today, we recorded the following information about you: Pulse Respiration Blood pressure Weight 79/minute 20/minute 127/73 73.8 kg Carole Henning MD 12/27/2020 9:28 AM Signed [facility] OUTPATIENT VISIT NOTE Patient Name: [...] unknown type at an outside institution in [place]. He currently does not have a copy [...] is no problem li (more content not included)...NormalOhioHealth Pickerington Methodist HospitalOVChatuge Regional Hospital Visit ([facility]) OCHOANOEMY Reis ([id number]) 1960 M BLD Date Time Provider Department 12/08/20 10:00 AM KAI CANALES [facility] During your visit today, we recorded [...] GENETIC TESTING: None. SOCIAL HISTORY: Lives in [place], [place], with his . 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 Level of education: bachelors degree Alcohol/cigarettes/other: tobacco- former smoker, quit 19 years ago, was smoking 1/2-1ppd. EtOH- maybe a glass of wine weekly. Illicit drug use- denied. FAMILY HISTORY: - Patient's ethnicity: Maternal - [place]ian; Paternal - [place]ian. - Partner's ethnicity: not applicable. - No known -Micronesian, Mediterranean, /Czech, Luxembourgish-Crittenden/Cajun, or Ashkenazi Voodoo ancestry unless noted above. - Parental consanguinity: [...] to colon cancer. Father: (more content not included)...[facility] DNA Extraction Bloodon 74-11-1673JCP Extract Blood(NOTE)[facility]orial Health SystemComment on above:Result Comment: Volume (mL) of specimen received:4ML Concentration (ng/ul):162 Volume (uL) of DNA:500 Total Yield (ug): 81 Comment: Specimens will be available for 3 years from date of collection. To order testing on this specimen for [facility] patients, please place an [facility] order for DNA and RNA for Clinical Testing ([id number]). To order testing for patients outside of the [facility] system, please request DNA and RNA for Clinical Testing, order code [id number]. If additional paperwork is required for testing, please email completed forms to .Performed By: #### NUCBLD #### [facility] [address] [place], [place] [address] Jhrilkhnef Clinical Summaryon 90-50-2306Eeblwgggqs Clinical Summary {c9-3j-40-ev-9r-2a-9u-4t-3h-r0-20-v0-7a-37-af-c4}CD:845979YccqavUlpzlaOhio Valley HospitalPatient Educationon 47-15-4321Uhknbyv EducationFamily Medicine Hydrocele, Adult Fluid can collect [...] Document Reviewed: 11/22/2010 ExitCare? Patient Information ?2013 [employer].[facility] Vital Signs Date TimeVital SignValuePerforming FrggyigiqOvizqzfp64-98-6313 09:08-0500Body ujuxzs241.26 cmJessica Harish DO Work Phone: [facility]11-10-2025 09:08-0500 Body mass index (BMI) [Ratio]23.1 kg/m6Ovvjzts Harish DO Work Phone: [phone])[address] [place], [place] 4205411-10-2025 09:08-0500 Body .21 kgJessica Harish DO Work Phone: [phone])[address] [place], [place] 4205411-10-2025 09:08-0500 Diastolic blood yephhwky82 mm[Hg]Bela Harish DO Work Phone: 1(419)[address] [place], [place] 4205411-10-2025 09:08-0500 Heart rate72 /minJessica Harish DO Work Phone: 1419)[address] [place], [place] 4205411-10-2025 09:08-0500 Respiratory rate20 /minJessica Harish DO Work Phone: [phone])[address] [place], [place] 4205411-10-2025 09:08-0500 SaO2% (BldA) [Mass fraction]97 %Bela Harish DO Work Phone: 1(419)[address] [place], [place] 4205411-10-2025 09:08-0500 Systolic blood fkfkethg901 mm[Hg]Bela Harish DO Work Phone: 1(299)[address] [place], [place] 4205408-25-2025 08:02-0400 Body renodi408.3 cmLucian Solomon MD Work Phone: 1(430)[address]08-25-2025 08:02-0400Body mass index (BMI) [Ratio]22.45 kg/i9WjqfgwkLucian Solomon MD Work Phone: 1(031)[address] [place], [place] 2164408-25-2025 08:02-0400Body gnilgl36.95 kgLucian Solomon MD Work Phone: 1(831)[address] [place], [place] 2164407-11-2025 08:01-0400Body mlgmul909.3 cmLucian Solomon MD Work Phone: 1(137)[address] [place], [place] 2164407-11-2025 08:01-0400Body mass index (BMI) [Ratio]22.74 kg/n6XxbcwzkLucian Solomon MD Work Phone: 1(806)[address] [place], [place] 2164407-11-2025 08:01-0400Body .85 kgLucian Solomon MD Work Phone: 1(947)[address] [place], [place] 2164407-11-2025 08:01-0400Diastolic blood mm[Hg]Lucian Solomon MD Work Phone: 1(761)[address] [place], [place] 2164407-11-2025 08:01-0400Heart rate96 /min Lucian Solomon MD Work Phone: 1(727)[address] [place], [place] 2164407-11-2025 08:01-0400Systolic blood ghageciq057 mm[Hg]Lucian Solomon MD Work Phone: 1(114)[address] [place], [place] 2164405-15-2025 09:14-0400Body vweloi348.3 cmLucian Solomon MD Work Phone: 1(725)[address] [place], [place] 2164405-15-2025 09:14-0400Body mass index (BMI) [Ratio]22.89 kg/j1DhhsebfLucian Solomon MD Work Phone: 1(486)[address] [place], [place] 2164405-15-2025 09:14-0400Body lkebjw72.31 kgLucian Solomon MD Work Phone: 1(931)[address] [place], [place] 2164405-15-2025 09:14-0400Diastolic blood izyafmlx33 mm[Hg]Lucian Solomon MD Work Phone: 1(128)[address] [place], [place] 2164405-15-2025 09:14-0400Systolic blood fegbgmeu572 mm[Hg]Lucian Solomon MD Work Phone: 1(905)[address] [place], [place] 2164403-12-2025 16:15-0400Body ltvinf136.3 cmYecenia Vazquez DO Work Phone: [facility]03-12-2025 16:15-0400Body mass index (BMI) [Ratio]23.68 kg/m2Yecenia Des DO Work Phone: [facility]03-12-2025 16:15-0400Body .7 [degF]Yecenia Vazquez DO Work Phone: [facility] [employer] Urnzfz05-32-7054 16:15-0400Body xpqwjo12.76 kgYecenia Des DO Work Phone: [facility] [employer] Xknjmj92-69-5496 16:15-0400Diastolic blood ufbyvsui91 mm[Hg]Yecenia Des DO Work Phone: [facility] [employer] Tzyfnh81-69-5358 16:15-0400Heart rate 78 /minYecenia Des DO Work Phone: [facility] [employer] Joeviz59-91-9048 16:15-0400 Respiratory rate18 /minYecenia Des DO Work Phone: [facility] [employer] Zyfldq39-52-2410 16:15-1405YeH4% (BldA) [Mass fraction]97 %Yecenia Des DO Work Phone: [facility] [employer] Uvcnjr99-93-8949 16:15-0400Systolic blood pukrxxab356 mm[Hg]Yecenia Des DO Work Phone: [facility] [employer] Lqwpha33-58-2907 15:13-0500Body .3 cmJojaycee Des DO Work Phone: [facility] [employer] Icrcka06-32-4826 15:13-0500Body mass index (BMI) [Ratio]23.63 kg/m2Yecenia Des DO Work Phone: [facility] [employer] Udwkpi26-51-4807 15:13-0500Body .58 kgYecenia Des DO Work Phone: [facility] [employer] Enuhor64-78-9201 15:13-0500Diastolic blood xmuqtmcc68 mm[Hg]Yecenia Des DO Work Phone: [facility] [employer] Ofricu10-34-9182 15:13-0500Systolic blood mm[Hg]Yecenia Des DO Work Phone: [facility] [employer] Igeqjm08-95-3074 14:30-0500Body bqedzq039.3 cmAdavid Judge DPM Work Phone: [facility] HospitalAfxcxfharq48-48-9978 14:30-0500Body mass index (BMI) [Ratio]22.89 kg/d1WbmcqgxSpencer Adrianher DPM Work Phone: [facility] HospitalYfgiujjpvv05-43-9625 14:30-0500Body zkliql94.31 kgSpencer Adrianher DPM Work Phone: [facility] HospitalOhhuaxkojh10-26-5918 14:47-0500Body rtmlve109.3 cmAngela Lowe PA Work Phone: [facility] HospitalZwveupgamu00-45-7892 14:47-0500Body mass index (BMI) [Ratio]22.59 kg/m7Riiaxf Lowe PA Work Phone: [facility] HospitalJxxprrxnqe15-48-9378 14:47-0500Body qexbha82.4 kg Alycia Lowe PA Work Phone: [facility] HospitalMurgihttbv33-12-7707 14:47-0500Diastolic blood lmhynygy99 mm[Hg]Alycia Lowe PA Work Phone: [facility] HospitalGldbswjcmd47-84-5686 14:47-0500Systolic blood mm[Hg]Alycia Lowe PA Work Phone: [facility] HospitalGfdbptkplm40-39-2160 16:05-0500Body vbwcac634.3 cmJojaycee Yuhas DO Work Phone: [facility]11-25-2024 16:05-0500Body mass index (BMI) [Ratio]23.16 kg/m2Jojaycee Yuhas DO Work Phone: [facility]11-25-2024 16:05-0500Body vuqhoydnotm23.1 [degF]Yecenia Des DO Work Phone: [facility]11-25-2024 16:05-0500Body qmyhjn60.12 kgJojaycee Yuhas DO Work Phone: [facility]11-25-2024 16:05-0500Diastolic blood ekizcowz10 mm[Hg]Yecenia Vazquez DO Work Phone: [facility]11-25-2024 16:05-0500Heart rate 93 /minJojaycee Vazquez DO Work Phone: [facility]11-25-2024 16:05-5851PkE9% (BldA) [Mass fraction]97 %Yecenia Vazquez DO Work Phone: [facility]11-25-2024 16:05-0500Systolic blood kczoqbph927 mm[Hg]Yecenia Vazquez DO Work Phone: [facility]11-13-2024 08:38-0500Body cabtha823.3 cmAngela Lowe PA Work Phone: [place] [address]Scncwyqlwm37-97-7413 08:38-0500Body mass index (BMI) [Ratio]23.18 kg/s6Yonofd Lowe PA Work Phone: [place] [address]Bbcgpjpkku64-13-9355 08:38-0500Body .22 kgAngela Lowe PA Work Phone: [place] [address]Ixxgluqrjy76-79-2191 08:38-0500Diastolic blood mm[Hg]Alycia Lowe PA Work Phone: [place] [address]Zldfnijnyx52-45-6627 08:38-0500Systolic blood ozsfworx355 mm[Hg]Alycia Lowe PA Work Phone: [place] [address]Unzafwpluq89-82-1118 15:35-0500Body .3 cmAnne Hill PA Work Phone: [place] [address]Fohwmuortd38-85-7665 15:35-0500Body mass index (BMI) [Ratio]22.89 kg/m2Anne Hill PA Work Phone: [place] [address]Eavsfhript62-47-4400 15:35-0500Body hejoij31.31 kgAnne Hill PA Work Phone: [place] [address]Bytixriuvm34-85-7815 15:35-0500Diastolic blood mm[Hg]Lauryn TEJADA Work Phone: [facility] HospitalQsemknlwlp58-89-4217 15:35-0500Heart rate96 /min Lauryn TEJADA Work Phone: [facility] HospitalJporwcbhjc14-49-1592 15:35-0500Respiratory rate16 /minLauryn TEJADA Work Phone: [facility] HospitalQdxfhleynf97-48-4939 15:35-9471IyM6% (BldA) [Mass fraction]97 %Lauryn TEJADA Work Phone: [facility] HospitalGzltvrezng13-85-4903 15:35-0500Systolic blood mkyhyndr792 mm[Hg]Lauryn Alicia PA Work Phone: [facility] HospitalRyfszifvug89-50-0926 12:48-0400Diastolic blood ayatxmcf28 mm[Hg]Pfo 6[facility]10-24-2024 12:48-0400Heart rate94 /minPfo [address] [place], [place] 1156310-24-2024 12:48-0400Respiratory rate16 /minPfo [address] [place], [place] 1156310-24-2024 12:48-7622TfD5% (BldA) [Mass fraction]96 %Pfo [address] [place], [place] 1156310-24-2024 12:48-0400Systolic blood mm[Hg] Pfo 6[facility]10-24-2024 09:03-0400Body onhxhv684.3 cmPfo 6 [facility]10-24-2024 09:03-0400Body mass index (BMI) [Ratio]23 kg/m2Pfo [address] [place], [place] 1156310-24-2024 09:03-0400Body btjpwqndmin14.7 [degF]Pfo [address] [place], [place] 1156310-24-2024 09:03-0400Body yagvsp28.67 kgPfo 6 [facility]10-10-2024 12:02-0400Body pzreelipxnc71.01 [degF]Pfo 7 [facility]10-10-2024 12:02-0400Diastolic blood jkmwezlq74 mm[Hg]Pfo [address] [place], [place] 2869410-10-2024 12:02-0400Heart rate80 /minPfo [address] [place], [place] 2869410-10-2024 12:02-0400Respiratory rate16 /minPfo [address] [place], [place] 2869410-10-2024 12:02-7824LdQ1% (BldA) [Mass fraction]99 %Pfo [address] [place], [place] 2869410-10-2024 12:02-0400Systolic blood ukbnidqr917 mm[Hg]Pfo [address] [place], [place] 2869410-10-2024 08:21-0400Body iesieg551.[address] [place], [place] 2869410-10-2024 08:21-0400Body mass index (BMI) [Ratio]23.24 kg/m2Pfo [address] [place], [place] 0602410-10-2024 08:21-0400Body .[address] [place], [place] 2869408-20-2024 14:01-0400Body mrewfr676.7 Berry Charles MD Work Phone: [facility] HospitalLngibhbiri76-00-1124 14:01-0400Body mass index (BMI) [Ratio]22.96 kg/p9JolaxvLeonidas Charles MD Work Phone: [facility] HospitalAyukozewyf50-41-9024 14:01-0400Body menygm43.49 kgLeonidas Charles MD Work Phone: [facility]Jeff[facility] HospitalBpwtkabskb21-67-2292 14:01-0400Diastolic blood awzuexkt14 mm[Hg]Leonidas Charles MD Work Phone: [facility] HospitalAvlzskyems60-65-8660 14:01-0400Systolic blood qhobicrk874 mm[Hg]Leonidas Charles MD Work Phone: [facility] HospitalQqgttxexrf82-38-7850 10:49-0400Body qrigkn614.7 Micah DUTTON Work Phone: [facility]06-24-2024 10:49-0400Body mass index (BMI) [Ratio]23.26 kg/j8PqykbvriLogan DUTTON Work Phone: [facility]06-24-2024 10:49-0400Body kttggu91.4 kgTerrellerick Dunbar PLACEMENT ASSISTANT-TIME STUDY STATISTICIAN Work Phone: [facility] [employer] Jtyacq25-57-0381 14:56-0400Body .3 cmYecenia Vazquez DO Work Phone: [facility]05-06-2024 14:56-0400Body mass index (BMI) [Ratio]22.9 kg/m2Yecenia Vazquez DO Work Phone: [facility]05-06-2024 14:56-0400Body pehutinjmic36.01 [degF]Yecenia Vazquez DO Work Phone: [facility]05-06-2024 14:56-0400Body pqxaya09.35 kgYecenia Vazquez DO Work Phone: [facility]05-06-2024 14:56-0400Diastolic blood uwlotmbv58 mm[Hg]Yecenia Vazquez DO Work Phone: [facility]05-06-2024 14:56-0400Heart rate 85 /minJojaycee Vazquez DO Work Phone: [facility]05-06-2024 14:56-8107PmC0% (BldA) [Mass fraction]98 %Yecenia Vazquez DO Work Phone: [facility] [employer] Fqjkss67-43-9708 14:56-0400Systolic blood zesovece725 mm[Hg]Yecenia Vazquez DO Work Phone: [facility]02-19-2024 10:10-0500Body zljebs684.3 cmTamie Gómez PLACEMENT ASSISTANT-MERCHANDISE SUPERVISOR Work Phone: [facility]02-19-2024 10:10-0500Body mass index (BMI) [Ratio]23.36 kg/m2Tamie Gómez PLACEMENT ASSISTANT-MERCHANDISE SUPERVISOR Work Phone: [facility]02-19-2024 10:10-0500Body usgfkipwnvk85.81 [degF]Tamie Gómez APRNKrystinaMERCHANDISE SUPERVISOR Work Phone: [facility] Ttvnte02-38-5777 10:10-0500Body pwxkup64.76 kgTamie Gómez APRN-MERCHANDISE SUPERVISOR Work Phone: [facility] [employer] Pqdjdy89-37-6972 10:10-0500Diastolic blood xdcrwiuh32 mm[Hg]Tamie HERMERCHANDISE SUPERVISOR Work Phone: [facility] [employer] Duvilf88-83-2560 10:10-0500Heart rate 95 /minTamie Gómez APRN-MERCHANDISE SUPERVISOR Work Phone: [facility] [employer] Vzekpj80-97-0862 10:10-2340SsW3% (BldA) [Mass fraction]96 %Tamie HERMERCHANDISE SUPERVISOR Work Phone: [facility] [employer] Txfmfr13-41-2100 10:10-0500Systolic blood ennxzjlk07 mm[Hg]Tamie HERMERCHANDISE SUPERVISOR Work Phone: [facility] [employer] Cmafnq18-70-0146 13:48-0500Body ksuiwo334.3 cmSolo Pan MD Work Phone: [facility] [employer] Rkhbrg74-32-6329 13:48-0500Body mass index (BMI) [Ratio]22.59 kg/e7EpmhiSolo Pan MD Work Phone: [facility] Vzojgm62-43-7294 13:48-0500Body mvtweo66.4 kgSolo Pan MD Work Phone: [facility] Rurmfj65-75-1443 11:03-0500Body wcykim960.3 cmSolo Pan MD Work Phone: [facility] Uzsrjf24-58-5576 11:03-0500Body mass index (BMI) [Ratio]22.89 kg/r7LozkaSolo Pan MD Work Phone: [facility] Afvwdc06-11-7696 11:03-0500Body jfqemv69.31 kgSolo Pan MD [facility] Phone: [facility] 11:03-0500Diastolic blood ogvvyyvd31 mm[Hg]Solo Pan MD Work Phone: [facility]-16-2024 11:03-0500Heart rate 99 /minSolo Pan MD Work Phone: [facility]01-16-2024 11:03-0500Systolic blood igexykwe417 mm[Hg]Solo Pan MD Work Phone: [facility]07-27-2022 13:35-0400Body ktkkyu876.26 cmPameldong Albert Other [employer] Other 07-27-2022 13:35-0400Body mass index (BMI) [Ratio] 22.89 kg/e8Mexgwf Bety Other [employer] Other 07-27-2022 13:35-0400Body vmitulxyqwf57.9 [degF]Filomena Bety Other [employer] Other 07-27-2022 13:35-0400Body wfamru73.31 kgFilomena Albert Other [employer] Other 07-27-2022 13:35-0400Respiratory rate18 /minFilomena Albert Other [employer] Other 07-27-2022 13:35-6457IhG7% (BldA) [Mass fraction]96 % Filomena Bety Other [employer] Other Encounters Encounter DateEncounter TypeCare ProviderFacilityStart: 04-27-2025 End: 74-95-5801ovpbrcfushUovxuhj Rapp DO Work Phone: -[facility] ClydeStart: 04-27-2025 End: 92-42-6819Uruxmhu encounter procedureBela Moreira DO-[facility] [place] Work Phone: Start: 04-27-2025 End: 30-85-5605Yrqsvfz encounter statusBela Moreira [facility]etart: 03-20-2025 End: 43-38-7062Vwxzorpxb department patient visitJOKaiser Martinez Medical Centertart: 03-10-2025 End: 37-53-2591kwvschduvpWekdoub Kelbley PTANOMS [place] Physical TherapyComment on above:Multiple sclerosis (HCC) (Primary Dx)Start: 03-10-2025 End: 98-24-9117Autqbz flowsheetMelissa Kelbley PTANOMS [facility] Start: 03-10-2025 End: 63-14-7486Dlqjpg flowsheetMelissa Kelbley PTANOMS [facility] Start: 03-03-2025 End: 95-66-2085Yxnchx flowsheetMelissa Kelbley PTANOMS [facility] Start: 03-03-2025 End: 93-85-9982Kyeena flowsheetMelissa Kelbley PTANOMS [facility] Start: 03-03-2025 End: 45-95-3512fzvlsbanonPybyfna Kelbley PTANOMS [place] Physical TherapyComment on above:Multiple sclerosis (HCC) (Primary Dx)Start: 02-25-2025 End: 36-94-9222Zaaatd flowsheetMelissa Kelbley PTANOMS [facility] Start: 02-25-2025 End: 61-51-7250Agggxy flowsheetMelissa Kelbley PTANOMS [facility] Start: 02-25-2025 End: 92-95-0095knfmabvuviKesfqfp Kelbley PTANOMS Fig[place] Physical TherapyComment on above:Multiple sclerosis (HCC) (Primary Dx)Start: 02-18-2025 End: 42-60-6668Byuspe flowsheetSammantha Arzola PTNOMS [facility] Start: 02-18-2025 End: 53-97-4281Wbzzso flowsheetSammantha Arzola PTNOMS [facility] Start: 02-18-2025 End: 39-77-1381nzxjmfngnzGibeogwac Arzola PTNOMS [facility] Comment on above:Multiple sclerosis (HCC) (Primary Dx)Start: 02-09-2025 End: 02-74-1380Yhptzr Kayli Solomon MD Work Phone: noMS NEUROLOGYStart: 02-09-2025 End: 42-09-1372Qctjnk Kayli Solomon MD Work Phone: noMS BM NEUROLOGYStart: 02-09-2025 End: 80-99-7771Rpchsk outpatient visit 25 minutesLucian Solomon MD Work Phone: noMS Jasper NeurologyComment on above:Multiple sclerosis (HCC) (Primary Dx)Start: 02-09-2025 End: 99-73-3542dnxqsvitceCNZDYVD W BAUERNot AvailableStart: 12-26-2024 End: 66-15-5889Vzzttj Kayli Solomon MD Work Phone: noms NEUROLOGYStart: 12-26-2024 End: 18-29-6424Etbkemtoby Solomon MD Work Phone: noms NEUROLOGYStart: 12-26-2024 End: 66-91-3653Fidzoa outpatient visit 25 minutesLucian Solomon MD Work Phone: noMS SWS NEURComment on above:Multiple sclerosis (HCC) (Primary Dx)Start: 12-26-2024 End: 05-11-9978bbmqfllulzNMAGENK W BAUERNot AvailableStart: 11-12-2024 End: 91-56-6442fgckstoplsULLKMKF W BAUERNot AvailableStart: 10-30-2024 End: 87-96-7788Tcstzetoby Solomon MD Work Phone: noMS NEUROLOGYStart: 10-30-2024 End: 47-67-9785Qppwdc flowsheetLucian Solomon MD Work Phone: noms BM NEUROLOGYStart: 10-30-2024 End: 53-10-8339Vzbiny outpatient visit 25 minutesLucian Solomon MD Work Phone: noms SWS NEURComment on above:Left foot drop (Primary Dx); Multiple sclerosis (CMS/HCC); Foraminal stenosis of lumbar region; Left leg weaknessStart: 10-30-2024 End: 01-69-5143bfblpwxsomXPMPGZK W BAUERNot AvailableStart: 10-27-2024 End: 56-51-3837Gsuawm OnlyPatriczuleyka [facility]omin [facility] Work Phone: d[facility] - Medical OncologyStart: 10-15-2024 End: 14-28-6119Sooctoswxf and management of [facility] Districttart: 08-27-2024 End: 03-86-2755Srewtk outpatient visit 25 minutesYecenia Rita Vazquez DO Work Phone: [facility] - Family MedicineComment on above:Anterior horn cell disease (CMS-HCC) (Primary Dx); Cervical myelopathy (CMS-HCC); Spinal stenosis of lumbar region with neurogenic claudication; Acquired left foot dropStart: 08-27-2024 End: 59-44-4715vrfimllcrdAQEWMorgan Medical Center Ambulatory PPGStart: 08-14-2024 End: 75-50-8685Lfoqmea encounter procedureJojaycee Vazquez DO Work Phone: [facility] - Family MedicineComment on above:Encounter for subsequent annual wellness visit (AWV) in Medicare patient (Primary Dx); Anterior horn cell disease (CMS-HCC); Monoparesis (CMS-HCC)Start: 08-14-2024 End: 34-32-7547vsjmfijetoSWFMSt. Elizabeth's Hospital Ambulatory PPGStart: 07-30-2024 End: 73-11-5144Pjaawo outpatient new 30 Shyam Judge DPM Work Phone: noms PODIATRYComment on above:Lumbar radiculopathy (Primary Dx); Leg length discrepancy; Chronic left-sided low back pain with left-sided sciatica; Foot drop, leftStart: 07-30-2024 End: 24-08-7422lqjmsgfbkfTRMRSYP S RUSHERNot AvailableStart: 07-30-2024 End: 45-42-7253Ilpkxt flowsheetMeghannjoelle Judge DPM Work Phone: noms PODIATRYStart: 07-30-2024 End: 77-87-7613Wfumtp flowsheetSpencer Judge DPM Work Phone: noms PODIATRYStart: 07-10-2024 End: 79-16-4678Qctqug outpatient visit 25 minutesAngela Lowe PA Work Phone: ana BELLEVUEComment on above:Multiple sclerosis (CMS/HCC) (Primary Dx); Lumbar back pain; Lumbar radiculopathy; Left foot drop; Facet arthritis of lumbar regionStart: 07-10-2024 End: 66-11-4931rapifvspenIHMTSZ LOWENot AvailableStart: 05-12-2024 End: 30-48-5224Jfwmdp outpatient visit 25 minutesYecenia Vazquez DO Work Phone: [facility] - Family MedicineComment on above:Multiple sclerosis (CMS-HCC) (Primary Dx); B12 deficiency; Spinal stenosis of lumbar region with neurogenic claudicationStart: 05-12-2024 End: 38-71-3506zjxqjqyhspQSDM L YUHASPRoxane Twin City Hospitaltart: 04-30-2024 End: 83-68-4281Tprmam flowsheetAngela Lowe PA Work Phone: noms NEUROLOGYStart: 04-30-2024 End: 98-63-4621Hgxvts flowsheetAngela Lowe PA Work Phone: noms NEUROLOGYStart: 04-30-2024 End: 74-88-1111Wqailtst SupportAngela Lowe PA Work Phone: noms NEUROLOGYComment on above:Myalgia (Primary Dx); Lumbar back painStart: 04-23-2024 End: 79-45-1313Lrmaii outpatient visit 25 minutesLauryn TEJADA Work Phone: noms NE NEUROComment on above:Multiple sclerosis (CMS/HCC) (Primary Dx); Left leg weakness; Lumbar back pain; MyalgiaStart: 04-23-2024 End: 37-65-5827lzedkrdntgLKSP HILLNot AvailableStart: 04-23-2024 End: 82-36-5613Xdfysv Galo TEJADA Work Phone: noms NE NEUROStart: 04-23-2024 End: 94-49-8667Bngpjw Galo TEJADA Work Phone: noms NE NEUROStart: 04-10-2024 End: 60-22-2197qqevqvbztwGyi Infusion Chair 6Dbro [facility] - Medical OncologyComment on above:Multiple sclerosis (CMS-HCC) (Primary Dx)Start: 03-27-2024 End: 19-92-2674vhdbnrpeobKgc Infusion Chair 7Dbro [facility] - Medical OncologyComment on above:Multiple sclerosis (CMS-HCC) (Primary Dx)Start: 03-25-2024 End: 14-38-6161Ybmcxliyx encounterVannesa Mensah PT Work Phone: noms CI PTComment on above:PT Status (Contacted and checked on current PT status. He noted that 03/27 he will be having an infusion and was going to hold off till after to schedule last PT; I verified his auth is dated out till 04/13/24. He said he will contact.)Start: 03-13-2024 End: 46-13-8067EifldjLaura Momin [facility] Work Phone: dbro [facility] - Medical OncologyComment on above:Multiple sclerosis (CMS-HCC) (Primary Dx)Start: 03-12-2024 End: 02-25-6573gjioshcitlZhcdfbGui Mensah PT Work Phone: NOMS CI PTComment on above:Lumbar radiculopathy (Primary Dx); Multiple sclerosis (CMS/HCC); Left leg weakness; Left foot dropStart: 03-12-2024 End: 29-02-6559Bieqka flowsSandy Mensah PT Work Phone: noMS CI PTStart: 03-12-2024 End: 98-45-6911Eyzsqr flowsheetAravindremy T Vivi PT Work Phone: NOMS CI PTStart: 03-05-2024 End: 87-83-8575aottebvkmbMdotpx T Vivi PT Work Phone: noMS CI PTComment on above:Lumbar radiculopathy (Primary Dx); Multiple sclerosis (CMS/HCC); Left leg weakness; Left foot dropStart: 03-05-2024 End: 55-86-3118Lofkqs flowsreginaldoAravinddarin Mamadou Mensah PT Work Phone: NOMS CI PTStart: 03-05-2024 End: 87-06-5067Cdoyfg flowsheetAustiny Mamadou Mensah PT Work Phone: NOMS CI PTStart: 02-27-2024 End: 17-34-4954Fnyeihtkq Result EncounterSkevin Charles MD Work Phone: noms External Department UnsolicitedStart: 02-27-2024 End: 33-82-7164Sfgxhkkzn Result Michael Charles MD Work Phone: noms External Department UnsolicitedStart: 02-27-2024 End: 03-91-4428KlxqueFcbxl Amanda CMAProMedica Physicians Internal Medicine - Family MedicineComment on above:B12 deficiencyStart: 02-26-2024 End: 13-35-8591zntbpzmulxEpzdwy Mamadou Mensah PT Work Phone: noMS CI PTComment on above:Lumbar radiculopathy (Primary Dx); Multiple sclerosis (CMS/HCC); Left leg weakness; Left foot dropStart: 02-26-2024 End: 80-31-5773Kmknzz flowsheetJeremy T Blackston PT Work Phone: NOMS CI PTStart: 02-26-2024 End: 95-80-9446Sicmdl flowsheetJeremy T Blackston PT Work Phone: NOMS CI PTStart: 02-21-2024 End: 82-05-3114Uywwqf flowsheetJeremy T Blackston PT Work Phone: NOMS CI PTStart: 02-21-2024 End: 43-24-4069Hopcjj flowsheetJeremy T Blackston PT Work Phone: noMS CI PTStart: 02-21-2024 End: 70-17-4805cdkruloqlxWvxmkx T Blackston PT Work Phone: noMS CI PTComment on above:Lumbar radiculopathy (Primary Dx); Multiple sclerosis (CMS/HCC); Left leg weakness; Left foot dropStart: 02-14-2024 End: 18-94-5125wekbziakyhVsdmoz T Blackston PT Work Phone: NOMS CI PTComment on above:Lumbar radiculopathy (Primary Dx); Multiple sclerosis (CMS/HCC); Left leg weakness; Left foot dropStart: 02-14-2024 End: 02-07-1214Wyfnbe flowsheetJeremy T Blackston PT Work Phone: NOMS CI PTStart: 02-14-2024 End: 64-43-0458Chhfpi flowsheetJeremy T Blackston PT Work Phone: noms CI PTStart: 02-06-2024 End: 03-86-1127SceeybYjoqpnkb Riedy MANOMS NE NEUROComment on above:Lumbar radiculopathyStart: 02-05-2024 End: 13-65-9588Pftqrd Anaid Charles MD Work Phone: noms ST NEUROLOGYStart: 02-05-2024 End: 38-42-0853Cfgido flowsheetSkevin Charles MD Work Phone: noms NEUROLOGYStart: 02-05-2024 End: 85-31-7698Yrcbot outpatient visit 25 minutesLeonidas Charles MD Work Phone: noms NEUROLOGYComment on above:MS (multiple sclerosis) (CMS/HCC) (Primary Dx); Lumbar radiculopathy; Multiple sclerosis (CMS/HCC); Left leg weakness; Left foot drop; Foraminal stenosis of lumbar region; Facet arthritis of lumbar regionStart: 12-10-2023 End: 52-78-4564Cuimfc outpatient visit 15 minutesLogan Dunbar APRN-TIME STUDY STATISTICIAN Work Phone: [facility] NeuroSurgeryComment on above:Left lumbar radiculopathy (Primary Dx); Proximal leg weakness; Low back pain, unspecified back pain laterality, unspecified chronicity, unspecified whether sciatica presentStart: 12-10-2023 End: 51-30-7781nhnjbrheniATNYFMIUMultiCare [facility] Hospital Ambulatory PPGStart: 12-05-2023 End: 26-38-5032hvvgbimtrfPRGKMorgan Medical Center Ambulatory PPGStart: 10-22-2023 End: 49-70-8357oiqewuhfgdPEYPMemorial Health Systemtart: 10-22-2023 End: 06-13-3002ofmvlbzmstUDPYMorgan Medical Center Ambulatory PPGStart: 10-22-2023 End: 29-50-2127Axvcek outpatient visit 25 Nick Vazquez DO Work Phone: [facility] - Family MedicineComment on above:Left lumbar radiculopathy (Primary Dx); Acquired left foot drop; Spina bifida occulta; Peripheral polyneuropathy; B12 deficiency; Mixed hyperlipidemiaStart: 86-87-7926Umbzaodsi Alysa Gómez APRN-MERCHANDISE SUPERVISOR Work Phone: [facility] Internal Medicine - Family MedicineStart: 08-06-2023 End: 66-61-9961Hazjns outpatient visit 25 minutesTamie Gómez PLACEMENT ASSISTANT-MERCHANDISE SUPERVISOR Work Phone: [facility] - Family MedicineComment on above:Multiple sclerosis (CMS-HCC) (Primary Dx); Monoparesis (CMS-HCC); Spinal stenosis of lumbar region with neurogenic claudicationStart: 07-31-2023 Orders Ashley Gee MAProMedica Physicians NeuroSurgeryComment on above: Neuropathy (Primary Dx); Leg pain, leftStart: 63-40-6556Agxoyyjow encounterElindong Montiel CMAProMedica Physicians NeurologyComment on above:New PatientStart: 57-95-0969Fmqwwxajt encounterTa-Yessica HunterProMedica Physicians NeurologyComment on above:Neuro ReferralStart: 07-19-2023 End: 58-04-8374Bzvvzu outpatient visit 25 minutesSolo Pan MD Work Phone: [facility] Physicians NeuroSurgeryComment on above:Leg pain, left (Primary Dx); NeuropathyStart: 07-03-2023 End: 41-18-1417Lihwkk outpatient visit 25 minutesSolo Pan MD Work Phone: [facility] NeuroSurgeryComment on above: Multiple sclerosis (CMS-HCC) (Primary Dx); Proximal leg weaknessStart: 06-83-3775ynplzznaamOWBUJ FLOMFacility:[facility]tart: 99-41-6258msllzdtlitJSHDS FLOMFacility:[facility]ITALtart: 02-24-2022 End: 22-69-3125elzdkieaidBK CHARLES HOUSEFacility:J4Kuhys: 01-26-2022 End: 09-14-0519xujfgbfxpwQZ CHARLES HOUSEFacility:T1Ngkmi: 01-11-2022 End: 39-38-1130yzbvkdehsjNonfqk Dymond Other [place] Other Start: 99-28-9627Mztfyi outpatient visit 15 minutes [facility] ClydeStart: 11-11-2021 End: 74-91-5287wnmqajjjglDZ CHARLES HOUSEFacility:L2Llnwb: 11-07-2021 End: 12-52-8762hvvlqejzcbLKRM LACOURFacility:H1 Procedures DateProcedureProcedure DetailPerforming ClinicianStart: 07-22-6797Lyexkdgp blood count with white cell differential, automatedLucian Solomon MD Work Phone: Start: 59-47-7070Nminvglrlcfxg metabolic panelLucian Solomon MD Work Phone: Start: 95-54-2363CZGFOIFSLTC-TB GOLD PLUSBreashley Solomon MD Work Phone: Start: 39-27-7779Lm cell mediated antign respnse gamma interferonBreashley Solomon MD Work Phone: Start: 38-48-2003YlbnunhrtavKoxxhbga Beascjose g [facility] Work Phone: Start: 93-09-7825Dypzc depression screening assessment Yeecnia Vazquez DO Work Phone: Start: 97-50-0527Iqiyi depression screening assessment Yecenia Vazquez DO Work Phone: Start: 60-94-8713Kwqcc depression screening assessment Yecenia Vazquez DO Work Phone: Start: 50-68-6086Vzdfpcxfc single/heel cover softener trigger point 1/2 Anitha Nix PA Work Phone: Start: 49-57-5347AUR CBC WITH AUTO DIFFStevvj Charles MD Work Phone: Start: 98-95-0943Rnunqb-up visitFollow-upPATRICZULEYKA DUNBARStart: 95-46-0052Zftah depression screening assessmentLogan Dunbar PLACEMENT ASSISTANT-TIME STUDY STATISTICIAN Work Phone: Start: 07-66-0805Gsgaq depression screening assessment Yecenia Vazquez DO Work Phone: Start: 25-19-2514Rnsbr depression screening assessment Tamie Gómez PLACEMENT ASSISTANT-MERCHANDISE SUPERVISOR Work Phone: Start: 47-01-2766Hgyjn depression screening assessment Solo Pan MD Work Phone: Start: 44-88-3713FfebvjlokjdMtyfm Reinard MD Work Phone: Plan of Treatment DateCare ActivityDetailAuthorStart: 33-70-4927Ulfmjzlop for malignant neoplasm of colonColonoscopyProPrinceton [facility] Center Health SystemStart: 30-21-4513Irbvapdpx for malignant neoplasm of colonColonoscopyKindred Healthcare Health SystemStart: 04-01-2026 DTaP,Tdap and Td Vaccines (2 - Td or Tdap)DTaP,Tdap and Td Vaccines (2 - Td or Tdap)[facility] SystemStart: 84-87-9237Banba BMI ScreeningAdult BMI ScreeningProKettering Health Troy SystemStart: 88-90-7673Vkxkwxu ScreeningTobacco ScreeningPeoples Hospitalca Health SystemStart: 10-14-0979Iwqag BMI ScreeningAdult BMI ScreeningProMemorial Health System [facility] Hospitalca Health SystemStart: 96-33-4938Viomsaipzc ScreeningDepression ScreeningKindred Healthcare Health SystemStart: 36-38-0921Otkne BMI ScreeningAdult BMI ScreeningProMemorial Health System [facility] Hospitalca Health SystemStart: 20-84-4579Krcgqvrdhq ScreeningDepression ScreeningPeoples Hospitalca Health SystemStart: 63-28-0349Cifhcit ScreeningTobacco ScreeningKindred Healthcare Health SystemStart: 31-73-8477Avbzv BMI ScreeningAdult BMI ScreeningMcCullough-Hyde Memorial Hospital SystemStart: 28-88-4725Kieqlstfkm ScreeningDepression ScreeningMcCullough-Hyde Memorial Hospital SystemStart: 63-01-9887Wlgahoz ScreeningTobacco ScreeningPeoples Hospitalca Health SystemStart: 05-07-2025 End: 06-37-2790Fimhbnt encounter dwvleureh76/20/2025 8:20 AM EST Office Visit [facility] [address] [place] [address] Lucian Solomon MD [address] [place] [address] [place] [address] [facility] NeurologyStart: 52-50-8009Ijbgr BMI ScreeningAdult BMI ScreeningProKettering Health Troy SystemStart: 53-50-8340Axfmvak ScreeningTobacco ScreeningProKettering Health [facility] SystemStart: 03-17-2025 End: 64-63-3531efraogtivd50/30/2025 3:00 PM EDT Treatment [facility] [address] [place], [id number] Yakov Gonsales PTANOMS [facility] TherapyStart: 03-10-2025 End: 19-43-4709nfkidtnwguFZEN [facility] TherapyComment on above:Arrived Start: 03-03-2025 End: 21-35-0989cedzcxpjcsPCRK [facility] TherapyComment on above:Arrived Start: 02-25-2025 End: 11-16-0542qcagvhkfcyXPMI [facility] TherapyComment on above:Arrived Start: 02-18-2025 End: 78-98-1450miwuiycuzbOUYS [facility] TherapyComment on above:Arrived Start: 02-09-2025 End: 56-21-3067IVY W Auto Differential panel - BloodCBC and differential Lab Routine Multiple sclerosis (HCC) Expected: 02/09/2025 (Approximate), Expires: 02/09/2026[facility] Work Phone: Comment on above:Expected: 02/09/2025 (Approximate), Expires: 02/09/2026Start: 02-09-2025 End: 95-91-3485Jvjfmzkvnkaho metabolic 2000 panel - Serum or PlasmaComprehensive metabolic panel Lab Routine Multiple sclerosis (HCC) Expected: 02/09/2025 (Approximate), Expires: 02/09/2026[facility] HealthcareComment on above:Expected: 02/09/2025 (Approximate), Expires: 02/09/2026Start: 02-09-2025 End: 32-54-0911Qkxtqrw encounter procedureNOMS SWS NEURComment on above:Arrived Start: 12-26-2024 End: 02-04-4756Ipjcitd encounter procedureNOMS SWS NEURComment on above:Arrived Start: 57-60-4555Gpxkf BMI ScreeningAdult BMI ScreeningMcCullough-Hyde Memorial Hospital System Start: 30-41-7024Rhphary ScreeningTobacco ScreeningProBarberton Citizens Hospitaltart: 48-33-5129Yzfujkyzxc ScreeningDepression ScreeningFormerly Hoots Memorial Hospitaltart: 10-30-2024 End: 52-71-5266Gsrodvtsk B virus core IgM Ab [Presence] in Serum or Plasma by ImmunoassayHepatitis B core antibody, total Lab Routine Multiple sclerosis ([facility]) Expected: 10/30/2024 (Approximate), Expires: 10/30/2025[facility] Comment on above:Expected: 10/30/2024 (Approximate), Expires: 10/30/2025Start: 10-30-2024 End: 22-34-6934GQ Brain WO and W contrast IVMR brain w and wo contrast routine Imaging Routine Multiple sclerosis ([facility]) Expected: 10/30/2024, Expires: 10/30/2025[facility] Work Phone: Comment on above:Expected: 10/30/2024, Expires: 10/30/2025Start: 10-30-2024 End: 49-83-6724AK Lumbar spine WO and W contrast IVMR lumbar spine w and wo contrast Imaging Routine Multiple sclerosis ([facility]) Foraminal stenosis of lumbar region Left leg weakness Expected: 10/30/2024, Expires: 10/30/2025[facility] HealthcareComment on above:Expected: 10/30/2024, Expires: 10/30/2025Start: 10-30-2024 End: 06-51-8679DYWHSHIFRPH TB GOLDQuantiferon TB Gold Lab Routine Multiple sclerosis ([facility]) Expected: 10/30/2024 (Approximate), Expires: 10/30/2025[facility] HealthcareComment on above:Expected: 10/30/2024 (Approximate), Expires: 10/30/2025Start: 10-30-2024 End: 91-26-0725Weftebt encounter moailedsc69/15/2025 9:00 AM EDT Office Visit [facility] NEUR [address] [place] [address] Lucian Solomon MD [address] [place] [address] [place] [address] ArrivedNO [facility] NEURComment on above: ArrivedStart: 95-75-3038Ckczq BMI ScreeningAdult BMI ScreeningProMedica Health SystemStart: 41-51-3477Imnrhistxj ScreeningDepression ScreeningProMedica Health SystemStart: 29-24-6426Awdlnjx ScreeningTobacco ScreeningProMedica Health System Start: 09-25-2024 End: 13-47-3940sefkgjudps33/10/2025 9:00 AM EDT Infusion Shanti Salinas Freddy [facility] - Medical Oncology [address] [place] [address] Shanti Hayes [facility] - Medical OncologyStart: 11-70-2462Srqnw BMI ScreeningAdult BMI ScreeningProMedica Health SystemStart: 20-41-9485Evvgyuvgkl ScreeningDepression ScreeningProMedica Health SystemStart: 47-43-6609Munmiof ScreeningTobacco ScreeningProMedica Health SystemStart: 07-30-2024 End: 35-30-5988Ddfwjnw encounter ursewixwo67/12/2025 2:30 PM EST Office Visit [facility] [address] [place] [phone] Spencer Judge, DPM [address] [place], [place] [phone] ArrivedNOKINDRED HOSPITAL PODIATRYComment on above:ArrivedStart: 46-16-3803Pcfkn BMI ScreeningAdult BMI ScreeningProMemorial Health System [facility] Hospitalca [facility] SystemStart: 07-10-2024 End: 63-19-8284Dmxemdx encounter oxvdriujh75/23/2025 2:40 PM EST Office Visit [facility] [address] [place] [phone] Alycia Nix PA [address] [place] [address] [facility] ROUTEStart: 07-06-2024 Adult BMI ScreeningAdult BMI ScreeningMcCullough-Hyde Memorial Hospital SystemStart: 07-04-2024 Tobacco ScreeningTobacco ScreeningMcCullough-Hyde Memorial Hospital SystemStart: 04-23-2024 End: 34-50-7510Tsvkamn encounter udgtwrxdd56/06/2024 3:40 PM EST Office Visit [facility] NE NEURO [address] [place] [address] Lauryn Alicia PA [address] [place], [place] [id number] ArrivedNOMS NE NEUROComment on above:ArrivedStart: 47-89-7165Qlmxvitbqv ScreeningDepression ScreeningProKettering Health Troy SystemStart: 04-23-2024 End: 05-71-3766Jfpbdb trigger point, 1 or 2Inject trigger point, 1 or 2 Procedures Routine Lumbar back pain Myalgia Expected: 04/23/2024 (Approximate), Expires: 04/23/2025[facility] Work Phone: comment on above:Expected: 04/23/2024 (Approximate), Expires: 04/23/2025Start: 04-10-2024 End: 46-25-2714iothljmqgg73/24/2024 9:00 AM EDT Infusion Shanti Hayes [facility] - Medical Oncology [address] [place] [phone] Shanti Hayes [facility] - Medical OncologyStart: 03-19-2024 End: 71-66-2634wheyqevhkm07/02/2024 4:30 PM EDT Treatment [facility] CI PT [address] [facility] [address] [place] [address] Vannesa Mensah, PT [address] [facility] [address] [place] [address] N[facility] CI PTStart: 03-18-2024 End: 01-08-7007Xtetzut encounter procedureNOMS [facility] R[facility]TEStart: 03-12-2024 End: 25-79-6942fgyxzzhzabXFIJ CI PTComment on above:ArrivedStart: 03-05-2024 End: 92-52-1805hotgrnbksbXPCZ CI PTComment on above:ArrivedStart: 02-26-2024 End: 22-99-2225relnizyeagNAUP CI PTComment on above:ArrivedStart: 02-21-2024 End: 48-03-5986qvlgaxponxSFBO CI PTComment on above:ArrivedStart: 02-14-2024 End: 50-82-7561ntlqhjvxfv48/29/2024 3:00 PM EDT Evaluation [facility] PT [address] [facility] [address] [place] [address] Vannesa Mensah, PT [address] [facility] [address] [place] [address] Lumbar radiculopathy; Multiple sclerosis (CMS/HCC); Left leg weakness; Left foot dropNOMS CI PTComment on above:Lumbar radiculopathy; Multiple sclerosis (CMS/HCC); Left leg weakness; Left foot dropStart: 02-05-2024 End: 49-69-7337CMD W Auto Differential panel - BloodCBC auto differential Lab Routine Multiple sclerosis ([facility]) Expected: 02/05/2024 (Approximate), E xpires: 08/07/2024[facility] Work Phone: comment on above:Expected: 02/05/2024 (Approximate), Expires: 08/07/2024Start: 02-05-2024 End: 62-33-7041Rjihbvndoswvr metabolic 2000 panel - Serum or PlasmaComprehensive metabolic panel Lab Routine Multiple sclerosis ([facility]) Expected: 02/05/2024 (Approximate), Expires: 08/07/2024[facility] HealthcareComment on above:Expected: 02/05/2024 (Approximate), Expires: 08/07/2024Start: 02-05-2024 End: 50-95-2586Apnikcqiu b surf ab quantHepatitis b surf ab quant Lab Routine Multiple sclerosis ([facility]) Expected: 02/05/2024 (Approximate), Expires: 08/07/2024[facility] HealthcareComment on above:Expected: 02/05/2024 (Approximate), Expires: 08/07/2024Start: 02-05-2024 End: 34-48-8696JRUDECKSO B SURFACE ANTIGEN ([facility])HEPATITIS B SURFACE ANTIGEN ([facility]) Lab Routine Multiple sclerosis ([facility]/HCC) Expected: 02/05/2024 (Ap proximate), Expires: 08/07/2024[facility] HealthcareComment on above:Expected: 02/05/2024 (Approximate), Expires: 08/07/2024Start: 02-05-2024 End: 44-90-9331Xujpcunni B virus core IgM Ab [Presence] in Serum or Plasma by ImmunoassayHepatitis B core antibody, total Lab Routine Multiple sclerosis ([facility]/HCC) MS (multiple sclerosis) ([facility]/HCC) Expected: 02/05/2024 (Approximate), Expires: 08/07/2024[facility] HealthcareComment on above:Expected: 02/05/2024 (Approximate), Expires: 08/07/2024Start: 02-05-2024 End: 93-11-7775Wzsemqogw C virus Ab [Presence] in Serum or Plasma by Immunoassay Hepatitis C antibody Lab Routine Multiple sclerosis ([facility]/HCC) MS (multiple sclerosis) (CMS/HCC) Expected: 02/05/2024 (Approximate), Expires: 08/07/2024[facility] HealthcareComment on above:Expected: 02/05/2024 (Approximate), Expires: 08/07/2024Start: 02-05-2024 End: 00-14-9653RMG-1/HIV-2 antigen/antibody combination immunoassayHIV-1 and HIV-2 antibodies Lab Routine Multiple sclerosis ([facility]/HCC) MS (multiple sclerosis) ([facility]/HCC) Expected: 02/05/2024 (Approximate), Expires: 08/07/2024[facility] HealthcareComment on above:Expected: 02/05/2024 (Approximate), Expires: 08/07/2024Start: 02-05-2024 End: 40-50-1272Lzcelsw encounter ehgjmzecj41/20/2024 2:00 PM EDT [facility] [address] [facility] [address] [place] [phone] Leonidas Charles MD [address] [place] [address] [facility] NEUROLOGYComment on above:ArrivedStart: 02-05-2024 End: 83-94-7571KCOAXXJPRWB TB GOLDQUANTIFERON TB GOLD Lab Routine Multiple sclerosis ([facility]) MS (multiple sclerosis) ([facility]) Expected: 02/05/2024 (Approximate), Expires: 08/07/2024[facility] HealthcareComment on above:Expected: 02/05/2024 (Approximate), Expires: 08/07/2024Start: 02-05-2024 End: 93-77-5361LRAWIIAL JCV(TM) AB (WITH INDEX) W/RFL INHIBITIONSTRATIFY JCV(TM) AB (WITH INDEX) W/RFL INHIBITION Lab Routine MS (multiple sclerosis) ([facility]) Expected: 02/05/2024 (Approximate), Expires: 08/07/2024[facility] HealthcareComment on above:Expected: 02/05/2024 (Approximate), Expires: 08/07/2024Start: 02-05-2024 End: 98-70-7706Unrlrkmpt zoster antibody, IgGVaricella zoster antibody, IgG Lab Routine Multiple sclerosis ([facility]) MS (multiple sclerosis) ([facility]) Expected: 02/05/2024 (Approximate), Expires: 08/07/2024[facility] HealthcareComment on above: Expected: 02/05/2024 (Approximate), Expires: 08/07/2024Start: 11-30-2023 End: 91-54-2558Rjghppu encounter jykytyxbr60/14/2024 1:00 PM EDT [facility] [place] [facility] [address] [facility] [address] [place] [address]HsiZmlemr [facility] [place] - NeurophysiologyStart: 11-14-2023 End: 51-72-4995Cpaztbw encounter lbfhqwkwo97/29/2024 3:00 PM EDT Office Visit [facility] [address] [place] [address] Yecenia Vazquez, [address] [facility], [place] [facility] - Family MedicineStart: 09-24-2023 End: 86-63-9452Wtxjpsr encounter ynceonafh50/08/2024 2:45 PM EDT Appointment [facility] [place] - Neurophysiology [address] [facility] [address] [place] [address]GwqRmfzolHelen Keller Hospital - NeurophysiologyStart: 09-18-2023 End: 71-18-0262Xhrfrxk encounter lgjcnbadi04/02/2024 10:30 AM EDT Appointment [facility] - [facility] [address] [facility] [address] [place] [address]GwvRlkbloHelen Keller Hospital - NeurophysiologyStart: 08-21-2023 End: 14-60-8150Uxgespo encounter grzuripui82/05/2024 3:15 PM EST [facility] [place] [facility] [address] [place] [address] ArrivedProMedica [place] - Total RehabComment on above:ArrivedStart: 08-06-2023 End: 54-94-5605Yrghuuc encounter zljmfqbyp27/19/2024 10:10 AM EST Office Visit [facility] - [facility] [address] [facility] [facility] [place] [address] Tamie Gómez, PLACEMENT ASSISTANT-MERCHANDISE SUPERVISOR [address] [place] [address] [facility] - Family MedicineStart: 07-19-2023 End: 68-52-4485Iukdmam encounter onrimxmfi57/01/2024 12:45 PM EST Office Visit [facility] Neuro[facility] [address] [place] [address] Solo Pan MD [address] [facility] [address] [place] [address] [facility] Start: 18-13-2580Cnxqfmojymbirk of varicella zoster vaccineZoster (Shingles) Vaccine (1 of 2)[facility] End: 26-43-6373Hehwczhqrkjrce vitamin b-12Vitamin B12 Lab Routine B12 deficiency 1 Occurrences starting 05/12/2024 until 05/12/2025[facility] Work Phone: Comment on above:1 Occurrences starting 05/12/2024 until 05/12/2025 End: 92-86-2348NLOCOI Neurology Routine Neuropathy Leg pain, left 1 Occurrences starting 07/31/2023 until 07/31/2024[facility] Work Phone: Comment on above:1 Occurrences starting 07/31/2023 until 07/31/2024 End: 90-44-7976AZLNRP Neurology Routine Left lumbar radiculopathy 1 Occurrences starting 10/22/2023 until 10/21/2024[facility] Work Phone: Comment on above:1 Occurrences starting 10/22/2023 until 10/21/2024Protein electrophoresis, serumProtein electrophoresis, serum Lab Routine Peripheral polyneuropathy 10/22/2023 3:45 PM [facility] Immunizations Immunization DateImmunizationNotesCare TbcfatdbPtdqfdqi92-80-5932rvnhtwu toxoid, reduced diphtheria toxoid, and acellular pertussis vaccine, adsorbedPalaurenta Bety Other [place] [facility] Other Payers DatePayer CategoryPayerPolicy [id number] (Managed Care)[facility] MEDICARE ADVANTAGE [id number] [id number] [id number] 2016Medicare HMO ANTHEM MEDICARE Member Subscriber Plan / Payer (Effective 2015-Present) Name: Noemy Packer Relation to Subscriber: Self Name: Noemy Packer Payer ID: [id number] (NAIC) Group ID: [id number] Type: Not on file Address: [facility] [id number] [place] [id number] [id number] 2.0.1.683621.3.57[id number] 2..1.468198.3.57[id number] 2..1.417053.3.57[id number] 2..1.400819.3.57[id number] 2..1.425067.3.57[id number] 2.0.1.811878.3.57[id number] 2.0.1.701798.3.57[id number] 2.16.840.1.361869.3.57[id number] 2.16.840.1.205581.3.57[id number] 2.16.840.1.873249.3.57[id number] 2.16.840.1.306928.3.579.[id number] 2.16.840.1.178387.3.579.[id number] 2.840.1.361848.3.57[id number] 2.840.1.449559.3.57[id number] 2..840.1.989492.3.57[id number] 2..840.1.597978.3.57[id number] 2..840.1.586396.3.57[id number] 2..840.1.940414.3.57[id number] 2.16.840.1.744181.3.57[id number] 2.16.840.1.750123.3.579.2.[id number] 2.16.840.1.012533.3.579.2.980772-46-1438Ipmcyjn1997127 2.16.840.1.939894.3.579.2.6[id number] 2.16.840.1.085893.3.579.[id number] 2.16.840.1.902470.3.579.2.4[id number] 2.16.840.1.310956.3.57[id number] 2.16.840.1.457707.3.57[id number] 2.16.840.1.726656.3.57[id number] 2.16.840.1.497849.3.57[id number] 2.16.840.1.645578.3.57[id number] 2.16.840.1.031000.3.57[id number] 2.16.840.1.934660.3.57[id number] 2.840.1.051977.3.579.2.1286 [id number] [id number] Social History DateTypeDetailFacilityUnknown if ever smokedJiangxi [employer] Other Start: 11-27-2023 End: 53-06-8996Mkl Assigned At [facility] HospitalCl[facility] Other Start: 11-27-2023 End: 21-55-6156Widrywo smoking status NHISEx-smokerNOMS HealthcareHistory of tobacco useCurrent smokerNOMS HealthcareHistory of tobacco useCigarette Smoker [facility] HealthcareStart: 02-05-2024 End: 75-06-5608Nqhdchtjd beverage intakeCurrent drinker of alcohol (finding)[facility] HealthcareStart: 11-27-2023 End: 32-61-5720Czbrjmm of Social functionNOMS HealthcareHow often to you have a drink containing alcohol?Monthly or lessNOMS HealthcareHow many standard drinks containing alcohol do you have on a typical day?1 or 2NOMS HealthcareHow often do you have 6 or more drinks on 1 occasion?NeverNOMS HealthcareStart: 1960 Sex assigned at birthNot on fileNOAZ HealthcareStart: 04-30-2024 End: 69-69-4901[place]aoa use and exposureSmokeless tobacco non-userMcCullough-Hyde Memorial Hospital SystemStart: 20-52-6046Asmkbmi smoking status NHISNever smoked tobacco [facility] SystemStart: 07-04-2023 End: 83-53-1222Zkwhufm intakeCurrent non-drinker of alcohol (finding)[facility] SystemDo you belong to any clubs or organizations such as jewish groups, unions, fraternal or athletic groups, or school groups?NoPElizabeth Hospital Health System Are you now , , , , never or living with a partner?MarriedPeoples Hospitalca Health SystemHow many standard drinks containing alcohol do you have on a typical day?Patient does not drinkProMemorial Health System Selby General Hospitalca Health SystemDo you feel stress - tense, restless, nervous, or anxious, or unable to sleep at night because yourmind is troubled all the time - these days [OSQ]Only a littleProMedica Health SystemHow hard is it for you to pay for the very basics like food, housing, medical care, and heatingSomewhat hardMcCullough-Hyde Memorial Hospital SystemStart: 86-95-7770HzoBpdh (finding)[facility] SystemStart: 1960 Sex [facility]igned [facility] Goals DatePatient GoalDesired Activity/StatePersonal health goal Clinical Notes 04-27-2020 to 02-09-2025 Note Date & QsahCpruSkjvrpzt15-99-7802 History of Present illness Narrative* Lucian Solomon [...] medications. This clinical note was created utilizing [employer] documentation system. All information has beenthoroughly reviewed, corrected as necessary, and authenticated by the provider to ensure accuracy and completeness. On occasion, [employer] documentation system erroneously drops words or replaces [...] 3. This clinical note was created utilizing [employer] documentation system. All information has been thoroughly [...] weeks from now. documented in this encounterSaint Louis University HospitalVfoctfawyu91-93-4527 History of Present illness Narrative* Lucian Solomon [...] Demyelinating disease of central nervous system (HCC) ([facility]) 11/25/2012 Diplopia 11/25/2012 Lack of coordination 11/25/2012 Left foot drop 06/23/2019 Left leg weakness Multiple sclerosis ([facility]) 12/16/2012 Neuromuscular disorder ([facility]) Optic neuritis 11/25/2012 Paresthesia Past Surgical History: [...] Packer Depression: At risk (08/27/2024) Received from [facility] PHQ-2 Total Score: 5 REVIEW OF SYMPTOMS: [...] reflexes: Luis's absent. Ankle clonus absent. Coordination Gbdait-fs-lsxa, rapid alternating movements and ymva-nn-svgs normal bilaterally without dysmetria. Gait Normal casual, [...] fluid. He was [facility] past [facility] for second opinion. Per [facility] records, the [...] brain w and wo contrast routine; Future-[facility] Spivey Consider Mavenclad-Handout given. Consider dalfampridine to help [...] lumbar spine w and wo contrast; Future-[facility] Sp[facility] Total time 30 minutes spent reviewing records, [...] Lucian Solomon MD documented in this encounterSaint Louis University HospitalFnuncdimyb31-77-5413 History of Present illness Narrative* Yecenia Vazquez, DO - 08/27/2024 4:15 PM EDT IM PROGRESS NOTE Patient - Noemy Packer Age - 64 y.o. - 1960 [facility] # - [id number] ASSESSMENT & PLAN 1. Anterior horn cell [...] this. -he had an EMG done in [place] approximately 1 year ago which showed an [...] Wt 72.8 kg (160 lb 6.4 oz) MtR860% BMI 23.68 kg/m Physical Exam Vitals reviewed. Exam conducted with a transcribing machine operator present (). Constitutional: General: He is not [...] for pain. 3 tabs, Disp: , Rfl: sakhqplu-qurg-ND-calcium &mins (THERAGRAN-M) 9 mg iron-400 mcg tablet, [...] Testing No results found. 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 documented in this encounterSelect Medical Specialty Hospital - [facility]02-12-2025 History of Present illness Narrative* Spencer Judge [...] Demyelinating disease of central nervous system (HCC) ([facility]) 11/25/2012 Diplopia 11/25/2012 Lack of coordination 11/25/2012 Left foot drop 06/23/2019 Left leg weakness Multiple sclerosis ([facility]) 12/16/2012 Neuromuscular disorder ([facility]) Optic neuritis 11/25/2012 Paresthesia Medications Current Outpatient [...] he has also had significant improvement with adapted physical education aide apy and I recommend that he continue [...] Spencer Judge DPM documented in this encounterSaint Louis University HospitalJywydevbum91-12-9802 History of Present illness Narrative* Yecenia Vazquez, DO - 05/12/2024 4:15 PM EST IM PROGRESS NOTE Patient - Noemy Packer Age - 64 y.o. - 1960 ASSESSMENT & PLAN 1. Multiple sclerosis ([facility]) (Primary) -now seeing Neurology (NANNETTE White) and [...] Exam Vitals reviewed. Exam conducted with a transcribing machine operator present (). Constitutional: General: He is not [...] for pain. 3 tabs, Disp: , Rfl: fvymkgzp-xprz-BD-calcium &mins (THERAGRAN-M) 9 mg iron-400 mcg tablet, [...] Testing No results found. Yecenia Vazquez DO., [facility] Physicians Office: [phone] documented in this encounterSelect Medical Specialty Hospital - [facility]ron11-13-2024 History of Present illness Narrative* TERRELL Gilbert - 04/30/2024 9:00 AM ESTAssociated Order(s): Trigger Point Injection: left iliocostalis lumborum Post-Procedure Diagnose(s): Myalgia; Lumbar back pain Images from the original note were not included. Subjective Noemy Packer is a 64 y.o. year old male Chief Complaint Patient presents with Trigger Point Injections Past Medical History: Diagnosis Date Demyelinating disease of central nervous system (HCC) ([facility]) 11/25/2012 Diplopia 11/25/2012 Lack of coordination 11/25/2012 Left foot drop 06/23/2019 Left leg weakness Multiple sclerosis ([facility]) 12/16/2012 Optic neuritis 11/25/2012 Paresthesia Past Surgical History: Procedure Laterality Date APPENDECTOMY Family History Problem Relation Name Age of Onset Cancer Other Social History Tobacco Use Smoking status: Former Types: Cigarettes Smokeless tobacco: Never Substance Use Topics Alcohol use: Yes Medication Documentation Review Audit Reviewed by Franchesca Emery MA (Territory Account Executive) on 04/30/24 at 0840 Medication Order Taking? Sig Documenting Provider Last Dose Status cyanocobalamin (Vitamin B-12) 1000 MCG tablet [id number] No Take 1,000 mcg by mouth Daily Historical Provider, Not Taking Active Multiple Vitamin tablet [id number] No Take 1 tablet by mouth Daily Notes: *please review for potential _update for e-prescription and drug interaction check* TERRELL Vences Not Taking Active pregabalin (Lyrica) 75 MG capsule [id number] Take 1 capsule (75 mg) by mouth [...] Demyelinating disease of central nervous system (HCC) ([facility]/HCC) 11/25/2012 Diplopia 11/25/2012 Lack of [...] Review Audit Reviewed by Stacey Reid MA (Territory Account Executive) on 04/23/24 at 1543 Medication Order Taking? 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 LUE Strength deltoid, biceps, triceps, wrist extensors, wrist extensors, wrist flexor, delivery driver strength 5/5. RLE Strength illopsoas, quadriceps, tibialis [...] all orders for this visit: Multiple sclerosis ([facility]) 64 year old male with history of [...] surgical candidate and recently was evaluated at [facility]. He tried and had side effect tocymbalta, [...] also noted on cervical spine MRI from [facility] in 2017. MRI thoracic spine 11/2012: revealed abnormal cord signal posterior to T10-T11 disc space with associated enhancement suspicious for an area or demyelinating plaque or possibly transverse myelitis. PLAN I let patient know that [facility] in [place] has his Lyrica that he can refill [...] attempt of being contacted to rs. [facility] HospitalYhictlcivv79-71-4863 Miscellaneous Notes* Telephone Encounter - Pita Lomax - 04/15/2024 3:09 PM EDT Received no attempt of being contacted to rs. documented in this encounterSaint Louis University HospitalKzyhialcwk96-36-0745 History of Present illness Narrative* Ebony Hayward [...] vehicle in stable condition. documented in this encounter[facility] History of Present illness Narrative* Lucien Ac [...] ambulatory in stable condition. documented in this encounterSelect Medical Specialty [facility] [place]09-25-2024 History of Present illness Narrative* Vannesa Mensah, [...] to be instructed in home exercise program. Press Breaker Goals: To be met in 10 weeks [...] sign below. Date: documented in this encounterSaint Louis University HospitalZcemuuooap09-68-8836 History of Present illness Narrative* Vannesa Mensah, [...] to be instructed in home exercise program. Press Breaker Goals: To be met in 10 weeks [...] sign below. Date: documented in this encounterSaint Louis University HospitalVjyywqihmr92-33-0029 History of Present illness Narrative* Vannesa Mensah, [...] to be instructed in home exercise program. Press Breaker Goals: To be met in 10 weeks [...] sign below. Date: documented in this encounterSaint Louis University HospitalPwdtydqwlp59-31-9325 History of Present illness Narrative* Vannesa Mensah, [...] to be instructed in home exercise program. Press Breaker Goals: To be met in 10 weeks [...] sign below. Date: documented in this encounterSaint Louis University HospitalLxisffrpon07-93-6807 History of Present illness Narrative* Vannesa Mensah, [...] to be instructed in home exercise program. Skilled Nursing Goals: To be met in 10 weeks [...] sign below. Date: documented in this encounterSaint Louis University HospitalNcdqzedrfh74-65-8174 Telephone encounter Note* Telephone Encounter - Franko Mckeon MA - 02/06/2024 3:00 PM EDT Did not go through in visit. [facility] HospitalXhcnmnxsyq74-92-0858 Miscellaneous Notes* Telephone Encounter - Franko Mckeon MA - 02/06/2024 3:00 PM EDT Did not go through in visit. documented in this encounterSaint Louis University HospitalNlvjimermc22-16-5012 History of Present illness Narrative* Leonidas Charles MD - 02/05/2024 2:00 PM EDT Subjective Noemy Packer is a 63 y.o. year old male Chief Complaint Patient presents with Back Pain Multiple Sclerosis Past Medical History: Diagnosis Date Demyelinating disease of central nervous system (HCC) ([facility]) 11/25/2012 Diplopia 11/25/2012 Lack of coordination 11/25/2012 Left foot drop 06/23/2019 Left leg weakness Multiple sclerosis ([facility]/HCC) 12/16/2012 Optic neuritis 11/25/2012 Paresthesia Past Surgical History: Procedure Laterality Date APPENDECTOMY Family History Problem Relation Name Age of Onset Cancer Other Social History Tobacco Use Smoking status: Former Types: Cigarettes Smokeless tobacco: Not on file Substance Use Topics Alcohol use: Yes Medication Documentation Review Audit Reviewed by Stacey Reid MA (Territory Account Executive) on 12/17/23 at 1508 Medication Order Taking? Sig Documenting Provider Last Dose Status cyanocobalamin (Vitamin B-12) 1000 MCG tablet [id number] Take 1,000 mcg by mouth Daily Historical Provider, Active Multiple Vitamin tablet [id number] Take 1 tablet by mouth Daily Notes: *please review for potential _update for e-prescription and drug interaction check* TERRELL Vences Active OXcarbazepine (Trileptal) 150 MG tablet [id number] Take 150 mg by mouth in the morning and 150 mg before bedtime. 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 LUE Strength deltoid, biceps, triceps, wrist extensors, wrist extensors, wrist flexor, delivery driver strength 5/5. RLE Strength illopsoas, quadriceps, tibialis [...] fluid. He was evaluated in past by [facility] for second opinion. Per [facility] records, the diagnosis of MS is supportedby [...] also noted on cervical spine MRI from [facility] in 2018. MRI thoracic spine (11/2012) revealed [...] surgical candidate and recently was evaluated at [facility]. He tried and had side effect to [...] prognosis, treatment options. documented in this encounterSaint Louis University HospitalZnchxtkofn10-73-1590 History of Present illness Narrative* Logan Dunbar APRN-FÁTIMA - 12/10/2023 11:00 AM EDT Images from the original note were not included. [facility] [address] [place] [address], [address] [place] [address] * CHART NOTE ? 12/10/2023 Patient: Noemy Packer [id number] Physician: Logan Dunbar CNP CHIEF COMPLAINT Follow up, lumbar. HISTORY OF PRESENT ILLNESS 63-year-old male with a history of left low back and left lower extremity pain presents for a follow up to review a recent EMG of the BLE. He has had PT and injections without improvement. He admits to weakness in the LLE and balance problems. 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 [...] for pain. 3 tabs, Disp: , Rfl: mfqtlyre-nsdc-RY-calcium &mins (THERAGRAN-M) 9 mg iron-400 mcg tablet, [...] record of the patient encounter. Inadvertent computerized forms analysis manager errors related to syntax, spelling, homophones, and/or inaudibility may be present. MARIJA Del Valle 12/10/23 1250 documented in this encounterSelect Medical Specialty Hospital [facility] [place]06-24-2024 Instructions* Patient Instructions* Angely Hutchison - 12/10/2023 11:00 AM EDT Patient seen today by Dara Diamond to discuss treatment plan with Dr. Pan KM documented in this encounterSelect Medical Specialty Hospital [facility] [place]05-06-2024 History of Present illness Narrative* Yecenia Vazquez, [...] 6 months to get this done in [place]. Will order locally at [facility] in [place] to try and expedite his evaluation. -in [...] awaiting an EMG to be performed in [place]. This was ordered in June 2023 is [...] -He has been to pain management in [place] as well as at [facility], and has received multiple injections which he [...] for pain. 3 tabs, Disp: , Rfl: hmqmdjkf-shwq-LG-calcium &mins (THERAGRAN-M) 9 mg iron-400 mcg tablet, [...] Testing No results found. Yecenia Vazquez DO., [facility] Physicians Office: [phone] documented in this encounterSelect Medical Specialty Hospital [facility] [place]02-27-2024 Miscellaneous Notes* Telephone Encounter - Kai Moreno [...] Kai as we discussed documented in this encounterSelect Medical Specialty Hospital [facility] [place]02-27-2024 Telephone encounter Note* Telephone Encounter - Kai [...] to call and schedule with them [place]. 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 Referral was received from Dr. Pan to schedule an appointment with Dr. Clay at [facility]. They are also asking a separate EMG order. Please refer to the request that is uploaded on Media. * Telephone Encounter - Lois Urena - 07/20/2023 2:08 PM EST 1st attempt: Called and left patient a voicemail letting them know we have received their referral,are ready to schedule, and to call us back at their earliest convenience to do so. Cloud Developer provided callback number for scheduling or to [...] to make an appointment. documented in this encounterSelect Medical Specialty [facility] [place]02-02-2024 Telephone encounter Note* Telephone Encounter - Alejandra Montiel CMA - 07/20/2023 2:08 PM EST Images from the original note were not included. Referral was received from Dr. Pan to schedule an appointment with Dr. Clay at [facility]. They are also asking a separate EMG order. Please refer to the request that is uploaded on Media. [facility] [employer] EnergyNeuabq19-35-8855 Telephone encounter Note* Telephone Encounter - Lois Urena - 07/20/2023 2:08 PM EST 1st attempt: Called and left patient a voicemail letting them know we have received their referral,are ready to schedule, and to call us back at their earliest convenience to do so. Cloud Developer provided callback number for scheduling or to address any questions or concerns they may have. [facility] [employer] EnergyIgvtsz11-90-9347 Telephone encounter Note* Telephone Encounter - Lois Urena - 07/20/2023 2:08 PM EST 2nd attempt: Called and left patient a voicemail once more letting them know we have received theirreferral, are ready to schedule, and to call us back at their earliest convenience to do so. Writerprovided callback number for scheduling or to address any questions or concerns they may have. [facility] HospitalMAINtagXktcfx32-87-8110 Telephone encounter Note* Telephone Encounter - Renetta [...] he is ready to make an appointment. [facility]-01-2024 Miscellaneous Notes* Telephone Encounter - Jose Hunter - 07/19/2023 3:11 PM EST Received Referral Referred by: SOLO PAN DX: M79.605 (ICD-10-CM) - Leg pain, left G62.9 (ICD-10-CM) - Neuropathy Called patient to schedule appt. Left VM 1st Attempt * Telephone Encounter - Lois Urena - 07/19/2023 3:11 PM EST This referral is for an EMG - per order and patient. Cloud Developer transferred patient to central scheduling. documented in this encounterSelect Medical Specialty [facility] [place]02-01-2024 Telephone encounter Note* Telephone Encounter - Liz Hunter - 07/19/2023 3:11 PM EST Received Referral Referred by: SOLO PAN DX: M79.605 (ICD-10-CM) - Leg pain, left G62.9 (ICD-10-CM) - Neuropathy Called patient to schedule appt. Left VM 1st Attempt [facility]-01-2024 Telephone encounter Note* Telephone Encounter - Lois Urena - 07/19/2023 3:11 PM EST This referral is for an EMG - per order and patient. Cloud Developer transferred patient to central scheduling. [facility]-01-2024 History of Present illness Narrative* Solo Pan MD - 07/19/2023 12:45 PM EST Images from the original note were not included. [facility] [address] [place] [address], [address] [place] [address] * CHART NOTE ? 07/24/2023 Patient: Noemy Packer 1960 [id number] Physician: Solo Pan MD CHIEF COMPLAINT Follow [...] head 35 years ago and saw an glassware engraver as hewas having trouble with his visual [...] Obtaining EMG was recommended. Denies loss of delivery driver strength, saddle anesthesia, urinary or bowel dysfunction, [...] for pain. 3 tabs, Disp: , Rfl: smtxhdgv-yqwd-CS-calcium &mins (THERAGRAN-M) 9 mg iron-400 mcg tablet, [...] Right achilles: 2+ Left achilles: 2+ Right delivery driver: 2+ Left delivery driver: 2+ Right Lindo: absent Left Lindo: absent [...] record of the patient encounter. Inadvertent computerized forms analysis manager errors related to syntax, spelling, homophones, and/or inaudibility may be present. Scribe Statement: Scribed for and in the presence of Solo Pan MD by Robin Escobar. Provider Statement: I, Solo Pan MD personally performed the services described in the documentation, as scribedby OS in my presence, and it is both accurate and complete. documented in this encounterSelect Medical Specialty [facility]01-16-2024 History of Present illness Narrative* Solo Pan MD - 07/03/2023 11:00 AM EST Images from the original note were not included. [facility] [address] [place] [address], [address] [place] [address] * CHART NOTE ? 07/04/2023 Patient: Noemy Pakcer 1960 [id number] Physician: Solo Pan MD CHIEF COMPLAINT Established [...] head 35 years ago and saw an glassware engraver as he was having trouble with his visual field and was diagnosed at that time. Patient's imaging was discussed and reviewed to their understanding in office today. Advised patient to obtain MRI's and return. Denies loss of delivery driver strength, saddle anesthesia, urinary or bowel dysfunction, [...] for pain. 3 tabs, Disp: , Rfl: oxyevitk-acwq-KW-calcium &mins (THERAGRAN-M) 9 mg iron-400 mcg tablet, [...] Right achilles: 2+ Left achilles: 2+ Right delivery driver: 2+ Left delivery driver: 2+ Right Lindo: absent Left Lindo: absent [...] head 35 years ago and saw an glassware engraver as he was having trouble with his [...] record of the patient encounter. Inadvertent computerized forms analysis manager errors related to syntax, spelling, homophones, and/or inaudibility may be present. Scribe Statement: Scribed for and in the presence of Solo Pan MD by Robin Escobar. Provider Statement: I, Solo Pan MD personally performed the services described in the documentation, as scribedby OS in my presence, and it is both accurate and complete. documented in this encounterRockingham Memorial HospitalOndore01-16-2024 Instructions* Patient Instructions* Marcela Gallegos, A - 07/03/2023 11:00 AM EST Patient was seen by Dr. Pan Patient was given orders for MRI Cervical Spine with and without contrast MRI Thoracic Spine With and without contrast MRI Brain with and without contrast Patient will follow up when MRIs have been scheduled. JA documented in this encounterSelect Medical [facility]ty [facility]07-27-2022 Evaluation note* Encounter Date Diagnosis Assessment Notes [...] not to take steroids at this time. [employer] Other 06-23-2021 NoteHNO ID: [id number] Author: Carole Henning MD Service: ? Author Type: Physician Type: Progress Notes Filed: 12/27/2020 9:28 AM Note Text: [facility] OUTPATIENT VISIT NOTE Patient Name: [...] unknown type at an outside institution in [place]. He currently does not have a copy [...] Packer was initially managed at multiple smaller on [facility] sites after which his primary [...] Take by mouth o (more content not included)...[facility]06-23-2021 NoteHNO ID: [id number] Author: Kai Canales [facility] Service: ? Author Type: Genetic Counselor Type: [...] GENETIC TESTING: None. SOCIAL HISTORY: Lives in [place], [place], with his . 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 Level of education: bachelors degree Alcohol/cigarettes/other: tobacco- former smoker, quit 19 years ago, was smoking 1/2-1ppd. EtOH- maybe a glass of wine weekly. Illicit drug use- denied. FAMILY HISTORY: - Patient's ethnicity: Maternal - [place]ian; Paternal - [place]ian. - Partner's ethnicity: not applicable. - No known -Micronesian, Mediterranean, /Czech, Luxembourgish-[place]itt[place]/Cajun, or Ashkenazi Voodoo ancestry unless noted above. - Parental consanguinity: [...] is negative for known (more content not included)...[facility]11-10-2020 NoteChief Complaint Pt is a new [...] Pt denies History of Present Illness Reviewed PRODUCTION OPERATIONS MANAGER paper works. There have been no associated [...] left-sided hydrocele. 1. Hydrocele (N43.3: Hydrocele, unspecified) PRODUCTION OPERATIONS MANAGER referred by Dr. Mcneill. Pt. states that [...] Contact Information Kieran Heath MD, Adrian Salinas [address] [place] [address] Additional Instructions: prn Patient Education Hydrocele, Adult I, Yolande Ambrose , personally scribed for Dr. Alcaraz on 04/27/2020 11:28:13. . Documentation recorded by the scribYolande arias, accurately reflects the services(s) I performed and decis (more content not included)...[facility] HospitalComment on above:Result Comment: Electronically Signed By: Adrian [...] ankle and foot documented in this encounter [facility] HealthcareEvaluation note* Diagnosis Multiple sclerosis (CMS-HCC)- [...] with neurogenic claudication documented in this encounter [facility]* Diagnosis Left lumbar radiculopathy- Primary Thoracic or lumbosacral neuritis or radiculitis, unspecified Acquired left foot drop Spina bifida occulta Peripheral polyneuropathy B12 deficiency Mixed hyperlipidemia [facility]* Diagnosis Left lumbar radiculopathy- Primary Thoracic or lumbosacral neuritis or radiculitis, unspecified Proximal leg weakness Low back pain, unspecified back pain laterality, unspecified chronicity, unspecified whether sciatica present documented in this encounter [facility]* Diagnosis B12 deficiency documented in this [facility]* Diagnosis Multiple sclerosis (CMS-HCC)- [...] left foot drop documented in this encounter [facility]Evaluation [facility]* Diagnosis Left foot drop- Primary Other acquired deformity of ankle and foot Multiple sclerosis (CMS/HCC) Multiple sclerosis Foraminal stenosis of lumbar region Left leg weakness Muscle weakness (generalized) documented in this encounter [facility] HealthcareEvaluation note* Diagnosis Multiple sclerosis (HCC)- Primary Multiple sclerosis documented in this encounter [facility] HealthcareEvaluation note* Diagnosis Multiple sclerosis (HCC)- Primary Multiple sclerosis documented in this encounter [facility] HealthcareEvaluation note* Diagnosis Multiple sclerosis (HCC)- Primary Multiple sclerosis documented in this encounter [facility] HealthcareEvaluation note* Diagnosis Multiple sclerosis (HCC)- Primary Multiple sclerosis documented in this encounter [facility] HealthcareEvaluation note* Diagnosis Multiple sclerosis (HCC)- Primary Multiple sclerosis documented in this encounter [facility] HealthcareEvaluation note* Diagnosis Multiple sclerosis- Primary documented in this encounter [facility] HealthcareEvaluation note* Diagnosis Onset Date Resolution Status Admit Date Multiple sclerosis acuteNovember 2024 9:04amScreening for prostate canceracuteNovember 2024 9:04amWellness examinationacuteNovember 2024 9:04am [facility] Work Phone: History general Narrative - Reported* Type Description Date Medical History multiple sclerosis Medical Historylegally blindSurgical Dwgbprlkharhwrpfzuc3551Qeeibeai History cholecystectomySurgical HistoryvasectomySurgical Lhfxaggpuyyswkds9690Mglwjqag HistoryappendectomySurgical Zehpniixdkjttrxpasnwip1691Gsimezrt Historylumbar puncture, pt unsure when, Zofia, [place]ontSurgical Historycolonoscopy, sigmoid diverticulosis/Dr. ReinosoUqtfnv8005Dwlvlkns Historycolonoscopy-normal,Dr ReinosoIhcknb8086 Surgical Historyright SI joint injection2-2020Surgical Historysacroiliac injection2/2020Surgical Lismuwezmyvdugtrpw6737Tszhqzklzrtqlbq Historyfor ms testing [employer] Other InstructionsNot on filedocumented in this encounter [...] Leg pain, left Neuropathy Solo Pan MD [address] [place] [id number] Duglas Clay MD [address] [place] [address] [place] [address] Referral IDStatusReasonStrockford DateExpiration DateVisits RequestedVisits [id number] Review Specialty Services Required / [facility] SystemRegeovani for referral (narrative)* Consultation (Routine) - AuthorizedSpecialtyDiagnoses / ProceduresReferred By ContactReferred To ContactRehabilitation Diagnoses Spinal stenosis of lumbar region with neurogenic claudication Tamie Gómez, PLACEMENT ASSISTANT-MERCHANDISE SUPERVISOR [address] [place] [address] [facility] [address] [place] [address] Referral IDStatusHedrick Medical CenterStrockford DateExpiration DateVisits RequestedVisits [id number] Specialty Services Required / Scheduling Instructions Would like to work with Gianni again if at all possible [facility] AkronReason for referral (narrative)No reason for referral information availableProtestant Hospital Work Phone: Reason for visit Narrative* Rehabilitation - Outpatient (Routine) - AuthorizedSpecialtyDiagnoses / ProceduresReferred By ContactReferred To ContactPhysical Therapy Diagnoses Multiple sclerosis (HCC) Procedures [place] PHYSICAL THERAPY EVALUATION LOW COMPLEX 20 MINS [place] OFFICE/OUTPATIENT NEW HIGH MDM 60 MINUTES Lucian Solomon MD [address] [place] [address] Phone: tel: fax: Maritza Arzola, PT Referral IDStatusReasonStart DateExpiration DateVisits RequestedVisits [id number]/[id number]/ [facility] Healthcare Summary Purpose Family History Relationship [...] pain, left Procedures EMG Solo Pan MD [address] [address] Referral IDStatusReasonStart DateExpiration DateVisits RequestedVisits [id number] Review2/13/050427DfegjfpwfAcmwkfrai / ProceduresReferred By ContactReferred To ContactRadiology Diagnoses Multiple sclerosis (CMS-HCC) Proximal leg weakness Procedures MR thoracic spine with and without contrast Solo Pan MD [address] [place] [address] [address] [place] [phone] [address] Phone: [phone] Referral IDStatusReasonStart DateExpiration DateVisits RequestedVisits [id number]/17/20244/[id number] / Procedures Referred By ContactReferred To ContactRadiology Diagnoses Multiple sclerosis (CMS-HCC) Proximal leg weakness Procedures MR cervical spine with and without contrast Solo Pan MD [address] [place] [address] [address] [place] [phone] [address] Phone: [phone] Referral IDStatusReasonStart DateExpiration DateVisits RequestedVisits [id number]/[id number] / Procedures Referred By ContactReferred To ContactRadiology Diagnoses Multiple sclerosis (CMS-HCC) Proximal leg weakness Procedures MR brain with and without contrast Solo Pan MD [address] [place] [address] [address] [place] [phone] [address] Phone: [phone] Referral IDStatusReasonStart DateExpiration DateVisits RequestedVisits [id number]/16/20244/[id number] / Procedures Referred By ContactReferred To ContactPhysical Therapy Diagnoses Lumbar radiculopathy Multiple sclerosis (CMS/HCC) Left leg weakness Left foot drop Procedures [place] OFFICE/OUTPATIENT [facility] 60 MINUTES Leonidas Charles MD [address] [place] [address] Referral IDStatusReasonStart DateExpiration DateVisits RequestedVisits [id number] Review Specialty Services Required Chief Complaint and [...] section and content) DATE CREATED AUTHOR 03/25/2021 [facility] DATE CREATED AUTHOR AUTHOR'S ORGANIZ ATION 07/21/2021 [facility] DATE CREATED AUTHOR AUTHOR'S ORGANIZ ATION 01/04/2022 [facility] DATE CREATED AUTHOR AUTHOR'S ORGANIZ ATION 02/26/2022 [facility] DATE CREATED AUTHOR AUTHOR'S ORGANIZ ATION 02/21/2023 [facility] DATE CREATED AUTHOR AUTHOR'S ORGANIZ ATION 05/15/2024 [facility] DATE CREATED AUTHOR AUTHOR'S ORGANIZ ATION 08/30/2024 [facility] DATE CREATED AUTHOR AUTHOR'S ORGANIZ ATION 03/11/2025 [facility] EP[facility] DATE CREATED AUTHOR AUTHOR'S ORGANIZ ATION 03/24/2025 [facility] REASON FOR VISIT (unrecogniz ed section and content) ReasonOnset DateCommentsPT [id number] and checked on current PT status. He [...] Left leg weakness Left foot drop Procedures [place] OFFICE/OUTPATIENT [facility] 60 MINUTES Leonidas Charles MD [address] [place] [address] Vannesa Mensah, PT 112 [facility] [address] [place] [address] Referral IDStatusReasonStart DateExpiration DateVisits RequestedVisits [id number] Review Specialty Services Required /[id number] IDStatusReasonStart DateExpiration DateVisits RequestedVisits [id number] Specialty Services Required /[id number] SclerosisBack PainReasonCommentsFoot PainChris Ochoa 64yo New Patient presents with [place], pain typically starts in his left hip and ends in his foot, sometimes numbness. Patient states hip pain started at least 10 years ago. Patienthad custom orthotics in the past. SS 9.5ReasonCommentsNew Patientnp/lumbar/[facility] films/no w/c/needs pktReason Onset DateCommentsNeuro Hgvzovhr34/01/2024ReasonCommentsFollow-upReview mri amanda and thoracic and cervicalReasonCommentsdiscuss therapy and the results ReasonOnset DateCommentsNew Ofblnlf16/02/2024ReasonCommentsLow back pain lt side only radiating to groin area &legReasonCommentsFollow-upTo review emg & emg is epicSpecialtyDiagnoses / ProceduresReferred By ContactReferred To Contact Neurosurgery Diagnoses Left lumbar radiculopathy Yecenia Vazquez, DO [address] [place] [address] [place] [address] [address] [facility] [address] [place] [address] Referral IDStatusReasonStart DateExpiration DateVisits RequestedVisits [id number] Review Specialty Services Required /[id number] DateCommentsMed Udemgl644ReasonComments Outpatient InfusionOcrevusSpecialtyDiagnoses / ProceduresReferred By Contact Referred To Contact Diagnoses Multiple sclerosis ([facility]) Procedures AK INJECTION, OCRELIZUMAB, 1 MG Leonidas Charles MD [address] [facility] [place] [address] o Med Onc [address] [place] [phone] Referral IDStatusReasonStart DateExpiration DateVisits RequestedVisits [id number]/26/20249/430181SdwqpoTfbhftbkMjpfxdmywi InfusionSpecialtyDiagnoses / ProceduresReferred By ContactReferred To Contact Diagnoses Multiple sclerosis ([facility]) Procedures AK INJECTION, OCRELIZUMAB, 1 MG Leonidas Charles MD [address] [facility] [place] [address] Phone: tel: fax: Shanti Salinas [facility] - Medical Oncology [address] [place] [phone] Phone: tel: fax: ReasonCommentsDiscuss MSReasonCommentsmawReasonCommentsBack PainLower pain-10 ReasonCommentsMultiple Sclerosisleft foot droplumnar stenosisReasonComments Multiple Sclerosis Care Teams (unrecognized sec tion and content) Team MemberRelationshipSpecialtyStart DateEnd Date Yecenia Vazquez MD [address] [place] [address] PCP - GeneralInternal Medicine11/27/23Team MemberRelationshipSpecialtyStart Date End Date Yecenia Vazquez MD [address] [place] [address] PCP - GeneralInternal Medicine11/27/23Team MemberRelationshipSpecialtyStart Date End Date Yecenia Vazquez MD [address] [place] [address] PCP - GeneralInternal Medicine11/27/23Team MemberRelationshipSpecialtyStart Date End Date Yecenia Vazquez MD [address] [place] [address] PCP - GeneralInternal Medicine11/27/23Team MemberRelationshipSpecialtyStart Date End Date Yecenia Vazquez MD [address] [place] [address] PCP - GeneralTuc[facility] Medical Centernal Medicine11/27/23Team MemberRelationshipSpecialtyStart Date End Date Yecenia Vazquez MD [address] [place] [address] PCP - GeneralInternal Medicine11/27/23Team MemberRelationshipSpecialtyStart Date End Date Yecenia Vazquez MD [address] [place] [address] PCP - GeneralInternal Medicine11/27/23Team MemberRelationshipSpecialtyStart Date End Date Yecenia Vazquez MD [address] [place] [address] PCP - GeneralInternal Medicine11/27/23Team MemberRelationshipSpecialtyStart Date End Date Yecenia Vazquez MD [address] [place] [address] PCP - GeneralInternal Medicine11/27/23Team MemberRelationshipSpecialtyStart Date End Date Yecenia Vazquez MD [address] [place] [address] PCP - GeneralInternal Medicine11/27/23Team MemberRelationshipSpecialtyStart Date End Date Yecenia Vazquez MD [address] [place] [address] PCP - GeneralInternal Medicine11/27/23Team MemberRelationshipSpecialtyStart Date End Date Yecenia Vazquez MD [address] [place] [address] PCP - GeneralInternal Medicine11/27/23Team MemberRelationshipSpecialtyStart Date End Date Yecenia Vazquez MD [address] [place] [address] PCP - GeneralInternal Medicine11/27/23 Leonidas Charles MD [address] [place] [address] Referring PhysicianNeurology1Team MemberRelationshipSpecialtyStart DateEnd Date Yecenia Vazquez MD [address] [place] [address] PCP - GeneralInternal Medicine11/27/23 Leonidas Charles MD [address] [place] [address] Referring PhysicianNeurology1Team MemberRelationshipSpecialtyStart DateEnd Date Yecenia Vazquez MD [address] [place] [address] PCP - GeneralInternal Medicine11/27/23 Leonidas Charles MD [address] [place] [address] Referring PhysicianNeurology1Team MemberRelationshipSpecialtyStart DateEnd Date Tamie Gómez Rose, PLACEMENT ASSISTANT-MERCHANDISE SUPERVISOR [address] [place] [address] PCP - GeneralInternal Medicine10/19/22Team MemberRelationshipSpecialtyStart Date End Date Pedro Nancy, PLACEMENT ASSISTANT-MERCHANDISE SUPERVISOR [address] [place] [address] PCP - GeneralInternal Medicine10/19/22Team MemberRelationshipSpecialtyStart Date End Date Netolynda Nancy, PLACEMENT ASSISTANT-MERCHANDISE SUPERVISOR [address] [place] [address] PCP - GeneralInternal Medicine10/19/22Team MemberRelationshipSpecialtyStart Date End Date Tamie Gómez, PLACEMENT ASSISTANT-MERCHANDISE SUPERVISOR [address] [facility] [place] [address] PCP - GeneralInternal Medicine10/19/22Team MemberRelationshipSpecialtyStart Date End Date Tamie Gómez, PLACEMENT ASSISTANT-MERCHANDISE SUPERVISOR [address] [place] [facility] [place] [address] PCP - GeneralInternal Medicine10/19/22am MemberRelationshipSpecialtyStart Date End Date Tamie Gómez, PLACEMENT ASSISTANT-MERCHANDISE SUPERVISOR [address] [place] [facility] [place] [address] PCP - GeneralInternal Medicine10/19/22am MemberRelationshipSpecialtyStart Date End Date Tamie Gómez, PLACEMENT ASSISTANT-MERCHANDISE SUPERVISOR [address] [place] [facility] [place] [address] PCP - GeneralInternal Medicine10/19/22am MemberRelationshipSpecialtyStart Date End Date Yecenia Vazquez DO [address] [place] [address] PCP - GeneralInternal Medicine09/26/23Team MemberRelationshipSpecialtyStart Date End Date Yecenia Vazquez DO [address] [place] [address] PCP - GeneralInternal Medicine09/26/23Team MemberRelationshipSpecialtyStart Date End Date Yecenia Vazquez DO [address] [place] [address] PCP - GeneralInternal Medicine09/26/23Team MemberRelationshipSpecialtyStart Date End Date Yecenia Vazquez DO [address] [place] [address] PCP - GeneralInternal Medicine09/26/23Team MemberRelationshipSpecialtyStart Date End Date KenishaYecenia howell DO [address] [place] [address] PCP - GeneralInternal Medicine09/26/23Team MemberRelationshipSpecialtyStart Date End Date JannieYecenia aragon DO [address] [place] [address] PCP - GeneralInternal Medicine09/26/23Team MemberRelationshipSpecialtyStart Date End Date JannieYecenia aragon DO [address] [place] [address] PCP - GeneralInternal Medicine09/26/23Team MemberRelationshipSpecialtyStart Date End [...] DateEnd Date Yecenia Vazquez MD PCP - GeneralTuc[facility] Medical Centernal Medicine11/27/23 Leonidas Charles MD Referring PhysicianNeurolog07/10/24 Team [...] BE BASED ON THE PRIMARY CLINICAL RECORDS. [facility]. provides no warranty or guarantee of the accuracy or completeness of information in this document.
[2025-05-06 09:22] LABS: Hematocrit 47.6 % (42.0-54.0); Hemoglobin 15.9 g/dL (14.0-18.0); Immature Granulocytes Abs Auto 0.02 10^3/uL (0.00-0.03); Immature Granulocytes Pct Auto 0.5 % (0.0-0.5); Lymphocytes Absolute Auto 0.7 10^3/uL (1.2-3.8); Mean Corpuscular HGB Conc 33.4 g/dL (29.9-35.2); Mean Corpuscular Hemoglobin 29.6 pg (25.9-34.0); Mean Corpuscular Volume 88.5 fL (80.0-94.0); Platelet Count 264 10^3/uL (150-450); Red Blood Count 5.38 10^6/uL (4.70-6.10); White Blood Count 4.3 10^3/uL (4.0-11.0)
[2025-05-06 09:48] LABS: Anion Gap 11.2; Blood Urea Nitrogen 16.0 mg/dL (7.0-18.0); Carbon Dioxide 31.0 mmol/L (21.0-32.0); Chloride 105 mmol/L (98-107); Estimated GFR (African America >60 (>=60 mL/min/1.73m^2); Estimated GFR (Non-African Ame >60 (>=60 mL/min/1.73m^2); Glucose 98 mg/dL (74-106); Potassium 4.2 mmol/L (3.5-5.1); Sodium 143 mmol/L (136-145)
[2025-05-06 09:49] LABS: Alanine Aminotransferase 34 U/L (16-63); Albumin Globulin Ratio 1.0; Albumin Level 4.0 g/dL (3.4-5.0); Alkaline Phosphatase 92 U/L (46-116); Aspartate Amino Transferase 27 U/L (15-37); Calcium 9.5 mg/dL (8.5-10.1); Globulin 3.9 g/dL; Total Protein 7.9 g/dL (6.4-8.2)
[2025-05-06 10:00] LABS: Cholesterol 182 mg/dL (<=200); HDL Cholesterol 60 mg/dL (40-60); Thyroid Stimulating Hormone 4.611 uIU/mL (0.358-3.740); Triglycerides 86 mg/dL (<=150); VLDL CHOLESTEROL 17.2 mg/dL
== END 2025-05-06 08:57 | disposition home or self-care (01) ==
LOC: LAB 08:56
PROVIDERS: PCP Family Medicine; Visit Provider Family Medicine
DX: Z00.00 Encounter for general adult medical examination without abnormal findings (principal); Z12.5 Encounter for screening for malignant neoplasm of prostate; G35.D Multiple sclerosis, unspecified
CPT/HCPCS: 36415; 80053; 80061; 84443; 85025; G0103

== ENCOUNTER 2025-05-25 08:47 | Outpatient (OUT) | payer MEDICARE, SELFPAY ==
--- OUTSIDE RECORDS SUMMARY | 2025-05-25 08:53 | XMS_ITS | CCD ---
[facility] Organization [facility] [place] Care Team Providers Care Patient Registration Manager Name Role Phone Filomena Albert Unavailable HOUSE, [...] Care Unavailable Leonidas Charles MD Unavailable Pedro DIAMOND SETTER APPRENTICE-Tamie CAMPOVERDE Primary Care Provider Yecenia Vazquez DO Primary Care Provider [phone] YECENIA VAZQUEZ Attending Unavailable TAMIE GÓMEZ Referring [...] Provider Yecenia Vazquez MD Primary Care Provider [phone] Leonidas Charles MD Unavailable Unavailable Leonidas Charles [...] MENSAH Attending Unavailable LEONIDAS CHARLES Referring Unavailable LUARYN ALICIA Attending Unavailable ALYCIA NIX Attending Unavailable [...] Allergen(s)Allergy TypeDate of OnsetReaction(s) Facility (2 sources)penicillAMINEDrug Floefmt08-79-4396usykfUuwufwlwlSelect [facility] (2 sources)Penicillin; Translations: [penicillin]Drug Kzjdccs90-46-1167LusgrTft [facility] (1 source)Soy beanPropensity to adverse reactionsUnkFitzgibbon Hospital [employer] Other (1 source)Cow's MilkPropensity to adverse reactionsUnkFitzgibbon Hospital [employer] Other (20 sources)Penicillins; Translations: [PENICILLINS]Propensity to adverse ulwdcilyu71-95-4330NgxftDMOF Healthcare (14 sources)PenicillinsPropensity to adverse reactions to uegg45-99-4925EnqqhHealthSource [facility] Work Phone: (1 source)PenicillinsPropensity to adverse reactions to kalk63-40-4234VpyxxVCU Health Community Memorial Hospital Work Phone: Medications Current Medications MedicationDrug Class(es)DatesSig (Normalized)Sig (Original)[id number] 200 actuat albuterol 0.09 mg/actuat metered dose inhaler (1 source)beta2-Adrenergic AgonistStart: 94-53-3260nspp 2 puff(s) by inhalation four times daily as neededAlbuterol Sulfate HFA 108 (90 Base) MCG/ACT 2 puffs Inhalation 4 times a day prn Dec, Activeazithromycin 250 mg oral tablet (1 source)Macrolide AntimicrobialStart: 06-79-4011Kjquffwndkxk 250 MG 2 tablet on the first [...] 10 mg oral tablet (1 source)Purine AntimetaboliteStart: 64-34-7725psjt 2 tablets by mouth once dailyCladribine(Multiple Sclerosis) (Mavenclad (10 Tablet Pack)) 10 mg tablet Active 10 MG PO Daily April 27, 2025 12:00am administer daily for 5 days for each of 2 cycles per yearly treatment courseComplies with drug therapyCough Syrup (1 source)Cough Syrup Activeibuprofen 200 mg oral tablet (18 sources)Nonsteroidal Anti-inflammatory DrugStart: 70-04-8290pphr 1 tablet by mouth every six hours as neededIbuprofen 200 mg tablet Active 200 MG PO Every 6 hours as needed April 27, 2025 12:00am Complies with drug therapy End: 00-83-6477rgrn 1 tablet by mouth every six hours [...] for e- prescription and drug interaction check* Vrosigfccqytvl-fwec-TJ-calcium &mins (THERAGRAN-M) 9 mg iron-400 mcg tablet (17 sources)slqzrohq-qqcu-MV-calcium &mins (THERAGRAN-M) 9 mg iron-400 mcg tablet Take 1 tablet by mouth inthe morning. Cjefgkbdiflnfc-afry-XC-calcium &mins (THERAGRAN-M) 9 mg iron-400 mcg tablet Take 1 tablet by mouth inthe morning. 0 ActiveMultivitamin Tablet (1 source)Start: 35-23-5380jkly 1 tablet by mouth once dailyMultivitamin Tablet Active 1 TAB PO Daily February 28, 2021 11:00pm Complies with drug therapy naproxen sodium 220 mg oral tablet (3 sources)Nonsteroidal Anti-inflammatory DrugStart: 09-43-1939lccg 1 tablet by mouth in the morning, [...] mg oral capsule (20 sources)Start: 02-05-2024 End: 91-60-9553rlqm 1 capsule by mouth in the morning, [...] 2 02/06/2024 07/14/2024 Discontinued (Ineffective)Start: 01-05-2023 End: 38-63-5129qmgc 1 capsule by mouth in the morning, [...] b12 1 mg oral tablet (20 sources)Vitamin W52Tflni: 10-23-2023 End: 87-01-4188maey 1 tablet by mouth in the morningcyanocobalamin (vitamin B- 12) 1000 MCG tablet Indications: B12 deficiency Take 1 tablet (1,000 mcg total) by mouth in the morning. 90 tablet 1 02/27/2024 Active Completed/Discontinued Medications MedicationDrug Class(es)DatesSig (Normalized)Sig (Original)acetaminophen 325 mg oral tablet (2 sources)Start: 04-10-2024 End: 70-68-0670096 mg, oral, Once, On Yolis 04/10/24 at 0915, For 1 dose, 30 MINUTES PRIOR TO TREATMENTStart: 03-27-2024 End: 99-55-7892707 mg, oral, Once, On Yolis 03/27/24 at 0830, For 1 dose, 30 MINUTES PRIOR TO TREATMENTacetaminophen 325 mg / HYDROcodone bitartrate 5 mg oral tablet (1 source)Opioid AgonistStart: 03-15-2021 End: 27-82-7151ryfy 1 tablet by mouth every eight hours as needed for pain Hydrocodone-Acetaminophen 5-325 mg tablet Discontinued 1 TAB PO Q8H as needed for Severe pain 6 3 0September 2020April 27, 2025 9:10am Left hydrocele Hydrocele, unspecifiedbupivacaine hydrochloride 2.5 mg/ml injectable solution (2 sources)Amide Local AnestheticStart: 04-30-2024 End: 12-28-4663lifcmysibho (Marcaine) 0.25 % injection 3 mLStart: 04-30-2024 End: mL, Injection, Once PRN Procedure, Starting on Sun04/30/24 at 0849, For 1 dose12 hr dalfampridine 10 mg extended release oral tablet (8 sources)Potassium Channel BlockerStart: 07-10-2024 End: 34-72-6119egpw 1 tablet by mouth in the morning, [...] 40 mg injection (4 sources)CorticosteroidStart: 04-30-2024 End: 66-15-5112ziwivcGSCGZSVozsnv Na Suc (PF) reconstituted solution 40 mgStart: 04-30-2024 End: 64-20-078324 mg, Injection, Once PRN Procedure, Starting on Sun04/30/24 at 0849, For 1 doseStart: 04-10-2024 End: 55-04-2965177 mg, intravenous, Once, On Yolis 04/10/24 at 0915, For 1 dose, 30 MINUTES PRIOR TO TREATMENT May alter blood glucose or insulin requirements. Look-alike/sound-alike medication - verify indication for use., Intravenous Specific Administration: IV PushStart: 03-27-2024 End: 32-07-3381470 mg, intravenous, Once, On Yolis 03/27/24 at 0830, For 1 dose, 30 MINUTES PRIOR TO TREATMENT May alter blood glucose or insulin requirements. Look-alike/sound-alike medication - verify indication for use., Intravenous Specific Administration: IV Push10 ml ocrelizumab 30 mg/ml injection (8 sources) End: 28-18-1821bnighjrwhvm (Ocrevus) 300 MG/10ML solution Infuse 600 mg into a venous catheter every 6 (six) months 10/30/2024 Discontinued (Therapy completed) ocrelizumab (OCREVUS) 300 mg in sodium chloride 0.9 % 250 mL IVPB (2 sources)Start: 04-10-2024 End: 07-12-5723yoxs 300 mg intravenously iaoz016 mg, intravenous, Once, On Yolis 04/10/24 at 0945, For 1 dose, DOSE #2 Start at 30 mL/hr and increase by 30 mL/hr every 30 min to a max rate of 180 mL/hr. Duration is 2.5 hours or longer. Use a dedicated IV line. Monitor for infusion reactions.Start: 03-27-2024 End: 36-32-0019910 mg, intravenous, Once, On Yolis 03/27/24 at 0900, For 1 dose, Start at 30 mL/hr and increase by 30 mL/hr every 30 min to a max rate of 180 mL/hr. Duration is 2.5 hours or longer. Use a dedicated IVline. Monitor for infusion reactions.OXcarbazepine 150 mg oral tablet (3 sources)Anti-epileptic Agent End: 83-49-8473xtlx 1 tablet by mouth in the morningOXcarbazepine (Trileptal) 150 MG tablet Take 150 mg by mouth in the morning and 150 mg before bedtime. 02/05/2024 Discontinued (Therapy completed)1000 ml sodium chloride 9 mg/ml injection (1 source)Start: 03-27-2024 End: 90-50-2609kjvn 25 mL intravenously every hour as ldletq00 mL/hr, intravenous, Continuous PRN, When mainline IV needed., Starting on Yolis 03/27/24 at 0820, Match IVF to base solution of product being administered to ensure compatibility.tiZANidine 4 mg oral tablet (6 sources)Central alpha-2 Adrenergic AgonistStart: 04-23-2023 End: 35-78-9436aomu 1 tablet by mouth twice daily as [...] (19 sources)Visual impairment; Translations: [Unspecified visual loss]Onset: 674315-82-2367OldoujmZoghmvdyovegs of surgical procedures or medical care (1 source)Postgastric surgery syndrome; 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]EpisodicDiabetes mellitus without complication (4 sources)Type 2 diabetes mellitus without complications; Translations: [TYPE 2 DM WITHOUT COMPLICATIONS]Onset: 95-93-9867LykyoyvBwmfvbufc of lipid metabolism (3 sources)Mixed hyperlipidemia; Translations: [Mixed hyperlipidemia]Onset: 669993-35-5876VlxcbfxJyudffkrenprbz and diverticulitis (1 source)Diverticulosis of sigmoid colon; Translations: [Diverticulosis of large intestine without perforation or abscess without bleeding]Chronic Inflammation; infection of eye (except that caused by tuberculosis or sexually transmitteddisease) (1 source)Retrobulbar neuritis; 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, bilateral] ChronicMultiple sclerosis (20 sources)Multiple sclerosis; Translations: [Multiple sclerosis]Onset: 79-95-4096WsqnkegAztgk acquired deformities (1 source)Spondylolisthesis L5/S1 level; Translations: [Spondylolisthesis, lumbosacral region]EpisodicOther acquired deformities (4 sources)Leg length inequality; Translations: [Unequal limb length (acquired), unspecified site]85-70-5574CmllqcqeHfgcg acquired deformities (1 source)Acquired unequal limb length; Translations: [Unequal limb length (acquired), unspecified site]EpisodicOther congenital anomalies (1 source)Spina bifida occulta; Translations: [Spina bifida occulta]10-22-2023 ChronicOther connective tissue disease (20 sources)Other symptoms and signs involving the musculoskeletal system; Translations: [Other musculoskeletalsymptoms referable to limbs]Onset: 632668-49-8787YwwiurerBlxil connective tissue disease (4 sources)Muscle pain; Translations: [...] atrophy, bilateral; Translations: [Other optic atrophy, bilateral]Onset: 25-78-7977XzdkddsFcwgn gastrointestinal disorders (1 source)Diarrhea; Translations: [Diarrhea, unspecified]EpisodicOther gastrointestinal disorders (1 source)H/O: gallstones; Translations: [Personal history of other diseases of the digestive system]EpisodicOther hereditary and degenerative nervous system conditions (5 sources)Anterior horn cell disease; 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]Onset: 314245-10-7363OpyfjilMolic hereditary and degenerative nervous system conditions (1 source)Other motor neuron disease; 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 EHR CmteOther nervous system disorders (1 source)Chronic pain; Translations: [Other chronic pain]ChronicOther nervous system disorders (1 source)Difficulty walking; Translations: [Difficulty in walking, not elsewhere classified]ChronicOther nervous system disorders (20 sources)Demyelinating disease of central nervous system; Translations: [Demyelinating disease of central nervous system, unspecified]Onset: 11-25-2012 90-04-8590VojdjovOhjez nervous system disorders (2 sources)Polyneuropathy, unspecified; Translations: [Polyneuropathy, unspecified]Onset: 18-39-6594YaqnfnkFkudy nervous system disorders (2 sources)Neuropathy; Translations: [Polyneuropathy, unspecified]07-31-2023 ChronicOther nervous system disorders (1 source)Polyneuropathy; Translations: [Polyneuropathy, unspecified]10-22-2023 ChronicOther nervous system disorders (1 source)Cervical myelopathy; Translations: [Disease of spinal cord, unspecified]01-31-0833IqrslcuQssmq nervous system disorders (1 source)Ataxia; Translations: [Ataxia, unspecified]EpisodicOther nervous system disorders (2 sources)Impairment of balance; Translations: [Other abnormalities of gait and mobility]EpisodicOther nervous system disorders (1 source)Abnormal gait; Translations: [Unspecified abnormalities of gait and mobility]EpisodicOther nervous system disorders (20 sources)Paresthesia; Translations: [Paresthesia of skin]05-57-1059Cmghhjwk Other screening for suspected conditions (not mental disorders or infectious disease) (4 sources)Patient encounter status; Translations: [Encounter for screening for malignant neoplasm of colon]Onset: 644228-56-8593QfokmvcjNmhiz upper respiratory infections (1 source)Sinusitis; Translations: [Chronic sinusitis, unspecified]Chronic Paralysis (15 sources)Monoparesis; 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, unspecified affecting unspecified side]Onset: 992538-24-6194YyxpzkrXmkqokto codes; unclassified (1 source)Family history of cancer of colon; Translations: [Family history of malignant neoplasm of digestiveorgans]EpisodicResidual codes; unclassified (1 source)Normal body mass index; Translations: [Other specified health status] EpisodicResidual codes; unclassified (2 sources)Other specified health status; Translations: [Other specified health status]Onset: 41-63-3959OqhnmglgXpghsbyzzlq; intervertebral disc disorders; other back problems (20 sources)Inflammation of sacroiliac joint; Translations: [Sacroiliitis, not elsewhere classified]Onset: 539216-05-1970UwtpyjgTqqktjfcqlz; intervertebral disc disorders; other back problems (20 sources)Low back pain; Translations: [Low back pain]Onset: 07-10-2019 89-45-5262HhcjtkvqGqcilkprksbc (4 sources)COUGH, UNSPECIFIED; Translations: [COUGH, UNSPECIFIED]Onset: 63-72-8190Badgheqoqizc (1 source)Low back pain lt side only radiating to groin area &legOnset: 52-59-8573Oatnaajojojy (1 source)Autogenerated ProblemOnset: 301796-08-6063Gfcjmorbcpoo (2 sources)Left leg zayokzbn15-53-0612Qfqbeeitmoxp (1 source)family history of colon cancerOnset: 26-76-4975Lbetwogtxuha (1 source)Outpatient InfusionOnset: 03-27-2024 Past or Other Problems Problem ClassificationProblemDateDocumented DateEpisodic/ChronicAcquired foot deformities (20 sources)Left foot drop; Translations: [Foot drop, left foot]Onset: 586364-36-9635HjdhmyyxGonupnqm of urinary tract (19 sources)Kidney stone; Translations: [Calculus of kidney]Onset: 10-18-2022 74-79-8693CljcubdcDmrpxgn obstructive pulmonary disease and bronchiectasis (1 source)Bronchitis, not specified as acute or chronicOnset: 01-11-2022 Resolved: 92-04-1105JbjunconPybe disorders (17 sources)Mood disordersOnset: 04-23-2023 Resolved: 882415-44-6094Swvxeugpjaa deficiencies (5 sources)Deficiency of other specified B group vitamins; Translations: [Cobalamin deficiency]Onset: 190370-71-4063UwynkihbDkjee connective tissue disease (2 sources)Musculoskeletal finding; Translations: [Other symptoms and signs involving the musculoskeletal system]81-44-1584IykzezhoVyvtj connective tissue disease (2 sources)Pain in left lower limb; Translations: [Pain in left leg]07-31-2023 EpisodicOther male genital disorders (17 sources)Disorder of male genital organ; Translations: [Disorder of male genital organs, unspecified]Onset: 160501-76-0005CeynqdwbBpxax nervous system disorders (17 sources)History of optic neuritis; Translations: [Personal history of other diseases of the nervous system and sense organs]Onset: 409270-99-5851 EpisodicResidual codes; unclassified (1 source)Family history of malignant neoplasm of digestive organs; Translations: [Family history of malignant neoplasm of digestive organs]Onset: 01-79-5249DejuugsgZgkvadqcdcco (1 source)Acute cough R05.1Onset: 01-11-2022 Resolved: 04-14-4749Qnnzetgkkwif (1 source)COUGH, UNSPECIFIED; Translations: [COUGH, UNSPECIFIED]Onset: 02-24-2022 [...] low as reasonably achievable. Finalized by Myranda iY MD on 03/20/2025 9:59 AMNormalProMedica Uc San [facility] Medical Center, HillcrestCT CERVICAL SPINE WO CONTon 50-49-9567HU CERVICAL SPINE WO CONTCT CERVICAL SPINE WO [...] by Leonidas Catherine MD on 03/20/2025 9:58 [facility]CT L[facility] SP[facility] WO CONTon 75-00-9511CS LUMBAR SPINE WO CONTCT LUMBAR SPINE WO [...] by Leonidas Catherine MD on 03/20/2025 10:06 [facility]CT THORACIC SP[facility] WO CONTon 31-35-9944DR THORACIC SPINE WO CONTCT THORACIC SPINE WO [...] by Myranda Yi MD on 03/20/2025 10:03 [facility] HospitalMR BRAIN W AND WO CONTRAST (ROUTINE)on 92-26-6072HW BRAIN W AND WO CONTRAST (ROUTINE)MR BRAIN [...] AvailableMR LUMBAR SPINE W AND WO CONTRASTon 08-01-7509LN LUMBAR SPINE W AND WO CONTRASTMR LUMBAR [...] 10*3/uLNOMS HealthcareImmature granulocytes/100 WBC (Bld)1 %Not Estab.[facility] Lymphocytes (Bld) [#/Vol]0.9 10*3/uLNOMS HealthcareLymphocytes/100 WBC (Bld)15 % Not Estab.[facility] HealthcareMCH (RBC) [Entitic mass]29.5 pg26.6 - 33.0 pgNOEllis Fischel Cancer CenterMCHC (RBC) [Mass/Vol]33.3 g/dL31.5 - 35.7 g/dLSaint Joseph Hospital WestMCV (RBC) [Entitic vol]89 fL79 - 97 fLNOUT HealthcareMonocytes (Bld) [#/Vol]0.5 10*3/uL NOM HealthcareMonocytes/100 WBC (Bld)8 %Not Estab.[facility] HealthcareNeutrophils (Bld) [#/Vol]4.6 10*3/uLNOUT HealthcareNeutrophils/100 WBC (Bld)74 %Not Estab. [facility] HealthcarePlatelets (Bld) [#/Vol]297 10*3/uLUTAH VALLEY HOSPITAL HealthcareRBC (Bld) [#/Vol]5.15 10*6/uLNOUT HealthcareWBC (Bld) [#/Vol]6.2 10*3/uLSaint Joseph Hospital WestHBV core IgM IA Qlon 23-51-7386GTN core Ab IA QlNegativeNegativeSaint [facility] West Laboratory - Chemistry and Chemistry - challengeon 25-60-4337Sjsvxcf [Mass/Vol] 4.3 g/dL3.9 - 4.9 g/dLUTAH VALLEY HOSPITAL HealthcareALP [Catalytic activity/Vol]104 U/LNOMS HealthcareALT [Catalytic activity/Vol]35 U/LNOMS HealthcareAST [Catalytic activity/Vol]27 U/LNOMS HealthcareBilirubin [Mass/Vol]0.4 mg/dL0.0 - 1.2 mg/dL [facility] HealthcareCalcium [Mass/Vol]9.5 mg/dL8.6 - 10.2 mg/dLSaint Joseph Hospital West Chloride [Moles/Vol]105 mmol/L96 - 106 mmol/LNOMS HealthcareCO2 [...] mg/dLNOMS HealthcareUrea nitrogen/Creatinine [Mass ratio]14 mg/mg10 - 24NOUT HealthcareLaboratory - Microbiology and Antimicrobial susceptibilityon 72-94-3172Stpkl interferon background IA Qn (Bld)0.04IU/mLNOMS HealthcareM. tuberculosis stim IFN-g by CD4+ CD8+ T-cells corrected for background Qn (Bld) 0.04IU/mLNOMS HealthcareM. tuberculosis stim IFN-g by CD4+ T-cells corrected for background Qn (Bld)0.04 [IU]/mLIU/mLNOMS HealthcareMitogen stimulated gamma interferon corrected for background Qn (Bld)2.25IU/mLNOMS HealthcareLaboratory - Miscellaneous testson 63-97-9243Vvsuwjp comment (Unsp spec) [Interp]CommentNOUT HealthcareComment on above:QuantiFERON-TB Gold Plus is a [...] (Bld)on 11-01-2024M. tuberculosis stim IFN-g Ql (Bld) [Interp]NegativeNegativeNOUT HealthcareComment on above:No response to M tuberculosis antigens detected. Infection with M tuberculosis is unlikely, but high risk individuals should be considered for additional testing (ATS/IDSA/CDC Clinical Practice Guidelines, 2017). The reference range is an Antigen minus Nil result of <0.35 IU/mL. Chemiluminescence immunoassay methodology QUANTIFERON TB GOLD INCUBATIONIncubation performed.[facility] WestNo Panel Informationon 97-98-0016Rwqnvezpa at: 01 - Lab[address] [id number] Grinder Set Up Operator Surface: Francisco Bansal PhD, Phone: [phone] Healthcare VITAMIN B12on 36-00-7989Qmucdcqaz (Vitamin B12) [Mass/Vol]794 pg/cVMhlabh675-610 [facility], IncComment on above:Performed By: #### 2132-9 #### [facility] ([id number]) [address] [place] [address], [address] [place], [place] [address]Sirqkwn Point Injection: left iliocostalis lumborumon 04-30-2024 TERRELL Gilbert 04/30/2024 9:15 AM Trigger Point Injection: left iliocostalis lumborum on 04/30/2024 8:49 AM Indications: myalgia Details: 25 G needle Medications: 40 mg methylPREDNISolone Na Suc (PF) 40 MG; 3 mL bupivacaine 0.25 % Outcome: tolerated well, no immediate complications Procedure, treatment alternatives, risks and benefits explained, specific risks discussed. Consent was given by the patient. [facility] HealthcareALL CBC WITH AUTO DIFFon 11-81-2593LNCPBBVJG ABSOLUTE AUTO0.0NOUT HealthcareBasophils/100 WBC (Bld)0.7 %0.2 - 2.0 %[facility] HealthcareEosinophils/100 WBC (Bld)1.2 %0.9 - 7.0 %[facility] HealthcareErythrocyte distribution width (RBC) [Ratio]12.9 %11.0 - 15.0 %[facility] HealthcareHematocrit (Bld) [Volume fraction]46.4 %42.0 - 54.0 %[facility] WestHemoglobin (Bld) [Mass/Vol]15.5 g/dL14.0 - 18.0 g/dLNOMS HealthcareIMMATURE GRANULOCYTES ABS AUTO 0.02NOMS HealthcareImmature granulocytes/100 WBC (Bld)0.3 %0.0 - 0.5 %[facility] WestInterpretation and review of laboratory resultsAbnormalNOUT Healthcare LYMPHOCYTES ABSOLUTE AUTO1.4NOEllis Fischel Cancer CenterLymphocytes/100 WBC (Bld)22.7 %20.5 - 60.0 %[facility] HospitalH (RBC) [Entitic mass]29.1 pg25.9 - 34.0 pgSaint Luke's HospitalHC (RBC) [Mass/Vol]33.4 g/dL29.9 - 35.2 g/dLSaint Luke's HospitalV (RBC) [Entitic vol]87.1 fL80.0 - 94.0 fLSaint Joseph Hospital WestMONOCYTES ABSOLUTE AUTO0.3NOUT HealthcareMonocytes/100 WBC (Bld)5.1 %1.7 - 12.0 %[facility] WestNEUTROPHILS ABSOLUTE AUTO4.2NOMS HealthcareNeutrophils/100 WBC (Bld)70.0 %43.0 - 75.0 %[facility] WestPlatelet mean volume (Bld) [Entitic vol]9.4 fLLow9.5 - 13.5 fLSaint Joseph Hospital WestTBH EO #0.1NOMS CentervilleTB QCM259KECNCox North RBC5.33NOMS CentervilleTB WBC6.0NOEllis Fischel Cancer CenterCLINISYNCNSaint Louis University HospitalCBC AND AUTO DIFFon 61-67-5374DIGCSKBG BASOPHIL0.0 X10E9/LNormal0.0-0.2PWVUMedicine Barnesville Hospital Comment on above:Performed By: #### CMP, TSHR, CBCA, , 2132-02 #### [facility] ([id number]) [address], [address] [place], [place] [address]BTBPHWJY NEUTROPHIL4.1 X10E9/LNormal1.5-6.6ProMercy Health Lorain Hospitalca St. [facility] Ironton CampusComment on above:Performed By: #### CMP, TSHR, CBCA, 33569-2, 2132-02 #### [facility] ([id number]) [address], [address] [place], [place] [address]Nfwuhokns/100 WBC (Bld)0.5 %NormalSelect Medical Specialty Hospital [facility], Inc Comment on above:Performed By: #### CMP, TSHR, CBCA, , 2132-02 #### [facility] ([id number]) [address], [address] [place], [place] [address]Xhlblypgtkp (Bld) [#/Vol]0.1 10*3/uLNormal0.0-0.4ProRiverside Methodist Hospital HospitalComment on above:Performed By: #### CMP, TSHR, CBCA, , 2132-02 #### [facility] ([id number]) [address], [address] [place], [place] [address]Pkzdboffgtq/100 WBC (Bld)1.3 %NormalSelect Medical Specialty Hospital - [facility], Inc Comment on above:Performed By: #### CMP, TSHR, CBCA, , 2132-02 #### [facility] ([id number]) [address], [address] [place], [place] [address]Fxpbmqkayvy distribution width (RBC) [Ratio]13.0 %Normal 11.5-15.0ProMercy Health Fairfield HospitalComment on above:Performed By: #### CMP, TSHR, CBCA, , 2132-02 #### [facility] ([id number]) [address], [address] [place], [place] [address]Tvbxybjqdf (Bld) [Volume fraction]42.1 %Fewfja03-53IsyYwwnnb [place] HospitalComment on above:Performed By: #### CMP, TSHR, CBCA, , 2132-02 #### [facility] ([id number]) [address], [address] [place], [place] [address]Ablteqrdiq (Bld) [Mass/Vol]14.3 g/gXPahwyx44.0-17.0ProRiverside Methodist Hospital HospitalComment on above:Performed By: #### CMP, TSHR, CBCA, , 2132-02 #### [facility] ([id number]) [address], [address] [place], [place] [address]Ilhncpsaipb (Bld) [#/Vol]1.4 10*3/uLNormal1.0-3.5ProMedica Chillicothe HospitalComment on above:Performed By: #### CMP, TSHR, CBCA, , 2132-02 #### [facility] ([id number]) [address], [address] [place], [place] [address]Yqcclqvvght/100 WBC (Bld)23.2 %NormalProRiverside Methodist Hospital Hospital Comment on above:Performed By: #### CMP, TSHR, CBCA, , 2132-02 #### [facility] ([id number]) [address], [address] [place], [place] [address]LNM (RBC) [Entitic mass]29.5 qeDxnpud61-71NlbBlhvws [facility] HospitalComment on above:Performed By: #### CMP, TSHR, CBCA, , 2132-02 #### [facility] ([id number]) [address], [address] [place], [place] [address]LKGV (RBC) [Mass/Vol]34.0 g/mCWddnuo84-89FwoUzgwtk [place] HospitalComment on above:Performed By: #### CMP, TSHR, CBCA, , 2132-02 #### [facility] ([id number]) [address], [address] [place], [place] [address]QIK (RBC) [Entitic vol]87 eHQcfexk91-729QgqRmjphb [place] HospitalComment on above:Performed By: #### CMP, TSHR, CBCA, , 2132-02 #### [facility] ([id number]) [address], [address] [place], [place] [address]Qzcteeqdt (Bld) [#/Vol]0.4 10*3/uLNormal0-0.9ProMercy Health Fairfield HospitalComment on above:Performed By: #### CMP, TSHR, CBCA, , 2132-02 #### [facility] ([id number]) [address], [address] [place] [address]Smlltumcm/100 WBC (Bld)6.5 %NormalSelect Medical Specialty Hospital - [facility], Inc Comment on above:Performed By: #### CMP, TSHR, CBCA, , 2132-02 #### [facility] ([id number]) [address], [address] [place], [place] [address]Sqpelgnalep/100 WBC (Bld)68.5 %NormalSelect Medical Specialty Hospital - [facility], Inc Comment on above:Performed By: #### CMP, TSHR, CBCA, , 2132-02 #### [facility] ([id number]) [address], [address] [place], [place] [address]Brptscde mean volume (Bld) [Entitic vol]7.4 fLNormal7-12 ProMWilson Memorial HospitalComment on above:Performed By: #### CMP, TSHR, CBCA, , 2132-02 #### [facility] ([id number]) [address], [address] [place], [place] [address]Fifndjpoe (Bld) [#/Vol]314 10*3/cXVubghi005-766PzwSfydin [place] HospitalComment on above:Performed By: #### CMP, TSHR, CBCA, , 2132-02 #### [facility] ([id number]) [address], [address] [place], [place] [address]MQZ COUNT4.85 X10E12/LNormal4.10-5.70[facility] Comment on above:Performed By: #### CMP, TSHR, CBCA, , 2132-02 #### [facility] ([id number]) [address], [address] [place], [place] [address]GBY (Bld) [#/Vol]6.0 10*3/uLNormal4.0-11.0[facility], IncComment on above:Performed By: #### CMP, TSHR, CBCA, , 2132-02 #### [facility] ([id number]) [address], [address] [place], [place] [address]JCQ auto differentialon 51-79-9885Zcizhslsd (Bld) [#/Vol]0.0 10*3/uLGlenbeigh Hospital SystemBasophils/100 WBC (Bld)0.5 %[facility] HospitalEosinophils (Bld) [#/Vol]0.1 10*3/uLParma Community General HospitalEosinophils/100 WBC (Bld)1.3 %[facility] HospitalErythrocyte distribution width (RBC) [Ratio]13.0 %11.5 - 15.0 %[facility] HospitalHematocrit (Bld) [Volume fraction]42.1 %39 - 49 %[facility] HospitalHemoglobin (Bld) [Mass/Vol]14.3 g/dL13.0 - 17.0 g/dLParma Community General HospitalLymphocytes (Bld) [#/Vol]1.4 10*3/uL [facility] HospitalLymphocytes/100 WBC (Bld)23.2 %[facility] HospitalH (RBC) [Entitic mass]29.5 pg27 - 34 [facility] SystemMCHC (RBC) [Mass/Vol]34.0 g/dL32 - 36 g/dLParma Community General HospitalMCV (RBC) [Entitic vol]87 fL80 - 100 [facility] ServicesMonocytes (Bld) [#/Vol]0.4 10*3/uLParma Community General HospitalMonocytes/100 WBC (Bld)6.5 %[facility] HospitalNeutrophils (Bld) [#/Vol]4.1 10*3/[facility] HospitalNeutrophils/100 WBC (Bld)68.5 % [facility] SystemPlatelet mean volume (Bld) [Entitic vol]7.4 fL7 - 12 fL [facility] SystemPlatelets (Bld) [#/Vol]314 10*3/[facility] RBC (Bld) [#/Vol]4.85 10*6/[facility] HospitalWBC corrected for nucl RBC Auto (Bld) [#/Vol]6.0[facility] Cancer CenterCOMPREHENSIVE METABOLIC PANELon 33-86-2597Sukmxyi [Mass/Vol]4.2 g/dLNormal3.2-5.3PWVUMedicine Barnesville HospitalComment on above:Performed By: #### CMP, TSHR, CBCA, , 2132-02 #### [facility] ([id number]) [address], [address] [place], [place] [address]NTQ [Catalytic activity/Vol]76 U/UBhjyjl30-377OibCldcrg [place] HospitalComment on above:Performed By: #### CMP, TSHR, CBCA, , 2132-02 #### [facility] ([id number]) [address], [address] [place], [place] [address]KUS [Catalytic activity/Vol]30 U/LNormal0-40[facility], IncComment on above:Performed By: #### CMP, TSHR, CBCA, , 2132-02 #### [facility] ([id number]) [address], [address] [place], [place] [address]Uqchg gap [Moles/Vol]7 mmol/LNormal5-15[facility] Comment on above:Performed By: #### CMP, TSHR, CBCA, , 2132-02 #### [facility] ([id number]) [address], [address] [place], [place] [address]ZGU [Catalytic activity/Vol]28 U/LNormal0-41ProRiverside Methodist Hospital HospitalComment on above:Performed By: #### CMP, TSHR, CBCA, , 2132-02 #### [facility] ([id number]) [address], [address] [place], [place] [address]Bdizureyw [Mass/Vol]0.4 mg/dLNormal0.3-1.2POhioHealth Nelsonville Health Center HospitalComment on above:Performed By: #### CMP, TSHR, CBCA, , 2132-02 #### [facility] ([id number]) [address], [address] [place], [place] [address]Okxswwn [Mass/Vol]9.5 mg/dLNormal8.5-10.5PWVUMedicine Barnesville HospitalComment on above:Performed By: #### CMP, TSHR, CBCA, , 2132-02 #### [facility] ([id number]) [address], [address] [place], [place] [address]Dkrkzvux [Moles/Vol]106 mmol/WTzfrfd83-833TguEboemr [place] HospitalComment on above:Performed By: #### CMP, TSHR, CBCA, , 2132-02 #### [facility] ([id number]) [address], [address] [place], [place] [address]LG1 [Moles/Vol]29 mmol/RHlgvrz95-39QeqCkmlrn [facility] Comment on above:Performed By: #### CMP, TSHR, CBCA, , 2132-02 #### [facility] ([id number]) [address], [address] [place], [place] [address]Mpknrbyohe [Mass/Vol]0.86 mg/dLNormal0.60-1.30ProMercy Health Fairfield HospitalComment on above:Result Comment: METHOD TRACEABLE TO IDMS STANDARD Performed By: #### CMP, TSHR, CBCA, , 2132-02 #### [facility] ([id number]) [address], [address] [place], [place] [address]uIAF (CKD-EPI) NON-RACE DEPENDENT>90Normal>59ProMercy Health Fairfield HospitalComment on above:Result Comment: Reported eGFR is based on the CKD-EPI 2020 equation that does not use a race coefficient.Performed By: #### CMP, TSHR, CBCA, , 2132-02 #### [facility] ([id number]) [address], [address] [place], [place] [address]Rfssodq [Mass/Vol]96 mg/fSQdyfzg52-38TmiPboyvtSelect Medical Specialty Hospital - [facility], Inc Comment on above:Performed By: #### SOTERO, TSHR, CBCA, , 2132-02 #### [facility] ([id number]) [address], [address] [place], [place] [address]Amvxfxcji [Moles/Vol]4.1 mmol/LNormal3.5-5.0ProMercy Health Fairfield HospitalComment on above:Performed By: #### SOTERO, TSHR, CBCA, , 2132-02 #### [facility] ([id number]) [address] [address] [place], [place] [address]Javhxwy [Mass/Vol]7.2 g/dLNormal6.0-8.0[facility] Comment on above:Performed By: #### CMP, TSHR, CBCA, , 2132-02 #### [facility] ([id number]) [address] [address] [place], [place] [address]Zhelln [Moles/Vol]142 mmol/XGwdpls913-325RcbYasqil [place] HospitalComment on above:Performed By: #### CMP, TSHR, CBCA, , 2132-02 #### [facility] ([id number]) [address], [address] [place], [place] [address]Fpbv nitrogen [Mass/Vol]17 mg/dLNormal5-27[facility], IncComment on above:Performed By: #### CMP, TSHR, CBCA, 49923-1, 2131-9 #### [facility] ([id number]) [address], [address] [place], [place] [address]Hvbjfclxr (Vitamin B12) [Mass/Vol]on 60-99-1217VwxYutwggSouthview Medical CenterComprehensive metabolic panelon 90-81-7840Dzbmqfk [Mass/Vol]4.2 g/dL3.2 - 5.3 g/dLProMedical Center Enterprise Health SystemALP [Catalytic activity/Vol]76 U/L39 - 130 U/L [facility] SystemALT No additional P-5'-P [Catalytic activity/Vol]30 U/L0 - 40 U/LPrMiddle Park Medical Center - Granby Health SystemAnion gap [Moles/Vol]7 mmol/L5 - 15 mmol/L [facility] SystemAST [Catalytic activity/Vol]28 U/L0 - 41 U/LPrMiddle Park Medical Center - Granby Health SystemBilirubin [Mass/Vol]0.4 mg/dL0.3 - 1.2 mg/dLProCenterville System Calcium [Mass/Vol]9.5 mg/dL8.5 - 10.5 mg/dLGlenbeigh Hospital SystemChloride [Moles/Vol]106 mmol/L98 - 109 mmol/LPrUniversity Health Truman Medical Centerica Health SystemCO2 [Moles/Vol]29 mmol/L22 - 32 mmol/[facility] SystemCreatinine [Mass/Vol]0.86 mg/dL0.60 - 1.30 mg/dLGlenbeigh Hospital SystemComment on above:METHOD TRACEABLE TO [facility] STANDARDeGFR (CKD-EPI)non-race dependent- [facility] Alb[facility] HospitalComment on above: Reported eGFR is based on the CKD-EPI 2020 equation that does not use a race coefficient. Glucose [Mass/Vol]96 mg/dL65 - 99 mg/dLGlenbeigh Hospital SystemPotassium [Moles/Vol]4.1 mmol/L3.5 - 5.0 mmol/LProMedica Health SystemProtein [Mass/Vol] 7.2 g/dL6.0 - 8.0 g/dLSentara Albemarle Medical Centerodium [Moles/Vol]142 mmol/L134 - 146 mmol/LPrKettering Memorial HospitalUrea nitrogen [Mass/Vol]17 mg/dL5 - 27 mg/dL [facility] HospitalLipid 1996 panelon 26-79-8380Dunhrovwhgg [Mass/Vol]137 mg/nERlf927 - 200 mg/dLParma Community General HospitalCholesterol in HDL [Mass/Vol]54 mg/dL39 - PINF mg/dLParma Community General HospitalComment on above: HDL <40 mg/dL - High Risk HDL > or = 40mg/dL- Desirable HDL >60 mg/dL - Negative Risk Cholesterol in LDL [Mass/Vol]58 mg/dLNINF - 130 mg/dLPar[facility] Hospital Comment on above: LDL <100 mg/dL - Desirable LDL >160 mg/dL - High Risk Cholesterol in VLDL [Mass/Vol]25 mg/dL0 - 30 mg/dLPar[facility] Hospital Cholesterol.total/Cholesterol in HDL [Mass ratio]2.5 {ratio}1.0 - 5.0[facility] HospitalInterpretation and review of laboratory resultsAbnormalParma Community General HospitalTriglyceride [Mass/Vol]124 mg/dL27 - 150 mg/dLParma Community General HospitalCholesterol [Mass/Vol]137 mg/eXVyz746-112IqiZpyndySelect Medical Specialty Hospital - Boardman, IncComment on above:Performed By: #### CMP, TSHR, CBCA, 10698-9, 2083-5 #### [facility] ([id number]) [address] [place], [place] [address]Ytrfvbdqyfq in HDL [Mass/Vol]54 mg/dLNormal>39ProMercy Health Fairfield HospitalComment on above:Result Comment: HDL <40 mg/dL - High Risk HDL > or = 40mg/dL- Desirable HDL >60 mg/dL - Negative Risk Performed By: #### SOTERO, TSHR, CBCA, 08489-7, 2132-02 #### [facility] ([id number]) [address], [address] [place], [place] [address]Zttfssunfki in LDL [Mass/Vol]58 mg/dLNormal<130ProRiverside Methodist Hospital HospitalComment on above:Result Comment: LDL <100 mg/dL - Desirable LDL >160 mg/dL - High Risk Performed By: #### SOTERO, TSHR, CBCA, , 2132-02 #### [facility] ([id number]) [address], [address] [place], [place] [address]Jpbykqchjdo in VLDL [Mass/Vol]25 mg/dLNormal0-30ProRiverside Methodist Hospital HospitalComment on above:Performed By: #### SOTERO TSHR, CBCA, 36694-7, 2132-02 #### [facility] ([id number]) [address], [address] [place], [place] [address]AMIKAZAQFDL:HDL2.2Wchmaf1.0-5.0ProRiverside Methodist Hospital HospitalComment on above:Performed By: #### SOTERO TSHR, CBCA, 43710-2, 2132-02 #### [facility] ([id number]) [address], [address] [place], [place] [address]Igvlrrercjjx [Mass/Vol]124 mg/mEAmfuim26-679DykIlebfw [place] HospitalComment on above:Performed By: #### SOTERO, TSHR, CBCA, 62508-9, 2131-9 #### [facility] ([id number]) [address], [address] [place], [place] [address]Dm Panel Informationon 59-31-5992UrmWorzprUNC Health AppalachianERUM PROTEIN ELECTROPHORESISon 18-61-3649Gfqnieo [Mass/Vol]3.9 g/dLNormal3.4-5.3 ProMedicDelaware County HospitalComment on above:Performed By: #### SPE #### [facility] ([id number]) [address], [address] [place], [place] [address]AMMGD 1 GLOBULIN0.3 g/dLNormal0.1-0.4[facility] Comment on above:Performed By: #### SPE #### [facility] ([id number]) [address] [place], [place] [address]DIPBJ 2 GLOBULIN0.6 g/dLNormal0.4-1.1PWVUMedicine Barnesville Hospital Comment on above:Performed By: #### SPE #### [facility] ([id number]) [address], [address] [place], [place] [address]RVZC GLOBULIN0.8 g/dLNormal0.5-1.2PWVUMedicine Barnesville Hospital Comment on above:Performed By: #### SPE #### [facility] ([id number]) [address], [address] [place], [place] [address]XQCQC GLOBULIN1.0 g/dLNormal0.5-1.6[facility] Comment on above:Performed By: #### SPE #### [facility] ([id number]) [address], [address] [place], [place] [address]FLZI. ELECTROPHORESIS INTERPUnremarkable protein distribution, no monoclonal bands.NormalProMercy Health Fairfield HospitalComment on above:Performed By: #### SPE #### [facility] ([id number]) [address], [address] [place], [place] [address]Eemfwnw [Mass/Vol]6.7 g/dLNormal6.0-8.0[facility] Comment on above:Performed By: #### SPE #### [facility] ([id number]) [address], [address] [place], [place] [address]RXN WITH REFLEXon 44-54-0021TEB8.77 uIU/mLNormal0.49-4.[address] [facility] Ironton CampusComment on above:Performed By: #### CMP, TSHR, CBCA, 65920-1, 2132-02 #### [facility] ([id number]) [address], [address] [place], [place] [address]IBO with Reflexon 44-64-4628QHQ Qn2.77 m[IU]/LProMedica Pine Rest Christian Mental Health ServicesProWyandot Memorial HospitalVITAMIN B12on 27-69-7760Cafueryfj (Vitamin B12) [Mass/Vol]254 pg/wHKisyov760-764PxlCaiqcz [place] HospitalComment on above: Performed By: #### CMP, TSHR, CBCA, 35704-7, 2132-02 #### [facility] ([id number]) [address], [address] [place], [place] [address]Foekmxo B12on 47-66-7161Clssfywxl (Vitamin B12) [Mass/Vol]254 pg/mL180 - 914 pg/mLParma Community General HospitalMR Brain WO and W contrast Shavon 78-48-1216Ggvfoaw: Multiple sclerosis. Proximal leg weakness. No injury. [...] Earl Vidal MD on 07/10/2023 2:13 PM [facility] SystemVigor Ph[employer] [facility] HospitalRadiology Study observation (narrative)[facility] HospitalMR Brain WO and W contrast IVOrdered By: Dick Vidal on 07-10-2023 [facility] Medical CenterDefiniens Work Phone: MR Cervical spine WO and [...] Earl Vidal MD on 07/10/2023 10:40 AM [facility] Medical CenterJAZZ TECHNOLOGIES [facility] HospitalRadiology Study observation (narrative)[facility] SystemGreenbird Integration Technology [facility] Health ServicesMR Thoracic spine WO and W contrast Shavon [...] Earl Vidal MD on 07/10/2023 9:57 AM [facility] SystemRadiology Study observation (narrative)[facility] HospitalECHOCARDIO M/2D COMPLETEon 02-24-2022 ECHOCARDIO M/2D COMPLETEPatient: NOEMY PACKER Exam Date: 02/24/2022 : 1960 Gender:M Ordering : DR WARNER MCNEILL D.O. Admission #: [id number] Family : Order #: [id number] CLICK HERE TO VIEW EXAM ECHOCARDIOGRAM REPORT [...] by: Jovana Lockett M.D. on 02/24/2022 at 15:25[facility] Hospital SouthHEMOGLOBINon 37-02-4201Hjjwhnoqtu (Bld) [Mass/Vol]14.9 g/dLNormal 14.0-18.0Parkview HealthComment on above:Performed By: #### HGB #### [facility] [address] [address] [address] Jamel AdamsXR CHEST 2 Von 19-74-1609TL CHEST 2 VEXAM: CHEST 2 VIEWS HISTORY: [...] Electronically authenticated by: LINDA HERNANDEZ Date: 2022-01-26 11:12[facility] Hospital SouthCOVID Quick Testingon 02-22-2326AqknpoSxxuxtqfHvpyz [employer] Other mr thoracic spine wo/w conon 84-47-6677CM thoracic spine wo/w [facility] [employer] [address] [place] [address] MRI Report Signed Patient: Noemy Packer MR#: [id number] : 1960 Acct:[id number] Age/Sex: 61 / M ADM Date: 12/23/21 Loc: MR Room: Type: [facility] Attending Dr: Lauryn Soriano PAKrystinaC Copies to: Lauryn Soriano PAC Ordering Provider: Lauryn oSriano PAC Date of Service: 12/23/21 MR/MR thoracic spine wo/w con: G35 ([id number]) MR/MR cervical spine wo/w con: G35 MRI [...] Keegan Canales M.D.12/23/2021 4:54 PM Dictation Location: [place] [address] Transcribed By: [facility] 12/23/21 4749 Dictated By: Keegan Canales DO 12/23/21 8042 Signed By: 12/23/21 1654NoMercy HospitalXR pre/post mri xrayon 25-26-0785QK pre/post mri xrPomerene [place] [address] XRay Report Signed Patient: Noemy Packer MR#: [id number] : 1960 Acct:[id number] Age/Sex: 61 / M ADM Date: 12/23/21 Loc: MR Room: Type: [facility] Attending Dr: Lauryn Soriano PA-C Copies to: Lauryn Soriano PAC Ordering Provider: Lauryn Soriano PAC Date of Service: 12/23/21 XR/XR pre/post mri xray: G35 ([id number]) XR/XR pre/post mri xray: PRE MRI Cervical [...] Vital Jr., SaraONelson12/23/2021 8:10 PM Dictation Location: [place] [address] Transcribed By: [facility] 12/23/212009 Dictated By: Darnell Vital Jr, DO 12/23/212007 Signed By: 12/23/212009Mercy Memorial HospitalCB AUTO DIFFon 11-11-2021 BASO #0.0 103/ulNormal0.0-0.1Parkview HealthComment on above:Performed By: #### CBC #### [facility] [address] [address] [address] Jamel Snydersophils/100 WBC (Bld)0.5 %Normal0.2-2.0[facility] Comment on above:Performed By: #### CBC #### [facility] [address] [address] [address] Jamel Emery #0.1 103/ulNormal0.0-0.7The [facility] Medical CenterComment on above: Performed By: #### CBC #### [facility] [address] [place] [address] Dr. Jamel Beyerosinophils/100 WBC (Bld)1.0 %Normal0.9-7.0[facility] Comment on above:Performed By: #### CBC #### [facility] [address] [place] [address] Dr. Jamel Beyerrythrocyte distribution width (RBC) [Ratio]13.0 %Enqyyh34.0-15.0 The [facility] Medical CenterComment on above:Performed By: #### CBC #### [facility] [address] [place] [address] Dr. Jamel AdamsHematocrit (Bld) [Volume fraction]44.2 %Rlhxqf07.0-54.0The [facility] Medical CenterComment on above:Performed By: #### CBC #### [facility] [address] [place] [address] Dr. Jamel AdamsHemoglobin (Bld) [Mass/Vol]14.6 g/dBCzxwgj01.0-18.0The [facility] CenterComment on above:Performed By: #### CBC #### [facility] [address] [place] [address] Dr. Jamel Harmon #0.06 10e3/ulCritically high0.00-0.03The [facility] Comment on above:Performed By: #### CBC #### [facility] [address] [place] [address] Dr. Jamel Harmon %0.8 %Critically high0.0-0.5The [facility] Medical CenterComment on above:Performed By: #### CBC #### [facility] [address] [place] [address] Dr. Jamel Reynolds #1.3 103/ulNormal1.2-3.8The [facility] Medical CenterComment on above:Performed By: #### CBC #### [facility] [address] [place] [address] Dr. Jamel Lemusmphocytes/100 WBC (Bld)17.2 %Critically low20.5-60.0The [facility] Medical CenterComment on above:Performed By: #### CBC #### [facility] [address] [place] [address] Dr. Jamel MonacoUAL DIFF REQNONormalThe [facility] Medical CenterComment on above: Performed By: #### CBC #### [facility] [address] [place] [address] Dr. Jamel Winter (RBC) [Entitic mass]29.0 yhUeimoa61.9-34.0The [facility] Medical CenterComment on above:Performed By: #### CBC #### [facility] [address] [place] [address] Dr. Jamel Winter (RBC) [Mass/Vol]33.0 g/yKRzsvlh35.9-35.2The [facility] Medical CenterComment on above:Performed By: #### CBC #### [facility] [address] [place] [address] Dr. Jamel Winter (RBC) [Entitic vol]87.9 cUBhtfot02.0-94.0The [facility] Medical CenterComment on above:Performed By: #### CBC #### [facility] [address] [place] [address] Dr. Jamel Doran #0.4 103/ulNormal0.3-0.8The [facility] Medical CenterComment on above:Performed By: #### CBC #### [facility] [address] [place] [address] Dr. Jamel Gallagherocytes/100 WBC (Bld)5.3 %Normal1.7-12.0The [facility] Comment on above:Performed By: #### CBC #### [facility] [address] [place] [address] Dr. Jamel Price #5.8 103/ulNormal1.4-6.5The [facility] Medical CenterComment on above:Performed By: #### CBC #### [facility] [address] [place] [address] Dr. Jamel AdamsNeutrophils/100 WBC (Bld)75.2 %Critically high43.0-75.0The [facility] on above:Performed By: #### CBC #### [facility] [address] [place] [address] Dr. Jamel AdamsPlatelet mean volume (Bld) [Entitic vol]8.6 fLCritically low 9.5-13.5The [facility] CenterComment on above:Performed By: #### CBC #### [facility] [address] [place] [address] Dr. Jamel AdamsPLT315 103/syBfbuqb234-438Ixf [facility] on above: Performed By: #### CBC #### [facility] [address] [place] [address] Dr. Jamel AdamsRBC5.03 106/ulNormal4.70-6.10The [facility] CenterComment on above:Performed By: #### CBC #### [facility] [address] [place] [address] Dr. Jamel AdamsWBC7.7 103/ulNormal4.0-11.0The [facility] on above: Performed By: #### CBC #### [facility] [address] [place] [address] Dr. Jamel AdamsPROF 14(COMP METB)on 75-85-5983Zcrwctn [Mass/Vol]3.9 g/dLNormal 3.4-5.0The [facility] on above:Performed By: #### CMP #### [facility] [address] [place] [address] Dr. Jamel AdamsAlbumin/Globulin [Mass ratio]1.0 {ratio}NormalThe [facility] CenterComhutzel women's hospital on above:Performed By: #### CMP #### [facility] [address] [place] [address] Dr. Jamel TorresP [Catalytic activity/Vol]93 U/IXcvafr75-099Lmd Lakota HospitalComment on above:Performed By: #### CMP #### [facility] [address] [address] [address] Jamel Ruth [Catalytic activity/Vol]39 U/UPpbkni29-72Nif [facility] CenterComment on above:Performed By: #### CMP #### [facility] [address] [address] [address] Jamel AdamsAnion gap [Moles/Vol]10.0 mmol/LNormalThe [facility] Comment on above:Performed By: #### CMP #### [facility] [address] [address] [address] Jamel AdamsAST [Catalytic activity/Vol]28 U/[id number] [facility] CenterComment on above:Performed By: #### CMP #### [facility] [address] [place] [address] Dr. Jamel AdamsBilirubin [Mass/Vol]0.6 mg/dLNormal0.2-1.0[facility] Comment on above:Performed By: #### CMP #### [facility] [address] [place] [address] Dr. Jamel AdamsCalcium [Mass/Vol]9.2 mg/dLNormal8.5-10.1[facility] Comment on above:Performed By: #### CMP #### [facility] [address] [place] [address] Dr. Jamel AdamsChloride [Moles/Vol]102 mmol/FUxucoy92-790Cik [facility] Comment on above:Performed By: #### CMP #### [facility] [address] [address] [address] Jamel AdamsCO2 [Moles/Vol]29.3 mmol/CYkqntm66.0-32.0The [facility] Comment on above:Performed By: #### CMP #### [facility] [address] [place] [address] Dr. Jamel AdamsCreatinine [Mass/Vol]0.88 mg/dLNormal0.70-1.30The [facility] CenterComment on above:Performed By: #### CMP #### [facility] [address] [address] [address] Jamel BeyerGFR-AF VIETNAMESE>60Normal>=60The [facility] CenterComment on above:Performed By: #### CMP #### [facility] [address] [address] [address] Jamel BeyerGFR-NON AF VIETNAMESE>60Normal>=60The [facility] CenterComment on above:Performed By: #### CMP #### [facility] [address] [address] [address] Jamel AdamsGlobulin (S) [Mass/Vol]4.0 g/dLNormalThe [facility] CenterComment on above:Performed By: #### CMP #### [facility] [address] [place] [address] Dr. Jamel AdamsGlucose [Mass/Vol]102 mg/qMRagrlc22-141Pjb [facility] Comment on above:Performed By: #### CMP #### [facility] [address] [address] [address] Jamel AdamsPotassium [Moles/Vol]4.3 mmol/LNormal3.5-5.1The [facility] Comment on above:Performed By: #### CMP #### [facility] [address] [place] [address] Dr. Jamel AdamsProtein [Mass/Vol]7.9 g/dLNormal6.4-8.2The [facility] Comment on above:Performed By: #### CMP #### [facility] [address] [place] [address] Dr. Jamel AdamsSodium [Moles/Vol]137 mmol/MSzvtwx949-949Btq [facility] Comment on above:Performed By: #### CMP #### [facility] [address] [address] [address] Jamel AdamsUrea nitrogen [Mass/Vol]13.0 mg/dLNormal7.0-18.0The [facility] CenterComment on above:Performed By: #### CMP #### [facility] [id number] Jamel AdamsUrea nitrogen/Creatinine [Mass ratio]14.8 mg/mgPremier Health Miami Valley Hospital SouthComment on above:Performed By: #### CMP #### [facility] [id number] Jamel AdamsMRI BRAIN WO W CONon 09-14-3254HOD BRAIN WO W CONEXAMINATION: MRI BRAIN WO [...] Electronically authenticated by: LEONIDAS SUN Date: 2021-11-07 08:23Prem[facility] Hospital SouthAmbulatory Clinical Summaryon 53-23-1950Empnrxteon Clinical Summary{27-01-o1-5o-h6-78-35-87-if-07-4q-10-37-f4-1b-75}CD:[id number] VA Medical CenterPatient Educationon 75-61-9131Wkjfhya EducationUrology Hydrocele, Adult A hydrocele is a [...] the hydrocele for any changes. ? Take dmue-tsh-zxuagba and prescription medicines only as told by [...] 11/22/2010 Document Revised: 06/15/2018 Document Reviewed: 06/15/2018 [employer] Patient Education ? 2019 isango!.[facility] Urology Office/Clinic Noteon 12-62-1885Clenalz Office/Clinic NoteChief Complaint PO hydocelectomy HPI Staff [...] Protein Urine Dipstick: Negative (03/24/21 08:03:00) Specific [place] Urine Dipstick: 1.025 (03/24/21 08:03:00) Urine Appearance Urine Dipstick: Clear (03/24/21 08:03:00) Urine Color Urine Dipstick: Yellow (03/24/21 08:03:00) Urobilinogen Urine Dipstick: Normal 0.2-1 EU/dl (03/24/21 08:03:00) pH Urine Dipstick: 5 (03/24/21 08:03:00)[facility] Hospital NorthComment on above:Result Comment: Electronically Signed By: Elisabeth Gotti MD\.br\Date and Time Signed: 03/24/21 08:29EDT\.br\Electronically Co-Signed By: Maite Goss\.br\Date and Time Co-Signed: 03/24/21 08:19 EDTLab Reportson 82-31-5895Rwj [id number]#1.00CD:127Normal Nunes [facility] MarylandOperative Reporton 10-24-6769Tgewwcnfm Report [id number]#1.00CD:127NormalFisher [facility] Western MarylandCOVID-19 FRon 20-92-6285UBJX-CoV-2 (COVID-19) RNA KRISTEN+probe Ql (Unsp spec)NegativeNormalNegativeAdena Health SystemComment on above: Order Comment: Healthcare Worker?: NResult Comment: Testing for SARS-CoV-2 by RT-PCR This test was developed and its performance characteristics determined by [employer]) and validated at the [facility]. This test has not been FDA cleared [...] is terminated or revoked sooner. PERFORMED BY: [address] [place] [address] PATHOLOGIST LAYER UP SHANELL PENA M.D.Performed By: #### COVID 19 [facility] #### [address] [place] [address] USALab Reportson 79-65-6430Lnv Reports [id number]#1.00CD:127Prem[facility] Hospital NorthLab [id number]#1.00CD:[address] [place], [place] [address]RAD - MISCon 17-35-5651CQL - MISC [id number]#1.00CD:127[facility] Hospital NorthBasic Metabolic Panelon 02-44-9619Vmahnsz [Mass/Vol]8.9 mg/dLNormal 8.2-10.2FPremier HealthComment on above:Result Comment: PERFORMED BY: [place] [address] PATHOLOGIST LAYER UP SHANELL PENA M.D.Performed By: #### BMP, PTT, CBC, PT #### [facility] [address] [place] [address] USAChloride [Moles/Vol]107 mmol/JQrtjys00-970YagtyoumpAdena Health SystemComment on above:Performed By: #### BMP, PTT, CBC, PT #### [facility] [address] [place] [address] USACO2 [Moles/Vol]21.5 mmol/LLow22.0-30.0Adena Health SystemComment on above:Performed By: #### BMP, PTT, CBC, PT #### [facility] [address] [place] [address] USACreatinine [Mass/Vol]0.84 mg/dLNormal0.64-1.27Adena Health SystemComment on above:Performed By: #### BMP, PTT, CBC, PT #### [facility] [address] [place] [address] USAEstimated GFR ( Bee> 60NormalAdena Health SystemComment on above:Result Comment: GFR estimated reference range: According to KDOQI guidelines, <60 ml/min/1.73m2 is sufficient to diagnose a patient with chronic kidney disease.Performed By: #### BMP, PTT, CBC, PT #### [place] [address] USAEstimated GFR (Non- Am> 60NormalAdena Health SystemComment on above:Performed By: #### BMP, PTT, CBC, PT #### [facility] [address] [place] [address] USAGlucose [Mass/Vol]140 mg/aAGxwz59-426IfcoczklpAdena Health SystemComment on above:Result Comment: Random Glucose Reference Range is dependent on time and content of last meal. Glucose of more than 200 mg/dL in a nonstressed, ambulatory subject supports the diagnosis of Diabetes Mellitus. ADA recommended reference rangePerformed By: #### BMP, PTT, CBC, PT #### [place] [address] USAPotassium [Moles/Vol]3.7 mmol/LNormal3.5-5.1FPremier HealthComment on above:Performed By: #### BMP, PTT, CBC, PT #### [place] [address] USASodium [Moles/Vol]138 mmol/XBiimtz838-783JvezorqdmAdena Health SystemComment on above:Performed By: #### BMP, PTT, CBC, PT #### [place] [address] USAUrea nitrogen [Mass/Vol]12 mg/dLNormal9-23Adena Health SystemComment on above:Performed By: #### BMP, PTT, CBC, PT #### [place] [address] USAComplete Blood Count Auto Diffon 85-46-5532Xcjjdabjj (Bld) [#/Vol]0.0 10*3/uLNormal0.0-0.2FPremier HealthComment on above:Result Comment: PERFORMED BY: [place] [address] PATHOLOGIST LAYER UP SHANELL PENA M.D.Performed By: #### BMP, PTT, CBC, PT #### [place] [address] USABasophils/100 WBC (Bld)0.8 %Normal.Adena Health SystemComment on above:Performed By: #### BMP, PTT, CBC, PT #### [place] [address] USAEosinophils (Bld) [#/Vol]0.0 10*3/uLNormal0.0-0.45 [facility] SystemComment on above:Performed By: #### BMP, PTT, CBC, PT #### [place] [address] USAEosinophils/100 WBC (Bld)0.7 %Normal.Adena Health SystemComment on above:Performed By: #### BMP, PTT, CBC, PT #### [place] [address] USAErythrocyte distribution width (RBC) [Ratio]13.1 %Normal 12.0-14.8Adena Health SystemComhutzel women's hospital on above:Performed By: #### BMP, PTT, CBC, PT #### [place] [address] USAHematocrit (Bld) [Volume fraction]40.8 %Jnayio12.8-50.0 [facility] Health SystemComment on above:Performed By: #### BMP, PTT, CBC, PT #### [place] [address] USAHemoglobin (Bld) [Mass/Vol]13.9 g/yDYdlsyp94.0-17.0 [facility] SystemComment on above:Performed By: #### BMP, PTT, CBC, PT #### [place] [address] USALymphocytes (Bld) [#/Vol]1.2 10*3/uLNormal1.00-4.8 [facility] SystemComment on above:Performed By: #### BMP, PTT, CBC, PT #### [facility] [address] [place] [address] USALymphocytes/100 WBC (Bld)18.7 %Normal.Adena Health SystemComment on above:Performed By: #### BMP, PTT, CBC, PT #### [facility] [address] [place], [place] [address]H (RBC) [Entitic mass]29.1 qfCtkrpi68.5-35.2FPremier HealthComment on above:Performed By: #### BMP, PTT, CBC, PT #### [place] [address] USAV (RBC) [Entitic vol]85.3 nQCcuxrh55.5-101Adena Health SystemComment on above:Performed By: #### BMP, PTT, CBC, PT #### [facility] [address] [place] [address] USAMean Corpuscular HGB Conc34.2 g/dJDkdkie95.5-35.6FPremier HealthComment on above:Performed By: #### BMP, PTT, CBC, PT #### [place] [address] USAMonocytes (Bld) [#/Vol]0.4 10*3/uLNormal0.0-0.8Adena Health SystemComment on above:Performed By: #### BMP, PTT, CBC, PT #### [facility] [address] [place] [address] USAMonocytes/100 WBC (Bld)5.6 %Normal.Adena Health SystemComment on above:Performed By: #### BMP, PTT, CBC, PT #### [facility] [address] [place] [address] USANeutrophils (Bld) [#/Vol]4.7 10*3/uLNormal1.8-7.7FPremier HealthComment on above:Performed By: #### BMP, PTT, CBC, PT #### [address] [place] [address] USANeutrophils/100 WBC (Bld)74.2 %Normal.Adena Health SystemComment on above:Performed By: #### BMP, PTT, CBC, PT #### [facility] [address] [place] [address] USANucleated RBC/100 WBC (Bld) [Ratio]0.0 %Normal0-0.5 [facility] Health SystemComment on above:Performed By: #### BMP, PTT, CBC, PT #### [facility] [address] [place] [address] USAPlatelet mean volume (Bld) [Entitic vol]7.0 fLNormal 6.6-10.1FPremier HealthComment on above:Performed By: #### BMP, PTT, CBC, PT #### [place] [address] USAPlatelets (Bld) [#/Vol]278 10*3/bOQcovbi327-727KfgthbycdAdena Health SystemComment on above:Performed By: #### BMP, PTT, CBC, PT #### [place] [address] USARBC (Bld) [#/Vol]4.78 10*6/uLNormal3.90-5.60Adena Health SystemComment on above:Performed By: #### BMP, PTT, CBC, PT #### [facility] [address] [place] [address] USAWBC (Bld) [#/Vol]6.3 10*3/uLNormal4.5-11.0Adena Health SystemComment on above:Performed By: #### BMP, PTT, CBC, PT #### [place] [address] USAECG 12 lead ECGon 12-44-2254LRC 12 lead ECGTRINITY [facility] Main [place] [address] [place] [address] Electrocardiograph Report Signed Patient: Noemy Packer MR#: [id number] : 1960 Acct:[id number] Age/Sex: 60 / M ADM Date: 03/01/21 Loc: PS Room: Type: [facility] Attending Dr: Elisabeth Gotti MD Ordering Provider: [...] Signed By Starr Zamarripa MD 0 03/02/21 1546NoMercy HospitalPartial Thromboplastin Timeon 28-23-2344tCXV Coag (Bld) [Time]29.4 qTmqyhf16.1-36.5FPremier HealthComment on above:Result Comment: PERFORMED BY: [place] [address] PATHOLOGIST LAYER UP SHANELL PENA M.D.Performed By: #### BMP, PTT, CBC, PT #### [place] [address] USAProthrombin Time INRon 45-13-0812AEG Coag (PPP) [Relative time]1.0 {INR}[facility]cy Memorial HospitalComment on above:Result Comment: INR Therapeutic Range [...] By: #### BMP, PTT, CBC, PT #### [facility] [address] [place] [address] USAPT Coag (PPP) [Time]11.5 sNormal9.0-12.9Adena Health SystemComment on above:Performed By: #### BMP, PTT, CBC, PT #### [facility] [address] [id number] USAXR chest 2V*on 13-85-6056GN chest 2V*[facility] Main [place] [address] [place] [address] XRay Report Signed Patient: Noemy Packer MR#: [id number] : 1960 Acct:[id number] Age/Sex: 60 / M ADM Date: 03/01/21 Loc: PS Room: Type: [facility] Attending Dr: Elisabeth Gotti MD Ordering Provider: [...] Keegan Canales M.D.03/01/2021 6:09 PM Dictation Location: [address] [address] Transcribed By: [facility] 03/01/211808 Dictated By: Keegan Canales DO 03/01/211807 Signed By: 03/01/211808NoMercy HospitalAmbulatory Clinical Summary on 22-33-5177Qdfaiqecuv Clinical Summary {1k-[id number]-r1-y4-83-5c-0v-bb-86-a3-7y-4d-d9-2b-e7}CD:[id number] Health Miami Valley Hospital NorthPatient Educationon 68-43-2738Tnznquy EducationUrology Hydrocele, Adult A hydrocele is a [...] the hydrocele for any changes. ? Take xuup-nbx-kzqbicy and prescription medicines only as told by [...] 11/22/2010 Document Revised: 06/15/2018 Document Reviewed: 06/15/2018 [employer] Patient Education ? 2019 isango!.[facility] Pre-Authorization for Medical Treatmenton 80-39-4534Iij-Authorization for Medical [id number]#1.00CD:127NormDelaware County HospitalUrology Office/Clinic Noteon 69-56-9747Hucocbk Office/Clinic NoteChief Complaint office visit due to [...] chills, pain and blood. Denies hx of RI or stroke. Not on anticoagulation Notes baseline [...] Protein Urine Dipstick: Negative (02/25/21 08:00:00) Specific [place] Urine Dipstick: >=1.030 (02/25/21 08:00:00) Urine Appearance Urine Dipstick (more content not included)...[facility] Hospital NorthComment on above:Result Comment: Electronically Signed By: Elisabeth Gotti MD\.br\Date and Time Signed: 02/25/21 08:39EDT\.br\Electronically Co- Signed By: Mary Yadav\.br\Date and Time Co-Signed: 02/25/21 08:27EDTCNPN on 66-27-6766PULYKtqakdoou ([facility]) NOEMY PACKER ([id number]) 1960 [facility] Date Time Provider Department 12/24/20 KAI CANALES [facility] During your visit today, we recorded the following information about you: Kai Canales [facility] 12/24/2020 4:15 PM Signed I spoke with [...] agreement with this plan. Kai Canales MS, [facility] Certified Genetic Counselor Allergies As of Date: [...] (None) Encounter Status:Closed by KAI CANALES on 12/24/20[facility] 45-54-8705GAQGAgfjucbem ([facility]) OCHOANOEMY Reis ([id number]) 1960 M BLD Date Time Provider Department 12/09/20 KAI CANALES [facility] During your visit today, we recorded the following information about you: Kai Canales [facility] 12/09/2020 12:21 PM Signed I spoke with Noemy and let him know that his CK level was normal. We will await his brother's genetic test results. I encouraged him to call me if he had any questions in the meantime. Kai Canales, , [facility] Certified Genetic Counselor Allergies As of Date: [...] (None) Encounter Status:Closed by KAI CANALES on 12/09/20[facility]CBarn[facility]ville [facility] 08-25-9337MX [Catalytic activity/Vol]120 U/DXgzoqy50-739BuuxomcvpBarberton Citizens HospitalComment on above:Performed By: #### CK #### [facility] [address] [id number] ZKONvl 81-28-8708CNQPPqukyy Visit ([facility]) OCHOANOEMY WHITAKER ([id number]) 1960 M [facility] Date Time Provider Department 12/08/20 10:30 AM CAROLE HENNING [facility] During your visit today, we recorded [...] unknown type at an outside institution in [place]. He currently does not have a copy [...] is no problem li (more content not included)...NormalKettering Health Washington TownshipOVChi [facility] Visit ([facility]) OCHOANOEMY Reis ([id number]) 1960 M BLD Date Time Provider Department 12/08/20 10:00 AM KAI CANALES [facility] During your visit today, we recorded [...] patient and EMR HISTORY OF PRESENT CONDITION: oNemy came to medical attention in his 20s [...] GENETIC TESTING: None. SOCIAL HISTORY: Lives in [place], [place], with his . 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 Level of education: bachelors degree Alcohol/cigarettes/other: tobacco- former smoker, quit 19 years ago, was smoking 1/2-1ppd. EtOH- maybe a glass of wine weekly. Illicit drug use- denied. FAMILY HISTORY: - Patient's ethnicity: Maternal - Citizen Of [place]; Paternal - Citizen Of [place]. - Partner's ethnicity: not applicable. - No known -Welsh, Mediterranean, /Moroccan, Turkish-Chinese/Cajun, or Ashkenazi Taoist ancestry unless noted above. - Parental consanguinity: [...] to colon cancer. Father: (more content not included)...[facility] DNA Extraction Bloodon 12-68-1204GGT Extract Blood(NOTE)[facility]-FairhillComment on above:Result Comment: Volume (mL) of specimen received:4ML Concentration (ng/ul):162 Volume (uL) of DNA:500 Total Yield (ug): 81 Comment: Specimens will be available for 3 years from date of collection. To order testing on this specimen for [facility] patients, please place an [facility] order for DNA and RNA for Clinical Testing (SQNUCADD). To order testing for patients outside of the [facility] system, please request DNA and RNA for Clinical Testing, order code [id number]. If additional paperwork is required for testing, please email completed forms to .Performed By: #### NUCBLD #### [facility] [address] [place] [address] Uqcrpxpqyz Clinical Summaryon 78-85-9405Bvuijpxqkj Clinical Summary {[id number]-7c-2w-7g-4u-h2-51-o2-7a-37-af-c4}CD:[id number] Health Miami Valley Hospital NorthPatient Educationon 02-46-3228Zpgfhnr EducationFamily Medicine Hydrocele, Adult Fluid can collect [...] Document Reviewed: 11/22/2010 ExitCare? Patient Information ?2013 [employer].[facility] Vital Signs Date TimeVital SignValuePerforming QqpvqpacwGzykcefw12-15-9644 09:08-0500Body haspdj441.26 cmJessica Harish DO Work Phone: [facility]11-10-2025 09:08-0500 Body mass index (BMI) [Ratio]23.1 kg/x7Cjqopsd Harish DO Work Phone: [phone])[address] [place], [place] 2820211-10-2025 09:08-0500 Body .21 kgJessica Harish DO Work Phone: [phone])[address] [place], [place] 2820211-10-2025 09:08-0500 Diastolic blood dufyjxfj91 mm[Hg]Bela Harish DO Work Phone: 1(419)[address] [place], [place] 2820211-10-2025 09:08-0500 Heart rate72 /minJessica Harish DO Work Phone: [phone])[address] [place], [place] 2820211-10-2025 09:08-0500 Respiratory rate20 /minJessica Harish DO Work Phone: [phone])[address] [place], [place] 2820211-10-2025 09:08-0500 SaO2% (BldA) [Mass fraction]97 %Bela Harish DO Work Phone: 1(419)[address] [place], [place] 2820211-10-2025 09:08-0500 Systolic blood haczhgtw773 mm[Hg]Bela Harish DO Work Phone: 1(384)[address] [place], [place] [address]20208-25-2025 08:02-0400 Body ngvuhj843.3 cmLucian Solomon MD Work Phone: 1(871)[address]08-25-2025 08:02-0400Body mass index (BMI) [Ratio]22.45 kg/h7JhrdbewLucian Solomon MD Work Phone: 1(490)[address] [place], [place] 4983308-25-2025 08:02-0400Body jqsudr25.95 kgLucian Solomon MD Work Phone: 1(092)[address] [place], [place] 4983307-11-2025 08:01-0400Body ianwpb230.3 cmLucian Solomon MD Work Phone: 1(961)[address] [place], [place] 4983307-11-2025 08:01-0400Body mass index (BMI) [Ratio]22.74 kg/j9RvfooymLucian Solomon MD Work Phone: 1(398)[address] [place], [place] 4983307-11-2025 08:01-0400Body qurkko14.85 kgLucian Solomon MD Work Phone: 1(008)[address] [place], [place] 4983307-11-2025 08:01-0400Diastolic blood egrnoivm15 mm[Hg]Lucian Solomon MD Work Phone: 1(488)[address] [place], [place] 4983307-11-2025 08:01-0400Heart rate96 /min Lucian Solomon MD Work Phone: 1(923)[address] [place], [place] 4983307-11-2025 08:01-0400Systolic blood xhfchoax938 mm[Hg]Lucian Solomon MD Work Phone: 1(218)[address] [place], [place] 4983305-15-2025 09:14-0400Body absuip215.3 cmLucian Solomon MD Work Phone: 1(612)[address] [place], [place] 4983305-15-2025 09:14-0400Body mass index (BMI) [Ratio]22.89 kg/b7RosziylLucian Solomon MD Work Phone: 1(995)[address] [place], [place] 4983305-15-2025 09:14-0400Body owfkht13.31 kgLucian Solomon MD Work Phone: 1(071)[address] [place], [place] 4983305-15-2025 09:14-0400Diastolic blood mm[Hg]Lucian Solomon MD Work Phone: 1(101)[address] [place], [place] 4983305-15-2025 09:14-0400Systolic blood pbypujda135 mm[Hg]Lucian Solomon MD Work Phone: 1(243)[address] [place], [place] 4983303-12-2025 16:15-0400Body aqwtws038.3 cmYecenia Vazquez DO Work Phone: [facility]03-12-2025 16:15-0400Body mass index (BMI) [Ratio]23.68 kg/m2Yecenia Des DO Work Phone: [facility]03-12-2025 16:15-0400Body .7 [degF]Yecenia Vazquez DO Work Phone: [facility] [employer] Thfecg67-81-1843 16:15-0400Body vjouyp55.76 kgYecenia Des DO Work Phone: [facility] Mzhcyg22-10-9656 16:15-0400Diastolic blood jfqxnzwe73 mm[Hg]Yecenia Des DO Work Phone: [facility] Fxegon56-89-2793 16:15-0400Heart rate 78 /minYecenia Des DO Work Phone: [facility] Vwphky27-96-4088 16:15-0400 Respiratory rate18 /minYecenia Des DO Work Phone: [facility] Tholko13-53-0768 16:15-1805BsI1% (BldA) [Mass fraction]97 %Yecenia Des DO Work Phone: [facility] Gitfoc61-99-6729 16:15-0400Systolic blood fsborhjz564 mm[Hg]Yecenia Des DO Work Phone: [facility] Zjecau91-18-2496 15:13-0500Body .3 cmJojaycee Des DO Work Phone: [facility] Syhtxp29-63-5695 15:13-0500Body mass index (BMI) [Ratio]23.63 kg/m2Yecenia Des DO Work Phone: [facility] Usvqic12-03-2585 15:13-0500Body khriqr34.58 kgYecenia Des DO Work Phone: [facility] Ejrvrz64-03-2209 15:13-0500Diastolic blood equqynts12 mm[Hg]Yecenia Des DO Work Phone: [facility] Phonjo39-97-3931 15:13-0500Systolic blood jdxidysz793 mm[Hg]Yecenia Des DO Work Phone: [facility] Ganfca38-99-8030 14:30-0500Body fdymli969.3 cmAdavid Judge DPM Work Phone: [facility]Wixbkerkes24-81-0060 14:30-0500Body mass index (BMI) [Ratio]22.89 kg/u5GngexlgSpencer Adrianher DPM Work Phone: [facility] WestLxmkgnqdwo65-27-6382 14:30-0500Body giynrf69.31 kgSpencer Adrianher DPM Work Phone: [facility] WestVdvnjenjuu55-09-1296 14:47-0500Body jfaxxa410.3 cmAngela Lowe PA Work Phone: [facility] WestFgvzopejhu15-45-9912 14:47-0500Body mass index (BMI) [Ratio]22.59 kg/e5Yhfkwo Lowe PA Work Phone: [facility] WestHrcbzelyqr03-13-3445 14:47-0500Body .4 kg Alycia Lowe PA Work Phone: [facility] WestZbkwvpjvns74-32-4016 14:47-0500Diastolic blood olxloksc14 mm[Hg]Alycia Lowe PA Work Phone: [facility] WestBpryjggjvk55-91-9210 14:47-0500Systolic blood xzbshlke887 mm[Hg]Alycia Lowe PA Work Phone: [facility] WestLwkncfwvtn92-19-8757 16:05-0500Body myfjol163.3 cmJojaycee Yuhas DO Work Phone: [facility]11-25-2024 16:05-0500Body mass index (BMI) [Ratio]23.16 kg/m2Jojaycee Yuhas DO Work Phone: [facility]11-25-2024 16:05-0500Body fqbsmasnfzr47.1 [degF]Yecenia Des DO Work Phone: [facility]11-25-2024 16:05-0500Body qbosyg16.12 kgJojaycee Yuhas DO Work Phone: [facility]11-25-2024 16:05-0500Diastolic blood mettbswb86 mm[Hg]Yecenia Vazquez DO Work Phone: [facility] [facility]24 16:05-0500Heart rate 93 /minJojaycee Vazquez DO Work Phone: [facility]11-25-2024 16:05-2391AvJ5% (BldA) [Mass fraction]97 %Yecenia Vazquez DO Work Phone: [facility]11-25-2024 16:05-0500Systolic blood sriyusjl703 mm[Hg]Yecenia Vazquez DO Work Phone: [facility]11-13-2024 08:38-0500Body zdbdze760.3 cmAngela Lowe PA Work Phone: [place] [phone] 08:38-0500Body mass index (BMI) [Ratio]23.18 kg/n5Agtbrc Lowe PA Work Phone: [place] [phone] 08:38-0500Body rhojsv40.22 kgAngela Lowe PA Work Phone: [place] [phone] 08:38-0500Diastolic blood ikymqrdn34 mm[Hg]Alycia Lowe PA Work Phone: [place] [address]Cwrqinpdus92-72-2380 08:38-0500Systolic blood rizisqdg249 mm[Hg]Alycia Lowe PA Work Phone: [place] [phone] 15:35-0500Body qgqcyr718.3 cmAnne Hill PA Work Phone: [place] [address]Mrfppvdbya94-64-3315 15:35-0500Body mass index (BMI) [Ratio]22.89 kg/m2Anne Hill PA Work Phone: [place] [phone] 15:35-0500Body hjxxot36.31 kgAnne Hill PA Work Phone: [place] [phone] 15:35-0500Diastolic blood zcxaqwdd08 mm[Hg]Lauryn TEJADA Work Phone: [facility] WestKkpuzgbrty41-07-0374 15:35-0500Heart rate96 /min Lauryn TEJADA Work Phone: [facility] CenterWklzdrmzfc40-61-5724 15:35-0500Respiratory rate16 /minLauryn TEJADA Work Phone: NOEll[facility] CenterUbmxgcwuuq42-92-7308 15:35-0493VdD1% (BldA) [Mass fraction]97 %Lauryn TEJADA Work Phone: NOEll[facility] Cancer CenterZgzhdasyyp17-16-8358 15:35-0500Systolic blood nqaqkaim234 mm[Hg]Lauryn Alicia PA Work Phone: [facility] WestHmrtsqpzka45-63-8158 12:48-0400Diastolic blood avfnpfpr27 mm[Hg]Pfo 6[facility]10-24-2024 12:48-0400Heart rate94 /minPfo [address] [place], [place] 0765710-24-2024 12:48-0400Respiratory rate16 /minPfo [address] [place], [place] 0765710-24-2024 12:48-8337PhH6% (BldA) [Mass fraction]96 %Pfo [address] [place], [place] 0765710-24-2024 12:48-0400Systolic blood mm[Hg] Pfo 6[facility]10-24-2024 09:03-0400Body lfvqyd438.3 cmPfo 6 [facility]10-24-2024 09:03-0400Body mass index (BMI) [Ratio]23 kg/m2Pfo [address] [place], [place] 0765710-24-2024 09:03-0400Body ajbcrolyotk70.7 [degF]Pfo [address] [place], [place] 0765710-24-2024 09:03-0400Body .67 kgPfo 6 [facility]10-10-2024 12:02-0400Body axvzlkdrfgy34.01 [degF]Pfo 7 [facility]10-10-2024 12:02-0400Diastolic blood qtozsgcf83 mm[Hg]Pfo [address] [place], [place] 1904110-10-2024 12:02-0400Heart rate80 /minPfo [address] [place], [place] 1904110-10-2024 12:02-0400Respiratory rate16 /minPfo [address] [place], [place] 1904110-10-2024 12:02-7194SgB1% (BldA) [Mass fraction]99 %Pfo [address] [place], [place] 1904110-10-2024 12:02-0400Systolic blood vsiytcpg707 mm[Hg]Pfo [address] [place], [place] 1904110-10-2024 08:21-0400Body wrkend998.[address] [place], [place] 1904110-10-2024 08:21-0400Body mass index (BMI) [Ratio]23.24 kg/m2Pfo [address] [place], [place] 5638410-10-2024 08:21-0400Body jypyyu08.[address] [place], [place] 1904108-20-2024 14:01-0400Body csamtr509.7 Berry Charles MD Work Phone: [facility] WestDfhzdtbmvm55-75-6484 14:01-0400Body mass index (BMI) [Ratio]22.96 kg/d4EubaloLeonidas Charles MD Work Phone: [facility] WestRhrihpwjfm79-72-7047 14:01-0400Body .49 kgLeonidas Charles MD Work Phone: NOEll[facility] Cancer CenterTbsjwnkrrk08-97-4809 14:01-0400Diastolic blood qcwviwug81 mm[Hg]Leonidas Charles MD Work Phone: [facility] WestPpdybkxari19-85-1707 14:01-0400Systolic blood mm[Hg]Leonidas Charles MD Work Phone: [facility] WestYwnvjuqafu14-97-9506 10:49-0400Body xwubaq887.7 Micah DUTTON Work Phone: [facility]06-24-2024 10:49-0400Body mass index (BMI) [Ratio]23.26 kg/r0TihlxddcLogan DUTTON Work Phone: [facility]06-24-2024 10:49-0400Body clafua68.4 kgTerrellerick Dunbar DIAMOND SETTER APPRENTICE-CASE WORKER Work Phone: [facility] [employer] Chrnfw28-81-3543 14:56-0400Body ntrtwo292.3 cmYecenia Vazquez DO Work Phone: [facility]05-06-2024 14:56-0400Body mass index (BMI) [Ratio]22.9 kg/m2Yecenia Vazquez DO Work Phone: [facility]05-06-2024 14:56-0400Body rmkmaarjniu17.01 [degF]Yecenia Vazquez DO Work Phone: [facility]05-06-2024 14:56-0400Body joambn60.35 kgYecenia Vazquez DO Work Phone: [facility]05-06-2024 14:56-0400Diastolic blood nmwajndr07 mm[Hg]Yecenia Vazquez DO Work Phone: [facility]05-06-2024 14:56-0400Heart rate 85 /minJojaycee Vazquez DO Work Phone: [facility]05-06-2024 14:56-9072VnW7% (BldA) [Mass fraction]98 %Yecenia Vazquez DO Work Phone: [facility] [employer] Ecsgms01-85-3707 14:56-0400Systolic blood noeimhwx477 mm[Hg]Yecenia Vazquez DO Work Phone: [facility]02-19-2024 10:10-0500Body teiiam895.3 cmTamie Gómez DIAMOND SETTER APPRENTICE-SOFTWARE VALIDATION TECHNICIAN Work Phone: [facility]02-19-2024 10:10-0500Body mass index (BMI) [Ratio]23.36 kg/m2Tamie Gómez DIAMOND SETTER APPRENTICE-SOFTWARE VALIDATION TECHNICIAN Work Phone: [facility]02-19-2024 10:10-0500Body pjltnwlsefe95.81 [degF]Tamie Gómez APRNKrystinaSOFTWARE VALIDATION TECHNICIAN Work Phone: [facility] ShawDelaGet Jbdifg56-71-8333 10:10-0500Body qeblxq15.76 kgTamie Gómez APRN-SOFTWARE VALIDATION TECHNICIAN Work Phone: [facility] [employer] Gzhokp35-26-6866 10:10-0500Diastolic blood iejmxqzu80 mm[Hg]Tamie HERSOFTWARE VALIDATION TECHNICIAN Work Phone: [facility] [employer] Flsvbm53-75-4700 10:10-0500Heart rate 95 /minTamie Gómez APRN-SOFTWARE VALIDATION TECHNICIAN Work Phone: [facility] [employer] Agjuhl17-95-9126 10:10-8408EcS8% (BldA) [Mass fraction]96 %Tamie HERSOFTWARE VALIDATION TECHNICIAN Work Phone: [facility] [employer] Leynky24-31-3843 10:10-0500Systolic blood nekusqae99 mm[Hg]Tamie HERSOFTWARE VALIDATION TECHNICIAN Work Phone: [facility] [employer] Lmzvcl09-78-9879 13:48-0500Body phulbc106.3 cmSolo Pan MD Work Phone: [facility] [employer] Mfnvye20-30-2161 13:48-0500Body mass index (BMI) [Ratio]22.59 kg/h4KwglmSolo Pan MD Work Phone: [facility] ShawDelaGet Qwqukw83-39-7338 13:48-0500Body oxxxju19.4 kgSolo Pan MD Work Phone: [facility] ShawDelaGet Aiozag76-20-1804 11:03-0500Body jonvua933.3 cmSolo Pan MD Work Phone: [facility] ShawDelaGet Lgjhrd83-55-6617 11:03-0500Body mass index (BMI) [Ratio]22.89 kg/u4IzqivSolo Pan MD Work Phone: [facility] ShawDelaGet Seeahu11-96-5543 11:03-0500Body azlejt05.31 kgSolo Pan MD Work Phone: [facility]-16-2024 11:03-0500Diastolic blood fnqjawfa24 mm[Hg]Solo Pan MD Work Phone: [facility]01-16-2024 11:03-0500Heart rate 99 /minSolo Pan MD Work Phone: [facility]01-16-2024 11:03-0500Systolic blood saznwqvw980 mm[Hg]Solo Pan MD Work Phone: [facility]07-27-2022 13:35-0400Body mcdevh355.26 cmPameldong Albert Other [employer] Other 07-27-2022 13:35-0400Body mass index (BMI) [Ratio] 22.89 kg/i7Vxwiam Bety Other [employer] Other 07-27-2022 13:35-0400Body yiiuukrfbur35.9 [degF]Filomena Bety Other [employer] Other 07-27-2022 13:35-0400Body .31 kgFilomena Albert Other [employer] Other 07-27-2022 13:35-0400Respiratory rate18 /minFilomena Albert Other [employer] Other 07-27-2022 13:35-3450VfG7% (BldA) [Mass fraction]96 % Filomena Bety Other [employer] Other Encounters Encounter DateEncounter TypeCare ProviderFacilityStart: 04-27-2025 End: 30-84-9412dnzwrtdsszSfiwfwy Rapp DO Work Phone: -[facility] ClydeStart: 04-27-2025 End: 53-91-3236Yttbwxr encounter procedureBela Moreira DO-[facility] [place] Work Phone: Start: 04-27-2025 End: 77-70-7587Lnjcxfi encounter statusBela Moreira [facility]: 03-20-2025 End: 12-88-1155Pbmrygovm department patient visitJOHammond General Hospitaltart: 03-10-2025 End: 16-59-0714reyvqlknlyJniwjik Kelbley PTANOMS [place] Physical TherapyComment on above:Multiple sclerosis (HCC) (Primary Dx)Start: 03-10-2025 End: 43-46-7577Vgvpib flowsheetMelissa Kelbley PTANOMS [facility] Start: 03-10-2025 End: 96-22-4670Wlzybe flowsheetMelissa Kelbley PTANOMS [facility] Start: 03-03-2025 End: 62-93-3175Wupzda flowsheetMelissa Kelbley PTANOMS [facility] Start: 03-03-2025 End: 33-97-9021Gvnqni flowsheetMelissa Kelbley PTANOMS [facility] Start: 03-03-2025 End: 31-73-8530llaqutggjaCquxabv Kelbley PTANOMS [place] Physical TherapyComment on above:Multiple sclerosis (HCC) (Primary Dx)Start: 02-25-2025 End: 47-36-1698Inalve flowsheetMelissa Kelbley PTANOMS [facility] Start: 02-25-2025 End: 38-25-1175Xlhxfz flowsheetMelissa Kelbley PTANOMS [facility] Start: 02-25-2025 End: 98-85-1943dxpdgitcytSgxuzjj Kelbley PTANOMS [place] Physical TherapyComment on above:Multiple sclerosis (HCC) (Primary Dx)Start: 02-18-2025 End: 32-56-3044Zobcbw flowsheetSammantha Arzola PTNOMS [facility] Start: 02-18-2025 End: 03-16-3808Tbfcri flowsheetSammantha Arzola PTNOMS [facility] Start: 02-18-2025 End: 29-41-7473uuprdvkkzgFjsbzmqqx Arzola PTNOMS [facility] Comment on above:Multiple sclerosis (HCC) (Primary Dx)Start: 02-09-2025 End: 08-92-0397Ptfxfd Kayli Solomon MD Work Phone: noMS NEUROLOGYStart: 02-09-2025 End: 01-64-9314Vnozpm Kayli Solomon MD Work Phone: noMS BM NEUROLOGYStart: 02-09-2025 End: 66-85-9124Awzvtk outpatient visit 25 minutesLucian Solomon MD Work Phone: noMS [place] NeurologyComment on above:Multiple sclerosis (HCC) (Primary Dx)Start: 02-09-2025 End: 37-74-5119mcidejsrllGQEYTFB W BAUERNot AvailableStart: 12-26-2024 End: 31-81-7574Rsmzrb Kayli Solomon MD Work Phone: noms NEUROLOGYStart: 12-26-2024 End: 50-02-1851Ufkbuftoby Solomon MD Work Phone: noms NEUROLOGYStart: 12-26-2024 End: 20-11-6986Aunawb outpatient visit 25 minutesLucian Solomon MD Work Phone: noMS SWS NEURComment on above:Multiple sclerosis (HCC) (Primary Dx)Start: 12-26-2024 End: 10-73-5507synjhgddfxRYQSPCE W BAUERNot AvailableStart: 11-12-2024 End: 85-96-1335ffsilysjjkZPHCVSV W BAUERNot AvailableStart: 10-30-2024 End: 85-85-4366Eqlygotoby Solomon MD Work Phone: noMS NEUROLOGYStart: 10-30-2024 End: 63-07-2225Mrocts flowsheetLucian Solomon MD Work Phone: noms BM NEUROLOGYStart: 10-30-2024 End: 95-90-6533Vyqcve outpatient visit 25 minutesLucian Solomon MD Work Phone: noms SWS NEURComment on above:Left foot drop (Primary Dx); Multiple sclerosis (CMS/HCC); Foraminal stenosis of lumbar region; Left leg weaknessStart: 10-30-2024 End: 45-06-3309kjzmxolihaRQNGEDB W BAUERNot AvailableStart: 10-27-2024 End: 90-38-1905Cxmxho OnlyPatriczuleyka Momin [facility] Work Phone: [facility] - Medical OncologyStart: 10-15-2024 End: 84-57-4841Dbuoqmaebv and management of [place] campustart: 08-27-2024 End: 94-70-0589Qqkhzf outpatient visit 25 minutesYecenia Rita Vazquez DO Work Phone: [facility] - Family MedicineComment on above:Anterior horn cell disease (CMS-HCC) (Primary Dx); Cervical myelopathy (CMS-HCC); Spinal stenosis of lumbar region with neurogenic claudication; Acquired left foot dropStart: 08-27-2024 End: 97-01-0098pdkrapkkyyULMAEast [facility] Regional [facility] Center Ambulatory PPGStart: 08-14-2024 End: 06-20-2705Vjegoub encounter procedureJojaycee Vazquez DO Work Phone: [facility] - Family MedicineComment on above:Encounter for subsequent annual wellness visit (AWV) in Medicare patient (Primary Dx); Anterior horn cell disease (CMS-HCC); Monoparesis (CMS-HCC)Start: 08-14-2024 End: 80-75-5640fvenwzvepsVTWVMontefiore [facility] Ambulatory PPGStart: 07-30-2024 End: 54-28-5604Prkrrv outpatient new 30 Shyam Judge DPM Work Phone: noms PODIATRYComment on above:Lumbar radiculopathy (Primary Dx); Leg length discrepancy; Chronic left-sided low back pain with left-sided sciatica; Foot drop, leftStart: 07-30-2024 End: 01-11-2762mdujcxvxapYQTXBLG S RUSHERNot AvailableStart: 07-30-2024 End: 77-22-0516Ylqoiq flowsheetMeghannjoelle Judge DPM Work Phone: noms PODIATRYStart: 07-30-2024 End: 90-27-0487Yrbtus flowsheetSpencer Judge DPM Work Phone: noms PODIATRYStart: 07-10-2024 End: 23-63-7581Falwex outpatient visit 25 minutesAngela Lowe PA Work Phone: ana BELLEVUEComment on above:Multiple sclerosis (CMS/HCC) (Primary Dx); Lumbar back pain; Lumbar radiculopathy; Left foot drop; Facet arthritis of lumbar regionStart: 07-10-2024 End: 24-34-6743hixxhhgsrtKYWRFO LOWENot AvailableStart: 05-12-2024 End: 03-04-1432Hecwvt outpatient visit 25 minutesYecenia Vazquez DO Work Phone: [facility] - Family MedicineComment on above:Multiple sclerosis (CMS-HCC) (Primary Dx); B12 deficiency; Spinal stenosis of lumbar region with neurogenic claudicationStart: 05-12-2024 End: 66-49-5293xysefvhtjwBPDE L YUHASPRoxane [facility] Medical Centertart: 04-30-2024 End: 59-94-5420Dbxcmp flowsheetAngela Lowe PA Work Phone: noms NEUROLOGYStart: 04-30-2024 End: 55-90-0489Dfptsg flowsheetAngela Lowe PA Work Phone: noms NEUROLOGYStart: 04-30-2024 End: 19-15-9242Vwnqnlew SupportAngela Lowe PA Work Phone: noms NEUROLOGYComment on above:Myalgia (Primary Dx); Lumbar back painStart: 04-23-2024 End: 17-86-6442Yyvqvv outpatient visit 25 minutesLauryn TEJADA Work Phone: noms NE NEUROComment on above:Multiple sclerosis (CMS/HCC) (Primary Dx); Left leg weakness; Lumbar back pain; MyalgiaStart: 04-23-2024 End: 14-52-3221iqutykswrgJLVT HILLNot AvailableStart: 04-23-2024 End: 71-91-3677Ipswgv Galo TEJADA Work Phone: noms NE NEUROStart: 04-23-2024 End: 68-59-8332Mpfajh Galo TEJADA Work Phone: noms NE NEUROStart: 04-10-2024 End: 18-73-9398uquhgowlxdNif Infusion Chair 6Dbro [facility] - Medical OncologyComment on above:Multiple sclerosis (CMS-HCC) (Primary Dx)Start: 03-27-2024 End: 89-07-4847vwadiqlpgxFug Infusion Chair 7Dbro [facility] - Medical OncologyComment on above:Multiple sclerosis (CMS-HCC) (Primary Dx)Start: 03-25-2024 End: 92-77-1513Wpldfmbxg encounterVannesa Mensah PT Work Phone: noms CI PTComment on above:PT Status (Contacted and checked on current PT status. He noted that 03/27 he will be having an infusion and was going to hold off till after to schedule last PT; I verified his auth is dated out till 04/13/24. He said he will contact.)Start: 03-13-2024 End: 35-33-9625AcgnwfLaura Momin [facility] Work Phone: dbro [facility] - Medical OncologyComment on above:Multiple sclerosis (CMS-HCC) (Primary Dx)Start: 03-12-2024 End: 21-98-3647vlkfhgyrwxFmdkesGui Mensah PT Work Phone: N[facility] CI PTComment on above:Lumbar radiculopathy (Primary Dx); Multiple sclerosis (CMS/HCC); Left leg weakness; Left foot dropStart: 03-12-2024 End: 06-03-9609Soklxj flowsSandy Mensah PT Work Phone: noMS CI PTStart: 03-12-2024 End: 84-99-0070Qgwjsg flowsheetAravindremy T Vivi PT Work Phone: NOM[facility] CI PTStart: 03-05-2024 End: 24-08-0785xkdedszgejHeonlh T Vivi PT Work Phone: noMS CI PTComment on above:Lumbar radiculopathy (Primary Dx); Multiple sclerosis (CMS/HCC); Left leg weakness; Left foot dropStart: 03-05-2024 End: 26-92-8684Lvfuhv flowsreginaldoAravinddarin Mamadou Mensah PT Work Phone: NOM[facility] CI PTStart: 03-05-2024 End: 94-31-9818Khnimc flowsheetAustiny Mamadou Mensah PT Work Phone: NOM[facility] CI PTStart: 02-27-2024 End: 61-88-2083Jxzmvfybh Result EncounterSkevin Charles MD Work Phone: noms External Department UnsolicitedStart: 02-27-2024 End: 87-64-3145Hxxwfaltb Result Michael Charles MD Work Phone: noms External Department UnsolicitedStart: 02-27-2024 End: 51-88-3736SemmqcGnsrt Amanda CMAProMedica Physicians Internal Medicine - Family MedicineComment on above:B12 deficiencyStart: 02-26-2024 End: 36-44-5198gjdxlltinbWrgpsu Mamadou Mensah PT Work Phone: noMS CI PTComment on above:Lumbar radiculopathy (Primary Dx); Multiple sclerosis (CMS/HCC); Left leg weakness; Left foot dropStart: 02-26-2024 End: 77-29-0738Yqfply flowsheetJeremy T Blackston PT Work Phone: NOMS CI PTStart: 02-26-2024 End: 57-36-8456Bibcie flowsheetJeremy T Blackston PT Work Phone: NOMS CI PTStart: 02-21-2024 End: 34-00-0275Tflovn flowsheetJeremy T Blackston PT Work Phone: NOMS CI PTStart: 02-21-2024 End: 61-40-4620Dsktlm flowsheetJeremy T Blackston PT Work Phone: noMS CI PTStart: 02-21-2024 End: 83-42-3025hprkxztavySulrnd T Blackston PT Work Phone: noMS CI PTComment on above:Lumbar radiculopathy (Primary Dx); Multiple sclerosis (CMS/HCC); Left leg weakness; Left foot dropStart: 02-14-2024 End: 17-52-1808kfhhgxahokNnckkk T Blackston PT Work Phone: NOMS CI PTComment on above:Lumbar radiculopathy (Primary Dx); Multiple sclerosis (CMS/HCC); Left leg weakness; Left foot dropStart: 02-14-2024 End: 72-08-0318Quyflw flowsheetJeremy T Blackston PT Work Phone: NOMS CI PTStart: 02-14-2024 End: 06-58-3875Fpgcvk flowsheetJeremy T Blackston PT Work Phone: noms CI PTStart: 02-06-2024 End: 46-59-3299OxbtonSyfegvns Riedy MANOMS NE NEUROComment on above:Lumbar radiculopathyStart: 02-05-2024 End: 32-52-3091Qtxcir Anaid Charles MD Work Phone: noms ST NEUROLOGYStart: 02-05-2024 End: 21-63-5986Zbsjbe flowsheetSkevin Charles MD Work Phone: noms NEUROLOGYStart: 02-05-2024 End: 81-98-1451Anofjq outpatient visit 25 minutesLeonidas Charles MD Work Phone: noms NEUROLOGYComment on above:MS (multiple sclerosis) (CMS/HCC) (Primary Dx); Lumbar radiculopathy; Multiple sclerosis (CMS/HCC); Left leg weakness; Left foot drop; Foraminal stenosis of lumbar region; Facet arthritis of lumbar regionStart: 12-10-2023 End: 42-55-6457Kzpmxb outpatient visit 15 minutesLogan Dunbar APRN-CASE WORKER Work Phone: [facility] NeuroSurgeryComment on above:Left lumbar radiculopathy (Primary Dx); Proximal leg weakness; Low back pain, unspecified back pain laterality, unspecified chronicity, unspecified whether sciatica presentStart: 12-10-2023 End: 52-25-1408oaocopmlukRFNZZFKSArbor Health Ambulatory PPGStart: 12-05-2023 End: 47-85-8092kyqdvyfvoyICHVEast [facility] Regional [facility] Center Ambulatory PPGStart: 10-22-2023 End: 94-64-8387kzyylkclzrWKEKWyandot Memorial Hospitaltart: 10-22-2023 End: 95-13-5100cbwgkowvivMJIFEast [facility] Regional [facility] Center Ambulatory PPGStart: 10-22-2023 End: 47-83-8422Evadbj outpatient visit 25 Nick Vazquez DO Work Phone: [facility] - Family MedicineComment on above:Left lumbar radiculopathy (Primary Dx); Acquired left foot drop; Spina bifida occulta; Peripheral polyneuropathy; B12 deficiency; Mixed hyperlipidemiaStart: 98-17-6251Gxjqgttyq Alysa Gómez APRN-SOFTWARE VALIDATION TECHNICIAN Work Phone: [facility] Internal [facility] - Family MedicineStart: 08-06-2023 End: 15-78-7285Cvgdbc outpatient visit 25 minutesTamie Gómez DIAMOND SETTER APPRENTICE-SOFTWARE VALIDATION TECHNICIAN Work Phone: [facility] - Family MedicineComment on above:Multiple sclerosis (CMS-HCC) (Primary Dx); Monoparesis (CMS-HCC); Spinal stenosis of lumbar region with neurogenic claudicationStart: 07-31-2023 Orders Ashley Gee MAProMedica Physicians NeuroSurgeryComment on above: Neuropathy (Primary Dx); Leg pain, leftStart: 05-11-0679Rtegsxwjq encounterElindong Montiel CMAProMedica Physicians NeurologyComment on above:New PatientStart: 00-15-9335Jpblfbibm encounterTa-Yessica HunterProMedica Physicians NeurologyComment on above:Neuro ReferralStart: 07-19-2023 End: 18-12-2924Lwqoji outpatient visit 25 minutesSolo Pan MD Work Phone: [facility] NeuroSurgeryComment on above:Leg pain, left (Primary Dx); NeuropathyStart: 07-03-2023 End: 10-75-0185Fiqigb outpatient visit 25 minutesSolo Pan MD Work Phone: [facility] NeuroSurgeryComment on above: Multiple sclerosis (CMS-HCC) (Primary Dx); Proximal leg weaknessStart: 06-54-3657crkuubsvxsVREIW FLOMFacility:[facility] LUFKINtart: 62-49-9521fkwuqbxfntYUAMM FLOMFacility:[facility]INtart: 02-24-2022 End: 83-76-8437llsrnfguowDI CHARLES HOUSEFacility:W5Wjsme: 01-26-2022 End: 12-17-9317iboxypgzspSQ CHARLES HOUSEFacility:A0Ilhsg: 01-11-2022 End: 22-83-4283nhpsviyuijUqpvcm [place] Other [employer] Other Start: 66-98-6893Nklmrp outpatient visit 15 minutes Fil[facility]a [facility] ClydeStart: 11-11-2021 End: 31-47-1563mgvfqixbjeOU CHARLES HOUSEFacility:H6Vbwjo: 11-07-2021 End: 48-57-4659myhfcfzevnEJCD LACOURFacility:H1 Procedures DateProcedureProcedure DetailPerforming ClinicianStart: 68-70-4641Vqmszzvn blood count with white cell differential, automatedLucian Solomon MD Work Phone: Start: 69-35-2946Vntcvdnyutbga metabolic panelLucian Solomon MD Work Phone: Start: 39-61-3306ZEEKRFZPKQM-TB GOLD PLUSBreashley Solomon MD Work Phone: Start: 36-10-9851Jz cell mediated antign respnse gamma interferonBreashley Solomon MD Work Phone: Start: 22-81-2640PdaqohhvhpfFrkpuhoj Beascjose g [facility] Work Phone: Start: 25-88-4239Qayta depression screening assessment Yecenia Vazquez DO Work Phone: Start: 04-85-5170Sutkw depression screening assessment Yecenia Vazquez DO Work Phone: Start: 42-23-9244Dyage depression screening assessment Yecenia Vazquez DO Work Phone: Start: 61-46-5088Odxnrscxr single/microsoft application developer trigger point 1/2 Anitha Nix PA Work Phone: Start: 56-08-3743AWI CBC WITH AUTO DIFFStevvj Charles MD Work Phone: Start: 10-12-6313Qrwsmk-up visitFollow-upPATRICZULEYKA DUNBARStart: 84-15-0855Qylds depression screening assessmentLogan Dunbar DIAMOND SETTER APPRENTICE-CASE WORKER Work Phone: Start: 69-58-8206Waqmz depression screening assessment Yecenia Vazquez DO Work Phone: Start: 86-02-4882Zsqqu depression screening assessment Tamie Gómez DIAMOND SETTER APPRENTICE-SOFTWARE VALIDATION TECHNICIAN Work Phone: Start: 36-88-1267Uigok depression screening assessment Solo Pan MD Work Phone: Start: 79-24-2470ZankaapxtviMcibf Reinard MD Work Phone: Plan of Treatment DateCare ActivityDetailAuthorStart: 87-78-9181Lngjvnaiv for malignant neoplasm of colonColonoscopyProMedical Center Enterprise Health SystemStart: 59-84-7764Vvfubsids for malignant neoplasm of colonColonoscopyProtestant Hospital Health SystemStart: 04-01-2026 DTaP,Tdap and Td Vaccines (2 - Td or Tdap)DTaP,Tdap and Td Vaccines (2 - Td or Tdap)[facility] SystemStart: 94-15-1274Vynhh BMI ScreeningAdult BMI ScreeningProCenterville SystemStart: 14-55-6701Jtvzkle ScreeningTobacco ScreeningSelect Medical [facility]ca [facility] SystemStart: 01-66-8191Lpgan BMI ScreeningAdult BMI ScreeningProMercy Health Lor[facility] Hospitalca Health SystemStart: 66-07-9003Npjtpestaa ScreeningDepression ScreeningProtestant Hospital Health SystemStart: 84-70-4987Krqhb BMI ScreeningAdult BMI ScreeningProMercy Health Lorain Hospitalca Health SystemStart: 86-78-5415Jnlhrzoenn ScreeningDepression ScreeningSelect Medical [facility] Shawca Health SystemStart: 77-77-1675Jtdrmeu ScreeningTobacco ScreeningProtestant Hospital Health SystemStart: 72-94-7569Cryph BMI ScreeningAdult BMI ScreeningGlenbeigh Hospital SystemStart: 00-41-3192Cajxexpcuz ScreeningDepression ScreeningGlenbeigh Hospital SystemStart: 35-21-9678Mvkdgkr ScreeningTobacco ScreeningSelect Medical [facility] [facility] SystemStart: 05-07-2025 End: 77-86-7897Drraudg encounter anbwsjwpr81/20/2025 8:20 AM EST Office Visit [facility] [address] [place] [address] Lucian Solomon MD [address] [place] [address] [place] [address] [facility] NeurologyStart: 13-40-2615Bopjs BMI ScreeningAdult BMI ScreeningProCenterville SystemStart: 15-16-7471Vzcaqmz ScreeningTobacco ScreeningProCenterville SystemStart: 03-17-2025 End: 71-31-1238ewhveyazky96/30/2025 3:00 PM EDT Treatment [facility] [address] [place], [place] Yakov Gonsales PTANOMS [place] Physical TherapyStart: 03-10-2025 End: 71-96-5181lnorqaunxoMRZA [place] Physical TherapyComment on above:Arrived Start: 03-03-2025 End: 88-50-9398gacccuarmnOOBT [place] Physical TherapyComment on above:Arrived Start: 02-25-2025 End: 76-90-6884hsrqgwzuxnZTVD [place] Physical TherapyComment on above:Arrived Start: 02-18-2025 End: 28-69-7843kdijpuwgugVYWT [place] Physical TherapyComment on above:Arrived Start: 02-09-2025 End: 93-39-9856HAX W Auto Differential panel - BloodCBC and differential Lab Routine Multiple sclerosis (HCC) Expected: 02/09/2025 (Approximate), Expires: 02/09/2026[facility] Work Phone: Comment on above:Expected: 02/09/2025 (Approximate), Expires: 02/09/2026Start: 02-09-2025 End: 38-12-5708Qwklhyhniouav metabolic 2000 panel - Serum or PlasmaComprehensive metabolic panel Lab Routine Multiple sclerosis (HCC) Expected: 02/09/2025 (Approximate), Expires: 02/09/2026[facility] HealthcareComment on above:Expected: 02/09/2025 (Approximate), Expires: 02/09/2026Start: 02-09-2025 End: 03-49-7060Mxprjmp encounter procedureNOMS SWS NEURComment on above:Arrived Start: 12-26-2024 End: 50-22-8665Duoxmda encounter procedureNOMS SWS NEURComment on above:Arrived Start: 34-04-7047Yhvyj BMI ScreeningAdult BMI ScreeningGlenbeigh Hospital System Start: 51-68-8707Wfukivr ScreeningTobacco ScreeningProCleveland Clinic Avon Hospitaltart: 68-84-7985Adsyvdhjfh ScreeningDepression ScreeningSentara Albemarle Medical Centertart: 10-30-2024 End: 63-37-4288Elvirjzan B virus core IgM Ab [Presence] in Serum or Plasma by ImmunoassayHepatitis B core antibody, total Lab Routine Multiple sclerosis ([facility]) Expected: 10/30/2024 (Approximate), Expires: 10/30/2025[facility] Comment on above:Expected: 10/30/2024 (Approximate), Expires: 10/30/2025Start: 10-30-2024 End: 32-03-9929GS Brain WO and W contrast IVMR brain w and wo contrast routine Imaging Routine Multiple sclerosis ([facility]) Expected: 10/30/2024, Expires: 10/30/2025[facility] Work Phone: Comment on above:Expected: 10/30/2024, Expires: 10/30/2025Start: 10-30-2024 End: 37-04-2807TF Lumbar spine WO and W contrast IVMR lumbar spine w and wo contrast Imaging Routine Multiple sclerosis ([facility]) Foraminal stenosis of lumbar region Left leg weakness Expected: 10/30/2024, Expires: 10/30/2025[facility] HealthcareComment on above:Expected: 10/30/2024, Expires: 10/30/2025Start: 10-30-2024 End: 47-39-7529RTTNIRWOUJJ TB GOLDQuantiferon TB Gold Lab Routine Multiple sclerosis ([facility]) Expected: 10/30/2024 (Approximate), Expires: 10/30/2025[facility] HealthcareComment on above:Expected: 10/30/2024 (Approximate), Expires: 10/30/2025Start: 10-30-2024 End: 22-26-1801Cldeflw encounter biviiuabf88/15/2025 9:00 AM EDT Office Visit [facility] NE[facility] [address] [place] [address] Lucian Solomon MD [address] [place] [address] [place] [address] ArrivedNO [facility] NEURComment on above: ArrivedStart: 79-62-3403Dnozu BMI ScreeningAdult BMI ScreeningProMedica Health SystemStart: 47-44-4038Cxictgajlo ScreeningDepression ScreeningProMedica Health SystemStart: 23-49-3505Pwbzolg ScreeningTobacco ScreeningProMedica Health System Start: 09-25-2024 End: 59-57-5359tkaymikonl80/10/2025 9:00 AM EDT Infusion Shanti Salinas Freddy [facility] - Medical Oncology [address] [place] [address] Shanti Hayes [facility] - Medical OncologyStart: 21-86-6767Mchmu BMI ScreeningAdult BMI ScreeningProMedica Health SystemStart: 20-41-5200Ypxsqoxdaj ScreeningDepression ScreeningProMedica Health SystemStart: 16-88-4743Hdbhkaa ScreeningTobacco ScreeningProMedica Health SystemStart: 07-30-2024 End: 17-21-1048Pxvoaqv encounter bfuerzrkt10/12/2025 2:30 PM EST Office Visit [facility] [address] [place] [address] Spencer Judge, DPM [address] [place], [place] [id number] ArrivedNOCOXHEALTH PODIATRYComment on above:ArrivedStart: 22-74-0946Zaoxh BMI ScreeningAdult BMI ScreeningProMercy Health Lorain Hospitalca [facility] SystemStart: 07-10-2024 End: 79-12-0006Gwscjfc encounter gpaldkqxn06/23/2025 2:40 PM EST Office Visit [facility] [address] [place] [phone] Alycia Nix PA [address] [place] [address] NOMS [facility] ROUTEStart: 07-06-2024 Adult BMI ScreeningAdult BMI ScreeningGlenbeigh Hospital SystemStart: 07-04-2024 Tobacco ScreeningTobacco ScreeningGlenbeigh Hospital SystemStart: 04-23-2024 End: 14-52-1255Sdpwlyb encounter llhvtskyi58/06/2024 3:40 PM EST Office Visit [facility] NE NEURO [address] [place] [address] Lauryn Alicia PA [address] [place], [place] [phone] ArrivedNOMS NE NEUROComment on above:ArrivedStart: 20-78-8313Jwxajxrhfh ScreeningDepression ScreeningProCenterville SystemStart: 04-23-2024 End: 96-34-8032Eepmji trigger point, 1 or 2Inject trigger point, 1 or 2 Procedures Routine Lumbar back pain Myalgia Expected: 04/23/2024 (Approximate), Expires: 04/23/2025[facility] Work Phone: comment on above:Expected: 04/23/2024 (Approximate), Expires: 04/23/2025Start: 04-10-2024 End: 54-60-2994aavpxoaojt73/24/2024 9:00 AM EDT Infusion Shanti Hayes [facility] - Medical Oncology [address] [place] [address] Shanti Hayes [facility] - Medical OncologyStart: 03-19-2024 End: 79-27-4232mftjbfdjhe47/02/2024 4:30 PM EDT Treatment [facility] CI PT [address] [facility] [address] [place] [address] Vannesa Mensah, PT [address] [facility] [address] [place] [address] NOMS CI PTStart: 03-18-2024 End: 43-86-5945Tostuvx encounter procedureNOMS [facility] R[facility]TEStart: 03-12-2024 End: 05-92-3389ddxjuienwfISOQ CI PTComment on above:ArrivedStart: 03-05-2024 End: 04-31-9651twinxxjjxyJCQF CI PTComment on above:ArrivedStart: 02-26-2024 End: 07-40-4065vkdgcccujbOVED CI PTComment on above:ArrivedStart: 02-21-2024 End: 69-04-6072hblpqjixaqSGJD CI PTComment on above:ArrivedStart: 02-14-2024 End: 66-27-1086nymlioyqnv13/29/2024 3:00 PM EDT Evaluation [facility] PT [address] [facility] [address] [place] [address] Vannesa Mensah, PT [address] [facility] [address] [place] [address] Lumbar radiculopathy; Multiple sclerosis (CMS/HCC); Left leg weakness; Left foot dropNOMS CI PTComment on above:Lumbar radiculopathy; Multiple sclerosis (CMS/HCC); Left leg weakness; Left foot dropStart: 02-05-2024 End: 07-87-0532YGR W Auto Differential panel - BloodCBC auto differential Lab Routine Multiple sclerosis ([facility]) Expected: 02/05/2024 (Approximate), E xpires: 08/07/2024[facility] Work Phone: comment on above:Expected: 02/05/2024 (Approximate), Expires: 08/07/2024Start: 02-05-2024 End: 00-82-7801Woxwlnhqcpogw metabolic 2000 panel - Serum or PlasmaComprehensive metabolic panel Lab Routine Multiple sclerosis ([facility]) Expected: 02/05/2024 (Approximate), Expires: 08/07/2024[facility] HealthcareComment on above:Expected: 02/05/2024 (Approximate), Expires: 08/07/2024Start: 02-05-2024 End: 41-38-7326Sqwjqjgay b surf ab quantHepatitis b surf ab quant Lab Routine Multiple sclerosis ([facility]) Expected: 02/05/2024 (Approximate), Expires: 08/07/2024[facility] HealthcareComment on above:Expected: 02/05/2024 (Approximate), Expires: 08/07/2024Start: 02-05-2024 End: 40-55-4889CTATEMJUU B SURFACE ANTIGEN ([facility]HEPATITIS B SURFACE ANTIGEN ([facility]) Lab Routine Multiple sclerosis ([facility]/HCC) Expected: 02/05/2024 (Ap proximate), Expires: 08/07/2024[facility] HealthcareComment on above:Expected: 02/05/2024 (Approximate), Expires: 08/07/2024Start: 02-05-2024 End: 96-53-7567Phuerkszg B virus core IgM Ab [Presence] in Serum or Plasma by ImmunoassayHepatitis B core antibody, total Lab Routine Multiple sclerosis ([facility]/HCC) MS (multiple sclerosis) ([facility]/HCC) Expected: 02/05/2024 (Approximate), Expires: 08/07/2024[facility] HealthcareComment on above:Expected: 02/05/2024 (Approximate), Expires: 08/07/2024Start: 02-05-2024 End: 54-23-9407Gwrukpvcu C virus Ab [Presence] in Serum or Plasma by Immunoassay Hepatitis C antibody Lab Routine Multiple sclerosis ([facility]/HCC) MS (multiple sclerosis) (CMS/HCC) Expected: 02/05/2024 (Approximate), Expires: 08/07/2024[facility] HealthcareComment on above:Expected: 02/05/2024 (Approximate), Expires: 08/07/2024Start: 02-05-2024 End: 47-82-9621LOL-1/HIV-2 antigen/antibody combination immunoassayHIV-1 and HIV-2 antibodies Lab Routine Multiple sclerosis ([facility]/HCC) MS (multiple sclerosis) ([facility]/HCC) Expected: 02/05/2024 (Approximate), Expires: 08/07/2024[facility] HealthcareComment on above:Expected: 02/05/2024 (Approximate), Expires: 08/07/2024Start: 02-05-2024 End: 40-83-9756Cmomuky encounter ydtewfuuu91/20/2024 2:00 PM EDT [facility] [address] [facility] [address] [place] [phone] Leonidas Charles MD [address] [place] [address] [facility] NEUROLOGYComment on above:ArrivedStart: 02-05-2024 End: 10-68-0065CPZKVDWFGYJ TB GOLDQUANTIFERON TB GOLD Lab Routine Multiple sclerosis ([facility]) MS (multiple sclerosis) ([facility]) Expected: 02/05/2024 (Approximate), Expires: 08/07/2024[facility] HealthcareComment on above:Expected: 02/05/2024 (Approximate), Expires: 08/07/2024Start: 02-05-2024 End: 95-68-3683JTWRLUEE JCV(TM) AB (WITH INDEX) W/RFL INHIBITIONSTRATIFY JCV(TM) AB (WITH INDEX) W/RFL INHIBITION Lab Routine MS (multiple sclerosis) ([facility]) Expected: 02/05/2024 (Approximate), Expires: 08/07/2024[facility] HealthcareComment on above:Expected: 02/05/2024 (Approximate), Expires: 08/07/2024Start: 02-05-2024 End: 73-53-4370Cbjongasw zoster antibody, IgGVaricella zoster antibody, IgG Lab Routine Multiple sclerosis ([facility]) MS (multiple sclerosis) ([facility]) Expected: 02/05/2024 (Approximate), Expires: 08/07/2024[facility] HealthcareComment on above: Expected: 02/05/2024 (Approximate), Expires: 08/07/2024Start: 11-30-2023 End: 72-76-5904Ziunifr encounter ngafgthgo34/14/2024 1:00 PM EDT [facility]ment [facility] [place] - Neurophysiology [address] [facility] [address] [place] [address]EorPltgik Neuroscience [place] - NeurophysiologyStart: 11-14-2023 End: 02-33-7947Ltjkavx encounter ywjnjtpjq40/29/2024 3:00 PM EDT Office Visit [facility] [address] [place] [address] Yecenia Vazquez, [address] [facility] [place] [facility] - Family MedicineStart: 09-24-2023 End: 43-94-6974Qgctsyo encounter cyyoussbq23/08/2024 2:45 PM EDT Appointment [facility] [place] - Neurophysiology [address] [facility] [address] [place] [address]LmaOvjuzxCitizens [facility] - NeurophysiologyStart: 09-18-2023 End: 74-46-7178Utufpnb encounter vmkhqiifd43/02/2024 10:30 AM EDT [facility] [address] [facility] [address] [place] [address]XecVujsihCitizens Baptist - NeurophysiologyStart: 08-21-2023 End: 68-04-0939Auqdkmp encounter bsucfmzfx37/05/2024 3:15 PM EST [facility]ment [facility] [place] [facility] [address] [place] [address] ArrivedProMedica [place] - Total RehabComment on above:ArrivedStart: 08-06-2023 End: 74-58-8698Qtwphib encounter lhbqtrsko38/19/2024 10:10 AM EST Office Visit [facility] [address] [facility] [address] Tamie Gómez, DIAMOND SETTER APPRENTICE-SOFTWARE VALIDATION TECHNICIAN [address] [place] [address] [facility] - Family MedicineStart: 07-19-2023 End: 15-13-0926Emrgige encounter hklhvfehv51/01/2024 12:45 PM EST Office Visit [facility] Neuro[facility] [address] [place] [address] Solo Pan MD [address] [facility] [address] [place] [address] [facility] NeuroSurgery Start: 19-93-2096Chywxufwqmzjvn of varicella zoster vaccineZoster (Shingles) Vaccine (1 of 2)[facility] End: 13-22-5365Tfeeqtzoleyvkw vitamin b-12Vitamin B12 Lab Routine B12 deficiency 1 Occurrences starting 05/12/2024 until 05/12/2025[facility] Work Phone: Comment on above:1 Occurrences starting 05/12/2024 until 05/12/2025 End: 46-02-7811BOEGRG Neurology Routine Neuropathy Leg pain, left 1 Occurrences starting 07/31/2023 until 07/31/2024[facility] Work Phone: Comment on above:1 Occurrences starting 07/31/2023 until 07/31/2024 End: 65-67-6766XYXOGA Neurology Routine Left lumbar radiculopathy 1 Occurrences starting 10/22/2023 until 10/21/2024[facility] Work Phone: Comment on above:1 Occurrences starting 10/22/2023 until 10/21/2024Protein electrophoresis, serumProtein electrophoresis, serum Lab Routine Peripheral polyneuropathy 10/22/2023 3:[address] [facility] Immunizations Immunization DateImmunizationNotesCare UdwtqoszFeqrpteo73-44-4479kzkywwz toxoid, reduced diphtheria toxoid, and acellular pertussis vaccine, adsorbedPalaurenta Bety Other [employer] Other Payers DatePayer CategoryPayerPolicy ID2024Medicare (Managed Care)[facility] [id number] [id number] [id number] 2016Medicare HMO ANTHEM MEDICARE Member Subscriber Plan / Payer (Effective 2015-Present) Name: Noemy Packer Relation to Subscriber: Self Name: Noemy Packer Payer ID: [id number] (NAIC) Group ID: [id number] Type: Not on file Address: [facility] [id number] [place] [id number] [id number] 2.0.1.301669.3.57[id number] 2..1.919666.3.57[id number] 2..1.358956.3.57[id number] 2..1.742069.3.57[id number] 2..1.056678.3.57[id number] 2.0.1.611475.3.57[id number] 2.0.1.330364.3.57[id number] 2.16.840.1.690771.3.57[id number] 2.16.840.1.885145.3.57[id number] 2.16.840.1.644824.3.57[id number] 2.16.840.1.189788.3.579.[id number] 2.16.840.1.769587.3.579.[id number] 2.840.1.340707.3.579.2.4[id number] 2.840.1.731997.3.57[id number] 2..840.1.808705.3.57[id number] 2..840.1.611771.3.579.2.8[id number] 2..840.1.960625.3.57[id number] 2..840.1.278014.3.57[id number] 2.16.840.1.454755.3.579.2.8[id number] 2.16.840.1.688448.3.57[id number] 2.16.840.1.766179.3.579.2.786914-39-3622Vzizwdj7967350 2.16.840.1.223898.3.579.[id number] 2.16.840.1.382298.3.579.[id number] 2.16.840.1.318347.3.579.2.582271-27-1595Saqolye8292984 2.16.840.1.215687.3.579.2.1[id number] 2.16.840.1.606210.3.579.2.816245-84-5430Vyrwwmt9676352 2.16.840.1.113147.3.57[id number] 2.16.840.1.180837.3.57[id number] 2.16.840.1.026989.3.579.[id number] 2.16.840.1.982792.3.579.2.789679-47-2216Tzwvluv94160626 2.16.840.1.125095.3.57[id number] 2.840.1.803603.3.579.2.1286 [id number] [id number] Social History DateTypeDetailFacilityUnknown if ever smokedCommtimize Other Start: 11-27-2023 End: 28-11-3098Wlg Assigned At [facility]Gen[facility] [employer] Other Start: 11-27-2023 End: 68-98-9319Kgsqwuq smoking status NHISEx-smokerNOMS HealthcareHistory of tobacco useCurrent smokerNOMS HealthcareHistory of tobacco useCigarette Smoker [facility] HealthcareStart: 02-05-2024 End: 82-94-1612Jggwjmfuz beverage intakeCurrent drinker of alcohol (finding)[facility] HealthcareStart: 11-27-2023 End: 09-77-0167Ksmwsmf of Social functionNOMS HealthcareHow often to you have a drink containing alcohol?Monthly or lessNOMS HealthcareHow many standard drinks containing alcohol do you have on a typical day?1 or 2NOMS HealthcareHow often do you have 6 or more drinks on 1 occasion?NeverNOMS HealthcareStart: 1960 Sex assigned at birthNot on fileNOUT HealthcareStart: 04-30-2024 End: 54-63-2669Uumfnnd use and exposureSmokeless tobacco non-userGlenbeigh Hospital SystemStart: 05-38-1465Wswgluv smoking status NHISNever smoked tobacco [facility] SystemStart: 07-04-2023 End: 99-09-8972Vlpovxv intakeCurrent non-drinker of alcohol (finding)[facility] SystemDo you belong to any clubs or organizations such as cheondoism groups, unions, fraternal or athletic groups, or school groups?NoPMorehouse General Hospital Health System Are you now , , , , never or living with a partner?MarriedSelect Medical Cleveland Clinic Rehabilitation Hospital, Edwin Shawca Health SystemHow many standard drinks containing alcohol do you have on a typical day?Patient does not drinkProMercy Health Lorain Hospitalca Health SystemDo you feel stress - tense, restless, nervous, or anxious, or unable to sleep at night because yourmind is troubled all the time - these days [OSQ]Only a littleProMedica Health SystemHow hard is it for you to pay for the very basics like food, housing, medical care, and heatingSomewhat hardGlenbeigh Hospital SystemStart: 86-64-9869MrpRjlb (finding)[facility] SystemStart: 1960 Sex [facility] Goals DatePatient GoalDesired Activity/StatePersonal health goal Clinical Notes 04-27-2020 to 02-09-2025 Note Date & BjzqXsunOejoauzu45-28-4306 History of Present illness Narrative* Lucian Solomon [...] medications. This clinical note was created utilizing [employer] Insight documentation system. All information has beenthoroughly reviewed, corrected as necessary, and authenticated by the provider to ensure accuracy and completeness. On occasion, [employer] documentation system erroneously drops words or replaces aspoken word with a similar sounding word. Please notify with any questions or concerns regarding this clinical note. documented in this [facility]07-11-2025 History of Present illness Narrative* Lucian Solomon [...] 3. This clinical note was created utilizing [employer] Ins[employer] documentation system. All information has been thoroughly [...] weeks from now. documented in this encounterSaint Joseph Hospital WestUycovpleai10-10-2155 History of Present illness Narrative* Lucian Solomon [...] Demyelinating disease of central nervous system (HCC) ([facility]) 11/25/2012 Diplopia 11/25/2012 Lack of coordination 11/25/2012 Left foot drop 06/23/2019 Left leg weakness Multiple sclerosis ([facility]) 12/16/2012 Neuromuscular disorder ([facility]) Optic neuritis 11/25/2012 Paresthesia Past Surgical History: [...] Packer Depression: At risk (08/27/2024) Received from [employer] PHQ-2 Total Score: 5 REVIEW OF SYMPTOMS: [...] reflexes: Luis's absent. Ankle clonus absent. Coordination Khrnmm-wc-quwf, rapid alternating movements and hqmb-vv-esob normal bilaterally without dysmetria. Gait Normal casual, [...] fluid. He was evaluated in past by [facility] for second opinion. Per [facility] records, [...] brain w and wo contrast routine; [facility] [place] Consider [employer]-Handout given. Consider dalfampridine to help [...] lumbar spine w and wo contrast; [facility] [place] Total time 30 minutes spent reviewing records, [...] Lucian Solomon MD documented in this encounterSaint Joseph Hospital WestQbjilkmjcj81-62-7636 History of Present illness Narrative* Yecenia Vazquez, DO - 08/27/2024 4:15 PM EDT IM PROGRESS NOTE Patient - Noemy Packer Age - 64 y.o. - 1960 [facility] # - [id number] ASSESSMENT & PLAN 1. Anterior horn cell [...] this. -he had an EMG done in [place] approximately 1 year ago which showed an [...] Wt 72.8 kg (160 lb 6.4 oz) WtM118% BMI 23.68 kg/m Physical Exam Vitals reviewed. Exam conducted with a rn patient services present (). Constitutional: General: He is not [...] for pain. 3 tabs, Disp: , Rfl: lptrtnvb-fivb-OM-calcium &mins (THERAGRAN-M) 9 mg iron-400 mcg tablet, [...] Testing No results found. Yecenia Vazquez DO., 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 documented in this encounterParma Community General Hospital02-12-2025 History of Present illness Narrative* Spencer [...] Demyelinating disease of central nervous system (HCC) ([facility]) 11/25/2012 Diplopia 11/25/2012 Lack of coordination 11/25/2012 Left foot drop 06/23/2019 Left leg weakness Multiple sclerosis ([facility]) 12/16/2012 Neuromuscular disorder ([facility]) Optic neuritis 11/25/2012 Paresthesia Medications Current Outpatient [...] he has also had significant improvement with medical massage therapist apy and I recommend that he continue [...] Spencer Judge DPM documented [facility] encounterSaint [facility] [id number] History of Present illness Narrative* Yecenia Vazquez, DO - 05/12/2024 4:15 PM EST IM PROGRESS NOTE Patient - Noemy Packer Age - 64 y.o. - 1960 ASSESSMENT & PLAN 1. Multiple sclerosis ([facility]) (Primary) -now seeing Neurology (NANNETTE White) and [...] Exam Vitals reviewed. Exam conducted with a rn patient services present (). Constitutional: General: He is not [...] for pain. 3 tabs, Disp: , Rfl: vffxaoeh-aatm-OT-calcium &mins (THERAGRAN-M) 9 mg iron-400 mcg tablet, [...] Testing No results found. Yecenia Vazquez DO., [facility] Physicians Office: [phone] documented in this encounterParma Community [facility] Hospital11-13-2024 History of Present illness Narrative* TERRELL [...] Demyelinating disease of central nervous system (HCC) ([facility]) 11/25/2012 Diplopia 11/25/2012 Lack of coordination 11/25/2012 Left foot drop 06/23/2019 Left leg weakness Multiple sclerosis ([facility]) 12/16/2012 Optic neuritis 11/25/2012 Paresthesia Past Surgical History: Procedure Laterality Date APPENDECTOMY Family History Problem Relation Name Age of Onset Cancer Other Social History Tobacco Use Smoking status: Former Types: Cigarettes Smokeless tobacco: Never Substance Use Topics Alcohol use: Yes Medication Documentation Review Audit Reviewed by Franchesca Emery MA (Help Desk Representative) on 04/30/24 at 0840 Medication Order Taking? Sig Documenting Provider Last Dose Status cyanocobalamin (Vitamin B-12) 1000 MCG tablet [id number] No Take 1,000 mcg by mouth Daily Historical Provider, Not Taking Active Multiple Vitamin tablet [id number] No Take 1 tablet by mouth Daily Notes: *please review for potential _update for e-prescription and drug interaction check* TERRELL Vences Not Taking Active pregabalin (Lyrica) 75 MG capsule [id number] Take 1 capsule (75 mg) by mouth [...] Follow up as scheduled documented in this [facility]11-06-2024 History of Present illness Narrative* TERRELL Vences - 04/23/2024 3:40 PM EST Subjective Noemy Packer is a 64 y.o. year old male Chief Complaint Patient presents with Multiple Sclerosis Past Medical History: Diagnosis Date Demyelinating disease of central nervous system (HCC) ([facility]/HCC) 11/25/2012 Diplopia 11/25/2012 Lack of coordination 11/25/2012 [...] Review Audit Reviewed by Stacey Reid MA (Help Desk Representative) on 04/23/24 at 1543 Medication Order Taking? Sig Documenting Provider Last Dose Status cyanocobalamin (Vitamin B-12) 1000 MCG tablet [id number] No Take 1,000 mcg by mouth Daily Historical Provider, Not Taking Active Multiple Vitamin tablet [id number] No Take 1 tablet by mouth Daily Notes: *please review for potential _update for e-prescription and drug interaction check* TERRELL Vences Not Taking Active pregabalin (Lyrica) 75 MG capsule [id number] Take 1 capsule (75 mg) by mouth [...] triceps, wrist extensors, wrist extensors, wrist flexor, wire frame lamp shade maker strength 5/5. LUE Strength deltoid, biceps, triceps, wrist extensors, wrist extensors, wrist flexor, wire frame lamp shade maker strength 5/5. RLE Strength illopsoas, quadriceps, tibialis [...] all orders for this visit: Multiple sclerosis ([facility]) 64 year old male with history of [...] surgical candidate and recently was evaluated at [facility]. He tried and had side effect tocymbalta, [...] also noted on cervical spine MRI from [facility] in 2017. MRI thoracic spine 11/2012: revealed abnormal cord signal posterior to T10-T11 disc space with associated enhancement suspicious for an area or demyelinating plaque or possibly transverse myelitis. PLAN I let patient know that [facility] in [place] has his Lyrica that he can refill [...] new or worsening symptoms documented in this [facility]10-29-2024 Telephone encounter Note* Telephone Encounter - Pita Lomax - 04/15/2024 3:09 PM EDT Received no attempt of being contacted to rs. [facility] [id number] Miscellaneous Notes* Telephone Encounter - Pita Lomax - 04/15/2024 3:09 PM EDT Received no attempt of being contacted to rs. documented in this encounterSaint Joseph Hospital [id number] History of Present illness Narrative* Ebony Hayward [...] vehicle in stable condition. documented in this encounterParma [facility]10-10-2024 History of Present illness Narrative* Lucien [...] ambulatory in stable condition. documented in this encounterParma Community General Hospital09-25-2024 History of Present illness Narrative* Vannesa [...] to be instructed in home exercise program. Territory Sales Manager Goals: To be met in 10 weeks [...] sign below. Date: documented in this encounterSaint Joseph Hospital [id number] History of Present illness Narrative* Vannesa Mensah, [...] to be instructed in home exercise program. Long-Term Goals: To be met in 10 weeks [...] sign below. Date: documented in this encounterSaint Joseph Hospital WestYqadinxkbi05-23-2283 History of Present illness Narrative* Vannesa Mensah, [...] to be instructed in home exercise program. Territory Sales Manager Goals: To be met in 10 weeks [...] sign below. Date: documented in this encounterSaint Joseph Hospital WestWfixqdgusg59-43-2501 History of Present illness Narrative* Vannesa Mensah, [...] to be instructed in home exercise program. Long-Term Goals: To be met in 10 weeks [...] sign below. Date: documented in this encounterSaint Joseph Hospital WestElqtvixnlg99-37-0225 History of Present illness Narrative* Vannesa Mensah, [...] to be instructed in home exercise program. Long-Term Goals: To be met in 10 weeks [...] sign below. Date: documented in this encounterSaint Joseph Hospital WestUzvhjwwtzl64-44-6306 Telephone encounter Note* Telephone Encounter - Franko Mckeon MA - 02/06/2024 3:00 PM EDT Did not go through in visit. [facility] [id number] Miscellaneous Notes* Telephone Encounter - Franko Mckeon MA - 02/06/2024 3:00 PM EDT Did not go through in visit. documented in this encounterSaint Joseph Hospital [id number] History of Present illness Narrative* Leonidas Charles MD - 02/05/2024 2:00 PM EDT Subjective Noemy Packer is a 63 y.o. year old male Chief Complaint Patient presents with Back Pain Multiple Sclerosis Past Medical History: Diagnosis Date Demyelinating disease of central nervous system (HCC) ([facility]) 11/25/2012 Diplopia 11/25/2012 Lack of coordination 11/25/2012 Left foot drop 06/23/2019 Left leg weakness Multiple sclerosis ([facility]/HCC) 12/16/2012 Optic neuritis 11/25/2012 Paresthesia Past Surgical History: Procedure Laterality Date APPENDECTOMY Family History Problem Relation Name Age of Onset Cancer Other Social History Tobacco Use Smoking status: Former Types: Cigarettes Smokeless tobacco: Not on file Substance Use Topics Alcohol use: Yes Medication Documentation Review Audit Reviewed by Stacey Reid MA (Help Desk Representative) on 12/17/23 at 1508 Medication Order Taking? Sig Documenting Provider Last Dose Status cyanocobalamin (Vitamin B-12) 1000 MCG tablet [id number] Take 1,000 mcg by mouth Daily Historical Provider, Active Multiple Vitamin tablet [id number] Take 1 tablet by mouth Daily Notes: *please review for potential _update for e-prescription and drug interaction check* TERRELL Vences Active OXcarbazepine (Trileptal) 150 MG tablet [id number] Take 150 mg by mouth in the morning and 150 mg before bedtime. TERRELL Vences Active pregabalin (Lyrica) 50 MG capsule [id number] Take 50 mg by mouth in the [...] triceps, wrist extensors, wrist extensors, wrist flexor, wire frame lamp shade maker strength 5/5. LUE Strength deltoid, biceps, triceps, wrist extensors, wrist extensors, wrist flexor, wire frame lamp shade maker strength 5/5. RLE Strength illopsoas, quadriceps, tibialis [...] fluid. He was evaluated in past by [facility] for second opinion. Per [facility] records, the diagnosis of MS is [...] also noted on cervical spine MRI from [facility] in 2018. MRI thoracic spine (11/2012) [...] surgical candidate and recently was evaluated at [facility]. He tried and had side effect to [...] prognosis, treatment options. documented in this encounterSaint Joseph Hospital [id number] History of Present illness Narrative* Logan Dunbar APRN-FÁTIMA - 12/10/2023 11:00 AM EDT Images from the original note were not included. [facility] [address] [place] [address], [address] [place] [address] * CHART NOTE ? 12/10/2023 Patient: Noemy Packer 1960 [id number] Physician: Logan Dunbar CNP CHIEF COMPLAINT Follow up, lumbar. HISTORY OF PRESENT ILLNESS 63-year-old male with a history of left low back and left lower extremity pain presents for a follow up to review a recent EMG of the BLE. He has had PT and injections without improvement. He admits to weakness in the LLE and balance problems. Denies loss of wire frame lamp shade maker strength, saddle anesthesia, urinary or bowel dysfunction. [...] for pain. 3 tabs, Disp: , Rfl: zioqschp-kjvd-LT-calcium &mins (THERAGRAN-M) 9 mg iron-400 mcg tablet, [...] record of the patient encounter. Inadvertent computerized dairy manager errors related to syntax, spelling, homophones, and/or inaudibility may be present. MARIJA Del Valle 12/10/23 1250 documented in this encounterParma Community General Hospital06-24-2024 Instructions* Patient Instructions* Angely Hutchison - 12/10/2023 11:00 AM EDT Patient seen today by Dara Diamond to discuss treatment plan with Dr. Pan KM documented in this encounterParma Community General Hospital05-06-2024 History of Present illness Narrative* Yecenia [...] 6 months to get this done in [place]. Will order locally at [facility] in [place] to try and expedite his evaluation. -in [...] awaiting an EMG to be performed in [place]. This was ordered in June 2023 is [...] -He has been to pain management in [place] as well as at [facility], [place], and has received multiple injections which he [...] for pain. 3 tabs, Disp: , Rfl: uihzxtcr-dzlq-EH-calcium &mins (THERAGRAN-M) 9 mg iron-400 mcg tablet, [...] Testing No results found. Yecenia Vazquez DO., [facility] Physicians Office: [phone] documented in this encounterParma Community General Hospital02-27-2024 Miscellaneous Notes* Telephone Encounter - Kai [...] Kai as we discussed documented in this encounterParma Community General Hospital02-27-2024 Telephone encounter Note* Telephone Encounter - [...] to call and schedule with them remington. [facility]02-27-2024 Telephone encounter Note* Telephone Encounter - RADHA Dao - 08/14/2023 10:14 AM EST Thank you Kai as we discussed [facility] SystemV[facility] [id number] History of Present illness Narrative* RADHA Dao [...] for this visit: Multiple sclerosis (CMS-HCC) Monoparesis ([facility]) Spinal stenosis of lumbar region with neurogenic claudication - [facility] [place], [place]; Future We spoke at length about [...] do HEP We discussed at length the senior care effects and unpredictability of MS and its' [...] RADHA Dao 08/06/23 1316 documented in this encounterParma Community General Hospital02-02-2024 Miscellaneous Notes* Telephone Encounter - Alejandra Montiel CMA - 07/20/2023 2:08 PM EST Images from the original note were not included. Referral was received from Dr. Pan to schedule an appointment with Dr. Clay at [facility]. They are also asking a separate EMG order. Please refer to the request that is uploaded on Media. * Telephone Encounter - Lois Urena - 07/20/2023 2:08 PM EST 1st attempt: Called and left patient a voicemail letting them know we have received their referral,are ready to schedule, and to call us back at their earliest convenience to do so. Early Childhood Educator Aide provided callback number for scheduling or to [...] to make an appointment. documented in this encounterParma Community General Hospital02-02-2024 Telephone encounter Note* Telephone Encounter - Alejandra Montiel CMA - 07/20/2023 2:08 PM EST Images from the original note were not included. Referral was received from Dr. Pan to schedule an appointment with Dr. Clay at [facility]. They are also asking a separate EMG order. Please refer to the request that is uploaded on Media. [facility] Freedom of the Press [id number] Telephone encounter Note* Telephone Encounter - Lois Urena - 07/20/2023 2:08 PM EST 1st attempt: Called and left patient a voicemail letting them know we have received their referral,are ready to schedule, and to call us back at their earliest convenience to do so. Early Childhood Educator Aide provided callback number for scheduling or to address any questions or concerns they may have. [facility] Freedom of the Press [id number] Telephone encounter Note* Telephone Encounter - Lois Urena - 07/20/2023 2:08 PM EST 2nd attempt: Called and left patient a voicemail once more letting them know we have received theirreferral, are ready to schedule, and to call us back at their earliest convenience to do so. Writerprovided callback number for scheduling or to address any questions or concerns they may have. [facility] SystemPrivacy [id number] Telephone encounter Note* Telephone Encounter - Renetta [...] he is ready to make an appointment. [facility]02-01-2024 Miscellaneous Notes* Telephone Encounter - Jose Hunter - 07/19/2023 3:11 PM EST Received Referral Referred by: SOLO PAN DX: M79.605 (ICD-10-CM) - Leg pain, left G62.9 (ICD-10-CM) - Neuropathy Called patient to schedule appt. Left VM 1st Attempt * Telephone Encounter - Lois Urena - 07/19/2023 3:11 PM EST This referral is for an EMG - per order and patient. Early Childhood Educator Aide transferred patient to central scheduling. documented in this encounterParma Community General Hospital02-01-2024 Telephone encounter Note* Telephone Encounter - Liz Hunter - 07/19/2023 3:11 PM EST Received Referral Referred by: SOLO PAN DX: M79.605 (ICD-10-CM) - Leg pain, left G62.9 (ICD-10-CM) - Neuropathy Called patient to schedule appt. Left VM 1st Attempt [facility]02-01-2024 Telephone encounter Note* Telephone Encounter - Lois Urena - 07/19/2023 3:11 PM EST This referral is for an EMG - per order and patient. Early Childhood Educator Aide transferred patient to central scheduling. [facility]02-01-20[facility] History of Present illness Narrative* Solo Pan MD - 07/19/2023 12:45 PM EST Images from the original note were not included. [facility] [address] [place] [address], [address] [place] [address] * CHART NOTE ? 07/24/2023 Patient: Noemy Packer 1960 [id number] Physician: Solo Pan MD CHIEF COMPLAINT Follow [...] head 35 years ago and saw an metallic yarn slitting machine operator as hewas having trouble with his visual [...] Obtaining EMG was recommended. Denies loss of wire frame lamp shade maker strength, saddle anesthesia, urinary or bowel dysfunction, [...] for pain. 3 tabs, Disp: , Rfl: dkjlaicg-fniy-BR-calcium &mins (THERAGRAN-M) 9 mg iron-400 mcg tablet, [...] Right achilles: 2+ Left achilles: 2+ Right wire frame lamp shade maker: 2+ Left wire frame lamp shade maker: 2+ Right Lindo: absent Left Lindo: absent [...] record of the patient encounter. Inadvertent computerized dairy manager errors related to syntax, spelling, homophones, and/or inaudibility may be present. Scribe Statement: Scribed for and in the presence of Solo Pan MD by Robin Escobar. Provider Statement: I, Solo Pan MD personally performed the services described in the documentation, as scribedby OS in my presence, and it is both accurate and complete. documented in this encounterParma Community General Hospital01-16-2024 History of Present illness Narrative* Solo Pan MD - 07/03/2023 11:00 AM EST Images from the original note were not included. [facility] [address] [place] [address], [address] [place] [address] * CHART NOTE ? 07/04/2023 Patient: Noemy Packer 1960 [id number] Physician: Solo Pan MD CHIEF COMPLAINT Established [...] head 35 years ago and saw an metallic yarn slitting machine operator as he was having trouble with his visual field and was diagnosed at that time. Patient's imaging was discussed and reviewed to their understanding in office today. Advised patient to obtain MRI's and return. Denies loss of wire frame lamp shade maker strength, saddle anesthesia, urinary or bowel dysfunction, [...] for pain. 3 tabs, Disp: , Rfl: muscatoi-faos-QF-calcium &mins (THERAGRAN-M) 9 mg iron-400 mcg tablet, [...] Right achilles: 2+ Left achilles: 2+ Right wire frame lamp shade maker: 2+ Left wire frame lamp shade maker: 2+ Right Lindo: absent Left Lindo: absent [...] head 35 years ago and saw an metallic yarn slitting machine operator as he was having trouble with his [...] record of the patient encounter. Inadvertent computerized dairy manager errors related to syntax, spelling, homophones, and/or inaudibility may be present. Scribe Statement: Scribed for and in the presence of Solo Pan MD by Robin Escobar. Provider Statement: I, Sool Pan MD personally performed the services described in the documentation, as scribedby OS in my presence, and it is both accurate and complete. documented in this encounterWhite River Junction Va Medical CenterCardiac Insight01-16-2024 Instructions* Patient Instructions* Marcela Gallegos, A - 07/03/2023 11:00 AM EST Patient was seen by Dr. Pan Patient was given orders for MRI Cervical Spine with and without contrast MRI Thoracic Spine With and without contrast MRI Brain with and without contrast Patient will follow up when MRIs have been scheduled. JA documented in this encounterParma Community General Hospital07-27-2022 Evaluation note* Encounter Date Diagnosis Assessment [...] not to take steroids at this time. [employer] Other 06-23-2021 NoteHNO ID: [id number] Author: Carole Henning MD Service: ? Author [...] unknown type at an outside institution in [place]. He currently does not have a copy [...] Packer was initially managed at multiple smaller [facility] sites after which his primary neurosurgeon recommended [...] Take by mouth o (more content not included)...[facility]06-23-2021 NoteHNO ID: [id number] Author: Kai Canales [facility] Service: ? Author Type: Genetic Counselor Type: [...] GENETIC TESTING: None. SOCIAL HISTORY: Lives in [place], [place], with his . 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 Level of education: bachelors degree Alcohol/cigarettes/other: tobacco- former smoker, quit 19 years ago, was smoking 1/2-1ppd. EtOH- maybe a glass of wine weekly. Illicit drug use- denied. FAMILY HISTORY: - Patient's ethnicity: Maternal - Citizen Of [place]; Paternal - Citizen Of [place]. - Partner's ethnicity: not applicable. - No known -Welsh, Mediterranean, /Moroccan, Turkish-Chinese/Cajun, or Ashkenazi Taoist ancestry unless noted above. - Parental consanguinity: [...] is negative for known (more content not included)...[facility]11-10-2020 NoteChief Complaint Pt is a new [...] Pt denies History of Present Illness Reviewed CODE ENFORCEMENT INSPECTOR paper works. There have been no associated [...] left-sided hydrocele. 1. Hydrocele (N43.3: Hydrocele, unspecified) CODE ENFORCEMENT INSPECTOR referred by Dr. Mcneill. Pt. states that [...] Contact Information Kieran Heath MD, Adrian Salinas [address] [place] [address] Additional Instructions: prn Patient Education Hydrocele, Adult I, Yolande Ambrose , personally scribed for Dr. Alcaraz on 04/27/2020 11:28:13. . Documentation recorded by the scribYolande arias, accurately reflects the services(s) I performed and decis (more content not included)...City HospitalComment on above:Result Comment: Electronically Signed By: [...] ankle and foot documented in this encounter [facility] HealthcareEvaluation note* Diagnosis Multiple sclerosis [...] with neurogenic claudication documented in this encounter [facility]* Diagnosis Left lumbar radiculopathy- Primary Thoracic or lumbosacral neuritis or radiculitis, unspecified Acquired left foot drop Spina bifida occulta Peripheral polyneuropathy B12 deficiency Mixed hyperlipidemia documented in this encounter [facility]* Diagnosis Left lumbar radiculopathy- Primary Thoracic or lumbosacral neuritis or radiculitis, unspecified Proximal leg weakness Low back pain, unspecified back pain laterality, unspecified chronicity, unspecified whether sciatica present documented in this encounter [facility]* Diagnosis B12 deficiency documented in this encounter [facility]* Diagnosis Multiple sclerosis (CMS-HCC)- [...] left foot drop [facility] encounter [facility]* Diagnosis Left foot drop- Primary Other acquired deformity of ankle and foot Multiple sclerosis (CMS/HCC) Multiple sclerosis Foraminal stenosis of lumbar region Left leg weakness Muscle weakness (generalized) documented in this encounter [facility] HealthcareEvaluation note* Diagnosis Multiple sclerosis (HCC)- Primary Multiple sclerosis documented in this encounter [facility] HealthcareEvaluation note* Diagnosis Multiple sclerosis (HCC)- Primary Multiple sclerosis documented in this encounter [facility] HealthcareEvaluation note* Diagnosis Multiple sclerosis (HCC)- Primary Multiple sclerosis documented in this encounter [facility] HealthcareEvaluation note* Diagnosis Multiple sclerosis (HCC)- Primary Multiple sclerosis documented in this encounter [facility] HealthcareEvaluation note* Diagnosis Multiple sclerosis (HCC)- Primary Multiple sclerosis documented in this encounter [facility] HealthcareEvaluation note* Diagnosis Multiple sclerosis- Primary documented in this encounter [facility] HealthcareEvaluation note* Diagnosis Onset Date Resolution Status Admit Date Multiple sclerosis acuteNovember 2024 9:04amScreening for prostate canceracuteNovember 2024 9:04amWellness examinationacuteNovember 2024 9:04am [facility] Work Phone: History general Narrative - Reported* Type Description Date Medical History multiple sclerosis Medical Historylegally blindSurgical Jttektcbjpquxyecgxb3848Gimmfxwc History cholecystectomySurgical HistoryvasectomySurgical Qcevaleromfogskf4543Qimfltfi HistoryappendectomySurgical Ckbfhcfsejjnijrwhszcfk6593Dofsjezx Historylumbar puncture, pt unsure when, [place], [place]Surgical Historycolonoscopy, sigmoid diverticulosis/Dr. ReinosoQdpddh3152Kwefrkgv Historycolonoscopy-normal,Dr ReinosoVsqybd4485 Surgical Historyright SI joint injection2-2020Surgical Historysacroiliac injection2/2020Surgical Ivvmauyqihxprgmznf6222Snhdicfhlozxzeo Historyfor ms testing Art[employer] Other InstructionsNot on filedocumented in this encounter [...] Leg pain, left Neuropathy Solo Pan MD [address] [place] [id number] Duglas Clay MD [address] [place] [address] [place] [address] Referral IDStatusReasonStratcliff DateExpiration DateVisits RequestedVisits [id number] Review Specialty Services Required / [facility] SystemRegeovani for referral (narrative)* Consultation (Routine) - AuthorizedSpecialtyDiagnoses / ProceduresReferred By ContactReferred To ContactRehabilitation Diagnoses Spinal stenosis of lumbar region with neurogenic claudication Tamie Gómez, DIAMOND SETTER APPRENTICE-SOFTWARE VALIDATION TECHNICIAN [address] [place] [address] [facility] [address] [place] [address] Referral IDStatusUniversity Of [facility] Children'S HospitalStratcliff DateExpiration DateVisits RequestedVisits [id number] Specialty Services Required / Scheduling Instructions Would like to work with Gianni again if at all possible Electronically signed by Tamie Gómez DIAMOND SETTER APPRENTICE-SOFTWARE VALIDATION TECHNICIAN at 08/06/2023 11:12 AM EST [facility] HospitalReason for referral (narrative)No reason for referral information availableGeorgetown Behavioral Hospital Work Phone: Reason for visit Narrative* Rehabilitation - Outpatient (Routine) - AuthorizedSpecialtyDiagnoses / ProceduresReferred By ContactReferred To ContactPhysical Therapy Diagnoses Multiple sclerosis (HCC) Procedures PA PHYSICAL THERAPY EVALUATION LOW COMPLEX 20 MINS PA OFFICE/OUTPATIENT NEW HIGH MDM 60 MINUTES Lucian Solomon MD [address] [place] [address] Phone: tel: fax: Maritza Arzola, PT Referral IDStatusReasonStart DateExpiration DateVisits RequestedVisits [id number]/3/202511/ [facility] Healthcare Summary Purpose Family History Relationship [...] pain, left Procedures EMG Solo Pan MD [address] [address] Referral IDStatusReasonStart DateExpiration DateVisits RequestedVisits [id number] Review2/13/[id number] / ProceduresReferred By ContactReferred To ContactRadiology Diagnoses Multiple sclerosis (CMS-HCC) Proximal leg weakness Procedures MR thoracic spine with and without contrast Solo Pan MD [address] [place] [address] [address] [place] [phone] [address] Phone: [phone] Referral IDStatusReasonStart DateExpiration DateVisits RequestedVisits [id number]/17/20244/[id number] / Procedures Referred By ContactReferred To ContactRadiology Diagnoses Multiple sclerosis (CMS-HCC) Proximal leg weakness Procedures MR cervical spine with and without contrast Solo Pan MD [address] [place] [address] [address] [place] [address] [address] Phone: [phone] Referral IDStatusReasonStart DateExpiration DateVisits RequestedVisits [id number]/[id number] / Procedures Referred By ContactReferred To ContactRadiology Diagnoses Multiple sclerosis (CMS-HCC) Proximal leg weakness Procedures MR brain with and without contrast Solo Pan MD [address] [place] [address] [address] [place] [phone] [address] Phone: [phone] Referral IDStatusReasonStart DateExpiration DateVisits RequestedVisits [id number]/16/20244/[id number] / Procedures Referred By ContactReferred To ContactPhysical Therapy Diagnoses Lumbar radiculopathy Multiple sclerosis (CMS/HCC) Left leg weakness Left foot drop Procedures PA OFFICE/OUTPATIENT [facility] 60 MINUTES Leonidas Charles MD [address] [place] [address] Referral IDStatusReasonStart DateExpiration DateVisits RequestedVisits [id number] Review Specialty Services Required Chief Complaint and [...] section and content) DATE CREATED AUTHOR 03/25/2021 [facility] DATE CREATED AUTHOR AUTHOR'S ORGANIZ ATION 07/21/2021 [facility] DATE CREATED AUTHOR AUTHOR'S ORGANIZ ATION 01/04/2022 [facility] DATE CREATED AUTHOR AUTHOR'S ORGANIZ ATION 02/26/2022 [facility] DATE CREATED AUTHOR AUTHOR'S ORGANIZ ATION 02/21/2023 [facility] DATE CREATED AUTHOR AUTHOR'S ORGANIZ ATION 05/15/2024 [facility] DATE CREATED AUTHOR AUTHOR'S ORGANIZ ATION 08/30/2024 [facility] DATE CREATED AUTHOR AUTHOR'S ORGANIZ ATION 03/11/2025 [facility] DATE CREATED AUTHOR AUTHOR'S ORGANIZ ATION 03/24/2025 [facility] REASON FOR VISIT (unrecogniz ed section and content) ReasonOnset DateCommentsPT [id number] and checked on current PT status. He [...] Left leg weakness Left foot drop Procedures PA OFFICE/OUTPATIENT [facility] 60 MINUTES Leonidas Charles MD [address] [place] [address] Vannesa Mensah, PT [address] [facility] [address] [place] [address] Referral IDStatusReasonStart DateExpiration DateVisits RequestedVisits [id number] Review Specialty Services Required /[id number] IDStatusReasonStart DateExpiration DateVisits RequestedVisits [id number] Specialty Services Required /[id number] SclerosisBack PainReasonCommentsFoot PainChris Ochoa 64yo New Patient presents with [place], pain typically starts in his left hip and ends in his foot, sometimes numbness. Patient states hip pain started at least 10 years ago. Patienthad custom orthotics in the past. SS 9.5ReasonCommentsNew Patientnp/lumbar/promedica films/no w/c/needs pktReason Onset DateCommentsNeuro Jayrfmir31/01/2024ReasonCommentsFollow-upReview mri amanda and thoracic and cervicalReasonCommentsdiscuss therapy and the results ReasonOnset DateCommentsNew Uvnctgm56/02/2024ReasonCommentsLow back pain lt side only radiating to groin area &legReasonCommentsFollow-upTo review emg & emg is epicSpecialtyDiagnoses / ProceduresReferred By ContactReferred To Contact Neurosurgery Diagnoses Left lumbar radiculopathy Yecenia Vazquez, DO [address] [place] [address] [place] [address] [facility] [address] [place] [address] Referral IDStatusReasonStart DateExpiration DateVisits RequestedVisits [id number] Review Specialty Services Required /[id number] DateCommentsMed [id number] Outpatient InfusionOcrevusSpecialtyDiagnoses / ProceduresReferred By Contact Referred To Contact Diagnoses Multiple sclerosis ([facility]) Procedures PA INJECTION, OCRELIZUMAB, 1 MG Leonidas Charles MD [address] [facility] [place] [address] o Med Onc [address] [place] [phone] Referral IDStatusReasonStart DateExpiration DateVisits RequestedVisits [id number]/26/20249/664659TvpowsCkwpiqqxNnznurtisk InfusionSpecialtyDiagnoses / ProceduresReferred By ContactReferred To Contact Diagnoses Multiple sclerosis ([facility]) Procedures PA INJECTION, OCRELIZUMAB, 1 MG Leonidas Charles MD [address] [facility] [place] [address] Phone: tel: fax: Shanti Salinas [facility] - Medical On[facility] [address] [place] [phone] Phone: tel: fax: ReasonCommentsDiscuss MSReasonCommentsmawReasonCommentsBack PainLower pain-10 ReasonCommentsMultiple Sclerosisleft foot droplumnar stenosisReasonComments Multiple Sclerosis Care Teams (unrecognized sec tion and content) Team MemberRelationshipSpecialtyStart DateEnd Date Yecenia Vazquez MD [address] [place] [address] PCP - GeneralInternal Medicine11/27/23Team MemberRelationshipSpecialtyStart Date End Date Yecenia Vazquez MD [address] [place] [address] PCP - GeneralInternal Medicine11/27/23Team MemberRelationshipSpecialtyStart Date End Date Yecenia Vazquez MD [address] [place] [address] PCP - GeneralInternal Medicine11/27/23Team MemberRelationshipSpecialtyStart Date End Date Yecenia Vazquez MD [address] [place] [address] PCP - GeneralInternal Medicine11/27/23Team MemberRelationshipSpecialtyStart Date End Date Yecenia Vazquez MD [address] [place] [address] PCP - GeneralOro Valley Hospitalnal Medicine11/27/23Team MemberRelationshipSpecialtyStart Date End Date Yecenia Vazquez MD [address] [place] [address] PCP - GeneralInternal Medicine11/27/23Team MemberRelationshipSpecialtyStart Date End Date Yecenia Vazquez MD [address] [place] [address] PCP - GeneralInternal Medicine11/27/23Team MemberRelationshipSpecialtyStart Date End Date Yecenia Vazquez MD [address] [place] [address] PCP - GeneralInternal Medicine11/27/23Team MemberRelationshipSpecialtyStart Date End Date Yecenia Vazquez MD [address] [place] [address] PCP - GeneralInternal Medicine11/27/23Team MemberRelationshipSpecialtyStart Date End Date Yecenia Vazquez MD [address] [place] [address] PCP - GeneralInternal Medicine11/27/23Team MemberRelationshipSpecialtyStart Date End Date Yecenia Vazquez MD [address] [place] [address] PCP - GeneralInternal Medicine11/27/23Team MemberRelationshipSpecialtyStart Date End Date Yecenia Vazquez MD [address] [place] [address] PCP - GeneralInternal Medicine11/27/23Team MemberRelationshipSpecialtyStart Date End Date Yecenia Vazquez MD [address] [place] [address] PCP - GeneralInternal Medicine11/27/23 Leonidas Charles MD [address] [place] [address] Referring PhysicianNeurology1Team MemberRelationshipSpecialtyStart DateEnd Date Yecenia Vazquez MD [address] [place] [address] PCP - GeneralInternal Medicine11/27/23 Leonidas Charles MD [address] [place] [address] Referring PhysicianNeurology1Team MemberRelationshipSpecialtyStart DateEnd Date Yecenia Vazquez MD [address] [place] [address] PCP - GeneralInternal Medicine11/27/23 Leonidas Charles MD [address] [place] [address] Referring PhysicianNeurology1Team MemberRelationshipSpecialtyStart DateEnd Date Tamie Gómez Rose, DIAMOND SETTER APPRENTICE-SOFTWARE VALIDATION TECHNICIAN [address] [place] [address] PCP - GeneralInternal Medicine10/19/22Team MemberRelationshipSpecialtyStart Date End Date Pedro Nancy, DIAMOND SETTER APPRENTICE-SOFTWARE VALIDATION TECHNICIAN [address] [place] [address] PCP - GeneralInternal Medicine10/19/22Team MemberRelationshipSpecialtyStart Date End Date Netolynda Nancy, DIAMOND SETTER APPRENTICE-SOFTWARE VALIDATION TECHNICIAN [address] [place] [address] PCP - GeneralInternal Medicine10/19/22Team MemberRelationshipSpecialtyStart Date End Date Tamie Gómez, DIAMOND SETTER APPRENTICE-SOFTWARE VALIDATION TECHNICIAN [address] [place] [facility] [address] PCP - GeneralInternal Medicine10/19/22Team MemberRelationshipSpecialtyStart Date End Date Tamie Gómez, DIAMOND SETTER APPRENTICE-SOFTWARE VALIDATION TECHNICIAN [address] [place] [facility] [address] PCP - GeneralInternal Medicine10/19/22am MemberRelationshipSpecialtyStart Date End Date Tamie Gómez, DIAMOND SETTER APPRENTICE-SOFTWARE VALIDATION TECHNICIAN [address] [place] [facility] [address] PCP - GeneralInternal Medicine10/19/22am MemberRelationshipSpecialtyStart Date End Date Tamie Gómez, DIAMOND SETTER APPRENTICE-[facility] [address] [place] [facility] [address] PCP - GeneralInternal Medicine10/19/22am MemberRelationshipSpecialtyStart Date End Date Yecenia Vazquez DO [address] [place] [address] PCP - GeneralInternal Medicine09/26/23Team MemberRelationshipSpecialtyStart Date End Date Yecenia Vazquez DO [address] [place] [address] PCP - GeneralInternal Medicine09/26/23Team MemberRelationshipSpecialtyStart Date End Date Yecenia Vazquez DO [address] [place] [address] PCP - GeneralInternal Medicine09/26/23Team MemberRelationshipSpecialtyStart Date End Date Yecenia Vazquez DO [address] [place] [address] PCP - GeneralInternal Medicine09/26/23Team MemberRelationshipSpecialtyStart Date End Date KenishaYecenia howell DO [address] [place] [address] PCP - GeneralInternal Medicine09/26/23Team MemberRelationshipSpecialtyStart Date End Date JannieYecenia aragon DO [address] [place] [address] PCP - GeneralInternal Medicine09/26/23Team MemberRelationshipSpecialtyStart Date End Date JannieYecenia aragon DO [address] [place] [address] PCP - GeneralInternal Medicine09/26/23Team MemberRelationshipSpecialtyStart Date End [...] DateEnd Date Yecenia Vazquez MD PCP - GeneralOro Valley Hospitalnal Medicine11/27/23 Leonidas Charles MD Referring PhysicianNeurolog07/10/24 Team [...] BE BASED ON THE PRIMARY CLINICAL RECORDS. [facility] [employer] [facility]. provides no warranty or guarantee of the accuracy or completeness of information in this document.
[2025-05-25 09:49] LABS: Thyroid Stimulating Hormone 3.342 uIU/mL (0.358-3.740)
== END 2025-05-25 08:48 | disposition home or self-care (01) ==
LOC: LAB 08:48
PROVIDERS: PCP Family Medicine; Visit Provider Family Medicine
DX: R79.89 Other specified abnormal findings of blood chemistry (principal)
CPT/HCPCS: 36415; 84439; 84443